=== PATIENT | female | born 1975 | race Caucasian/White ===

== ENCOUNTER 2022-03-09 10:10 | Outpatient (CLI) | payer OTHER, SELFPAY ==
--- NOTE | 2022-03-09 10:19 | CRLHL7_ITS ---
For Patients: As a result of the Century Cures Act, medical imaging exams and procedure reports are released immediately into your electronic medical record. You may view this report before your referring provider. If you have questions, please contact your health care provider. INDICATION: HX THYROID CANCER, RIGHT THYROIDECTOMY, 6 MONTH SURVEILLANCE COMPARISON: 07/16/2021 TECHNIQUE: Melton scale and color Doppler images were acquired of the thyroid gland. FINDINGS: Postoperative changes right thyroidectomy. Left thyroid lobe measures 4.9 x 1.6 x 1.5 cm. Stable cystic nodule posterior left thyroid measuring 9 x 8 x 6 millimeters. Stable sponge like nodule lower pole left thyroid lobe measuring 5 x 3 x 5 millimeters. Stable cystic nodule lower pole left thyroid lobe measuring 3 x 2 x 3 millimeters. No adenopathy. Normal vascularity. IMPRESSION: Status post right thyroidectomy. Stable benign nodules left thyroid lobe measuring 9 millimeters or less. Dictated by Rosas Meredith MD @ 03/09/2022 11:20:05 AM (Electronically Signed)
== END 2022-03-09 10:11 | disposition home or self-care (01) ==
LOC: US 10:13
PROVIDERS: PCP Internal Medicine; Visit Provider Internal Medicine Endocrinology, Diabetes & Metabolism
DX: C73 Malignant neoplasm of thyroid gland (principal)
CPT/HCPCS: 76536

== ENCOUNTER 2022-03-23 13:14 | Outpatient (CLI) | payer OTHER, SELFPAY ==
[2022-03-23 15:46] LABS: Cholesterol* 207 mg/dL (90-199)
[2022-03-23 15:47] LABS: HDL Cholesterol* 61 mg/dL (>=50); LDL Cholesterol Calculated 119 mg/dL (<100); Triglycerides* 135 mg/dL (40-149)
[2022-03-23 16:22] LABS: Ferritin* 21.2 ng/mL (6.24-137.0)
[2022-03-24 04:04] LABS: Glucose* 97 mg/dL (60-115)
== END 2022-03-23 13:15 | disposition home or self-care (01) ==
PROVIDERS: PCP Internal Medicine; Visit Provider Internal Medicine
DX: Z01.419 Encounter for gynecological examination (general) (routine) without abnormal findings (principal); E28.2 Polycystic ovarian syndrome; G47.61 Periodic limb movement disorder; Z13.6 Encounter for screening for cardiovascular disorders; Z13.1 Encounter for screening for diabetes mellitus
CPT/HCPCS: 80061; 82728; 82947

== ENCOUNTER 2022-05-20 12:45 | Emergency (ER) | payer MEDICAID, SELFPAY ==
[2022-05-20 13:03] VITALS: BP 129/88; PULSE 76; RESP 18; TEMP 36.5; O2SAT 99; BMI 35.4
--- NOTE | 2022-05-20 13:46 | CRLHL7_ITS ---
For Patients: As a result of the Century Cures Act, medical imaging exams and procedure reports are released immediately into your electronic medical record. You may view this report before your referring provider. If you have questions, please contact your health care provider. Indication: Fall Comparison: None available. Technique: AP and lateral views lumbar spine were obtained. Findings: There is demonstration of age indeterminate deformity of the anterior superior L4 vertebral body. The remaining vertebral body heights are grossly preserved with grade 2 anterolisthesis of L4 on L5. There is moderate facet arthrosis. There is mild to moderate multilevel degenerative disc disease with disc height loss and marginal osteophyte formation. The soft tissues are unremarkable. Impression: Age-indeterminate deformity of the anterosuperior L4 level which could represent an evolving Schmorl`s defect; however, a minimal compression fracture is difficult to exclude. Otherwise mild to moderate degenerative changes and anterolisthesis of L4 on L5. Dictated by Drew Hunt MD @ 05/20/2022 2:59:04 PM (Electronically Signed)
--- NOTE | 2022-05-20 13:46 | CRLHL7_ITS ---
For Patients: As a result of the Cures Act, medical imaging exams and procedure reports are released immediately into your electronic medical record. You may view this report before your referring provider. If you have questions, please contact your health care provider. Indication: Fall Comparison: None available. Technique: AP, lateral, and swimmer`s views thoracic spine were obtained. Findings: The thoracic vertebral body heights are grossly maintained with mild multi-level degenerative disc disease. There is no significant spondylolisthesis. There is no evidence of displaced fracture. The cervical thoracic junction is grossly intact. There is multilevel degenerative disc disease with mild disc height loss and marginal osteophyte formation. The partially visualized cervical soft tissues demonstrate postoperative changes with multiple surgical clips. Impression: Mild to moderate multilevel degenerative changes of the thoracic spine without acute osseous abnormality. Dictated by Drew Hunt MD @ 05/20/2022 3:00:41 PM (Electronically Signed)
--- OUTSIDE RECORDS SUMMARY | 2022-05-20 14:58 | XMS_ITS | Encounter Summary ---
:1975 Author Organization [facility] Address [address] [place] [address] Care Team Providers Name Role Phone Unavailable Primary Care Provider Unavailable Encounter Details Date Type Department Care Team Description 04/27/2022 Clinical Communication Division of [facility] in R, BLACK TOP ROLLER, C.N.P., [place], [place] D.N.P. [address] [facility] [address] [place] [id number] [phone] Social History Tobacco Use Types Packs/Day Years Used Date Smoking Tobacco: Never Smokeless Tobacco: Never Alcohol Habits Answer Date Recorded How often do you have a drink containing alcohol? Monthly or less 03/16/2022 How many drinks containing alcohol do you have on a 1 or 2 03/16/2022 typical day when you are drinking? How often do you have six or more drinks on one Never 03/16/2022 occasion? Social Isolation Answer Date Recorded In a typical week, how many times do you More than three liana es a week 03/16/2022 talk on the phone with family, friends, or neighbors? How often do you get together with friends More than three t imes a week 03/16/2022 or relatives? How often do you attend sikhism or Never 2021 christian services? Do you belong to any clubs or No 03/16/2022 organizations such as sikhism groups, unions, fraternal or athletic groups, or school groups? How often do you attend meetings of the Never 03/16/2022 clubs or organizations you belong to? Are you now , , , Never 03/16/2022 , never or living with a partner? Physical Activity Answer Date Recorded On average, how many days per week do you engage in moderate to 6 days 03/16/2022 strenuous exercise (like walking fast, running, jogging, dancing, swimming, biking, or other activities that cause a light or heavy sweat)? On average, how many minutes do you engage in exercise at th is 60 min 03/16/2022 level? Stress Answer Date Recorded Do you feel stress - tense, restless, nervous, or To some ex tent 03/16/2022 anxious, or unable to sleep at night because your mind is troubled all the time - these days? Financial Resource Strain Answer Date Recorded How hard is it for you to pay for the very basics like Not v tashi hard 03/16/2022 food, housing, medical care, and heating? Intimate Partner Violence Answer Date Recorded Within the last year, have you been afraid of your partner o r No 03/16/2022 ex-partner? Within the last year, have you been humiliated or emotionall y No 03/16/2022 abused in other ways by your partner or ex-partner? Within the last year, have you been kicked, hit, slapped, or No 03/16/2022 otherwise physically hurt by your partner or ex-partner? Within the last year, have you been raped or forced to have any No 03/16/2022 kind of sexual activity by your partner or ex-partner? Food Insecurity Answer Date Recorded Within the past 12 months, you worried that your food would Never true 03/16/2022 run out before you got money to buy more. Within the past 12 months, the food you bought just didn't N ever true 03/16/2022 last and you didn't have money to get more. Transportation Needs Answer Date Recorded In the past 12 months, has lack of transportation kept you f rom No 03/16/2022 medical appointments or from getting medications? In the past 12 months, has lack of transportation kept you f rom No 03/16/2022 meetings, work, or getting things needed for daily living? Housing Stability Answer Date Recorded In the last 12 months, was there a time when you were not ab le No 03/16/2022 to pay the mortgage or rent on time? In the last 12 months, how many places have you lived? 1 03/16/2022 In the last 12 months, was there a time when you did not hav e a No 03/16/[address] or slept in a assisted (including now)? Education Answer Date Recorded What is the highest level of school Master's degree (e.g., Lissett Manzo MS, 10/11/2019 you have completed or the highest Wilfredo, MEd, CAREER EDUCATION TEACHER, CHANEL) degree you have received? Sex Assigned at Date Recorded Female 03/15/2021 1:43 PM CDT documented as of this encounter Plan of Treatment Not on filedocumented as of this encounter Visit Diagnoses Not on filedocumented in this encounter
--- OUTSIDE RECORDS SUMMARY | 2022-05-20 14:58 | XMS_ITS | Clinical Summary ---
:1975 Author Organization [facility] Address [address] [place] [address] Care Team Providers Name Role Phone Unavailable Primary Care Provider Unavailable Source Comments Patient records contain information from all sites at [facility]. For routine questions regarding patient records, call [phone] during business hours, M-F 8:00 AM - 5:00 PM Central Time. Record requests for emergency care only can be directed to [phone] at any time.[facility] Allergies Active Allergy Reactions Severity Noted Date Comments Kiwi Anaphylaxis 10/16/2019 Slight airway s welling Nut - Unspecified Anaphylaxis 10/16/[address] Hazelnut Medications Medication Sig Dispensed Refills Start Date End Date Status mometasone-formoter Inhale 2 puffs 2 13 g 11 03/16/2022 Active ol (Dulera) 200-5 (two) times a mcg/actuation day. use with inhaler tape recording machine operator tube, then rinse mouth with water and spit out after each use. Do not swallow. montelukast Take 1 tablet 90 tablet 11 03/16/2022 Act anjali (SINGULAIR) 10 mg (10 mg total) by tablet mouth daily. Ventolin HFA 90 Inhale 2 puffs 18 g 2 03/16/2022 Active mcg/actuation every 6 (six) inhaler hours as needed for wheezing. fluticasone Administer 2 32 g 11 03/16/2022 Acti ve propionate sprays into each (FLONASE) 50 nostril 2 (two) mcg/actuation nasal times a day. spray levothyroxine Take 100 mcg by 0 04/13/2022 Active (SYNTHROID, mouth daily. LEVOTHROID) 100 mcg tablet levothyroxine Take 88 mcg by 0 02/11/2022 Active (SYNTHROID, mouth daily. LEVOTHROID) 88 mcg tablet budesonide Mix 1 ampule 120 mL 11 03/16/2022 Disco ntinued (PULMICORT) 0.5 budesonide in 8 2 mg/2 mL nebulizer oz saline solution solution.?? Irrigate 4 oz into each nostril twice daily.?? Supplies needed:?? Nasal Saline Irrigation Bottle, distilled water, nasal saline packet. May substitute 0.6 mg capsule if insurance does not cover the 0.5 mg respule. OK for generic. budesonide Indications: 120 mL 6 03/24/2022 Disco ntinued (Pulmicort) 0.5 controller 2 mg/2 mL nebulizer medication for solutionIndications asthma. Mix 1 : maintenance ampule in sinus therapy for asthma irrigation bottle and irrigate twice daily. Active Problems Problem Noted Date Polyposis Nasal 03/24/2022 Asthma NOS 09/13/2009 Encounters Date Type Specialty Care Team Description 04/27/2022 Clinical Endocrinology [facility], Communication Naomi Claudio APRN, C.N.P., D.N.P. 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 04/06/2022 Hospital Encounter Laboratory Medicine Reji Terry, Cancer Thyroid M.D. Papillary Perso nal History 03/24/2022 Ancillary Procedure 03/24/2022 Comprehensive Otorhinolaryngology AllenSaadia Harry Polypo sis Nasal Visit Courtney Moore 03/19/2022 Hospital Encounter Radiology Reji Terry, Cancer Thyroid M.D. Papillary Perso nal History 03/16/2022 Office Visit Allergy and Immunology Reji Terry, Ast hma Moderate Persistent (HCC) (Primary Dx); M.D. Polyposis Nasal ; Rhinitis Allerg ic; Cancer Thyroid Papillary Personal History 03/16/2022 Clinical Support Allergy and Immunology Reji Terry, Asthma Moderate Persistent (HCC); M.D. Polyposis Nasal; Schlichter, Rhinosinusitis Chronic Myah Galeana R.N. 03/13/2022 Clinical Admitting/Central Communication Scheduling 03/13/2022 Refill Allergy and Immunology Reji Terry Med Refill M.D. from Last 3 Months Immunizations Name Administration Dates Next Due Tdap 09/13/2009 Social History Tobacco Use Types Packs/Day Years Used Date Smoking Tobacco: Never Smokeless Tobacco: Never Tobacco Cessation: Counseling Given: Not Answered Alcohol Habits Answer Date Recorded How often [...] or relatives? How often do you attend zoroastrian or Never 2021 congregation services? Do you belong to any clubs or No 03/16/2022 organizations such as zoroastrian groups, unions, fraternal or athletic groups, or [...] place to sleep or slept in a care home (including now)? Education Answer Date Recorded What is the highest level of school Master's degree (e.g., M A, MS, 10/11/2019 you have completed or the highest Wilfredo, MEd, POWER BENDER OPERATOR, CHANEL) degree you have received? Sex Assigned at Date Recorded Female 03/15/2021 1:43 PM CDT Last Filed Vital Signs Vital Sign Reading Time Taken Comments Blood Pressure 115/90 07/26/2017 1:16 PM Vital sign result PERINATAL SOCIAL WORKER from Clinical No gregory. Pulse 72 07/26/2017 1:16 PM Vital sign result PERINATAL SOCIAL WORKER from Clinical No gregory. Temperature 36.1 ??C (97 ??F) 03/16/2022 9:47 AM CDT Respiratory Rate 14 12/03/2011 10:27 Vital sign result AM CDT from Clinical No gregory. Oxygen Saturation - - Inhaled Oxygen - - Concentration Weight 98.1 kg (216 lb 2.6 03/16/2022 9:47 AM oz) CDT Height 161.1 cm (5' 3.43) 03/16/2022 9:47 AM CDT Body Mass Index 37.78 03/16/2022 9:47 AM CDT Plan of Treatment Health Maintenance Due Date Last Done Comments CT Colonography 1975 Cervical Cancer Screening 1975 Cologuard 1975 Colonoscopy 1975 Colorectal Cancer Screening 1975 FIT 1975 HIV Screening 1975 Hepatitis C Screening 1975 Lipid (Cholesterol) Screening 1975 Mammogram 1975 Asthma Action Plan 10/27/2017 05/06/2016, 05/08/2015, 11/28/2013, Additional history exists Asthma Control Test Questionnaire 10/27/2017 Fasting Glucose for Diabetes 05/06/2019 05/06/2016, 012, Screening 10/13/2011 Depression Screening (Annual 06/28/2021 PHQ-2) COVID-19 Vaccine (5 - Booster for 03/17/2022 01/20/2022, , Moderna series) 10/16/2020, Additional history exists Pneumococcal vaccine (0-64 years) 03/20/2022 03/20/2021 (2 - PCV) Influenza Vaccine (#1) 2022 03/20/2021 Thyroid Stimulating Hormone (TSH) 04/06/2023 04/06/2022, test for thyroid function DTaP,Tdap,and Td Vaccines (3 - Td 03/20/2031 03/20/2021, or Tdap) Hepatitis B Vaccines Completed 04/29/2010, 02/05/2010, 12/26/2009 Procedures Procedure Name Priority Date/Time Associated Comments Diagnosis THYROGLOBULIN, TM, S Routine 04/24/2022 4:50 Cancer Thyroid Re sults for PM CDT Papillary this procedure Personal are in the History results section. THYROID-STIMULATING Routine 04/06/2022 Cancer Thyroid Result s for HORMONE-SENSITIVE (S-TSH) 10:13 AM CDT Papillary th is procedure Personal are in the History results section. T4 (THYROXINE), FREE, S Routine 04/06/2022 Cancer Thyroid Re sults for 10:13 AM CDT Papillary this procedure Personal are in the History results section. OTORHINOLARYNGOLOGY IMAGE Routine 03/24/2022 9:53 Results for EXAM AM CDT this procedure are in the results section. US THYROID RAD - Routine 03/19/2022 1:31 Cancer Thyroid Results f or (most inpatients PM CDT Papillary this proced ure and all Personal are in the outpatients) History results section. MD SPIROMETRY Routine 03/16/2022 Asthma Moderate Results for 10:04 AM CDT Persistent this procedure (HCC) are in the Polyposis Nasal results Rhinosinusitis section. Chronic from Last 3 Months Results (ABNORMAL) Thyroglobulin, Tumor Marker (04/24/2022 4:50 PM CDT) [facility] [place] Method Time Signature Thyroglobulin <1.8 <1.8 04/24/2022 [facility] Antibody, S IU/mL 9:25 PM CDT Thyroglobulin, 1.3 (H) ng/mL 04/24/2022 [facility] Tumor Marker, S 9:21 PM CDT Comment: ----REFERENCE VALUE---- Athyrotic <0.1 Intact Thyroid <=33 Thyroglobulin Interpretation SEE COMMENT 9:25 PM CDT [facility] Comment: Thyroglobulin (Tg) levels must be interp reted in the context of TSH levels, serial Tg measurements an d radioiodine ablation status. ??Tg levels of 0.1-2.0 ng/mL in athyrotic individuals on suppressive therapy indic ate a low risk of clinically detectable recurrent papillar y/follicular thyroid cancer. ?? ----ADDITIONAL INFORMATION---- PLEASE NOTE: A thyroglobulin antibody (T Lukas) reference cutoff of <4.0 IU/mL may be more suitabl e for the evaluation of autoimmune thyroiditis. Thyroglobulin flagging is based on athyr otic reference values. The thyroglobulin and thyroglobulin anti body testing methods are immunoenzymatic assays manufactured by [employer] and performed on the Onepager DXI 800 . Values obtained from different assay met hods or kits may be different and cannot be used inte rchangeably. The results cannot be interpreted as abs olute evidence for the presence or absence of malignant disease. Specimen Anatomical Collection Method Collection Time Receive d Time (Source) Location / / Volume Laterality Blood (Blood, 04/24/2022 4:50 PM 04/24/20 22 8:18 Venous) CDT PM CDT Naomi Meadows APRN, C.N.P., D.N.P. LAB BLOOD ADD -ON Performing Organization Address City/[facility] Phon e Number [facility] [address] [place], [place] [address] [place], [place] [id number] [place], [place] [address] [place] [address] [place] S-TSH (Thyroid-Stimulating Hormone - Sensitive) (04/06/2022 10:13 AM CDT) athologist Signature TSH, Sensitive 0.9 0.3 - 4.2 04/06/2022 DTL mIU/L 11:25 AM CDT Specimen Anatomical Collection Method Collection Time Receive d Time (Source) Location / / Volume Laterality Blood (Blood, 04/06/2022 10:13 04/06/2022 Venous) AM CDT 10:51 AM CDT Reji Terry M.D. LAB BLOOD ADD-ON Performing Organization Address City/[facility] Phon e Number [facility] - [address] [place] [address] [place], [place] [id number] [place] [address] T4 (Thyroxine), Free (04/06/2022 10:13 AM CDT) P athologist Signature T4 (Thyroxine), 1.6 0.9 - 1.7 04/06/2022 DTL Free, S ng/dL 11:25 AM CDT Specimen Anatomical Collection Method Collection Time Receive d Time (Source) Location / / Volume Laterality Blood (Blood, 04/06/2022 10:13 04/06/2022 Venous) AM CDT 10:51 AM CDT Reji Terry M.D. LAB BLOOD ADD-ON Performing Organization Address City/State/ZIP Code Phon e Number [facility] - [address] [place], [place] [address] [facility] [place] [address] Laboratories-[facility] [address] NOSE-Otorhinolaryngology Image Exam (03/24/2022 9:53 AM CDT) Specimen (Source) Anatomical Collection Method Collection Time Re ceived Time Location / / Volume Laterality 03/24/2022 10:27 AM CDT Narrative [facility] - 03/24/2022 9:53 AM CDT This order has been created and auto-finalized to support the import of images acquired without order. The clini josefina documentation to support these images can be found on the encounter gabriel t produced images. Provider Not In System IMG NON RAD IMAGING PROCEDUR ES Performing Organization Address City/State/ZIP Code Phon e Number [facility] NA US Thyroid (03/19/2022 1:31 PM CDT) Anatomical Region Laterality Modality Head and Neck, Ultrasound RST LOS, Ultrasound ARZ LOS, N/A Ultrasound Ultrasound FLA LOS Specimen (Source) Anatomical Collection Method Collection Time Re ceived Time Location / / Volume Laterality 03/19/2022 1:37 PM CDT Impressions 03/19/2022 1:42 PM CDT The right thyroid lobe is surgically absent. Subcentimeter nodules in the left thyroid lobe are of no suspicion or extremely lo w suspicion. No suspicious nodes identified in the neck. Narrative 03/19/2022 1:42 PM CDT EXAM: US THYROID COMPARISON: None FINDINGS: The right thyroid lobe is surgically abs ent. The left thyroid lobe measures: 1.5 cm x 1.8 cm x 5.8 cm The isthmus measures: 3 mm in AP diamete r. Thyroid parenchymal evaluation shows: Th e right thyroid lobe is surgically absent. 0.9 cm cyst in the posterior upper left thyroid lobe is of no suspicion. 0.6 cm spongiform nodule in the left lower lobe is of extremely low suspicion. Lymph nodes: ??Neck levels 1-7 were surv eyed and demonstrated a tiny slightly echogenic 7 mm nodule in the upper right thyroid bed which lik estuardo represents minimal remnant thyroid tissue. No suspicious nodes identified in the neck. Procedure Note Keri Rogers M.D. - 03/19/2022Form atting of this note might be different from the original. EXAM: US THYROID COMPARISON: None FINDINGS: The right thyroid lobe is surgically abs ent. The left thyroid lobe measures: 1.5 cm x 1.8 cm x 5.8 cm The isthmus measures: 3 mm in AP diamete r. Thyroid parenchymal evaluation shows: Th e right thyroid lobe is surgically absent. 0.9 cm cyst in the posterior upper left thyroid lobe is of no suspicion. 0.6 cm spongiform nodule in the left lower lobe is of extremely low suspicion. Lymph nodes: Neck levels 1-7 were survey ed and demonstrated a tiny slightly echogenic 7 mm nodule in the upper right thyroid bed which lik estuardo represents minimal remnant thyroid tissue. No suspicious nodes identified in the neck. IMPRESSION: The right thyroid lobe is surgically abs ent. Subcentimeter nodules in the left thyroid lobe are of no suspicion or extremely lo w suspicion. No suspicious nodes identified in the neck. Reji Terry M.D. IMG US PROCEDURES Spirometry (03/16/2022 10:04 AM CDT) P athologist Signature VC MAX PRE 3.39 L 03/17/2022 [facility] 3:18 PM CDT [address] FVC 3.32 L 03/17/2022 [facility] 3:18 PM CDT SUITE FEV1 2.64 L 03/17/2022 [facility] 3:18 PM CDT SUITE FEV1/FVC 79.34 % 03/17/2022 [facility] 3:18 PM CDT SUITE DTE31-33% 2.31 L/s 03/17/2022 [facility] 3:18 PM CDT SUITE PEF PRE 7.06 L/s 03/17/2022 [facility] 3:18 PM CDT [address] FET PRE 6.72 sec 03/17/2022 [facility] 3:18 PM CDT SUITE % PRED VC MAX 99 % % 03/17/2022 [facility] 3:18 PM CDT SU[address] FVC% 97 % % 03/17/2022 [facility] 3:18 PM CDT SUITE FEV1% 96 % % 03/17/2022 [facility] 3:18 PM CDT SUITE % PRED FEV1/FVC 98 % % 03/17/2022 [facility] 3:18 PM CDT SUITE % PRED FEF 84 % % 03/17/2022 [facility] 25-75% 3:18 PM CDT SUITE % PRED PEF 119 % % 03/17/2022 [facility] 3:18 PM CDT SU[address] PRED VC MAX 3.41 03/17/2022 [facility] 3:18 PM CDT SUITE PRED FVC 3.41 03/17/2022 [facility] 3:18 PM CDT SUITE PRED FEV 1 2.74 03/17/2022 [facility] 3:18 PM CDT SUITE PRED FEV1/FVC 80.8 03/17/2022 [facility] 3:18 PM CDT SUITE PRED FEF 25-75% 2.75 03/17/2022 [facility] 3:18 PM CDT SU[address] PRED PEF 6.0 03/17/2022 [facility] 3:18 PM CDT SUITE Specimen (Source) Anatomical Collection Method Collection Time Re ceived Time Location / / Volume Laterality 03/16/2022 10:04 AM CDT Impressions [facility] SUITE - 03/17/2022 3:18 PM C DT Within normal limits. Clinical correlati on is recommended. Narrative This result has an attachment that is no t available. Procedure Note Hira Prasad M.B.B.S., Ph.D. - 02/27 IMPRESSION: Within normal limits. Clinical correlati on is recommended. Reji Terry M.D. PFT ORDERABLES Performing Organization Address City/State/ZIP Code Phon e Number [facility] [address] from Last 3 Months Insurance Payer Benefit Plan Subscriber ID Effective Dates Phone Address Type / Group [facility] [id number] 2021-Presen [phone] [address] Medicaid HMO t [address] [place] [address]
--- OUTSIDE RECORDS SUMMARY | 2022-05-20 14:59 | XMS_ITS | Encounter Summary ---
:1975 Author Organization [facility] Address [address] [place] [address] Care Team Providers Name Role Phone Unavailable Primary Care Provider Unavailable Encounter Details Date Type Department Care Team Description 09/01/2021 Clinical Communication Division of Allergic [place], Diseases in [place], [place] [phone] [address] [facility] (Work) [place] [phone] Social History Tobacco Use Types Packs/Day Years Used Date Smoking Tobacco: Never Alcohol Habits Answer Date Recorded [...] or relatives? How often do you attend mandaen or Never 2021 orthodox services? Do you belong to any clubs or No 03/16/2022 organizations such as mandaen groups, unions, fraternal or athletic groups, or [...] place to sleep or slept in a group home (including now)? Education Answer Date Recorded What is the highest level of school Master's degree (e.g., M A, MS, 10/11/2019 you have completed or the highest Wilfredo, MEd, MANUFACTURERS AGENT, CHANEL) degree you have received? Sex Assigned at Date Recorded Female 03/15/2021 1:43 PM CDT documented as of this encounter Miscellaneous Notes Telephone Encounter - Cristela Mayer R.N. - 09/03/2021 10:27 AM CST Spoke with patient and relayed Dr. Terry's message. Patient is in agreement and will be reaching out to that provider to update them. Cristela Mayer R.N. SACTION MANAGER Telephone Encounter - Rosalia Lovell - 09/01/2021 12:20 PM CST Ms. Garcia called today to inquire if she needs to see Dr. Terry prior to a surgery she is having . She is having a cancerous nodule removed from her thyroid. She was not sure if it was necessary but wanted to check. She can be reached at [phone] SACTION MANAGER documented in this encounter Plan of Treatment Not on filedocumented as of this encounter Visit Diagnoses Not on filedocumented in this encounter
--- OUTSIDE RECORDS SUMMARY | 2022-05-20 14:59 | XMS_ITS | Encounter Summary ---
:1975 Author Organization [facility] Address [address] [place] [address] Care Team Providers Name Role Phone Unavailable Primary Care Provider Unavailable Encounter Details Date Type Department Care Team Description 09/01/2021 Clinical Communication Division of Allergic [place], Diseases in [place], [place] [phone] [address] [facility] (Work) [place] [phone] Social History Tobacco Use Types Packs/Day Years [...] or relatives? How often do you attend latter-day or Never 2021 gnosticism services? Do you belong to any clubs or No 03/16/2022 organizations such as latter-day groups, unions, fraternal or athletic groups, or [...] place to sleep or slept in a intermediate (including now)? Education Answer Date Recorded What is the highest level of school Master's degree (e.g., Lissett Manzo MS, 10/11/2019 you have completed or the highest Wilfredo, MEd, METAL TEMPLATE MAKER, CHANEL) degree you have received? Sex Assigned at Date Recorded Female 03/15/2021 1:43 PM CDT documented as of this encounter Plan of Treatment Not on filedocumented as of this encounter Visit Diagnoses Not on filedocumented in this encounter
--- OUTSIDE RECORDS SUMMARY | 2022-05-20 14:59 | XMS_ITS | Encounter Summary ---
:1975 Author Organization [facility] Address [address] [place] [address] Care Team Providers Name Role Phone Unavailable Primary Care Provider Unavailable Reason for Visit Reason Comments Med Refill Encounter Details Date Type Department Care Team Description 10/15/2021 Refill Division of Allergic Diseases Reji Sims M.D. Med Refill in [facility] [address] [facility] [address] [place] [address] [place] [phone] Social History Tobacco Use Types Packs/Day Years [...] or relatives? How often do you attend protestant or Never 2021 church services? Do you belong to any clubs or No 03/16/2022 organizations such as protestant groups, unions, fraternal or athletic groups, or [...] place to sleep or slept in a usp (including now)? Education Answer Date Recorded What is the highest level of school Master's degree (e.g., Lissett Manzo MS, 10/11/2019 you have completed or the highest Wilfredo, Jake, TRACK REPAIRER, CHANEL) degree you have received? Sex Assigned at Date Recorded Female 03/15/2021 1:43 PM CDT documented as of this encounter Plan of Treatment Not on filedocumented as of this encounter Visit Diagnoses Not on filedocumented in this encounter
--- OUTSIDE RECORDS SUMMARY | 2022-05-20 14:59 | XMS_ITS | Encounter Summary ---
:1975 Author Organization [facility] Address [address] [place] [address] Care Team Providers Name Role Phone Unavailable Primary Care Provider Unavailable Reason for Referral Outpatient (Routine) - Authorized Specialty Diagnoses / Procedures Referred By Contact Refer red To Contact Endocrinology Ángel Fang M.D. [facility] [address] [place], [place] [phone] Referral ID Status Reason Start Date Expiration Date Visits V isits Requested Authorized [id number] Authorized 04/24/2022 04/23/2025 1 1 Scheduling Instructions Okay to be scheduled with Naomi tellez utpatient (Routine) - Authorized Specialty Diagnoses / Procedures Referred By Contact Refer red To Contact Diagnoses Malignant Neoplasm Of Thyroid Papillary (HCC) Ángel Fang M.D. [facility] Procedures US Head Neck Soft Tissue [address] [place], [place] [phone] Referral ID Status Reason Start Date Expiration Date Visits V isits Requested Authorized [id number] Authorized 04/24/2022 04/24/2023 1 1 Reason for Visit Outpatient (Routine) - Closed Specialty Diagnoses / Procedures Referred By Contact Refer red To Contact Endocrinology Diagnoses Cancer Thyroid Papillary Personal History Reji Terry M.D. [facility] [address] [place], [place] [phone] Referral ID Status Reason Start Date Expiration Date Visits Requ ested Visits Authorized [id number] Closed 03/16/2022 03/16/2023 1 1 Encounter Details Date Type Department Care Team Description 04/24/2022 Comprehensive Visit Division of Reji Terry M.D. [address] [place] [phone] Malignant Neoplasm Of Thyroid Papillary (HCC) (Primary Dx); Endocrinology in Ángel Fang M.D. [address] [place] [phone] Cancer Thyroid Papillary Personal Histor y [place], [place] [address] [place] [phone] Social History Tobacco Use Types Packs/Day Years [...] or relatives? How often do you attend jew or Never 2021 yarsanism services? Do you belong to any clubs or No 03/16/2022 organizations such as jew groups, unions, fraternal or athletic groups, or [...] place to sleep or slept in a long term (including now)? Education Answer Date Recorded What is the highest level of school Master's degree (e.g., M A, MS, 10/11/2019 you have completed or the highest Wilfredo, MEd, ORDER PULLER, CHANEL) degree you have received? Sex Assigned at Date Recorded Female 03/15/2021 1:43 PM CDT documented as of this encounter Progress Notes Naomi Meadows, LESLEE, C.N.P., D.N.P. - 04/24/2022 3:30 PM CDT CHIEF COMPLAINT / REASON FOR VISIT Ena Garcia is a 46 y.o. female presenting today consultation with history of papillary thyroid cancer. SUBJECTIVE HISTORY OF PRESENT ILLNESS Patient is a pleasant 46-year-old female who presents to clinic today for consultation and to establish care. She previously has been seen at [facility]. She reports that a suspicious thyroid nodule was identified incidentally through chest CT after a horseback riding accident in June of 2021. Luckily, she did not sustain any significant injuries from her accident. Her primary care providerat [place] completed an ultrasound and biopsy where the nodule was found to be positive for PTC. She underwent right lobectomy in August of 2021. Reviewed the pathology report from [facility] available for review in document viewer. The primary nodule was 2.4 cm with uninvolved margins and no extrathyroidal extension. Staging was a PT2 and no lymph nodes were surveyed. She did not undergo RAMIREZ treatment postop, as expected. She reports calcium levels within normal limits and denies any changes to voice postoperatively. She has been taking levothyroxine dating back to several weeks postoperative. She has been at her current dose of 100 mcg since 03/04/2022 and has been doing well. She reports that initial symptoms of low energy and coldintolerance have been improving since dose optimization. Labs from 04/06/2022 show TSH at goal at 0.9 and free T4 at 1.6. Ultrasound imaging from 03/19/2022 show right lobectomy and subcentimeter nodules in the left thyroid that are of no suspicion or extremely low suspicion without suspicious lymphadenopathy. She denies any history of head or neck radiation. She notes her father had some sort of thyroid procedure many years ago, but she is unsure what his diagnosis was and he has since . She does note some systemic symptoms including difficulty staying asleep, muscle weakness, and intermittent heart palpitations. However, considering patient is biochemically euthyroid, unable to correlate symptoms with thyroid dysfunction. REVIEW OF SYSTEMS Respiratory: Positive for coughing up mucus (phlegm), dry cough, shortness of breath and wheezing. The following systems were negative: Constitutional, Skin, Eyes, ENT, Cardiovascular, Gastrointestinal, Genitourinary, Hematologic, Musculoskeletal, Neurological, Psychiatric OBJECTIVE There were no vitals taken for this visit. PHYSICAL EXAM GENERAL: Alert and oriented to person, place, and time. Resting comfortably on the exam table. No acute distress. SKIN: Flesh-toned. Warm and dry. HEAD: Normocephalic. Atraumatic. EYES: Conjunctiva clear and non-injected. Sclera white. No discharge present. NECK: Supple. Josue scar well healed without signs of infection.Left thyroid lobe without palpable nodules. LYMPHATIC: No head, neck, or supraclavicular lymphadenopathy. RESPIRATORY: Respiratory rate regular and unlabored. PSYCHIATRIC: Appropriate affect. Cooperative behavior. ASSESSMENT / PLAN #1 Malignant Neoplasm Of Thyroid Papillary (HCC) Reviewed with patient the results of her ultrasound which did not show any evidence of recurrent disease. Reviewed with patient the results of her labs, and shared with her the goal for TSH to be in the lower half of the reference range. Ordered thyroglobulin tumor marker to be completed today as thiswas not previously ordered. If her thyroglobulin is not significantly elevated, we will plan to follow-up with patient with endocrinology appointment, labs, and ultrasound in 9 months. Will be in contact with patient with results of thyroglobulin once it becomes available. Would encourage patient to seek evaluation from her primary care provider regarding her systemic symptoms as I do not believe they can be attributed to her thyroid. 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 Recommend goal TSH in the lowerhalf of normal. Plan to continue with current dosing of levothyroxine 100 mcg. Will recheck thyroid function tests in 1 year unless concerns arise. Other orders - Endocrinology office visit (clinic); Future; Expected date: 01/22/2023 documented in this encounter Consult Notes Ángel Fang M.D. - 04/24/2022 3:30 PM CDT SUBJECTIVE HISTORY OF PRESENT ILLNESS I visited with Ena, and I agree with Naomi Meadows's history, physical exam, and management plan. In brief, this lady is here to establish care for papillary thyroid carcinoma. This was an incidental diagnosis after an accident she had earlier this year. A thyroid nodule was then treated with a right lobectomy and a 2.4-cm PTC was identified. Features of pathology are described in detail by my colleague, but basically this was low-risk disease without lymph node involvement. She has been placed on levothyroxine and is here without anything concerning for hypo- or hyperthyroidism and without any local symptoms suggestive of residual disease. OBJECTIVE PHYSICAL EXAMINATION General: She is slightly overweight but in no physical distress. Neck: Her neck is supple and the scar is well healed. There is no remnant palpable on the right neck, and there is no suspicious adenopathy. No nodules identified over the left neck DIAGNOSTICS Laboratory data reviewed which indicates a TSH of 0.9, and the ultrasound reviewed in detail does not indicate any suspicious areas over the right bed or any cervical adenopathy. Left lobe has couple lesions of no concern. ASSESSMENT / PLAN #1 Papillary thyroid carcinoma, status post right lobectomy (August 2021) This seemed to be low-risk disease and she has done quite well based on available data. I think thatthe outcome is excellent and I recommend we monitor in another 9 months. Goal is a TSH lower half ofnormal range. She is there. Further details per Dori. Ángel Fang M.D. CT CT Job ID: [id number] documented in this encounter Plan of Treatment Scheduled Orders Name Type Priority Associated Diagnoses Order S chedule US Head Neck Soft Imaging Malignant Neoplasm Of E xpected: 01/22/2023 Tissue Thyroid Papillary (HCC) (Hipolito roximate), Expires: 2024 S-TSH Lab Routine Malignant Neoplasm Of Expect ed: 01/22/2023 (Thyroid-Stimulating Thyroid Papillary (H CC) (Approximate), Hormone - Sensitive) Expires : 04/24/2023 T4 (Thyroxine), Free Lab Routine Malignant Neoplasm O f Expected: 01/22/2023 Thyroid Papillary (HCC) (Hipolito roximate), Expires: 2022 Thyroglobulin, Tumor Lab Routine Malignant Neoplasm O f Expected: 01/22/2023 Marker Thyroid Papillary (HCC) (Hipolito roximate), Expires: 2022 Scheduled Referrals Name Type Priority Associated Order Schedule Diagnoses Endocrinology office Outpatient Referral Routine Expected: visit (clinic) 01/22/2023 (Approximate), Expires: 07/25/2023 documented as of this encounter Results (ABNORMAL) Thyroglobulin, Tumor Marker (04/24/2022 4:50 PM CDT) [facility] Method Time Signature Thyroglobulin <1.8 <1.8 04/24/2022 [facility] Antibody, S IU/mL 9:25 PM CDT Thyroglobulin, 1.3 (H) ng/mL 04/24/2022 [facility] Tumor Marker, S 9:21 PM CDT Comment: [...] testing methods are immunoenzymatic assays manufactured by [employer] and performed on the [employer] DXI 800 . Values obtained from different assay met hods or kits may be different and cannot be used inte rchangeably. The results cannot be interpreted as abs olute evidence for the presence or absence of malignant disease. Specimen Anatomical Collection Method Collection Time Receive d Time (Source) Location / / Volume Laterality Blood (Blood, 04/24/2022 4:50 PM 04/24/20 8:18 Venous) CDT PM CDT Naomi Meadows APRN, C.N.P., D.N.P. LAB BLOOD ADD -ON Performing Organization Address City/State/ZIP Code Phon e Number [facility] [address] [place], [place] [phone] [facility] [place] [address] [facility] [address] [place] documented in this encounter Visit Diagnoses Diagnosis Malignant Neoplasm Of Thyroid Papillary (HCC) - Primary Cancer Thyroid Papillary Personal Histor y documented in this encounter
--- OUTSIDE RECORDS SUMMARY | 2022-05-20 14:59 | XMS_ITS | Encounter Summary ---
:1975 Author Organization [facility] Address [address] [place] [address] Care Team Providers Name Role Phone Unavailable Primary Care Provider Unavailable Encounter Details Date Type Department Care Team Description 03/13/2022 Clinical Communication Visit Review in [place], [place] [address] [place], [place] [phone] Social History Tobacco Use Types Packs/Day Years [...] do you attend jew or Never 2021 alevism services? Do you belong to any clubs [...] place to sleep or slept in a halfway (including now)? Education Answer Date Recorded What is the highest level of school Master's degree (e.g., Lissett Manzo MS, 10/11/2019 you have completed or the highest Wilfredo, Jake, BEHAVIORAL HEALTH COUNSELOR, CHANEL) degree you have received? Sex Assigned at Date Recorded Female 03/15/2021 1:43 PM CDT documented as of this encounter Plan of Treatment Not on filedocumented as of this encounter Visit Diagnoses Not on filedocumented in this encounter
--- OUTSIDE RECORDS SUMMARY | 2022-05-20 14:59 | XMS_ITS | Encounter Summary ---
:1975 Author Organization [facility] Address [address] [place] [address] Care Team Providers Name Role Phone Unavailable Primary Care Provider Unavailable Reason for Visit Reason Comments Allergy Testing Spirometry Outpatient (Routine) - Closed Specialty Diagnoses / Procedures Referred By Contact Refer red To Contact Diagnoses Asthma Moderate Persistent (HCC) Rhinitis Allergic Polyposis Nasal Chronic Cough Reji Terry M.D. [facility] Procedures Spirometry [address] [place] [phone] Referral ID Status Reason Start Date Expiration Date Visits Requ ested Visits Authorized [id number] Closed 12/25/2020 12/25/2021 1 1 Encounter Details Date Type Department Care Team Description 03/17/2021 Clinical Support Division of Allergic Tan Terry M.D. [address] [place] [phone] Asthma Moderate Persistent (HCC); Diseases in Kathrine Cuevas R.N. [address] [place] [phone] Rhinitis Allergic; [place], [place] Polyposis Nasal; [address] [facility] [place] [phone] Social History Tobacco Use Types Packs/Day Years [...] or relatives? How often do you attend samaritan or Never 2021 episcopal services? Do you belong to any clubs or No 03/16/2022 organizations such as samaritan groups, unions, [email or web address] or athletic groups, or school groups? How [...] have completed or the highest Wilfredo, MEd, SWIMMING POOL SALESPERSON, CHANEL) degree you have received? Sex Assigned at Date Recorded Female 03/15/2021 1:43 PM CDT documented as of this encounter Plan of Treatment Not on filedocumented as of this encounter Procedures Procedure Name Priority Date/Time Associated Comments Diagnosis NV BRONCHODILATION Routine 03/17/2021 1:10 Asthma Moderate Res ults for this RESPONSIVENESS PM CDT Persistent (HCC) procedure are in Rhinitis Allergi c the results Polyposis Nasal section. Chronic Cough documented in this encounter Results Spirometry (03/17/2021 1:10 PM CDT) Analysis Performed At Patho logist Time Signature VC MAX POST 3.27 L 03/19/2021 [facility] 8:39 AM CDT SUITE PostFVC 3.26 L 03/19/2021 [facility] 8:39 AM CDT SUITE PostFEV1 2.60 L 03/19/2021 [facility] 8:39 AM CDT SUITE FEV1/FVC POST 79.71 % 03/19/2021 [facility] 8:39 AM CDT SUITE FEF 25-75 % 2.29 L/s 03/19/2021 [facility] 8:39 AM CDT SUITE PEF POST 6.49 L/s 03/19/2021 [facility] 8:39 AM CDT SUITE FET POST 7.87 sec 03/19/2021 [facility] 8:39 AM CDT SU[address] VC MAX PRE 3.31 L 03/19/2021 [facility] 8:39 AM CDT SUITE FVC 3.31 L 03/19/2021 [facility] 8:39 AM CDT SUITE FEV1 2.49 L 03/19/2021 [facility] 8:39 AM CDT SUITE FEV1/FVC 75.18 % 03/19/2021 [facility] 8:39 AM CDT SUITE UED00-12% 1.97 L/s 03/19/2021 [facility] 8:39 AM CDT SUITE PEF PRE 6.51 L/s 03/19/2021 [facility] 8:39 AM CDT SUITE FET PRE 9.75 sec 03/19/2021 [facility] 8:39 AM CDT SUITE SUBSTANCE POST Albuterol 03/19/2021 [facility] 8:39 AM CDT SU[address] DOSE POST 2 Puff 03/19/2021 [facility] 8:39 AM CDT SUITE % PRED VC MAX 96 % % 03/19/2021 [facility] 8:39 AM CDT SUITE FVC% 96 % % 03/19/2021 [facility] 8:39 AM CDT SUITE FEV1% 90 % % 03/19/2021 [facility] 8:39 AM CDT SUITE % PRED 93 % % 03/19/2021 [facility] FEV1/FVC 8:39 AM CDT SUITE % PRED FEF 70 % % 03/19/2021 [facility] 25-75% 8:39 AM CDT SUITE % PRED PEF 109 % % 03/19/2021 [facility] 8:39 AM CDT SUITE PRED VC MAX 3.46 03/19/2021 [facility] 8:39 AM CDT SUITE PRED FVC 3.46 03/19/2021 [facility] 8:39 AM CDT SUITE PRED FEV 1 2.78 03/19/2021 [facility] 8:39 AM CDT SUITE PRED FEV1/FVC 80.9 03/19/2021 [facility] 8:39 AM CDT SUITE PRED FEF 2.80 03/19/2021 [facility] 25-75% 8:39 AM CDT SU[address] PRED PEF 6.0 03/19/2021 [facility] 8:39 AM CDT SUITE Specimen (Source) Anatomical Collection Method Collection Time Re ceived Time Location / / Volume Laterality 03/17/2021 1:10 PM CDT Narrative This result has an attachment that is no t available. Reji Terry M.D. PFT ORDERABLES Performing Organization Address City/State/ZIP Code Phon e Number [facility] documented in this encounter Visit Diagnoses Diagnosis Asthma Moderate Persistent (HCC) Rhinitis Allergic Polyposis Nasal Chronic Cough documented in this encounter
--- OUTSIDE RECORDS SUMMARY | 2022-05-20 14:59 | XMS_ITS | Encounter Summary ---
:1975 Author Organization [facility] Address [address] [place] [address] Care Team Providers Name Role Phone Unavailable Primary Care Provider Unavailable Reason for Visit Reason Comments Allergy Testing Outpatient (Routine) - Closed Specialty Diagnoses / Procedures Referred By Contact Refer red To Contact Diagnoses Asthma Moderate Persistent (HCC) Polyposis Nasal Rhinosinusitis Chronic Reji Terry M.D. [facility] Procedures Spirometry [address] [place] [phone] Referral ID Status Reason Start Date Expiration Date Visits Requ ested Visits Authorized [id number] Closed 12/09/2021 12/09/2022 1 1 Encounter Details Date Type Department Care Team Description 03/16/2022 Clinical Support Division of Reji Terry M.D. [address] [place] [phone] Asthma Moderate Persistent (HCC); Allergic Diseases Myah Nichols RAdalidNAdalid [address] [place] [phone] Polyposis Nasal; in [place], Rhinosinusitis Chronic [place] [address] [place] [phone] Social History Tobacco Use Types Packs/Day Years [...] or relatives? How often do you attend yarsani or Never 2021 jew services? Do you belong to any clubs or No 03/16/2022 organizations such as yarsani groups, unions, fraBlinkit or athletic groups, or school groups? How [...] place to sleep or slept in a skilled nursing (including now)? Education Answer Date Recorded What is the highest level of school Master's degree (e.g., M A, MS, 10/11/2019 you have completed or the highest Wilfredo, MEd, MEDICAL ASSISTANT, CHANEL) degree you have received? Sex Assigned at Date Recorded Female 03/15/2021 1:43 PM CDT documented as of this encounter Last Filed Vital Signs Vital Sign Reading Time Taken Comments Blood Pressure - - Pulse - - Temperature 36.1 ??C (97 ??F) 03/16/2022 9:47 AM CDT Respiratory Rate - - Oxygen Saturation - - Inhaled Oxygen Concentration - - Weight 98.1 kg (216 lb 2.6 oz) 03/16/2022 9:47 AM CDT Height 161.1 cm (5' 3.43) 03/16/2022 9:47 AM CDT Body Mass Index 37.78 03/16/2022 9:47 AM CDT documented in this encounter Plan of Treatment Not on filedocumented as of this encounter Procedures Procedure Name Priority Date/Time Associated Diagnosis Comme nts OK SPIROMETRY Routine 03/16/2022 10:04 AM Asthma Moderate Resu lts for this CDT Persistent (HCC) procedure are in the Polyposis Nasal results section. Rhinosinusitis Chronic documented in this encounter Results Spirometry (03/16/2022 10:04 AM CDT) P athologist Signature VC MAX PRE 3.39 L 03/17/2022 [facility] 3:18 PM CDT SU[address] FVC 3.32 L 03/17/2022 [facility] 3:18 PM CDT SUITE FEV1 2.64 L 03/17/2022 [facility] 3:18 PM CDT SUITE FEV1/FVC 79.34 % 03/17/2022 [facility] 3:18 PM CDT SUITE KRR36-85% 2.31 L/s 03/17/2022 [facility] 3:18 PM CDT SU[address] PEF PRE 7.06 L/s 03/17/2022 [facility] 3:18 PM CDT [address] FET PRE 6.72 sec 03/17/2022 [facility] 3:18 PM CDT SUITE % PRED VC MAX 99 % % 03/17/2022 [facility] 3:18 PM CDT SU[address] FVC% 97 % % 03/17/2022 [facility] 3:18 PM CDT SUITE FEV1% 96 % % 03/17/2022 [facility] 3:18 PM CDT SUITE % PRED FEV1/FVC 98 % % 03/17/2022 [facility] 3:18 PM CDT SUITE % PRED FEF 84 % % 03/17/2022 [facility] 25-75% 3:18 PM CDT SUITE % PRED PEF 119 % % 03/17/2022 [facility] 3:18 PM CDT [address] PRED VC MAX 3.41 03/17/2022 [facility] 3:18 PM CDT SU[address] PRED FVC 3.41 03/17/2022 [facility] 3:18 PM CDT SU[address] PRED FEV 1 2.74 03/17/2022 [facility] 3:18 PM CDT [address] PRED FEV1/FVC 80.8 03/17/2022 [facility] 3:18 PM CD[address] PRED FEF 25-75% 2.75 03/17/2022 [facility] 3:18 [address] PRED PEF 6.0 03/17/2022 [facility] 3:18 PM CDT SUITE Specimen (Source) Anatomical Collection Method Collection Time Re ceived Time Location / / Volume Laterality 03/16/2022 10:04 AM CDT Impressions [facility] - 03/17/2022 3:18 PM C DT Within normal limits. Clinical correlati on is recommended. Narrative This result has an attachment that is no t available. Procedure Note Hira Prasad M.B.B.S., Ph.D. - 02/27 IMPRESSION: Within normal limits. Clinical correlati on is recommended. Reji Terry M.D. PFT ORDERABLES Performing Organization Address City/State/ZIP Code Phon e Number [facility] NA documented in this encounter Visit Diagnoses Diagnosis Asthma Moderate Persistent (HCC) Polyposis Nasal Rhinosinusitis Chronic documented in this encounter
--- OUTSIDE RECORDS SUMMARY | 2022-05-20 14:59 | XMS_ITS | Encounter Summary ---
:1975 Author Organization [facility] Address [address] [place] [address] Care Team Providers Name Role Phone Unavailable Primary Care Provider Unavailable Reason for Referral Outpatient (Routine) - Closed Specialty Diagnoses / Procedures Referred By Contact Refer red To Contact Diagnoses Asthma Moderate Persistent (HCC) Polyposis Nasal Rhinosinusitis Chronic Reji Terry M.D. [facility] Procedures Spirometry [address] [place] [phone] Referral ID Status Reason Start Date Expiration Date Visits Requ ested Visits Authorized [id number] Closed 12/09/2021 12/09/2022 1 1 Reason for Visit Reason Comments Pre-visit Testing Orders Encounter Details Date Type Department Care Team Description 12/09/2021 Clinical Communication Division of Reji Terry Pre-v isit Testing Allergic Diseases Courtney Acosta Orders in [address] [place] [phone] [place], [place] [phone] (Work) [phone] Social History Tobacco Use Types Packs/Day Years [...] or relatives? How often do you attend jainism or Never 2021 pentecostalism services? Do you belong to any clubs or No 03/16/2022 organizations such as jainism groups, unions, fraternal or athletic groups, or [...] place to sleep or slept in a senior living (including now)? Education Answer Date Recorded What is the highest level of school Master's degree (e.g., M A, MS, 10/11/2019 you have completed or the highest iWlfredo, MEd, IT BUSINESS ANALYST, CHANEL) degree you have received? Sex Assigned at Date Recorded Female 03/15/2021 1:43 PM CDT documented as of this encounter Miscellaneous Notes Telephone Encounter - Linda Loja - 12/09/2021 10:07 AM CDT Hemanth, Patient is coming back to follow up with you. Last Seen: 03/17/2021 Future Appointment Date: Wants Late February when calendar opens. Prior Indication(s): Asthma New Symptoms:Asthma Testing Order: Breathing Test Please place any other testing that you would like to have done! Thank you! documented in this encounter Plan of Treatment Not on filedocumented as of this encounter Results Spirometry (03/16/2022 10:04 AM CDT) P athologist Signature VC MAX PRE 3.39 L 03/17/[address] [facility] 3:18 PM CDT SUITE FVC 3.32 L 03/17/2022 [facility] 3:18 PM CDT SUITE FEV1 2.64 L 03/17/2022 [facility] 3:18 PM CDT SUITE FEV1/FVC 79.34 % 03/17/2022 [facility] 3:18 PM CDT SUITE [id number]% 2.31 L/s 03/17/2022 [facility] 3:18 PM CDT SUITE PEF PRE 7.06 L/s 03/17/2022 [facility] 3:18 PM CDT SUITE FET PRE 6.72 sec 03/17/2022 [facility] 3:18 PM CDT SUITE % PRED VC MAX 99 % % 03/17/2022 [facility] 3:18 PM CDT SUITE FVC% 97 % % 03/17/2022 [facility] 3:18 PM CDT SUITE FEV1% 96 % % 03/17/2022 [facility] 3:18 PM CDT SUITE % PRED FEV1/FVC 98 % % 03/17/2022 [facility] 3:18 PM CDT SUITE % PRED FEF 84 % % 03/17/2022 [facility] 25-75% 3:18 PM CDT SUITE % PRED PEF 119 % % 03/17/2022 [facility] 3:18 PM CDT SUITE PRED VC MAX 3.41 03/17/2022 [facility] 3:18 PM CDT SUITE PRED FVC 3.41 03/17/2022 [facility] 3:18 PM CDT SUITE PRED FEV 1 2.74 03/17/2022 [facility] 3:18 PM CDT SUITE PRED FEV1/FVC 80.8 03/17/2022 [facility] 3:18 PM CDT SU[address] PRED FEF 25-75% 2.75 03/17/2022 [facility] 3:18 PM CDT SUITE PRED PEF 6.0 03/17/2022 [facility] 3:18 PM CDT SUITE Specimen (Source) Anatomical Collection Method Collection Time Re ceived Time Location / / Volume Laterality 03/16/2022 10:04 AM CDT Impressions [facility] SUITE - 03/17/2022 3:18 PM C DT Within normal limits. Clinical correlati on is recommended. Narrative This result has an attachment that is no t available. Procedure Note Hira Prasad M.B.B.S., Ph.D. - 02/27 IMPRESSION: Within normal limits. Clinical correlati on is recommended. Reji Terry M.D. PFT ORDERABLES Performing Organization Address City/State/ZIP Code Phon e Number [facility] SUITE [facility] NA documented in this encounter Visit Diagnoses Diagnosis Asthma Moderate Persistent (HCC) - Prima ry Polyposis Nasal Rhinosinusitis Chronic Asthma Moderate Persistent (HCC) Polyposis Nasal Rhinosinusitis Chronic documented in this encounter Additional Health Concerns Infection Onset Date Last Indicated Resolved Time COVID19 Pending 12/09/2021 12/09/2021 12/29/2021 5:29 AM CDT documented as of this encounter
--- OUTSIDE RECORDS SUMMARY | 2022-05-20 14:59 | XMS_ITS | Encounter Summary ---
:1975 Author Organization [facility] Address [address] [place] [address] Care Team Providers Name Role Phone Unavailable Primary Care Provider Unavailable Encounter Details Date Type Department Care Team Description 08/18/2021 Orders Only Division of Allergic Reji Terry M.D. Diseases in [place], [facility] [address] [place], [place] [address] [facility] [phone] [place] [phone] Social History Tobacco Use Types Packs/Day Years [...] do you attend protestant or Never 2021 denominational services? Do you belong to any clubs [...] place to sleep or slept in a nursing home (including now)? Education Answer Date Recorded What is the highest level of school Master's degree (e.g., Lissett Manzo MS, 10/11/2019 you have completed or the highest Wilfredo, Jake, CARD SELLER, CHANEL) degree you have received? Sex Assigned at Date Recorded Female 03/15/2021 1:43 PM CDT documented as of this encounter Plan of Treatment Not on filedocumented as of this encounter Visit Diagnoses Not on filedocumented in this encounter
--- OUTSIDE RECORDS SUMMARY | 2022-05-20 14:59 | XMS_ITS | Encounter Summary ---
:1975 Author Organization [facility] Address [address] [place] [address] Care Team Providers Name Role Phone Unavailable Primary Care Provider Unavailable Encounter Details Date Type Department Care Team Description 03/17/2021 Hospital Encounter Department of Reji Terry, Asthma Moderate Persistent (HCC); Radiology, [facility] Rhinitis Allergic; [facility], in 200 [facility] Polyposis Nasal; [place], [place] Chronic Cough [address] [facility] [address] [place], [place] [phone] (Work) [phone] Social History Tobacco Use Types Packs/Day Years [...] or relatives? How often do you attend mormon or Never 2021 holiness services? Do you belong to any clubs or No 03/16/2022 organizations such as mormon groups, unions, fraternal or athletic groups, or [...] place to sleep or slept in a [facility] (including now)? Education Answer Date Recorded What is the highest level of school Master's degree (e.g., M Anais, MS, 10/11/2019 you have completed or the highest Wilfredo, MEd, TIGHTENING MACHINE OPERATOR, CHANEL) degree you have received? Sex Assigned at Date Recorded Female 03/15/2021 1:43 PM CDT documented as of this encounter Medications at Time of Discharge Medication Sig Dispensed Refills Start Date End Date albuterol sulfate 90 Inhale 2 puffs every 6 1 each 3 03/16/2022 mcg/actuation aero (six) hours as needed powdr breath act (cough or wheeze). w/sensor budesonide (PULMICORT) Mix 1 ampule 120 mL 03/17/2021 03/16/2022 0.5 mg/2 mL nebulizer budesonide in 8 oz solution saline solution.?? Irrigate 4 oz into each nostril twice daily.?? Supplies needed:?? Nasal Saline Irrigation Bottle, distilled water, nasal saline packet. May substitute 0.6 mg capsule if insurance does not cover the 0.5 mg respule. OK for generic. fluticasone propionate Administer 2 sprays 32 g 11/2810/15/2021 (FLONASE) 50 into each nostril 2 mcg/actuation nasal (two) times a day. spray mometasone-formoterol Inhale 2 puffs 2 (two) 3 Inhaler 01/13/2022 (DULERA 200) 200-5 times a day. Use with mcg/actuation inhaler java developer tube. Rinse mouth with water and spit out after each use. Do not swallow. montelukast (SINGULAIR) Take 1 tablet (10 mg 90 tablet 01/13/2022 10 mg tablet total) by mouth daily. Ventolin HFA 90 Inhale 1-2 puffs every 54 g 3 01/03/20 21 01/08/2022 mcg/actuation inhaler 4 (four) hours as needed for wheezing or shortness of breath. documented as of this encounter Plan of Treatment Not on filedocumented as of this encounter Procedures Procedure Name Priority Date/Time Associated Comments Diagnosis DX CHEST AP OR PA RAD - Routine 03/17/2021 11:49 Asthma Moderate Re sults for this AND LATERAL 2 (most inpatients AM CDT Persistent (HCC ) procedure are in VIEWS and all Rhinitis Allergi c the results outpatients) Polyposis Nasal section. Chronic Cough documented in this encounter Results DX Chest AP or PA and Lateral 2 Views (03/17/2021 11:49 AM CDT) Anatomical Region Laterality Modality Chest, Thoracic RST LOS, Thoracic ARZ LOS, Thoracic N/A Digital Radiography FLA LOS Specimen (Source) Anatomical Collection Method Collection Time Re ceived Time Location / / Volume Laterality 03/17/2021 1:01 PM CDT Impressions 03/17/2021 1:01 PM CDT Compared with the 10/13/2011 chest radiograph. Improved aeration. Aortic calcification is more apparent on the current exam. The chest is otherwise unremarkable. ?? Narrative 03/17/2021 1:01 PM CDT EXAM: ??DX CHEST AP OR PA AND LATERAL 2 VIEWS Procedure Note Conrad Olsen M.D. - 03/17/2021Formattin g of this note might be different from the original. EXAM: DX CHEST AP OR PA AND LATERAL 2 EWS IMPRESSION: Compared with the 10/13/2011 chest radio graph. Improved aeration. Aortic calcification is more apparent on the current exam. The chest is otherwise unremarkable. Reji [facility] ALEXIS MONTAÑO documented in this encounter Visit Diagnoses Diagnosis Asthma Moderate Persistent (HCC) Rhinitis Allergic Polyposis Nasal Chronic Cough documented in this encounter
--- OUTSIDE RECORDS SUMMARY | 2022-05-20 14:59 | XMS_ITS | Encounter Summary ---
:1975 Author Organization [facility] Address [address] [place] [address] Care Team Providers Name Role Phone Unavailable Primary Care Provider Unavailable Reason for Visit Reason Comments Med Refill Encounter Details Date Type Department Care Team Description 03/13/2022 Refill Division of Allergic Diseases Reji Sims M.D. Med Refill in [facility] [address] [facility] [address] [place] [address] [place] [phone] Social History Tobacco Use Types Packs/Day Years [...] or relatives? How often do you attend bahai or Never 2021 latter day services? Do you belong to any clubs or No 03/16/2022 organizations such as bahai groups, unions, fraternal or athletic groups, or [...] place to sleep or slept in a prison (including now)? Education Answer Date Recorded What is the highest level of school Master's degree (e.g., Lissett Manzo MS, 10/11/2019 you have completed or the highest Wilfredo, MEd, PAPERHANGER AND PAINTER, CHANEL) degree you have received? Sex Assigned at Date Recorded Female 03/15/2021 1:43 PM CDT documented as of this encounter Plan of Treatment Not on filedocumented as of this encounter Visit Diagnoses Not on filedocumented in this encounter
--- OUTSIDE RECORDS SUMMARY | 2022-05-20 14:59 | XMS_ITS | Encounter Summary ---
:1975 Author Organization [facility] Address [address] [place] [id number] Care Team Providers Name Role Phone Unavailable Primary Care Provider Unavailable Reason for Referral Specialty Diagnoses / Procedures Referred By Contact Refer red To Contact Reji Terry M.D. [address] [phone] Referral ID Status Reason Start Date Expiration Date Visits Requ ested Visits Authorized RI/CAT/PET Scan (Routine) - Closed Specialty Diagnoses / Procedures Referred By Contact Refer red To Contact Radiology Diagnoses Asthma Moderate Persistent (HCC) Polyposis Nasal Rhinosinusitis Chronic Rhinitis Allergic Reji Terry M.D. [facility] Procedures CT Sinuses without IV Contrast [address] [place] [phone] Referral ID Status Reason Start Date Expiration Date Visits Requ ested Visits Authorized [id number] Closed 03/17/2021 03/17/2022 1 1 Reason for Visit Outpatient (Routine) - Closed Specialty Diagnoses / Procedures Referred By Contact Refer red To Contact Allergy and Immunology Reji Terry M. D. [facility] [address] [place] [phone] Referral ID Status Reason Start Date Expiration Date Visits Requ ested Visits Authorized [id number] Closed 12/25/2020 12/25/2021 1 1 Encounter Details Date Type Department Care Team Description 03/17/2021 Office Visit Division of Allergic Reji Terry Asthm a Moderate Persistent (HCC) (Primary Dx); Diseases in M.D. Polyposis Nasal; [place], [place] [address] [facility] Rhinosinusitis Chronic; [address] [place], [place] [phone] Social History Tobacco Use Types Packs/Day Years [...] or relatives? How often do you attend quaker or Never 2021 orthodox services? Do you belong to any clubs or No 03/16/2022 organizations such as quaker groups, unions, fraternal or athletic groups, or [...] place to sleep or slept in a mcc (including now)? Education Answer Date Recorded What is the highest level of school Master's degree (e.g., M Anais, MS, 10/11/2019 you have completed or the highest Wilfredo, MEd, NEON TECHNICIAN, CHANEL) degree you have received? Sex Assigned at Date Recorded Female 03/15/2021 1:43 PM CDT documented as of this encounter Last Filed Vital Signs Vital Sign Reading Time Taken Comments Blood Pressure - - Pulse - - Temperature 36.9 ??C (98.4 ??F) 03/17/2021 1:06 PM CDT Respiratory Rate - - Oxygen Saturation - - Inhaled Oxygen Concentration - - Weight 103 kg (227 lb 1.2 oz) 03/17/2021 1:06 PM CDT Height 161.5 cm (5' 3.58) 03/17/2021 1:06 PM CDT Body Mass Index 39.49 03/17/2021 1:06 PM CDT documented in this encounter Consult Notes Reji Terry M.D. - 03/17/2021 2:30 PM CDT Referral: Reji Terry M.D. [address] [place] [phone] Home Address: [address] [place] [address] CHIEF COMPLAINT / REASON FOR VISIT Ms. Ena Garcia is a 45 y.o. female who presents today for chronic cough and asthma. HISTORY OF PRESENT ILLNESS Ms. Ena Garcia is a pleasant 45 year female with a known history of asthma but also a chronic cough that has been present for the past approximate year. We had a recent virtual visit on December 25, 2020 where she had noted the cough is a problem. The suspicion was for asthma given the clinical features and so we substituted Dulera 200/5 2 puffs twice daily in place of her Asmanex. We scheduled a follow-up visit to ensure she was improving. Her cough is no worse. Her spirometry was normal. Her chest x-ray was without significant abnormalities. However, she continues to cough. She may cough at night. She reports that the cough is like her asthma cough. She feels that albuterol provides benefitwhen she uses it for the cough. She also reports that she has heard some wheezing. She has a known history of nasal polyps. 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 She is notwearing an in 95 mask while doing the teaching. She is using a surgical mask which would not inhibitdust inhalation. She reports that she had experienced what she thought was the COVID-19 viral infection back in July 2019. She was never tested positive for the viral infection. She denies a history of exertional angina. She is a nonsmoker. She has plans to meet with a primary provider within the next week or 2. She reports a history of polycystic ovarian syndrome. She denies anosmia although later on physical examination she clearly has bilateral nasal polyps. She denies significant GERD. We note that she has recently moved in with her mother to help take care of her. She reports her mother is mentally sharp but there is some activities since her father 1 year ago that she can be helpful with. Current Outpatient Medications: ??? albuterol sulfate 90 mcg/actuation aero powdr breath act w/sensor, Inhale 2 puffs every 6 (six) hours as needed (cough or wheeze)., Disp: 1 each, Rfl: 3 ??? fluticasone propionate (FLONASE) 50 mcg/actuation nasal spray, Administer 2 sprays into each nostril 2 (two) times a day., Disp: 32 g, Rfl: 11 ??? mometasone-formoterol (DULERA 200) 200-5 mcg/actuation inhaler, Inhale 2 puffs 2 (two) times a day. Use with processing operator tube. Rinse mouth with water and spit out after each use. Do not swallow., Disp: 3 Inhaler, Rfl: 11 ??? montelukast (SINGULAIR) 10 mg tablet, Take 1 tablet (10 mg total) by mouth daily., Disp: 90 tablet, Rfl: 11 ??? Ventolin HFA 90 mcg/actuation inhaler, Inhale 1-2 puffs every 4 (four) hours as needed for wheezing or shortness of breath., Disp: 54 g, Rfl: 3 ??? budesonide (PULMICORT) 0.5 mg/2 mL nebulizer solution, Mix 1 ampule budesonide in 8 oz saline solution.?? Irrigate 4 oz into each nostril twice daily.?? Supplies needed:?? Nasal Saline Irrigation Bottle, distilled water, nasal saline packet. May substitute 0.6 mg capsule if insurance does not cover the 0.5 mg respule. OK for generic., Disp: 120 mL, Rfl: 11 Allergies Allergen Reactions ??? Kiwi Anaphylaxis Slight airway swelling ??? Nut - Unspecified Anaphylaxis Slight airway swelling Hazelnut Social History Tobacco Use ??? Smoking status: Never Smoker Substance Use Topics ??? Alcohol use: Not on file ??? Drug use: Not on file PAST MEDICAL/SURGICAL HISTORY 1. History of LASIK surgery 2. History of cholecystectomy 3. Asthma 4. Polycystic ovarian syndrome 5. Nasal polyps ?? FAMILY HISTORY Asthma in her father who is now . ??Prostate cancer, colon polyp, and hypertension present in the family as well. ?? REVIEW OF SYSTEMS Respiratory: Positive for coughing up mucus (phlegm), dry cough, dyspnea and wheezing. The following systems were negative: Constitutional, Skin, Eyes, ENT, CV, GI, , Hematologic, Musculoskeletal, Neuro, Psych Pertinent positives included in History of Present Illness as they pertain to the patient???s presenting complaints in the allergy/immunology. Otherwise the patient is encouraged to review medical issues with appropriate medical providers. PHYSICAL EXAM Vital Signs: Temperature 36.9 ??C, temperature source Tympanic, height 161.5 cm, weight 103 kg. Bodymass index is 39.49 kg/m??. General: Alert and oriented times three, in no apparent distress. Eyes: Pupils equally round and reactive to light. Extraocular muscles intact. Sclerae without erythema. Head: Normocephalic, atraumatic. ENT: Ears: Tympanic membranes clear bilaterally. Nose: Bilateral nasal polyps on anterior inspection. Mouth and throat are unremarkable. Neck: Supple without palpable adenopathy or thyromegaly. Lungs: The chest wall is symmetric with normal expansion. There is no tenderness or visible deformity. Auscultation shows no wheezes, crackles, or rubs. Heart: Regular rate and rhythm. Normal S1, S2. No audible S3, S4, murmur or rub. Abdomen: Soft, nontender, nondistended. No palpable hepatosplenomegaly. Bowel sounds are present. Extremities: Right 1+, left trace pedal edema. There is no calf tenderness. Neurologic: Normal gait. Normal alternating movements of the upper and lower extremities Skin: No urticaria or angioedema. ASSESSMENT / PLAN #1 Asthma Moderate Persistent (HCC) #2 Polyposis Nasal #3 Rhinosinusitis Chronic #4 Rhinitis Allergic We discussed with Ms. Garcia that we are concerned with her ongoing cough. She has a history of moderate persistent asthma and the spirometry itself did not confirm airway obstruction at the present time. Her symptoms do continue to represent asthma with the cough, history of wheeze, improvement with albuterol and her perception that this feels like her asthma. We discussed a number of options and considerations. She has not used prednisone in a number of years. In 2016 her weight was 85.5 kg and the current weight is now 103 kg suggesting that there could be some weight related issues. She christophe is very active and walks 1 mi a day without any difficulties. Again, there is no exertional angina. We were concerned regarding a description of aortic calcification on her chest x-ray. She is only45 years old and has a nonsmoker we were not expecting aortic calcification to be a prominent finding. She should discuss what sounds like a clue to possible atherosclerosis with her primary care provider. She should likely have assessments of her lipids and other cardiovascular risk factors. She may need to undergo cardiology evaluation and a treadmill. 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 She believes that would reduce her horse dander exposure by 80%. She did have a 6 x 5 flare skin test response to horse on January 11, 2009 and we would expect in the context of her clinical presentation that horse dander could be promoting coughing and tendency for wheezing. She is also willing to undergo a CT scan of the sinuses and further evaluation in Otolaryngology because of the bilateral nasal polyps. We recommend she continue with the current dose of Dulera and Singulair. Plans are for her to follow-up in around 2 months with a complete PFT for reassessment. She has received 2 doses of the COVID-19 Moderna vaccine. In the interim, she is to meet with her primary provider for further evaluation. / Orders Placed This Encounter Procedures ??? CT Sinuses without IV Contrast ??? Otorhinolaryngology - Rhinologic and sinus surgery consult (clinic) ??? Allergy - Nurse education visit (clinic) ??? Allergy and Immunology office visit (clinic) ??? Pulmonary Function Tests PATIENT EDUCATION Barriers of understanding are assessed, and the patient demonstrates readiness to learn. The patientappeared to exhibit a heightened awareness of the content of the discussion. Dr. Terry provides a year's refill on most regular asthma/immunology prescriptions. There is usuallyno need for additional refills within the year. If insurance refuses coverage for a prescription please contact our care team and we are very willing to help find a suitable alternative if one is available on the insurance plan. Prescription refills beyond one year should be obtained through a scheduled appointment or with a primary provider or local specialist. Current plans are for follow-up in 2 months period of time or earlier for any new or changed allergyrelated problems. Follow-up with a primary provider is encouraged for all patients. If there are urgent or emergent medical issues then the patient is encouraged to seek appropriate medical care including emergency room evaluation or activation of emergency medical services including 911 if needed. I personally spent 35 minutes in care of the patient today. Time includes both non face to face and face to face patient care. Addendum March 18, 2021: The CT scan of the sinuses is surprisingly favorable with regard to the sinus portions of the scan and the ostiomeatal units which are patent. However, she appears to have a polyp arising off the anterior portion of the right middle turbinate. In addition there appears to be at least 1 polyp arising from the left middle turbinate as well. I called these results to Ms. Garcia and encouraged her to keep the ENT appointment. This is more of a pure nasal polyp history rather than actual chronic rhinosinusitis with nasal polyps. I would be less inclined to attribute the asthma symptoms on the nasal polyps in this type of situation. She is to continue with plans for budesonide irrigations and also to reduce allergen/horse dander exposures. She is to keep the ENT appointment in follow-up within the nextcouple of months or earlier for any problems related to allergies and asthma. Dr. Terry Addendum June 09, 2021: We received a call from Ms. Garcia that she tested positive for COVID as did her 83-year-old mother.Her mother's symptoms began 2 weeks ago and she has been improving. Her mother was fully vaccinated.Ms. Garcia had received 2 of the Moderna vaccines in early 2020. Her symptoms began 6 days ago with some fever. The fever resolved. Ms. Garcia reports that her symptoms have been more like a head cold.She has been monitoring her oximetry which is been normal. She has been taking her asthma medications and intranasal Flonase 2 puffs each nostril twice daily, regularly. She is unaware of any other risk factors other than her controlled asthma and chronic rhinosinusitis. Ms. Garcia has appeared to past the optimal window for a antibody/biologic and she does not appear to have significant confounding factors to warrant an antibody/biologic preventative treatment for COVID-19 for what could be gathered from the story. We discussed options and she sees no need to repeat the test at the [facility] facility and work-in to the [facility] algorithm at this time. She knows to go to the emergency room if she were to experience a progression of symptoms. 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 encounter Plan of Treatment Scheduled Referrals Name Type Priority [facility]oses [facility] - Nurse Outpatient Referral Routine Asthma Moderate Ex pected: education visit Persistent (HCC) 03/17/2021 (clinic) Polyposis Nasal (Approximate), Rhinosinusitis Expires: Chronic 03/17/2024 Rhinitis Allergic documented as of this encounter Results CT Sinuses without IV Contrast (03/18/2021 8:21 AM CDT) Anatomical Region Laterality Modality Head, Neuroradiology RST LOS, N/A Computed T omography, Computed Neuroradiology ARZ LOS, Neuroradiology T omography FLA LOS Specimen (Source) Anatomical Collection Method Collection Time Re ceived Time Location / / Volume Laterality 03/18/2021 8:33 AM CDT Impressions 03/18/2021 8:35 AM CDT Trace mucosal thickening of the left greater than right maxillary sinuses. Remainder of the paranasal sinu ses are clear. Narrative 03/18/2021 8:35 AM CDT EXAM: CT SINUSES WITHOUT IV CONTRAST COMPARISON: None FINDINGS: Trace mucosal thickening of th e left greater than right maxillary sinuses without compromise of the ostiom eatal complex. Frontal sinuses and nasofrontal recesses are clear. Sphenoid sinuses and sphenoethmoidal recesses are clear. Ethmoid air cells are clear. Nasal septal deviation to the left with bony spur. Trace fluid in the right mast oid air cells, left is clear. Imaged portions of the intracranial contents ar e negative. Procedure Note Martha Joseph M.D. - 03/18/2021Formatt ing of this note might be different from the original. EXAM: CT SINUSES WITHOUT IV CONTRAST COMPARISON: None FINDINGS: Trace mucosal thickening of th e left greater than right maxillary sinuses without compromise of the ostiom eatal complex. Frontal sinuses and nasofrontal recesses are clear. Sphenoid sinuses and sphenoethmoidal recesses are clear. Ethmoid air cells are clear. Nasal septal deviation to the left with bony spur. Trace fluid in the right mast oid air cells, left is clear. Imaged portions of the intracranial contents ar e negative. IMPRESSION: Trace mucosal thickening of the left gre ater than right maxillary sinuses. Remainder of the paranasal sinu ses are clear. Reji GARCIA CT PROCEDURES documented in this encounter Visit Diagnoses Diagnosis Asthma Moderate Persistent (HCC) - Prima ry Polyposis Nasal Rhinosinusitis Chronic Rhinitis Allergic Asthma Moderate Persistent (HCC) Polyposis Nasal Rhinosinusitis Chronic Rhinitis Allergic documented in this encounter
--- OUTSIDE RECORDS SUMMARY | 2022-05-20 14:59 | XMS_ITS | Encounter Summary ---
:1975 Author Organization [facility] Address [address] [place] [address] Care Team Providers Name Role Phone Unavailable Primary Care Provider Unavailable Reason for Referral Outpatient (Routine) - Authorized Specialty Diagnoses / Procedures Referred By Contact Refer red To Contact Diagnoses Asthma Moderate Persistent (HCC) Polyposis Nasal Rhinitis Allergic Trent Terry M.D. [facility] Procedures Spirometry [address] [place], [place] [address] Referral ID Status Reason Start Date Expiration Date Visits V isits Requested Authorized [id number] Authorized 03/16/2022 03/16/2023 1 1 utpatient (Routine) - Authorized Specialty Diagnoses / Procedures Referred By Contact Refer red To Contact Allergy and Immunology Trent Terry M. D. [facility] [address] [place] [address] Referral ID Status Reason Start Date Expiration Date Visits V isits Requested Authorized [id number] Authorized 03/16/2022 03/15/2025 1 1 edication Prior Authorization - Closed Specialty Diagnoses / Procedures Referred By Contact Refer red To Contact Trent Terry M.D. [address] [place] [address] Referral ID Status Reason Start Date Expiration Date Visits Requ ested Visits Authorized [id number] Closed 1 1 utpatient (Routine) - Closed Specialty Diagnoses / Procedures Referred By Contact Refer red To Contact Otorhinolaryngology Diagnoses Polyposis Nasal Trent Terry M.D. [facility] [address] [place] [phone] Referral ID Status Reason Start Date Expiration Date Visits Requ ested Visits Authorized [id number] Closed 03/16/2022 03/16/2023 1 1 utpatient (Routine) - Closed Specialty Diagnoses / Procedures Referred By Contact Refer red To Contact Diagnoses Cancer Thyroid Papillary Personal History Trent Terry M.D. [facility] Procedures [place] Thyroid [address] [place] [phone] Referral ID Status Reason Start Date Expiration Date Visits Requ ested Visits Authorized [id number] Closed 03/16/2022 03/16/2023 1 1 utpatient (Routine) - Closed Specialty Diagnoses / Procedures Referred By Contact Refer red To Contact Endocrinology Diagnoses Cancer Thyroid Papillary Personal History Trent Terry M.D. [address] [phone] Referral ID Status Reason Start Date Expiration Date Visits Requ ested Visits Authorized [id number] Closed 03/16/2022 03/16/2023 1 1 Scheduling Instructions Labs should be drawn 4+ hours prior to c onsult Reason for Visit Appointment Request (Routine) - Closed Specialty Diagnoses / Procedures Referred By Contact Refer red To Contact Allergy and Immunology Diagnoses Asthma (HCC) Referral ID Status Reason Start Date Expiration Date Visits Requ ested Visits Authorized [id number] Closed 12/08/2021 12/08/2022 1 1 Encounter Details Date Type Department Care Team Description 03/16/2022 Office Visit Division of Allergic Trent Terry Asthm a Moderate Persistent (HCC) (Primary Dx); Diseases in [place] [place]. Polyposis Nasal; [place] 200 [facility] Rhinitis Allergic; 200 [place], [place] Cancer Thyroid Papillary [place] [phone] Social History Tobacco Use Types Packs/Day Years [...] or relatives? How often do you attend confucianism or Never 2021 baptist services? Do you belong to any clubs or No 03/16/2022 organizations such as confucianism groups, unions, fraternal or athletic groups, or [...] level of school Master's degree (e.g., Lissett Manzo, MS, 10/11/2019 you have completed or the highest Wilfredo, MEd, BUSINESS UNIT CONTROLLER, CHANEL) degree you have received? Sex Assigned at Date Recorded Female 03/15/2021 1:43 PM CDT documented as of this encounter Consult Notes Trent Terry M.D. - 03/16/2022 11:00 AM CDT Referral: No referring provider defined for this encounter. Home Address: [address] [place] [phone] CHIEF COMPLAINT / REASON FOR VISIT Ms. Ena Garcia is a 46 y.o. female who presents today for asthma and history of nasal polyps and allergic rhinitis. HISTORY OF PRESENT ILLNESS Ms. Ena Garcia is a pleasant 46 year female with a known history of asthma and a clinical examination suspicious of nasal polyps as well as a CT scan in the fall of 2020 suggestive of nasal polyps. Otolaryngology was planned after the CT scan of 2020. However, Ms. Garcia caught COVID-19 viralinfection in that put off her evaluation she reports. In the interim around August,, Ms. Garcia was found to have papillary thyroid cancer picked up incidentally on a CT scan. She then underwent partial right thyroidectomy and has been following with upholstery auto trimmer in the [facility] for thyroid supplementation. She also follows with her primary provider in [place] where she has been living. Overall she feels her nasal symptoms have not changed in the past year. Her insurance would not allow for intranasal budesonide and so she is been using Flonase/fluticasone propionate 2 puffs each nostril twice daily, regularly. She reports her asthma has also been controlled over the past year. She underwent a spirometry this visit which was normal. Current Outpatient Medications: budesonide (PULMICORT) 0.5 mg/2 mL nebulizer solution, Mix 1 ampule budesonide in 8 oz saline solution. Irrigate 4 oz into each nostril twice daily. Supplies needed: Nasal Saline Irrigation Bottle, distilled water, nasal saline packet. May substitute 0.6 mg capsule if insurance does not cover the 0.5mg respule. OK for generic., Disp: 120 mL, Rfl: 11 fluticasone propionate (FLONASE) 50 mcg/actuation nasal spray, Administer 2 sprays into each nostril 2 (two) times a day., Disp: 32 g, Rfl: 11 mometasone-formoterol (Dulera) 200-5 mcg/actuation inhaler, Inhale 2 puffs 2 (two) times a day. usewith cylinder checker tube, then rinse mouth with water and spit out after each use. Do not swallow., Disp: 13 g, Rfl: 11 montelukast (SINGULAIR) 10 mg tablet, Take 1 tablet (10 mg total) by mouth daily., Disp: 90 tablet,Rfl: 11 Ventolin HFA 90 mcg/actuation inhaler, Inhale 2 puffs every 6 (six) hours as needed for wheezing., Disp: 18 g, Rfl: 2 Allergies Allergen Reactions Kiwi Anaphylaxis Slight airway swelling Nut - Unspecified Anaphylaxis Slight airway swelling Hazelnut Social History Tobacco Use Smoking status: Never Smokeless tobacco: Never Vaping Use Vaping Use: never used PAST MEDICAL/SURGICAL HISTORY 1. History of LASIK surgery 2. History of cholecystectomy 3. Asthma 4. Polycystic ovarian syndrome 5. 2020 CT sinus suggestive of nasal polyps, history of nasal polyps 6. Papillary thyroid cancer diagnosed around August,, status post partial thyroidectomy and subsequent thyroid replacement FAMILY HISTORY Asthma in her father. Prostate cancer, colon polyp, and hypertension present in the family as well. REVIEW OF SYSTEMS Respiratory: Positive for coughing up mucus (phlegm), dry cough, shortness of breath and wheezing. The following systems were negative: Constitutional, Skin, Eyes, ENT, Cardiovascular, Gastrointestinal, Genitourinary, Hematologic, Musculoskeletal, Neurological, Psychiatric Pertinent positives included in History of Present Illness as they pertain to the patient???s presenting complaints in the allergy/immunology. Otherwise the patient is encouraged to review medical issues with appropriate medical providers. PHYSICAL EXAM Vital Signs: There were no vitals taken for this visit. There is no height or weight on file to calculate BMI. General: Alert and oriented times three, in no apparent distress. Eyes: Pupils equally round and reactive to light. Extraocular muscles intact. Sclerae without erythema. Head: Normocephalic, atraumatic. ENT: Ears: Tympanic membranes clear bilaterally. Nose: No visible nasal polyps on anterior inspection. Head of middle turbinates suggestive of nasal polyps on anterior inspection. Mouth and throat are unremarkable. Neck: Supple without palpable adenopathy or thyromegaly. Lungs: The chest wall is symmetric with normal expansion. There is no tenderness or visible deformity. Auscultation shows no crackles, or rubs. She is a slight rattle with cough. She also has some mildwheezing posteriorly after deep breathing. Heart: Regular rate and rhythm. Normal S1, S2. No audible S3, S4, murmur or rub. Skin: No urticaria or angioedema. ASSESSMENT / PLAN #1 Asthma Moderate Persistent (HCC) #2 Polyposis Nasal #3 Allergic rhinitis We are pleased that Ms. Garcia has overall done well over the past year with regard to her nasal in breathing symptoms. She is not required prednisone in a number of years for her asthma. Her spirometry was normal. However, she does have some wheezing on examination in her lower lungs posteriorly, bilaterally. She recalls in the past when we were using Dulera 200/5 1 puff twice daily. Because of somecoughing she was doing we had up the dose to 2 puffs twice daily and she reports she is done better on that regimen. We reviewed again her CT scan of the sinuses from 2020. There appears to be polypoid change at the head of the right middle turbinate and there also appears to be a polyp arising from the left middle turbinate which is visible on the March 18, 2021 CT scan of the sinuses. For that reason, I have recommended she have a formal consultation with Otolaryngology. We appreciate their input. #4 Cancer Thyroid Papillary Personal History Ms. Garcia has significant interest in evaluation of her history of papilloma thyroid cancer in Endocrinology here at the clinic. She has a primary provider in [place]. In order to facilitate a consultation in the thyroid Clinic here in [place], we have put through an order for an ultrasound, thyroid clinic and associated laboratory studies. We appreciate endocrine's expertise in this area. / Orders Placed This Encounter Procedures US Thyroid T4 (Thyroxine), Free S-TSH (Thyroid-Stimulating Hormone - Sensitive) Endocrinology - Thyroid nodule or cancer consult (clinic) Otorhinolaryngology - Rhinologic and sinus surgery consult (clinic) Allergy and Immunology office visit (clinic) Spirometry PATIENT EDUCATION Barriers of understanding are assessed, [...] with a primary provider or local specialist. Should there be ongoing need for additional consultation related to the current Allergy/Immunology problem(s) Dr. Terry would be happy to see the patient in follow-up. Follow-up with a primary provideris encouraged for all patients. If there are urgent or emergent medical issues then the patient is encouraged to seek appropriate medical care including emergency room evaluation or activation of emergency medical services including 911 if needed. I personally spent 30 minutes in care of the patient today. Time includes both non face to face and face to face patient care. documented in this encounter Miscellaneous Notes Addendum Note - Trent Terry M.D. - 03/16/2022 11:00 AM CDT Addended by: TRENT TERRY on: 03/16/2022 12:50 PM Modules accepted: Level of Service documented in this encounter Plan of Treatment Scheduled Orders Name Type Priority Associated Diagnoses Order S chedule Spirometry PFT Routine Asthma Moderate Persistent E xpected: 03/16/2023 (HCC) (Approximate), Expires: Polyposis Nasal 06/15/2023 Rhinitis Allergic Scheduled Referrals Name Type Priority Associated Order Schedule Diagnoses Endocrinology - Thyroid Outpatient Routine Cancer Thyroid 1 Occurrences nodule or cancer consult Referral Papillary sta rting (clinic) Personal History 03/16/2022 until 06/15/2023 Otorhinolaryngology - Outpatient Routine Polyposis Nasal Exp ected: Rhinologic and sinus Referral 022 surgery consult (clinic) (Ap proximate), Expires: 06/15/2023 Allergy and Immunology Outpatient Routine Expec fernando: office visit (clinic) Referral 2022 (Approximate), Expires: 06/15/2023 documented as of this encounter Results S-TSH (Thyroid-Stimulating Hormone - Sensitive) (04/06/2022 10:13 AM CDT) P athologist Signature TSH, Sensitive 0.9 0.3 - 4.2 04/06/2022 DTL mIU/L 11:25 AM CDT Specimen Anatomical Collection Method Collection Time Receive d Time (Source) Location / / Volume Laterality Blood (Blood, 04/06/2022 10:13 04/06/2022 Venous) AM CDT 10:51 AM CDT Trent Terry M.D. LAB BLOOD ADD-ON Performing Organization Address City/[facility]/ZIP Code Phon e Number [facility] - [address] [place], [place] [address] [facility] [place] [address] T4 (Thyroxine), Free (04/06/2022 10:13 AM CDT) P athologist Signature T4 (Thyroxine), 1.6 0.9 - 1.7 04/06/2022 DTL Free, S ng/dL 11:25 AM CDT Specimen Anatomical Collection Method Collection Time Receive d Time (Source) Location / / Volume Laterality Blood (Blood, 04/06/2022 10:13 04/06/2022 Venous) AM CDT 10:51 AM CDT Trent Terry M.D. LAB BLOOD ADD-ON Performing Organization Address City/[facility] Code Phon e Number [facility] - [address] [place] [address] [place] [phone] [place] Thyroid (03/19/2022 1:31 PM CDT) Anatomical [...] No suspicious nodes identified in the neck. Trent GARCIA US PROCEDURES documented in this encounter Visit Diagnoses Diagnosis Asthma Moderate Persistent (HCC) - Prima ry Polyposis Nasal Rhinitis Allergic Cancer Thyroid Papillary Personal Histor y Cancer Thyroid Papillary Personal Histor y documented in this encounter
--- OUTSIDE RECORDS SUMMARY | 2022-05-20 14:59 | XMS_ITS | Encounter Summary ---
:1975 Author Organization [facility] Address [address] [place] [address] Care Team Providers Name Role Phone Unavailable Primary Care Provider Unavailable Reason for Visit Reason Comments Clarify budesonide prescription Encounter Details Date Type Department Care Team Description 03/21/2021 Clinical Communication Division of Reji Terry budesonide Allergic Diseases Courtney Acosta prescription in [address] [place] [phone] [place], [place] [phone] (Work) [phone] Social History Tobacco Use Types Packs/Day Years [...] or relatives? How often do you attend buddhism or Never 2021 mormon services? Do you belong to any clubs or No 03/16/2022 organizations such as buddhism groups, unions, fraternal or athletic groups, or [...] place to sleep or slept in a jail (including now)? Education Answer Date Recorded What is the highest level of school Master's degree (e.g., M A, MS, 10/11/2019 you have completed or the highest Wilfredo, MEd, BANKRUPTCY JUDGE, CHANEL) degree you have received? Sex Assigned at Date Recorded Female 03/15/2021 1:43 PM CDT documented as of this encounter Miscellaneous Notes Telephone Encounter - Cristela Mayer R.N. - 03/21/2021 12:35 PM CDT Spoke with Ara who notified this nurse that patient's insurance does not cover Budesonide ampules or the 0.6mg capsules (which would need to be filled through a [facility] anyway). Their pharmacy only supplies 0.3mg capsules. Cristela Mayer R.N. Telephone Encounter - Alla Pillai - 03/21/2021 12:15 PM CDT Pharmacist Ara from [facility] called to confirm strength of budesonide prescription, etc forMs. Ena Garcia. Please call [facility] back at [phone]. Thanks documented in this encounter Plan of Treatment Not on filedocumented as of this encounter Visit Diagnoses Not on filedocumented in this encounter
--- OUTSIDE RECORDS SUMMARY | 2022-05-20 14:59 | XMS_ITS | Encounter Summary ---
:1975 Author Organization [facility] Address [address] [place] [address] Care Team Providers Name Role Phone Unavailable Primary Care Provider Unavailable Encounter Details Date Type Department Care Team Description 08/19/2021 Orders Only Pharmacy Prior Auth Yoselin Ayoub [phone] Social History Tobacco Use Types Packs/Day Years [...] or relatives? How often do you attend hinduism or Never 2021 jehovah's witness services? Do you belong to any clubs or No 03/16/2022 organizations such as hinduism groups, unions, fraternal or athletic groups, or [...] to sleep or slept in a senior care (including now)? Education Answer Date Recorded What is the highest level of school Master's degree (e.g., Lissett Manzo [place], 10/11/2019 you have completed or the highest Wilfredo, Jake, DIGITAL STRATEGIST SENIOR MANAGER, CHANEL) degree you have received? Sex Assigned at Date Recorded Female 03/15/2021 1:43 PM CDT documented as of this encounter Plan of Treatment Not on filedocumented as of this encounter Visit Diagnoses Not on filedocumented in this encounter
--- OUTSIDE RECORDS SUMMARY | 2022-05-20 14:59 | XMS_ITS | Encounter Summary ---
:1975 Author Organization [facility] Address [address] [place] [address] Care Team Providers Name Role Phone Unavailable Primary Care Provider Unavailable Encounter Details Date Type Department Care Team Description 04/06/2022 Hospital Encounter Department of Reji Terry Cancer Thyroid Laboratory Medicine [facility] Papillary Personal and Pathology, [address] [place] [address] in [place], [place] [phone] [place] [place] [address] [place], [place] (Work) [phone] Social History Tobacco Use Types Packs/Day Years [...] or relatives? How often do you attend buddhist or Never 2021 protestant services? Do you belong to any clubs or No 03/16/2022 organizations such as buddhist groups, unions, fraternal or athletic groups, or [...] place to sleep or slept in a alf (including now)? Education Answer Date Recorded What is the highest level of school Master's degree (e.g., M A, MS, 10/11/2019 you have completed or the highest Wilfredo, MEd, NAIL MAKER, CHANEL) degree you have received? Sex Assigned at Date Recorded Female 03/15/2021 1:43 PM CDT documented as of this encounter Medications at Time of Discharge Medication Sig Dispensed Refills Start Date End Date fluticasone propionate Administer 2 sprays 32 g 11 02/26 (FLONASE) 50 into each nostril 2 mcg/actuation nasal (two) times a day. spray levothyroxine Take 88 mcg by mouth 0 02/11/2022 (SYNTHROID, LEVOTHROID) daily. 88 mcg tablet mometasone-formoterol Inhale 2 puffs 2 13 g 11 03/16/20 22 (Dulera) 200-5 (two) times a day. mcg/actuation inhaler use with hospice office coordinator tube, then rinse mouth with water and spit out after each use. Do not swallow. montelukast (SINGULAIR) Take 1 tablet (10 mg 90 tablet 11 10 mg tablet total) by mouth daily. Ventolin HFA 90 Inhale 2 puffs every 18 g 2 03/16/2022 mcg/actuation inhaler 6 (six) hours as needed for wheezing. budesonide (PULMICORT) Mix 1 ampule 120 mL 11 03/16/2022 04/24/2022 0.5 mg/2 mL nebulizer budesonide in 8 oz solution saline solution.?? Irrigate 4 oz into each nostril twice daily.?? Supplies needed:?? Nasal Saline Irrigation Bottle, distilled water, nasal saline packet. May substitute 0.6 mg capsule if insurance does not cover the 0.5 mg respule. OK for generic. budesonide (Pulmicort) Indications: 120 mL 6 03/24/2022 04/24/2022 0.5 mg/2 mL nebulizer controller medication solutionIndications: for asthma. Mix 1 maintenance therapy for ampule in sinus asthma irrigation bottle and irrigate twice daily. documented as of this encounter Plan of Treatment Not on filedocumented as of this encounter Procedures Procedure Name Priority Date/Time Associated Diagnosis Comme nts THYROID-STIMULATING Routine 04/06/2022 10:13 AM Cancer Thyroid Results for this HORMONE-SENSITIVE CDT Papillary Personal proc edure are in (S-TSH) History the results section. T4 (THYROXINE), Routine 04/06/2022 10:13 AM Cancer Thyroid Res ults for this FREE, S CDT Papillary Personal procedure are in History the results section. documented in this encounter Results S-TSH (Thyroid-Stimulating Hormone - [...] Organization Address City/State/ZIP Code Phon e Number [facility] - [address] [place] [address] [facility] [place] [address] Laboratories-[facility] [address] [facility] T4 (Thyroxine), Free (04/06/2022 10:13 AM CDT) athologist Signature T4 (Thyroxine), 1.6 0.9 - 1.7 04/06/2022 DTL Free, S ng/dL 11:25 AM CDT Specimen Anatomical Collection Method Collection Time Receive d Time (Source) Location / / Volume Laterality Blood (Blood, 04/06/2022 10:13 04/06/2022 Venous) AM CDT 10:51 AM CDT Reji Terry M.D. LAB BLOOD ADD-ON Performing Organization Address City/[facility]/ZIP Code Phon e Number [facility] - [address] [place], [place] [address] [facility] [place] [address] [facility] [address] documented in this encounter Visit Diagnoses Diagnosis Cancer Thyroid Papillary Personal Histor y documented in this encounter
--- OUTSIDE RECORDS SUMMARY | 2022-05-20 14:59 | XMS_ITS | Encounter Summary ---
:1975 Author Organization [facility] Address [address] [place] [address] Care Team Providers Name Role Phone Unavailable Primary Care Provider Unavailable Encounter Details Date Type Department Care Team Description 08/12/2021 Orders Only Pharmacy Prior Auth Maddy Young [phone] Social History Tobacco Use Types Packs/Day Years [...] or relatives? How often do you attend restorationist or Never 2021 cheondoism services? Do you belong to any clubs or No 03/16/2022 organizations such as restorationist groups, unions, fraternal or athletic groups, or [...] have completed or the highest Wilfredo, Jake, HEAD OF MARKETING, CHANEL) degree you have received? Sex Assigned at Date Recorded Female 03/15/2021 1:43 PM CDT documented as of this encounter Plan of Treatment Not on filedocumented as of this encounter Visit Diagnoses Not on filedocumented in this encounter
--- OUTSIDE RECORDS SUMMARY | 2022-05-20 14:59 | XMS_ITS | Encounter Summary ---
:1975 Author Organization [facility] Address [address] [place] [address] Care Team Providers Name Role Phone Unavailable Primary Care Provider Unavailable Reason for Referral MRI/CAT/PET Scan (Routine) - Closed Specialty Diagnoses / Procedures Referred By Contact Refer red To Contact Radiology Diagnoses Asthma Moderate Persistent (HCC) Polyposis Nasal Rhinosinusitis Chronic Rhinitis Allergic Reji Terry M.D. [facility] Procedures CT Sinuses without IV Contrast 200 [place], [place] [phone] Referral ID Status Reason Start Date Expiration Date Visits Requ ested Visits Authorized [id number] Closed 03/17/2021 03/17/2022 1 1 Reason for Visit MRI/CAT/PET Scan (Routine) - Closed Specialty Diagnoses / Procedures Referred By Contact Refer red To Contact Radiology Diagnoses Asthma Moderate Persistent (HCC) Polyposis Nasal Rhinosinusitis Chronic Rhinitis Allergic Reji Terry M.D. [facility] Procedures CT Sinuses without IV Contrast 200 [place], [place] [address] Referral ID Status Reason Start Date Expiration Date Visits Requ ested Visits Authorized [id number] Closed 03/17/2021 03/17/2022 1 1 Encounter Details Date Type Department Care Team Description 03/18/2021 Hospital Encounter Department of Reji Terry oderate Persistent (HCC); Radiology, Tai Acosta M.D. Polyposis Nasal; Building, in [address] [place] [address] Rhinosinusitis Chronic; [place], [place] Rhinitis Aller [facility] [address] [phone] [place], [place] (Work) [phone] Social History Tobacco Use Types Packs/Day Years [...] or relatives? How often do you attend christianity or Never 2021 yazdanism services? Do you belong to any clubs or No 03/16/2022 organizations such as christianity groups, unions, fraternal or athletic groups, or [...] have completed or the highest Wilfredo, MEd, REFRIGERATION HOUSEMAN, CHANEL) degree you have received? Sex Assigned [...] (PULMICORT) Mix 1 ampule 120 mL 11 03/17/2021 03/16/2022 0.5 mg/2 mL nebulizer budesonide in 8 oz solution saline solution.?? Irrigate 4 oz into each nostril twice daily.?? Supplies needed:?? Nasal Saline Irrigation Bottle, distilled water, nasal saline packet. May substitute 0.6 mg capsule if insurance does not cover the 0.5 mg respule. OK for generic. fluticasone propionate Administer 2 sprays 32 g 11 11/2810/15/2021 (FLONASE) 50 into each nostril 2 mcg/actuation nasal (two) times a day. spray mometasone-formoterol Inhale 2 puffs 2 (two) 3 Inhaler 11 01/13/2022 (DULERA 200) 200-5 times a day. Use with mcg/actuation inhaler rope walker tube. Rinse mouth with water and spit out after each use. Do not swallow. montelukast (SINGULAIR) Take 1 tablet (10 mg 90 tablet 11 01/13/2022 10 mg tablet total) by mouth daily. Ventolin HFA 90 Inhale 1-2 puffs every 54 g 01/03/2001/08/2022 mcg/actuation inhaler 4 (four) hours as needed for wheezing or shortness of breath. documented as of this encounter Plan of Treatment Not on filedocumented as of this encounter Procedures Procedure Name Priority Date/Time Associated Comments Diagnosis CT SINUSES RAD - Routine 03/18/2021 8:21 Asthma Moderate Results for this WITHOUT IV (most inpatients AM CDT Persistent (HCC ) procedure are in CONTRAST and all Polyposis Nasal the results outpatients) Rhinosinusitis section. Chronic Rhinitis Allergic documented in this encounter Results CT Sinuses without IV [...]
--- OUTSIDE RECORDS SUMMARY | 2022-05-20 14:59 | XMS_ITS | Encounter Summary ---
:1975 Author Organization [facility] Address [address] [place] [address] Care Team Providers Name Role Phone Unavailable Primary Care Provider Unavailable Encounter Details Date Type Department Care Team Description 05/06/2021 Orders Only Pharmacy Prior Auth RO Elsewhere, Pcp [phone] Social History Tobacco Use Types Packs/Day Years [...] do you attend protestant or Never 2021 mormon services? Do you [...] 10/11/2019 you have completed or the highest Jake Villalobos, CLINICAL NURSING INTERN, CHANEL) degree you have received? Sex Assigned at Date Recorded Female 03/15/2021 1:43 PM CDT documented as of this encounter Plan of Treatment Not on filedocumented as of this encounter Visit Diagnoses Not on filedocumented in this encounter
--- OUTSIDE RECORDS SUMMARY | 2022-05-20 14:59 | XMS_ITS | Encounter Summary ---
:1975 Author Organization [facility] Address [address] [place] [address] Care Team Providers Name Role Phone Unavailable Primary Care Provider Unavailable Encounter Details Date Type Department Care Team Description 05/19/2021 Orders Only [facility] - Merlin Gallo Elsewhere, Pcp [address] [place] [address] Social History Tobacco Use Types Packs/Day Years [...] or relatives? How often do you attend restoration or Never 2021 holiness services? Do you belong to any clubs or No 03/16/2022 organizations such as restoration groups, unions, fraternal or athletic groups, or [...] have completed or the highest Wilfredo, Jake, DINING ROOM MANAGER, CHANEL) degree you have received? Sex Assigned at Date Recorded Female 03/15/2021 1:43 PM CDT documented as of this encounter Plan of Treatment Not on filedocumented as of this encounter Visit Diagnoses Not on filedocumented in this encounter
--- OUTSIDE RECORDS SUMMARY | 2022-05-20 14:59 | XMS_ITS | Encounter Summary ---
:1975 Author Organization [facility] Address [address] [place] [address] Care Team Providers Name Role Phone Unavailable Primary Care Provider Unavailable Reason for Visit Reason Comments Med Refill Encounter Details Date Type Department Care Team Description 01/08/2022 Refill Division of Allergic Diseases Reji Sims M.D. Med Refill in [facility] [address] [facility] [address] [place] [address] [place] [address] [phone] Social History Tobacco Use Types Packs/Day Years [...] or relatives? How often do you attend mormonism or Never 2021 church services? Do you belong to any clubs or No 03/16/2022 organizations such as mormonism groups, unions, fraternal or athletic groups, or [...] place to sleep or slept in a retirement (including now)? Education Answer Date Recorded What is the highest level of school Master's degree (e.g., Lissett Manzo MS, 10/11/2019 you have completed or the highest Wilfredo, Jake, POND WORKER, CHANEL) degree you have received? Sex Assigned at Date Recorded Female 03/15/2021 1:43 PM CDT documented as of this encounter Plan of Treatment Not on filedocumented as of this encounter Visit Diagnoses Not on filedocumented in this encounter
--- OUTSIDE RECORDS SUMMARY | 2022-05-20 14:59 | XMS_ITS | Encounter Summary ---
:1975 Author Organization [facility] Address [address] [place] [address] Care Team Providers Name Role Phone Unavailable Primary Care Provider Unavailable Reason for Referral Outpatient (Routine) - Closed Specialty Diagnoses / Procedures Referred By Contact Refer red To Contact Diagnoses Cancer Thyroid Papillary Personal History Reji Terry M.D. [facility] Procedures US Thyroid 200 [place], [place] [address] Referral ID Status Reason Start Date Expiration Date Visits Requ ested Visits Authorized [id number] Closed 03/16/2022 03/16/2023 1 1 Reason for Visit Outpatient (Routine) - Closed Specialty Diagnoses / Procedures Referred By Contact Refer red To Contact Diagnoses Cancer Thyroid Papillary Personal History Reji Terry M.D. [facility] Procedures US Thyroid 200 [place] [address] Referral ID Status Reason Start Date Expiration Date Visits Requ ested Visits Authorized [id number] Closed 03/16/2022 03/16/2023 1 1 Encounter Details Date Type Department Care Team Description 03/19/2022 Hospital Encounter Department of Reji Terry, Cancer Thyroid RadiologyJunior M.D. Papillary Personal Building, in 200 [place], [place] [address] [facility] [address] [place], [place] [phone] (Work) [phone] Social History Tobacco Use Types Packs/Day Years [...] or relatives? How often do you attend adventist or Never 2021 sabianism services? Do you belong to any clubs or No 03/16/2022 organizations such as adventist groups, unions, fraternal or athletic groups, or [...] place to sleep or slept in a longterm (including now)? Education Answer Date Recorded What is the highest level of school Master's degree (e.g., M A, MS, 10/11/2019 you have completed or the highest Wilfredo, MEd, TOY DEPARTMENT MANAGER, CHANEL) degree you have received? Sex [...] times a day. mcg/actuation inhaler use with bus steward tube, then rinse mouth with water and [...] the 0.5 mg respule. OK for generic. documented as of this encounter Plan of Treatment Not on filedocumented as of this encounter Procedures Procedure Name Priority Date/Time Associated Comments Diagnosis US THYROID RAD - Routine 03/19/2022 1:31 Cancer Thyroid Results f or this (most inpatients PM CDT Papillary Personal proce dure are in and all History the results outpatients) section. documented in this encounter Results US Thyroid (03/19/2022 1:31 PM CDT) Anatomical [...] identified in the neck. Reji Terry M.D. IMStephanie US PROCEDURES documented in this encounter Visit Diagnoses Diagnosis Cancer Thyroid Papillary Personal Histor y documented in this encounter
--- OUTSIDE RECORDS SUMMARY | 2022-05-20 14:59 | XMS_ITS | Encounter Summary ---
:1975 Author Organization [facility] Address [address] [place] [address] Care Team Providers Name Role Phone Unavailable Primary Care Provider Unavailable Reason for Referral Outpatient (Routine) - Authorized Specialty Diagnoses / Procedures Referred By Contact Refer red To Contact Otorhinolaryngology Saadia Varela M.D . [address] [address] Referral ID Status Reason Start Date Expiration Date Visits V isits Requested Authorized [id number] Authorized 03/24/2022 03/23/2025 1 1 Reason for Visit Outpatient (Routine) - Closed Specialty Diagnoses / Procedures Referred By Contact Refer red To Contact Otorhinolaryngology Diagnoses Polyposis Nasal Reji Terry M.D. [address] [address] Referral ID Status Reason Start Date Expiration Date Visits Requ ested Visits Authorized [id number] Closed 03/16/2022 03/16/2023 1 1 Encounter Details Date Type Department Care Team Description 03/24/2022 Comprehensive Visit Department of Evens Varela is Nasal Otorhinolaryngology in Ignacio Silva [place] M.D. 200 [facility] [address] [place] [phone] [place] [phone] Social History Tobacco Use Types Packs/Day Years [...] or relatives? How often do you attend moravian or Never 2021 islam services? Do you belong to any clubs or No 03/16/2022 organizations such as moravian groups, unions, fraternal or athletic groups, or [...] have completed or the highest Wilfredo, MEd, PARKS RECREATION DIRECTOR, CHANEL) degree you have received? Sex Assigned at Date Recorded Female 03/15/2021 1:43 PM CDT documented as of this encounter Consult Notes Yo Lewis M.D. - 03/24/2022 9:00 AM CDT Images from the original note were not included. Rhinology/Sinus Consultation Chief Complaint: Ena Garcia is here for evaluation of nasal polyposis History of Present Illness: Ms. Garcia has a longstanding history of asthma for which she uses Dulera and albuterol as needed. She was previously noted to have nasal polyposis, but her visit was delayed by a diagnosis of COVID, then discovery of papillary thyroid cancer. She is now status post right thyroid lobectomy in is working on titrating her levothyroxine locally. She does feel that she has some nasal congestion which she further clarifies as nasal fullness. However, she denies postnasal drip, facial pressure pain, change in sense of smell or taste, and nasal obstruction. She follows with Dr. Terry in Allergy and immunology. She was previously prescribed budesonide, but due to insurance issues has not started this. She does however use daily fluticasone as well as daily nasal sinus rinses. She is diligent about the use and uses the sinus rinses before her fluticasone. Her most troublesome symptom is cough though she does not feel that she has post nasal drip that precipitates it, nor does she have nasal obstruction. The patient's worst symptoms are Cough, Difficulty falling asleep, Reduced concentration and the total SNOT-22 score is 36 1. Sinus disease: nasal polyps 2. Allergic rhinitis: Yes, by skin testing reports multiple environmental allergies, hay fever, etc by skin testing in [place] 13 years ago 3. Pulmonary disease: Asthma History of sinus or nasal surgery: none Asthma: yes, on Dulera and albuterol as needed Allergies: Environmental allergies as above, per skin testing and [place] 13 years ago Current therapies: Daily fluticasone nasal saline rinses Objective: General: Appears alert and well Nose: The external nose is without significant lesions or masses Otoscopic: Bilateral external auditory canals clear, tympanic membrane translucent, middle ear spaceappears well aerated Eyes: Pupils are equal, round, and reactive to light. External ocular movements are symmetric and full Neurological: Alert. Cranial nerves 3, 4, 6 intact extraocular motion, trigeminal nerve sensation intact. Facial nerve function House Brackmann 1 bilaterally, good shoulder shrug, gross tongue motion intact. PROCEDURE NOTE Procedure: Rigid nasal endoscopy Pre-procedure diagnosis/Indication for procedure: To evaluate areas not seen on anterior rhinoscopy.The patient provided verbal consent to the procedure. Anesthesia: 0.5% phenylephrine & 2% lidocaine topical spray Description: A 30 degree 4mm rigid nasal endoscope was used to examine the left and right nasal cavities. Findings: Rightward caudal septal deviation the columella. Leftward mid septal spur. There are small benign-appearing polyps along the inferior margin of the middle turbinate. There was additionally a polyp emanating from the left middle meatus. The sphenoethmoidal recess is clear on the left. Nasopharynx on the left clear. On the right, there is a small polyp within the right middle meatus, otherwise the sphenoethmoid recess and nasopharynx are clear. No polyps in the olfactory cleft on either side. Varnell-Carter Endoscopic Scoring System ? RIGHT LEFT Polyps (0 = none; 1 = in MM only; 2 = beyond MM) 1 1 Edema (0 = absent; 1 = mild; 2 = severe) 0 0 Discharge (0 = none; 1 = clear, thin; 2 = thick, purulent) 0 0 Scarring (0 = absent; 1 = mild; 2 = severe) 0 0 Crusting (0 = absent; 1 = mild; 2 = severe) [address] scan results: CT 03/18/2021: Assessment/Plan: #1 Polyposis Nasal It was my pleasure to visit with Ms. Garcia. She presents today with bilateral left greater than right nasal polyposis. We reviewed her CT scan and physical exam findings. Overall, her burden of polypsis low, and nonobstructive. She does not have a sense of nasal obstruction or postnasal drip relatedto these. Her chief complaint is cough, and she feels that this is related to her chest, and denies post nasal drip/nasal obstruction/rhinorrhea. Given her minimal nasal symptoms related to nasal polyposis, we discussed increased medical management of these to prevent further propagation of polyps and/or development of symptoms related to them. She has a new insurance, so we will try sending budesonide rinses through her new insurance. Additionally, I did discuss budesonide via [facility] for rinses. She is open to either these ideas. We discussed that control of her polyps is important given her diagnosis of asthma. At this time, her symptoms do not seem to warrant surgical intervention, but we discussed they may in the future. She expressed understanding and agreement with this plan. Patient seen and evaluated Dr. Varela. Jonathan Lewis M.D. Dept. of Otorhinolaryngology Associated attestation - Saadia Varela M.D. - 03/29/2022 6:18 PM CDT I saw and evaluated the patient, participating in the shaffer portions of the service. I reviewed the resident/fellow???s note. I agree with the resident/fellow???s findings and plan. Polyps on endoscopy on the middle turbinates, could be central compartment atopic disease with polyps limited to the middle turbinates and meatus, given minimal ethmoid disease on CT last year. Recommend budesonide rinses. Could proceed new CT scan and polypectomy +/- endoscopic sinus surgery in the future if nasal symptoms persist. documented in this encounter Plan of Treatment Scheduled Referrals Name Type Priority Associated Order Schedule Diagnoses Otorhinolaryngology office Outpatient Routine E xpected: visit (clinic) Referral 03/24/2023 (Approximate), Expires: 06/23/2023 documented as of this encounter Visit Diagnoses Diagnosis Polyposis Nasal documented in this encounter
--- OUTSIDE RECORDS SUMMARY | 2022-05-20 14:59 | XMS_ITS | Encounter Summary ---
:1975 Author Organization [facility] Address [address] [place] [address] Care Team Providers Name Role Phone Unavailable Primary Care Provider Unavailable Reason for Visit Reason Comments Med Refill Encounter Details Date Type Department Care Team Description 02/11/2022 Refill Division of Allergic Diseases Reji Sims M.D. Med Refill in [facility] [address] [facility] [address] [place] [address] [place] [address] [phone] Social History Tobacco Use Types Packs/Day Years [...] or relatives? How often do you attend judaism or Never 2021 oriental orthodox services? Do you belong to any clubs or No 03/16/2022 organizations such as judaism groups, unions, fraternal or athletic groups, or [...] have completed or the highest Wilfredo, Jake, TRAINING PROGRAM ASSISTANT, CHANEL) degree you have received? Sex Assigned at Date Recorded Female 03/15/2021 1:43 PM CDT documented as of this encounter Plan of Treatment Not on filedocumented as of this encounter Visit Diagnoses Not on filedocumented in this encounter
--- OUTSIDE RECORDS SUMMARY | 2022-05-20 14:59 | XMS_ITS | Encounter Summary ---
:1975 Author Organization [facility] Address [address] [place] [address] Care Team Providers Name Role Phone Unavailable Primary Care Provider Unavailable Reason for Visit Reason Comments Patient Education Encounter Details Date Type Department Care Team Description 03/17/2021 Education Division of Allergic Reji Terry M.D. [address] [place] [phone] Asthma Moderate Persistent (HCC); Diseases in [place], Maria R Blanco RAdalidN. [address] [place] [phone] Polyposis Nasal; [place] Rhinosinusitis Chronic; [address] [place] [address] [place] [phone] Social History Tobacco Use Types Packs/Day Years [...] or relatives? How often do you attend yazdanism or Never 2021 judaism services? Do you belong to any clubs or No 03/16/2022 organizations such as yazdanism groups, unions, fraternal or athletic groups, or [...] place to sleep or slept in a [place] health [place] facility (including now)? Education Answer Date Recorded What is the highest level of school Master's degree (e.g., Lissett Manzo, , 10/11/2019 you have completed or the highest Wilfredo, MEd, PAPER FOLDER, CHANEL) degree you have received? Sex Assigned at Date Recorded Female 03/15/2021 1:43 PM CDT documented as of this encounter Plan of Treatment Not on filedocumented as of this encounter Visit Diagnoses Diagnosis Asthma Moderate Persistent (HCC) Polyposis Nasal Rhinosinusitis Chronic Rhinitis Allergic documented in this encounter
--- OUTSIDE RECORDS SUMMARY | 2022-05-20 15:00 | XMS_ITS | Encounter Summary ---
:1975 Author Organization [facility] Address [address] [place] [address] Care Team Providers Name Role Phone Unavailable Primary Care Provider Unavailable Encounter Details Date Type Department Care Team Description 12/26/2020 Clinical Communication Division of [place], [place] [address] [address] [facility] [address] [place] [address] [phone] Social History Tobacco Use Types Packs/Day Years [...] do you attend quaker or Never 2021 latter day services? Do [...] have completed or the highest Wilfredo, MEd, AUTO INSPECTION SPECIALIST, CHANEL) degree you have received? Sex Assigned at Date Recorded Female 03/15/2021 1:43 PM CDT documented as of this encounter Miscellaneous Notes Telephone Encounter - Dakotah Dave M.D. - 01/01/2021 4:18 PM CDT Yes, that would be OK. Telephone Encounter - Gracia Prasad - 01/01/2021 12:30 PM CDT [facility] calls again to check on prescription. I note it is in for PA. Pharmacistasks if we can just go with Ventolin HFA instead of PA for other brand. Telephone Encounter - Marcela Ramachandran - 12/26/2020 1:23 PM CDT PA has been requested Telephone Encounter - Doris Mack - 12/26/2020 12:06 PM CDT ProAir Digihaler not covered by insurance. Can patient have Albuterol instead, if not, PA needs to be started. documented in this encounter Plan of Treatment Not on filedocumented as of this encounter Visit Diagnoses Not on filedocumented in this encounter
--- OUTSIDE RECORDS SUMMARY | 2022-05-20 15:00 | XMS_ITS | Encounter Summary ---
:1975 Author Organization [facility] Address [address] [place] [address] Care Team Providers Name Role Phone Unavailable Primary Care Provider Unavailable Reason for Visit Appointment Request (Routine) - Closed Specialty Diagnoses / Procedures Referred By Contact Refer red To Contact Allergy and Immunology Diagnoses Asthma (HCC) Referral ID Status Reason Start Date Expiration Date Visits Requ ested Visits Authorized [id number] Closed 09/08/2019 09/07/2020 1 1 Encounter Details Date Type Department Care Team Description 10/16/2019 Virtual Visit Division of Allergic Reji Terry Asth ma Moderate Persistent (HCC) (Primary Dx); Diseases in [place], AdalidD. Rhinitis Allergic; [place] [address] [facility] Polyposis Nasal [address] [place] [phone] Social History Tobacco Use Types Packs/Day Years [...] or relatives? How often do you attend congregational or Never 2021 evangelical services? Do you belong to any clubs or No 03/16/2022 organizations such as congregational groups, unions, fraternal or athletic groups, or [...] have completed or the highest Wilfredo, MEd, CLAIM REP, CHANEL) degree you have received? Sex Assigned at Date Recorded Female 03/15/2021 1:43 PM CDT documented as of this encounter Consult Notes Reji Terry M.D. - 10/16/2019 10:00 AM CDT CHIEF COMPLAINT / REASON FOR NON FACE TO FACE PHONE VISIT Ms. Ena Garcia is a 44 y.o. female who presents today for asthma, allergic rhinitis and history of nasal polyps. Ms. Ena Garcia has most recently been seen in the Division of Allergic Diseases on July 26, 2017. HISTORY OF PRESENT ILLNESS Ms. 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 She has a known history of asthma and nasal polyps. Shereports her asthma is done well over the past 1 year in general. In early August 2019, however, she experienced what she describes is around a 2 week flare of asthma. She did experience some fever whichreached 101?? F during the episode. She did notice some mild wheezing. She did require use of her albuterol. She felt as though she had a viral infection. However, her symptoms resolved and she has been asymptomatic for the past 3 weeks. Her current asthma control test scores are 5, 4, 5, 2, 4. The 2 representing albuterol use relate to her use of albuterol 2 puffs prior to exercise. She exercises around 5 times each week but otherwise has not been requiring albuterol inhaler. She reports utilizing her Asmanex 220 micro g 1 puff twice daily, regularly throughout the year. Tim uses Flonase 2 puffs each nostril twice daily because of her history of nasal polyps. She reports the capacity to smell good from bad odors and reports reduced nasal congestion while using the Flonase regularly. She also reports regular use of her Singulair 10 mg once daily. Other than the exercise and other than the flare in August 2019, she denies other requirements for significant albuterol use. She reports receiving her yearly influenza vaccinations. She reports taking and tolerating ibuprofen 1 month ago without any difficulty. Current Outpatient Medications: ??? albuterol sulfate 90 mcg/actuation aero powdr breath act w/sensor, Inhale 2 puffs every 6 (six) hours as needed (cough or wheeze)., Disp: 1 each, Rfl: 3 ??? fluticasone propionate (FLONASE) 50 mcg/actuation nasal spray, Administer 2 sprays into each nostril 2 (two) times a day., Disp: 2 Bottle, Rfl: 11 ??? montelukast (Singulair) 10 mg tablet, Take 1 tablet (10 mg total) by mouth daily., Disp: 100 tablet, Rfl: 11 ??? mometasone (ASMANEX) 220 mcg/ actuation (60) inhaler, Inhale 1 puff 2 (two) times a day. Rinse and spit out after each use., Disp: 1 Inhaler, Rfl: 11 Allergies Allergen Reactions ??? Kiwi Anaphylaxis Slight airway swelling ??? Nut - Unspecified Anaphylaxis Slight airway swelling Hazelnut PAST MEDICAL/SURGICAL HISTORY 1. History of LASIK surgery 2. History of cholecystectomy 3. Asthma 4. Polycystic ovarian syndrome 5. Nasal polyps ?? SOCIAL HISTORY Lifelong nonsmoker. Three dogs which are in and out of the home. Social alcohol use; denies excessive use. 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 ?? FAMILY HISTORY Asthma in her father. Unfortunately, her father is currently (October 16, 2019) hospitalized in [facility] in the [facility] with what is thought to be pneumonia. Prostate cancer, colon polyp, and hypertension present in the family as well. ROS: Respiratory: Positive for coughing up mucus (phlegm) and wheezing. The following systems were negative: Constitutional, Skin, Eyes, ENT, CV, GI, , Hematologic, Musculoskeletal, Neuro, Psych CLINICAL ASSESSMENT: Speech was normal over the telephone. Mood seemed normal. ASSESSMENT / PLAN #1 Asthma Moderate Persistent (HCC) #2 Rhinitis Allergic #3 Polyposis Nasal Other orders - albuterol sulfate 90 mcg/actuation aero powdr breath act w/sensor; Inhale 2 puffs every 6 (six) hours as needed (cough or wheeze)., Starting Wed10/16/2019, Normal - fluticasone propionate (FLONASE) 50 mcg/actuation nasal spray; Administer 2 sprays into each nostril 2 (two) times a day., Starting Wed10/16/2019, Normal - montelukast (Singulair) 10 mg tablet; Take 1 tablet (10 mg total) by mouth daily., Starting Wed10/16/2019, Normal - mometasone (ASMANEX) 220 mcg/ actuation (60) inhaler; Inhale 1 puff 2 (two) times a day. Rinse andspit out after each use., Starting Wed10/16/2019, Until Wed10/15/2020, Normal DISCUSSION: Overall, it appears as though Ms. Garcia has done well over the past 1 and half years with her asthma. We are pleased that she denies significant nasal congestion and denies anosmia with a history of nasal polyps. We are recommending she continue on her current medications including the Asmanex, Flonase, Singulair and have albuterol available for intermittent use. Prescription refills are sent to herpharmacy. We note that she was recently able to tolerate ibuprofen and so she does not have current aspirin sensitivity. We again discussed the concept of aspirin/nonsteroidal anti-inflammatory drug (NSAID) sensitivity which she does not have at present. However, she could be at risk for acquiring aspirin/NSAIDs hypersensitivity in the future. And so, she should be allergic to this possibility if symptoms wereto occur in the future. We would probably also suggest she not take aspirin/NSAIDs in a remote location. We were both a bit concerned regarding the early August 2019 episode where she had some fever up to 101. She used her albuterol on occasion during that episode for was described as mild wheezing. In retrospect, she wonders if she could have had the coronavirus and I also shared that concern. She had actually thought about this a bit and had been sharing a telephone and other manual instruments relatedto the horses with the barn cylinder press operator helper who had recently prior to that returned from a trip from [facility]. Weunderstand her symptoms could have been a mild influenza, COVID-19 or potentially another viral infection. We talked about the availability of the IgG COVID-19 test which is available but currently has restrictions to people who only previously had nasal PCR COVID-19 virus testing. We discussed the availability of this test as a potential for the future. In general with adults with a fever of 101 I have recommended evaluation either an office or with a local urgent care or primary provider. Occasionally there may need to be a chest x-ray and the overall goal would be to not miss a pneumonia in thatsituation. 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 PATIENT EDUCATION Barriers of understanding are assessed, [...] happy to see the patient in follow-up. We recommend follow-up in 1 year with spirometry. Follow-up with a primary provider is encouraged for all patients. If there are urgent or emergent medical issues then the patient is encouraged to seek appropriate medical care including emergency room evaluation or activation of emergency medical services including 911 if needed. ATTESTATION: Spent 45 minutes in the evaluation, management and review of the plan of care, instructions, education and middle school guidance counselor to in conjunction with their face to face visit on October 16, 2019. documented in this encounter Plan of Treatment Not on filedocumented as of this encounter Visit Diagnoses Diagnosis Asthma Moderate Persistent (HCC) - Prima ry Rhinitis Allergic Polyposis Nasal documented in this encounter
--- OUTSIDE RECORDS SUMMARY | 2022-05-20 15:00 | XMS_ITS | Encounter Summary ---
:1975 Author Organization [facility] Address [address] [place] [address] Care Team Providers Name Role Phone Unavailable Primary Care Provider Unavailable Encounter Details Date Type Department Care Team Description 01/17/2018 Orders Only [facility] - Christine HernandezRozina, [address] [facility] [address] [place] [address] [facility] , [facility] [phone] [address] [place], [place] [address] (Wo rk) Social History Tobacco Use Types Packs/Day Years [...] or relatives? How often do you attend worship or Never 2021 christianity services? Do you belong to any clubs or No 03/16/2022 organizations such as worship groups, unions, fraternal or athletic groups, or [...] slept in a senior living (including now)? Sex Assigned at Date Recorded Female 03/15/2021 1:43 PM CDT documented as of this encounter Plan of Treatment Not on filedocumented as of this encounter Visit Diagnoses Not on filedocumented in this encounter
--- OUTSIDE RECORDS SUMMARY | 2022-05-20 15:00 | XMS_ITS | Encounter Summary ---
:1975 Author Organization [facility] Address [address] [place] [id number] Care Team Providers Name Role Phone Unavailable Primary Care Provider Unavailable Reason for Visit Reason Comments Previsit Preparation Encounter Details Date Type Department Care Team Description 12/24/2020 Clinical Communication Division of Reji Terry sit Preparation Allergic Diseases Courtney Acosta in [address] [place] [phone] [place], [place] [phone] (Work) [phone] Social History Tobacco Use Types Packs/Day Years [...] do you attend restorationist or Never 2021 evangelical services? Do you [...] place to sleep or slept in a fdc (including now)? Education Answer Date Recorded What is the highest level of school Master's degree (e.g., Lissett Manzo MS, 10/11/2019 you have completed or the highest Wilfredo, Jake, PANEL BUILDER, CHANEL) degree you have received? Sex Assigned at Date Recorded Female 03/15/2021 1:43 PM CDT documented as of this encounter Plan of Treatment Not on filedocumented as of this encounter Visit Diagnoses Not on filedocumented in this encounter
--- OUTSIDE RECORDS SUMMARY | 2022-05-20 15:00 | XMS_ITS | Encounter Summary ---
:1975 Author Organization [facility] Address [address] [place] [address] Care Team Providers Name Role Phone Unavailable Primary Care Provider Unavailable Reason for Referral Outpatient (Routine) - Closed Specialty Diagnoses / Procedures Referred By Contact Refer red To Contact Allergy and Immunology Reji Terry M. D. [facility] [address] [place] [phone] Referral ID Status Reason Start Date Expiration Date Visits Requ ested Visits Authorized [id number] Closed 12/25/2020 12/25/2021 1 1 Scheduling Instructions Batch all tests on same day in 4-[address] Terry utpatient (Routine) - Closed Specialty Diagnoses / Procedures Referred By Contact Refer red To Contact Diagnoses Asthma Moderate Persistent (HCC) Rhinitis Allergic Polyposis Nasal Chronic Cough Reji Terry M.D. [facility] Procedures Spirometry [address] [place] [phone] Referral ID Status Reason Start Date Expiration Date Visits Requ ested Visits Authorized [id number] Closed 12/25/2020 12/25/2021 1 1 Reason for Visit Appointment Request (Routine) - Closed Specialty Diagnoses / Procedures Referred By Contact Refer red To Contact Allergy and Immunology Diagnoses Rhinitis Allergic Polyp Nasal Asthma (HCC) Reji Terry M.D. [address] [place] [phone] Referral ID Status Reason Start Date Expiration Date Visits Requ ested Visits Authorized [id number] Closed 11/08/2020 11/08/2021 1 1 Encounter Details Date Type Department Care Team Description 12/25/2020 Virtual Visit Division of Allergic Reji Terry Coug h Chronic (Primary Dx); [facility] Asthma Moderate Persistent (HCC); [place] [address] [facility] Polyposis Nasal; [address] [place], [place] [phone] Social History Tobacco Use Types Packs/Day Years [...] or relatives? How often do you attend temple or Never 2021 zoroastrian services? Do you belong to any clubs or No 03/16/2022 organizations such as temple groups, unions, fraternal or athletic groups, or [...] minutes do you engage in exercise at is 60 min 03/16/2022 level? Stress Answer [...] have completed or the highest Wilfredo, MEd, HEALTH TECHNICIAN HEARING, CHANEL) degree you have received? Sex Assigned at Date Recorded Female 03/15/2021 1:43 PM CDT documented as of this encounter Consult Notes Reji Terry M.D. - 12/25/2020 2:30 PM CDT Referral: Reji Terry M.D. [address] [place] [address] CHIEF COMPLAINT / REASON FOR NON FACE TO FACE PHONE VISIT Ms. Ena Garcia is a 45 y.o. female who presents today for asthma and chronic cough. Ms. Ena Garcia has most recently been seen in the Division of Allergic Diseases on 10/16/2019. HISTORY OF PRESENT ILLNESS Ms. Ena Garcia is a pleasant 45 year female living in [place] which she reports is very close to [place] where her mother lives in where she plans to move in with her mother after her father's passing. Her mother has no animals in the home. Ms. Garcia enjoys riding horses. She has 1 dog that comes indoors on occasion. There was also an outside cat. There are no animals regularly in her home. She believe she had the COVID virus back in July, although she is unsure if she actually had viral infection as she never tested positive for COVID-19. She has since then received her COVID-19 vaccines. She reports having chronic cough over the past approximate year. She reports that the cough would increase if she ate sister's food or ingested peppermint. The cough appears to have been increasing over the past year as well. She may experience paroxysms of cough. She also clears her throat but has not considered throat-clearing to be the same as cough. Her cough may increase after talking or upon exercise. She has not noticed her cough to be worse at night. She believes the cough originates in her chest. She reports sensing mucus coming up into her throat after she coughs repetitively. Skin tests were performed in the past back in 2008. There were several positive allergens tested. Current Outpatient Medications: ??? albuterol sulfate 90 mcg/actuation aero powdr breath act w/sensor, Inhale 2 puffs every 6 (six) hours as needed (cough or wheeze)., Disp: 1 each, Rfl: 3 ??? Asmanex Twisthaler 220 mcg/ actuation (60) inhaler, INHALE ONE PUFF BY MOUTH TWICE A DAY. RINSE AND SPIT AFTER USE., Disp: 3 Inhaler, Rfl: 0 ??? fluticasone propionate (FLONASE) 50 mcg/actuation nasal spray, Administer 2 sprays into each nostril 2 (two) times a day., Disp: 32 g, Rfl: 11 ??? mometasone-formoterol (DULERA 200) 200-5 mcg/actuation inhaler, Inhale 2 puffs 2 (two) times a day. Use with qa tech tube. Rinse mouth with water and spit out after each use. Do not swallow., Disp: 3 Inhaler, Rfl: 11 ??? montelukast (SINGULAIR) 10 mg tablet, Take 1 tablet (10 mg total) by mouth daily., Disp: 90 tablet, Rfl: 11 Allergies Allergen Reactions ??? Kiwi Anaphylaxis Slight airway swelling ??? Nut - Unspecified Anaphylaxis Slight airway swelling Hazelnut PAST MEDICAL/SURGICAL HISTORY 1. History of LASIK surgery 2. History of cholecystectomy 3. Asthma 4. Polycystic ovarian syndrome 5. Nasal polyps ?? SOCIAL HISTORY Lifelong nonsmoker. ??Three dogs which are in and out of the home. ??Social alcohol use; denies excessive use. ?? 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 ?? FAMILY HISTORY Asthma in her father. Unfortunately, her father is currently (October 16, 2019) hospitalized in [facility] in the [facility] with what is thought to be pneumonia. ??Prostate cancer, colon polyp, and hypertension present in the family as well. ROS: She denies other active medical problems. CLINICAL ASSESSMENT: Speech was normal. Mood seemed normal. ASSESSMENT / PLAN #1 Cough Chronic #2 Asthma Moderate Persistent (HCC) #3 Polyposis Nasal #4 Rhinitis Allergic Other orders - DX Chest AP or PA and Lateral 2 Views; Future; Expected date: 01/24/2021 - Spirometry; Future; Expected date: 01/24/2021 - Allergy and Immunology office visit (clinic); Future; Expected date: 01/24/2021 - mometasone-formoterol (DULERA 200) 200-5 mcg/actuation inhaler; Inhale 2 puffs 2 (two) times a day. Use with qa tech tube. Rinse mouth with water and spit out after each use. Do not swallow., Starting Wed12/25/2020, Normal - albuterol sulfate 90 mcg/actuation aero powdr breath act w/sensor; Inhale 2 puffs every 6 (six) hours as needed (cough or wheeze)., Starting Wed12/25/2020, Normal - fluticasone propionate (FLONASE) 50 mcg/actuation nasal spray; Administer 2 sprays into each nostril 2 (two) times a day., Starting Wed12/25/2020, Normal - montelukast (SINGULAIR) 10 mg tablet; Take 1 tablet (10 mg total) by mouth daily., Starting Wed12/25/2020, Normal DISCUSSION: Ms. Garcia has a known history of asthma, allergic rhinitis and nasal polyps. She reports a chronic cough of approximately 1 year in duration and she feels that cough has increased in intensity over the past year. She has a history of asthma, nasal polyps, allergic rhinitis with allergic sensitivitiesshe appears to have an element of postnasal drip with throat clearing although her symptoms do not appear to be explained all on the basis of postnasal drip and throat clearing. We discussed a number of potential options. We discussed the possible use of systemic steroids. However, she would like to avoid systemic steroids given her history of reacting to systemic steroids in the past. Given her history of asthma and likelihood of asthma as the cause for symptoms we agreed on stoppingher Asmanex and substituting Dulera 200/5 2 puffs twice daily, regularly followed by mouth rinse andspit out. She should otherwise continue on her regimen. Because the report of a progressive cough, we recommended follow-up in 4-6 weeks with a spirometry and chest x-ray at the time. Per our discussion, she knows the need to follow-up for further evaluation because the cough she has described. If thecough totally resolves with the change from Asmanex to Dulera and we would be happy to hear that good news. If her cough were to progress we would be happy to work her in for further evaluation in the interim. PATIENT EDUCATION Barriers of understanding are assessed, [...] services including 911 if needed. ATTESTATION: Spent 30 minutes in the evaluation, management and review of the plan of care, instructions, education and grief counsellor to . documented in this encounter Plan of Treatment Scheduled Referrals Name Type Priority Associated Order Schedule Diagnoses Allergy and Outpatient Referral Routine Expected : Immunology office 01/24/2021 visit (clinic) (Approximate) , Expires: 12/26/2023 documented as of this encounter Results Spirometry (03/17/2021 1:10 PM CDT) Analysis Performed At Patho logist Time Signature VC MAX POST 3.27 L 03/19/2021 [facility] 8:39 AM CDT SUITE PostFVC 3.26 L 03/19/2021 [facility] 8:39 AM CDT SUITE PostFEV1 2.60 L 03/19/2021 [facility] 8:39 AM CDT SUITE FEV1/FVC POST 79.71 % 03/19/2021 [facility] 8:39 AM CDT SUITE FEF 25-75 % 2.29 L/s 03/19/2021 [facility] POST 8:39 AM CDT SUITE PEF POST 6.49 L/s 03/19/2021 [facility] 8:39 AM CDT SUITE FET POST 7.87 sec 03/19/2021 [facility] 8:39 AM CDT SUITE VC MAX PRE 3.31 L 03/19/2021 [facility] 8:39 AM CDT SUITE FVC 3.31 L 03/19/2021 [facility] 8:39 AM CDT SUITE FEV1 2.49 L 03/19/2021 [facility] 8:39 AM CDT SUITE FEV1/FVC 75.18 % 03/19/2021 [facility] 8:39 AM CDT SUITE CQW29-74% 1.97 L/s 03/19/2021 [facility] 8:39 AM CDT SUITE PEF PRE 6.51 L/s 03/19/2021 [facility] 8:39 AM CDT SUITE FET PRE 9.75 sec 03/19/2021 [facility] 8:39 AM CDT SUITE SUBSTANCE POST Albuterol 03/19/2021 [facility] 8:39 AM CDT SUITE DOSE POST 2 Puff 03/19/2021 [facility] 8:39 AM CDT SUITE % PRED VC MAX 96 % % 03/19/2021 [facility] 8:39 AM CDT SUITE FVC% 96 % % 03/19/2021 [facility] 8:39 AM CDT SUITE FEV1% 90 % % 03/19/2021 [facility] 8:39 AM CDT SUITE % PRED 93 % % 03/19/2021 [facility] FEV1/FVC 8:39 AM CDT SUITE % PRED FEF 70 % % 03/19/2021 [facility] 25-75% 8:39 AM CDT SUITE % PRED PEF 109 % % 03/19/2021 [facility] 8:39 AM CDT SUITE PRED VC MAX 3.46 03/19/2021 [facility] 8:39 AM CDT SUITE PRED FVC 3.46 03/19/2021 [facility] 8:39 AM CDT SUITE PRED FEV 1 2.78 03/19/2021 [facility] 8:39 AM CDT SUITE PRED FEV1/FVC 80.9 03/19/2021 [facility] 8:39 AM CDT SUITE PRED FEF 2.80 03/19/2021 [facility] 25-75% 8:39 AM CDT SUITE PRED PEF 6.0 03/19/2021 [facility] 8:39 AM CDT SUITE Specimen (Source) Anatomical Collection Method Collection Time Re ceived Time Location / / Volume Laterality 03/17/2021 1:10 PM CDT Narrative This result has an attachment that is no t available. Reji Terry M.D. PFT ORDERABLES Performing Organization Address City/State/ZIP Code Phon e Number [facility] SUITE [facility] SUITE [place] DX Chest AP or PA and Lateral [...] exam. The chest is otherwise unremarkable. Reji Terry M.D. IMG DIAGNOSTIC IMAGING PROCE SABRA documented in this encounter Visit Diagnoses Diagnosis Chronic Cough - Primary Asthma Moderate Persistent (HCC) Polyposis Nasal Rhinitis Allergic Asthma Moderate Persistent (HCC) Rhinitis Allergic Polyposis Nasal Chronic Cough documented in this encounter
--- OUTSIDE RECORDS SUMMARY | 2022-05-20 15:00 | XMS_ITS | Encounter Summary ---
:1975 Author Organization [facility] Address [address] [place] [address] Care Team Providers Name Role Phone Unavailable Primary Care Provider Unavailable Encounter Details Date Type Department Care Team Description 10/13/2011 Hospital Encounter HX NO MAPPING Social History Tobacco Use Types Packs/Day Years Used Date Smoking Tobacco: Never Assessed Alcohol Habits Answer Date Recorded How often [...] or relatives? How often do you attend mandaeism or Never 2021 mormonism services? Do you belong to any clubs or No 03/16/2022 organizations such as mandaeism groups, unions, fraternal or athletic groups, or [...] or slept in a assisted (including now)? Sex Assigned at Date Recorded Female 03/15/2021 1:43 PM CDT documented as of this encounter Plan of Treatment Not on filedocumented as of this encounter Procedures Procedure Name Priority Date/Time Associated Comments Diagnosis DX CHEST AP OR PA AND Routine 10/13/2011 3:14 Res ults for this LATERAL 2 VIEWS PM CDT procedure ar e in the results section. ELECTROLYTE (CHEM 4) Routine 10/13/2011 2:52 Resu lts for this PANEL, S/P PM CDT procedure are i n the results section. CARDIAC BIOMARKER PANEL, Routine 10/13/2011 2:52 Results for this S PM CDT procedure are i n the results section. CBC WITH DIFFERENTIAL, B Routine 10/13/2011 2:52 Results for this PM CDT procedure are i n the results section. ASPARTATE Routine 10/13/2011 2:52 Results for this AMINOTRANSFERASE (AST), PM CDT proc edure are in S/P the results section. BILIRUBIN DIRECT, S/P Routine 10/13/2011 2:52 Res ults for this PM CDT procedure are i n the results section. BILIRUBIN, TOT, S/P Routine 10/13/2011 2:52 Resul ts for this PM CDT procedure are i n the results section. D-DIMER, P Routine 10/13/2011 2:51 Results for this PM CDT procedure are i n the results section. ALKALINE PHOSPHATASE, Routine 10/13/2011 2:51 Res ults for this S/P PM CDT procedure are i n the results section. LIPASE, S/P Routine 10/13/2011 2:51 Results for this PM CDT procedure are i n the results section. LACTATE, B/P Routine 10/13/2011 2:51 Results for this PM CDT procedure are i n the results section. AMYLASE, TOT, S Routine 10/13/2011 2:51 Results f or this PM CDT procedure are i n the results section. GLUCOSE POCT, B Routine 10/13/2011 2:50 Results f or this PM CDT procedure are i n the results section. documented in this encounter Results DX Chest AP or PA and Lateral 2 Views (10/13/2011 3:14 PM CDT) Anatomical Region Laterality Modality Chest N/A Radiographic Imaging Specimen (Source) Anatomical Collection Method Collection Time Re ceived Time Location / / Volume Laterality 10/13/2011 3:14 PM CDT Narrative 10/13/2011 3:16 PM CDT 13-Oct-2011 15:14:00 ??Exam: Chest-- 2 Views Indications: chest pain ORIGINAL REPORT - 13-Oct-2011 15:16:00 Chest; 2 views: Negative chest. Electronically signed by: ?? Annabella Vera MD. [id number] 13-Oct-2011 15:16 Procedure Note Lucio Vera M.D. - 09/25/2017Forma tting of this note might be different from the original. 13-Oct-2011 15:14:00 Exam: Chest-- 2 Vie ws Indications: chest pain ORIGINAL REPORT - 13-Oct-2011 15:16:00 Chest; 2 views: Negative chest. Electronically signed by: Annabella Vera MD. [id number] 13-Oct-2011 15:16 Pio Colbert M.D. IMG DIAGNOSTIC IMAGING PROCE DURES AST (Aspartate Aminotransferase) (10/13/2011 2:52 PM CDT) Patholo gist Method Time Signature Aspartate 20 8 - 43 [facility] Aminotransferase U/L LABORATORIES - (AST), [facility] Specimen Anatomical Collection Method Collection Time Receive d Time (Source) Location / / Volume Laterality 10/13/2011 2:52 PM 2 2:52 CDT PM CDT Pio Colbert M.D. LAB BLOOD ADD-ON Performing Organization Address City/[facility]/ZIP Code Phon e Number [facility] LABORATORIES - [address] [address] [facility] Bilirubin, Total (10/13/2011 2:52 PM CDT) athologist Signature Bilirubin, 0.2 0.1 - 1.0 [facility] Total, P MG/DL LABORATORIES - [facility] Specimen Anatomical Collection Method Collection Time Receive d Time (Source) Location / / Volume Laterality 10/13/2011 2:52 PM 2 2:52 CDT PM CDT Pio Colbert M.D. LAB BLOOD ADD-ON Performing Organization Address City/[facility]/ZIP Code Phon e Number [facility] LABORATORIES - [address] [address] [facility] Cardiac Biomarker Panel (10/13/2011 2:52 PM CDT) Patholo gist Method Time Signature Troponin T 3H, <0.01 <0.01 [facility] S NG/ML [facility] Delta Interp Not Sig [facility] Comment: No significant delta observed. Troponin Delta 0.00 NG/ML [facility] Troponin T 6H, S . NG/ML [facility] L ABORATORSELECT [facility]ICAL [facility] Comment: Test canceled. Patient discharg ed - N/C Troponin T, S <0.01 <0.01 NG/ML [facility] Specimen Anatomical Collection Method Collection Time Receive d Time (Source) Location / / Volume Laterality 10/13/2011 2:52 PM 2 2:52 CDT PM CDT Pio Colbert M.D. LAB BLOOD ADD-ON Performing Organization Address City/[facility]/ZIP [facility] Phon e Number [facility] LABORATORIES - [address] [address] [facility] Bilirubin, Direct (10/13/2011 2:52 PM CDT) P athologist Signature Bilirubin, <0.1 0.0 - 0.3 [facility] Direct, P MG/DL [facility] Specimen Anatomical Collection Method Collection Time Receive d Time (Source) Location / / Volume Laterality 10/13/2011 2:52 PM 2 2:52 CDT PM CDT Pio Colbert M.D. LAB BLOOD ADD-ON Performing Organization Address City/[facility] Code Phon e Number [facility] LABORATORIES - [address] [address] [facility] Electrolyte (Chem 4) Panel (10/13/2011 2:52 PM CDT) Analysis Performed At Patho logist Time Signature Sodium, P 140 135 - 145 [facility] MMOL/L [facility] Potassium, P 4.3 3.6 - 5.2 [facility] MMOL/L [facility] HX Bicarbonate, 29 22 - 29 [facility] P/S MMOL/L [facility] Creatinine 0.9 0.6 - 1.1 [facility] MG/DL [facility] eGFR >60 >60 [facility] Non-Black/Afric ML/MIN/BSA LABORATORIES - an Gambian [facility] eGFR-Black/Afri >60 >60 [facility] can Gambian ML/MIN/BSA LABORATORIES - [facility] Glucose, S 97 70 - 140 [facility] MG/DL LABORATORIES - [facility] Chloride, S 106 100 - 108 [facility] MMOL/L LABORATORIES - [facility] BUN (Blood Urea 15 6 - 21 [facility] Nitrogen), S MG/DL LABORATORIES - [facility] Specimen Anatomical Collection Method Collection Time Receive d Time (Source) Location / / Volume Laterality 10/13/2011 2:52 PM 2 2:52 CDT PM CDT Pio Colbert M.D. LAB BLOOD ADD-ON Performing Organization Address City/State/ZIP Code Phon e Number [facility] LABORATORIES - [address] [place], [place] [address] [facility] (ABNORMAL) CBC with Differential (10/13/2011 2:52 PM CDT) [facility] gist Method Time Signature Erythrocytes 4.49 3.90 - [facility] 5.03 LABORATORIES - X10(12)/L [facility] MCV 90.2 81.6 - [facility] 98.3 FL LABORATORIES - [facility] RBC Distrib 12.8 11.9 - [facility] Width 15.5 % LABORATORIES - [facility] Platelet Count 272 150 - 450 [facility] X10(9)/L LABORATORIES [facility] Lymphocytes 1.52 0.90 - [facility] 2.90 LABORATORIES - X10(9)/L [facility] Monocytes 0.55 0.30 - [facility] 0.90 LABORATORIES - X10(9)/L [facility] Hemoglobin 13.2 12.0 - [facility] 15.5 G/DL LABORATORIES - [facility] Hematocrit 40.5 34.9 - [facility] 44.5 % LABORATORIES - [facility] Leukocytes 9.9 3.5 - [facility] 10.5 LABORATORIES - X10(9)/L [facility] Neutrophils 6.67 1.70 - [facility] 7.00 LABORATORIES - X10(9)/L [facility] Eosinophils 1.09 (H) 0.05 - [facility] 0.50 LABORATORIES - X10(9)/L [facility] Basophils 0.05 0.00 - [facility] 0.30 LABORATORIES - X10(9)/L [facility] Specimen Anatomical Collection Method Collection Time Receive d Time (Source) Location / / Volume Laterality 10/13/2011 2:52 PM 2 2:52 CDT PM CDT Pio Colbert M.D. LAB BLOOD ADD-ON Performing Organization Address City/State/ZIP Code Phon e Number [facility] LABORATORIES - [address] [address] [facility] Lipase (10/13/2011 2:51 PM CDT) P athologist Signature Lipase, S 22 10 - 73 U/L [facility] Specimen Anatomical Collection Method Collection Time Receive d Time (Source) Location / / Volume Laterality 10/13/2011 2:51 PM 2 2:51 CDT PM CDT Pio Colbert M.D. LAB BLOOD ADD-ON Performing Organization Address City/[facility]/ZIP Code Phon e Number [facility] LABORATORIES - [address] [address] [facility] Alkaline Phosphatase (10/13/2011 2:51 PM CDT) P athologist Signature Alkaline 86 37 - 98 [facility] Phosphatase, S U/L [facility] Specimen Anatomical Collection Method Collection Time Receive d Time (Source) Location / / Volume Laterality 10/13/2011 2:51 PM 2 2:51 CDT PM CDT Pio Colbert M.D. LAB BLOOD ADD-ON Performing Organization Address City/State/ZIP Code Phon e Number [facility] LABORATORIES - [address] [phone] 05 [facility] Lactate (10/13/2011 2:51 PM CDT) P athologist Signature Lactate, P 1.5 0.6 - 2.3 [facility] MMOL/L [facility] Specimen Anatomical Collection Method Collection Time Receive d Time (Source) Location / / Volume Laterality 10/13/2011 2:51 PM 2 2:51 CDT PM CDT Pio Colbert M.D. LAB BLOOD NON ADD-ON Performing Organization Address City/[facility]/ZIP Code Phon e Number [facility] LABORATORIES - [address] [address] [facility] Amylase, Total (10/13/2011 2:51 PM CDT) P athologist Signature Amylase, 53 26 - 102 [facility] Total, S U/L LABORATORIES - [facility] Specimen Anatomical Collection Method Collection Time Receive d Time (Source) Location / / Volume Laterality 10/13/2011 2:51 PM 2 2:51 CDT PM CDT Pio Colbert M.D. LAB BLOOD ADD-ON Performing Organization Address City/State/ZIP Code Phon e Number [facility] LABORATORIES - [address] [place], [place] [address] [facility] (ABNORMAL) D-Dimer (10/13/2011 2:51 PM CDT) Patholo gist Method Time Signature Fibrinogen 0.52 (H) <=0.50 MCG [facility] Equivalent FEU/ML LABORATORIES - Units (FEU) [facility] D-Dimer, P 260 (H) SeeComment [facility] NG/ML LABORATORIES - [facility] Comment: Reference Range: ? <=250 ? The stated reference value is ? the cutoff to use D-Dimer for ? exclusion of deep vein ? thrombosis and/or pulmonary ? embolism. ? Specimen Anatomical Collection Method Collection Time Receive d Time (Source) Location / / Volume Laterality 10/13/2011 2:51 PM 2 2:51 CDT PM CDT Pio Colbert M.D. LAB BLOOD ADD-ON Performing Organization Address City/[facility]/ZIP Code Phon e Number [facility] LABORATORIES - [address] [place], [place] [address] [facility] Glucose, POCT (10/13/2011 2:50 PM CDT) [facility] gist Method Time Signature Glucose, POCT, 101 70 - 140 [facility] B MG/DL LABORATORIES - [facility] Sample Site, Venstick [facility] Blood Gas, LABORATORIES - POCT [facility] Specimen Anatomical Collection Method Collection Time Receive d Time (Source) Location / / Volume Laterality 10/13/2011 2:50 PM 2 2:50 CDT PM CDT Pio Colbert M.D. LAB POCT ORDERABLES-MANUAL Performing Organization Address City/State/ZIP Code Phon e Number [facility] LABORATORIES - [address] [address] [facility] documented in this encounter Visit Diagnoses Not on filedocumented in this encounter
--- OUTSIDE RECORDS SUMMARY | 2022-05-20 15:00 | XMS_ITS | Encounter Summary ---
:1975 Author Organization [facility] Address [address] [place] [address] Care Team Providers Name Role Phone Unavailable Primary Care Provider Unavailable Encounter Details Date Type Department Care Team Description 01/10/2021 Orders Only Pharmacy Prior Auth Joshua Zapata M.D. [phone] [place], [place] [address] (Wo rk) Social History Tobacco Use Types [...] or relatives? How often do you attend shinto or Never 2021 yazidi services? Do you belong to any clubs or No 03/16/2022 organizations such as shinto groups, unions, fraternal or athletic groups, or [...] place to sleep or slept in a penitentiary (including now)? Education Answer Date Recorded What is the highest level of school Master's degree (e.g., Lissett Manzo MS, 10/11/2019 you have completed or the highest Wilfredo, MEd, SUSTAINABILITY COMMUNICATOR, CHANEL) degree you have received? Sex Assigned at Date Recorded Female 03/15/2021 1:43 PM CDT documented as of this encounter Plan of Treatment Not on filedocumented as of this encounter Visit Diagnoses Not on filedocumented in this encounter
--- OUTSIDE RECORDS SUMMARY | 2022-05-20 15:00 | XMS_ITS | Encounter Summary ---
:1975 Author Organization [facility] Address [address] [place] [address] Care Team Providers Name Role Phone Unavailable Primary Care Provider Unavailable Encounter Details Date Type Department Care Team Description 11/17/2017 Orders Only [facility], Pam Davis, [facility], [facility] Norma aden M.D. [address] [place] [phone] Social History Tobacco Use Types Packs/Day Years [...] do you attend restorationist or Never 2021 christian services? Do you [...] or slept in a halfway (including now)? Sex Assigned at Date Recorded Female 03/15/2021 1:43 PM CDT documented as of this encounter Plan of Treatment Not on filedocumented as of this encounter Visit Diagnoses Not on filedocumented in this encounter
--- OUTSIDE RECORDS SUMMARY | 2022-05-20 15:00 | XMS_ITS | Encounter Summary ---
:1975 Author Organization [facility] Address [address] [place] [address] Care Team Providers Name Role Phone Unavailable Primary Care Provider Unavailable Encounter Details Date Type Department Care Team Description 09/26/2020 Orders Only [facility] Kory Matthews Jr., M.D. [address] [place], [place] [address] [phone] (Wo rk) Social History Tobacco Use Types [...] or relatives? How often do you attend mu-ism or Never 2021 faith services? Do you belong to any clubs or No 03/16/2022 organizations such as mu-ism groups, unions, fraternal or athletic groups, or [...] have completed or the highest Wilfredo, Jake, BARRELHEAD INSPECTOR, CHANEL) degree you have received? Sex Assigned at Date Recorded Female 03/15/2021 1:43 PM CDT documented as of this encounter Plan of Treatment Not on filedocumented as of this encounter Visit Diagnoses Not on filedocumented in this encounter
--- OUTSIDE RECORDS SUMMARY | 2022-05-20 15:00 | XMS_ITS | Encounter Summary ---
:1975 Author Organization [facility] Address [address] [place] [address] Care Team Providers Name Role Phone Unavailable Primary Care Provider Unavailable Reason for Visit Reason Comments Med Refill Encounter Details Date Type Department Care Team Description 10/24/2020 Refill Division of Allergic Diseases Reji Sims M.D. Med Refill in [facility] [address] [facility] [address] [place] [address] [place] [address] [phone] Social History Tobacco Use Types Packs/Day Years [...] or relatives? How often do you attend baptism or Never 2021 tenriism services? Do you belong to any clubs or No 03/16/2022 organizations such as baptism groups, unions, fraternal or athletic groups, or [...] place to sleep or slept in a chcf (including now)? Education Answer Date Recorded What is the highest level of school Master's degree (e.g., Lissett Manzo MS, 10/11/2019 you have completed or the highest Wilfredo, Jake, DIRECTOR OF HOTEL OPERATIONS, CHANEL) degree you have received? Sex Assigned at Date Recorded Female 03/15/2021 1:43 PM CDT documented as of this encounter Plan of Treatment Not on filedocumented as of this encounter Visit Diagnoses Not on filedocumented in this encounter
--- OUTSIDE RECORDS SUMMARY | 2022-05-20 15:00 | XMS_ITS | Encounter Summary ---
:1975 Author Organization [facility] Address [address] [place] [address] Care Team Providers Name Role Phone Unavailable Primary Care Provider Unavailable Reason for Visit Reason Comments Prior Auth Request-ProAir Encounter Details Date Type Department Care Team Description 12/26/2020 Clinical Communication Outpatient Surgery Alf Ibarra, Prior Auth and Procedural Yarelis Moore R.N. Request-ProAir Admissions in [phone] [facility] [address] [place] [phone] Social History Tobacco Use Types Packs/Day Years [...] or relatives? How often do you attend voodoo or Never 2021 episcopalian services? Do you belong to any clubs or No 03/16/2022 organizations such as voodoo groups, unions, fraternal or athletic groups, or [...] place to sleep or slept in a custodial (including now)? Education Answer Date Recorded What is the highest level of school Master's degree (e.g., M Anais, MS, 10/11/2019 you have completed or the highest Wilfredo, MEd, SKATESMAN, CHANEL) degree you have received? Sex Assigned at Date Recorded Female 03/15/2021 1:43 PM CDT documented as of this encounter Miscellaneous Notes Telephone Encounter - Marcela Ramachandran - 12/26/2020 12:34 PM CDT PA has been requested. documented in this encounter Plan of Treatment Not on filedocumented as of this encounter Visit Diagnoses Not on filedocumented in this encounter
--- OUTSIDE RECORDS SUMMARY | 2022-05-20 15:00 | XMS_ITS | Encounter Summary ---
:1975 Author Organization [facility] Address [address] [place] [address] Care Team Providers Name Role Phone Unavailable Primary Care Provider Unavailable Reason for Visit Reason Comments Med Refill Encounter Details Date Type Department Care Team Description 11/08/2020 Refill Division of Allergic Diseases Reji Sims M.D. Med Refill in [facility] [address] [facility] [address] [place] [address] [place] [address] [phone] Social History Tobacco Use Types Packs/Day Years [...] do you attend congregational or Never 2021 yazidi services? Do you [...] place to sleep or slept in a snf (including now)? Education Answer Date Recorded What is the highest level of school Master's degree (e.g., Lissett Manzo MS, 10/11/2019 you have completed or the highest Wilfredo, Jake, FLASK HANDLER, CHANEL) degree you have received? Sex Assigned at Date Recorded Female 03/15/2021 1:43 PM CDT documented as of this encounter Plan of Treatment Not on filedocumented as of this encounter Visit Diagnoses Not on filedocumented in this encounter
--- OUTSIDE RECORDS SUMMARY | 2022-05-20 15:00 | XMS_ITS | Encounter Summary ---
:1975 Author Organization [facility] Address [address] [place] [address] Care Team Providers Name Role Phone Unavailable Primary Care Provider Unavailable Encounter Details Date Type Department Care Team Description 12/26/2020 Orders Only Pharmacy Prior Auth Jelena Bauer [phone] Social History Tobacco Use Types Packs/Day Years [...] do you attend buddhist or Never 2021 nondenominational services? Do you belong to any clubs [...] have completed or the highest Wilfredo, Jake, DEICER TESTER, CHANEL) degree you have received? Sex Assigned at Date Recorded Female 03/15/2021 1:43 PM CDT documented as of this encounter Plan of Treatment Not on filedocumented as of this encounter Visit Diagnoses Not on filedocumented in this encounter
--- OUTSIDE RECORDS SUMMARY | 2022-05-20 15:00 | XMS_ITS | Encounter Summary ---
:1975 Author Organization [facility] Address [address] [place] [address] Care Team Providers Name Role Phone Unavailable Primary Care Provider Unavailable Encounter Details Date Type Department Care Team Description 12/31/2020 Orders Only Pharmacy Prior Auth Joshua Zapata M.D. [phone] [place], [place] [address] (Wo rk) Social History [...] do you attend shinto or Never 2021 congregation services? Do you [...] have completed or the highest Wilfredo, MEd, PAVING INSPECTOR, CHANEL) degree you have received? Sex Assigned at Date Recorded Female 03/15/2021 1:43 PM CDT documented as of this encounter Plan of Treatment Not on filedocumented as of this encounter Visit Diagnoses Not on filedocumented in this encounter
--- OUTSIDE RECORDS SUMMARY | 2022-05-20 15:00 | XMS_ITS | Encounter Summary ---
:1975 Author Organization [facility] Address [address] [place] [address] Care Team Providers Name Role Phone Unavailable Primary Care Provider Unavailable Encounter Details Date Type Department Care Team Description 09/08/2019 Clinical Communication [place], [place] [address] [address] [facility] [address] [place] [phone] [phone] Social History Tobacco Use Types Packs/Day Years [...] or relatives? How often do you attend spiritism or Never 2021 nondenominational services? Do you belong to any clubs or No 03/16/2022 organizations such as spiritism groups, unions, fraternal or athletic groups, or [...] or slept in a m[facility]p (including now)? Sex Assigned at Date Recorded Female 03/15/2021 1:43 PM CDT documented as of this encounter Miscellaneous Notes Telephone Encounter - Linda Loja - 09/08/2019 3:15 PM CDT Patient is scheduled to see you on 10/16/2019 at 10:00 am for follow up asthma. Please place order for breathing test. Thank you. documented in this encounter Plan of Treatment Not on filedocumented as of this encounter Visit Diagnoses Diagnosis Asthma (HCC) - Primary documented in this encounter
--- OUTSIDE RECORDS SUMMARY | 2022-05-20 15:00 | XMS_ITS | Encounter Summary ---
:1975 Author Organization [facility] Address [address] [place] [address] Care Team Providers Name Role Phone Unavailable Primary Care Provider Unavailable Encounter Details Date Type Department Care Team Description 01/09/2021 Orders Only Department of Oncology in [place] [place], [place] [address] [place] [address] Social History Tobacco Use Types Packs/Day Years [...] do you attend yarsani or Never 2021 scientology services? Do you belong to any clubs or No 03/16/2022 organizations such as yarsani groups, unions, fraternal or athletic groups, or [...] have completed or the highest Wilfredo, Jake, SEAT COVER CUTTER, CHANEL) degree you have received? Sex Assigned at Date Recorded Female 03/15/2021 1:43 PM CDT documented as of this encounter Plan of Treatment Not on filedocumented as of this encounter Visit Diagnoses Not on filedocumented in this encounter
--- OUTSIDE RECORDS SUMMARY | 2022-05-20 15:00 | XMS_ITS | Encounter Summary ---
:1975 Author Organization [facility] Address [address] [place] [id number] Care Team Providers Name Role Phone Unavailable Primary Care Provider Unavailable Reason for Visit Reason Onset Date Comments RX PRIOR AUTHORIZATION 12/17/2017 NEW RX FOR FLUTIC ASONE NASAL SPRAY Encounter Details Date Type Department Care Team Description 12/17/2017 Clinical [facility] [place], KARMA PRIOR Communication [facility], JOSEP Chavez ([facility] C.Ph.T[facility] RX FOR FLUTICASONE Floor [address] [place] [address] NASAL SPRAY) [address] [place] [phone] Social History Tobacco Use Types Packs/Day Years [...] or relatives? How often do you attend jehovah's witness or Never 2021 cheondoism services? Do you belong to any clubs or No 03/16/2022 organizations such as jehovah's witness groups, unions, fraternal or athletic groups, or [...] a [place] [facility] (including now)? Sex Assigned at Date Recorded Female 03/15/2021 1:43 PM CDT documented as of this encounter Plan of Treatment Not on filedocumented as of this encounter Visit Diagnoses Not on filedocumented in this encounter
--- OUTSIDE RECORDS SUMMARY | 2022-05-20 15:00 | XMS_ITS | Encounter Summary ---
:1975 Author Organization [facility] Address [address] [place] [address] Care Team Providers Name Role Phone Unavailable Primary Care Provider Unavailable Reason for Visit Reason Comments Intake Assessment Encounter Details Date Type Department Care Team Description 12/24/2020 Clinical Communication [facility] Intake Assessment Diseases in B, M.D. [place], [place] [address] [facility] [address] [place] [phone] Social History Tobacco Use Types Packs/Day Years [...] or relatives? How often do you attend tenriism or Never 2021 buddhist services? Do you belong to any clubs or No 03/16/2022 organizations such as tenriism groups, unions, fraternal or athletic groups, or [...] have completed or the highest Wilfredo, Jake, PHARMACY TECHNOLOGIST, CHANEL) degree you have received? Sex Assigned at Date Recorded Female 03/15/2021 1:43 PM CDT documented as of this encounter Plan of Treatment Not on filedocumented as of this encounter Visit Diagnoses Not on filedocumented in this encounter
--- OUTSIDE RECORDS SUMMARY | 2022-05-20 15:00 | XMS_ITS | Encounter Summary ---
:1975 Author Organization [facility] Address [address] [place] [address] Care Team Providers Name Role Phone Unavailable Primary Care Provider Unavailable Encounter Details Date Type Department Care Team Description 03/14/2021 Clinical Communication [facility], [place] [address] [address] [facility] [address] [place] [phone] Social History Tobacco Use Types Packs/Day Years [...] or relatives? How often do you attend uatsdin or Never 2021 samaritan services? Do you belong to any clubs or No 03/16/2022 organizations such as uatsdin groups, unions, fraternal or athletic groups, or [...] have completed or the highest Wilfredo, Jake, INSTRUMENTATION ENGINEER, CHANEL) degree you have received? Sex Assigned at Date Recorded Female 03/15/2021 1:43 PM CDT documented as of this encounter Plan of Treatment Not on filedocumented as of this encounter Visit Diagnoses Not on filedocumented in this encounter
--- OUTSIDE RECORDS SUMMARY | 2022-05-20 15:00 | XMS_ITS | Encounter Summary ---
:1975 Author Organization [facility] Address [address] [place] [address] Care Team Providers Name Role Phone Unavailable Primary Care Provider Unavailable Encounter Details Date Type Department Care Team Description 12/26/2020 Orders Only [facility] Abad Patel, Pcp [address] [place] [address] Social History Tobacco Use Types Packs/Day Years [...] you attend jehovah's witness or Never 2021 congregation services? Do you [...] have completed or the highest Wilfredo, Jake, HIGH RAW SUGAR BOILER, CHANEL) degree you have received? Sex Assigned at Date Recorded Female 03/15/2021 1:43 PM CDT documented as of this encounter Plan of Treatment Not on filedocumented as of this encounter Visit Diagnoses Not on filedocumented in this encounter
--- NOTE | 2022-05-20 15:13 | CRLHL7_ITS ---
For Patients: As a result of the Century Cures Act, medical imaging exams and procedure reports are released immediately into your electronic medical record. You may view this report before your referring provider. If you have questions, please contact your health care provider. INDICATION: Fall, pain. TECHNIQUE: CT of the lumbar spine without IV contrast. Coronal and sagittal reconstructions. COMPARISON: Same day lumbar spine radiographs. FINDINGS: There are 5 lumbar type vertebral bodies. There is a mild acute inferior endplate compression fracture of L1 without retropulsion. Acute nondisplaced fractures of the left L1 and L2 transverse processes. There is also an acute comminuted fracture of the L4 vertebral body with mild compression of the superior endplate as well as a Schmorl`s node in the superior endplate (series 6, image 25). A fracture line extends vertically through the mid vertebral body involving the superior and inferior endplates, with an additional fracture line through the anterior superior endplate. Mild anterolisthesis of L4 on L5. No retropulsion. Disc bulge at L4-L5 with mild spinal canal stenosis. Lower lumbar facet arthropathy. No significant disc space narrowing. Mild subcutaneous edema overlying the lumbar spine. The sacroiliac joints are normal in appearance. The visualized unenhanced abdominal contents are unremarkable. IMPRESSION: 1. Mild acute inferior endplate compression fracture of L1 without retropulsion. 2. Acute comminuted fracture of the L4 vertebral body with mild compression of the superior endplate. No retropulsion. Mild anterolisthesis of L4 on L5. Disc bulge at L4-L5 with mild spinal canal stenosis. 3. Acute nondisplaced fractures of the left L1 and L2 transverse processes. Please note that all CT scans at this facility use dose modulation, iterative reconstruction, and/or weight-based dosing when appropriate to reduce radiation dose to as low as reasonably achievable. Dictated by Angelica Ruano MD @ 05/20/2022 4:09:26 PM (Electronically Signed)
[2022-05-20 15:30] VITALS: BP 110/84; PULSE 86; RESP 16; O2SAT 98
[2022-05-20] MEDS: ACETAMINOPHEN 500 MG TABLET 1000 MG PO (15:30)
--- NOTE | 2022-05-20 16:11 | CRLHL7_ITS ---
For Patients: As a result of the Century Cures Act, medical imaging exams and procedure reports are released immediately into your electronic medical record. You may view this report before your referring provider. If you have questions, please contact your health care provider. Indication: Fall Technique: Volumetric multidetector CT images of the thoracic spine were obtained without the administration of IV contrast. Comparison: None available. Findings: There is demonstration of a age indeterminate compression deformity of the central superior T10 level. Additional somewhat age indeterminate compression deformity of the superior T2 endplate is noted. The remaining thoracic vertebral body heights are grossly preserved. There is preserved kyphosis with trace anterolisthesis of T3 on T4. There is moderate multilevel degenerative disc disease with disc height loss and marginal osteophyte formation. There is no significant spinal canal stenosis or neural foraminal narrowing. There is no displaced fracture or dislocation. The paraspinous soft tissues are grossly within normal limits. Impression: Somewhat age indeterminate compression deformities of the superior T2 and central T10 endplates without evidence of large, displaced fracture. Consider further evaluation with MRI for improved characterization of subtle marrow edema. Please note that all CT scans at this facility use dose modulation, iterative reconstruction, and/or weight-based dosing when appropriate to reduce radiation dose to as low as reasonably achievable. Dictated by Drew Hunt MD @ 05/20/2022 5:28:56 PM (Electronically Signed)
--- NOTE | 2022-05-20 16:11 | CRLHL7_ITS ---
For Patients: As a result of the Cures Act, medical imaging exams and procedure reports are released immediately into your electronic medical record. You may view this report before your referring provider. If you have questions, please contact your health care provider. Indication: Fall Technique: Volumetric multidetector CT images of the cervical spine were obtained without the administration of IV contrast. Comparison: None available. Findings: The cervical vertebral body heights are grossly maintained with endplate Schmorl`s defects. There is straightening and mild reversal of the normal cervical lordosis with minimal anterolisthesis of C4 on C5. There is no displaced fracture or dislocation. There is moderate degenerative disc disease with disc height loss and marginal osteophyte formation. There is moderate to severe facet arthrosis. Postoperative change of the right thyroid status post right hemithyroidectomy is appreciated. Impression: Moderate multilevel degenerative changes of the cervical spine with reversal of the normal cervical lordosis and minimal anterolisthesis of C4 on C5. No evidence of displaced fracture. Please note that all CT scans at this facility use dose modulation, iterative reconstruction, and/or weight-based dosing when appropriate to reduce radiation dose to as low as reasonably achievable. Dictated by Drew Hunt MD @ 05/20/2022 5:22:24 PM (Electronically Signed)
--- NOTE | 2022-05-20 16:37 | ED.GENADULT ---
HPI - General Adult General Chief complaint: Back Injury/Pain Stated complaint: Fell off horse onto back Time Seen by Provider: 05/20/22 13:40 Source: patient Mode of arrival: ambulatory Limitations: no limitations History of Present Illness HPI narrative: 47-year-old female coming in today with back pain. Patient states that she fell off her horse about 2 hours ago. The horse bucked and she went forward off of her saddle and fell flat on her back on the ground. She is complaining of mid and low back pain. Low back pain radiates across the entire lower back. The mid back pain stays around the center mid back and radiates up below her shoulder blade on the left. She is not short of breath. She denies hitting her head or losing consciousness. She denies any neck pain or headache. No changes in her vision. No abdominal pain. Related Data Home Medications Medication Instructions Recorded Confirmed albuterol 90 mcg/actuation aerosol mcg inhalation 03/23/22 03/23/22 inhaler fluticasone propionate 50 2 intranasal BID 03/23/22 03/23/22 mcg/actuation nasal spray,suspension levothyroxine 100 mcg tablet 100 mcg PO QDAY 03/23/22 03/23/22 mometasone-formoterol HFA 200 2 inhalation BID 03/23/22 03/23/22 mcg-5 mcg/actuation aerosol inhaler montelukast 10 mg tablet 10 mg PO .Bedtime 03/23/22 03/23/22 Allergies Allergy/AdvReac Type Severity Reaction Status Date / Time OPIATES Allergy Severe NAUSEA AND Uncoded 03/23/22 12:49 VOMITING Opium Allergy Unknown Nausea Uncoded 03/23/22 12:49 Review of Systems Status of ROS: Reports: 10 or more systems reviewed and unremarkable except as noted in History and below [facility] Medical History Papillary carcinoma of thyroid (2021) Surgical History History of cholecystectomy (2006) History of laser assisted in situ keratomileusis History of lobectomy of thyroid (2021) Social History Smoking Status: Never smoker Do you use any of these nicotine containing products: None Second hand tobacco smoke exposure: No How often do you have a drink containing alcohol: never AUDIT-C Alcohol total score: 0 Non-prescribed substance use: denies use Little interest or pleasure in doing things: not at all Feeling down, depressed, or hopeless: not at all service: No Exam Narrative: Exam Narrative: Well-nourished well-developed patient in no acute distress. Alert and oriented. Answers questions appropriately. Mood and affect are appropriate. Thoughts are goal oriented and rational. No tangential or magical thinking noted. Patient speaks in full sentences without needing to catch her breath. Speech is not slurred or pressured. HEENT: Normocephalic atraumatic. Pupils are equally round reactive to light. Extraocular muscles are intact. Conjunctivae are moist without any icterus noted. Moist mucous membranes. Posterior pharynx is normal. Neck is soft. She has no tenderness to palpation of the cervical spine. She has full range of motion with flexion, extension, side way bending and rotation. There is no trauma noted to the inside of the mouth. Cardiovascular: Heart is regular rate and rhythm S1 and S2 are present without any murmurs. Lungs: Clear to auscultation bilaterally no wheezes rhonchi or rales are appreciated. Patient takes deep breaths without any discomfort. Abdomen: Soft and nontender nondistended with normal bowel sounds. No guarding or rebound. Extremities: Bilateral lower extremities are without edema. Skin: Well perfused. She does have abrasions across the upper back. Back: Abrasions noted above. She has tenderness to palpation of the lower thoracic spine as well as the lumbar spine. She has tenderness of the paraspinal musculature of the lumbar spine. There are no step-offs noted. She has no tenderness over the cervical spine. Is uncomfortable for her to walk but she is walking without any neurologic deficits. Const: Vital Signs, click to edit/add: Vital Signs - 24 hr 05/20/22 13:03 05/20/22 15:30 Temperature 97.7 F Pulse Rate [Right Pulse Oximeter] 76 86 Respiratory Rate 18 16 Blood Pressure [Ri ght Upper Arm] 129/88 110/84 Pulse Oximetry 99 98 Oxygen Delivery Me thod Room Air Room Air Course Course Hospital Course: Did proceed with x-rays of the thoracic and lumbar spine. Thoracic spine was read as normal, Lumbar spine noted a small abnormality so we proceeded with a CT of the lumbar spine. CT of the lumbar spine showed multiple fractures as noted in the radiologic report. Because of this we did proceed also with a CT of the cervical and thoracic spine. Cervical spine did not have any fractures, thoracic spine had age indeterminate fractures per report noted below. I did speak to , [facility], she recommended patient be transferred to [facility] for further management. Patient's pain was well controlled with just Tylenol while in the ED. She did not request or except any further medication. Vital Signs Vital signs: Initial Vital Signs Temperature 97.7 F 05/20/22 13:03 Temperature Source Temporal Artery Scan 05/20/22 13:03 Pulse Rate 76 05/20/22 13:03 Respiratory Rate 18 05/20/22 13:03 Blood Pressure 129/88 05/20/22 13:03 Blood Pressure Mean 101 05/20/22 13:03 Blood Pressure Position Sitting 05/20/22 13:03 Pulse Oximetry 99 05/20/22 13:03 Oxygen Delivery Method 05/20/22 13:03 Vital Signs Temperature 97.7 F 05/20/22 13:03 Pulse Rate 76 05/20/22 13:03 Respiratory Rate 18 05/20/22 13:03 Blood Pressure 129/88 05/20/22 13:03 Pulse Oximetry 99 05/20/22 13:03 Oxygen Delivery Method 05/20/22 13:03 Temperature 97.7 F 05/20/22 13:03 Pulse Rate 86 05/20/22 15:30 Respiratory Rate 16 05/20/22 15:30 Blood Pressure 110/84 05/20/22 15:30 Pulse Oximetry 98 05/20/22 15:30 Oxygen Delivery Method 05/20/22 15:30 Medical Decision Making [facility] Narrative Medical decision making narrative: 47-year-old female with a vertebral body fracture at L4, several transverse processes fractures as well and compression fractures-patient will be transferred to [facility] for further management. Imaging Data Thoracic spine x-ray: Attestation: I have reviewed the pertinent imaging results. Radiologist's impression: Volumetric multidetector CT images of the thoracic spine were obtained without the administration of IV contrast. Comparison: None available. Findings: There is demonstration of a age indeterminate compression deformity of the central superior T10 level. Additional somewhat age indeterminate compression deformity of the superior T2 endplate is noted. The remaining thoracic vertebral body heights are grossly preserved. There is preserved kyphosis with trace anterolisthesis of T3 on T4. There is moderate multilevel degenerative disc disease with disc height loss and marginal osteophyte formation. There is no significant spinal canal stenosis or neural foraminal narrowing. There is no displaced fracture or dislocation. The paraspinous soft tissues are grossly within normal limits. Impression: Somewhat age indeterminate compression deformities of the superior T2 and central T10 endplates without evidence of large, displaced fracture. Consider further evaluation with MRI for improved characterization of subtle marrow edema. Lumbar spine x-ray: Attestation: I have reviewed the pertinent imaging results. Radiologist's impression: AP and lateral views lumbar spine were obtained. Findings: There is demonstration of age indeterminate deformity of the anterior superior L4 vertebral body. The remaining vertebral body heights are grossly preserved with grade 2 anterolisthesis of L4 on L5. There is moderate facet arthrosis. There is mild to moderate multilevel degenerative disc disease with disc height loss and marginal osteophyte formation. The soft tissues are unremarkable. Impression: Age-indeterminate deformity of the anterosuperior L4 level which could represent an evolving Schmorl`s defect; however, a minimal compression fracture is difficult to exclude. Otherwise mild to moderate degenerative changes and anterolisthesis of L4 on L5. Cervical spine CT: Attestation: I have reviewed the pertinent imaging results. Radiologist's impression: Volumetric multidetector CT images of the cervical spine were obtained without the administration of IV contrast. Comparison: None available. Findings: The cervical vertebral body heights are grossly maintained with endplate Schmorl`s defects. There is straightening and mild reversal of the normal cervical lordosis with minimal anterolisthesis of C4 on C5. There is no displaced fracture or dislocation. There is moderate degenerative disc disease with disc height loss and marginal osteophyte formation. There is moderate to severe facet arthrosis. Postoperative change of the right thyroid status post right hemithyroidectomy is appreciated. Impression: Moderate multilevel degenerative changes of the cervical spine with reversal of the normal cervical lordosis and minimal anterolisthesis of C4 on C5. No evidence of displaced fracture. Thoracic spine CT: Attestation: I have reviewed the pertinent imaging results. Radiologist's impression: Volumetric multidetector CT images of the thoracic spine were obtained without the administration of IV contrast. Comparison: None available. Findings: There is demonstration of a age indeterminate compression deformity of the central superior T10 level. Additional somewhat age indeterminate compression deformity of the superior T2 endplate is noted. The remaining thoracic vertebral body heights are grossly preserved. There is preserved kyphosis with trace anterolisthesis of T3 on T4. There is moderate multilevel degenerative disc disease with disc height loss and marginal osteophyte formation. There is no significant spinal canal stenosis or neural foraminal narrowing. There is no displaced fracture or dislocation. The paraspinous soft tissues are grossly within normal limits. Impression: Somewhat age indeterminate compression deformities of the superior T2 and central T10 endplates without evidence of large, displaced fracture. Consider further evaluation with MRI for improved characterization of subtle marrow edema. Lumbar spine CT: Attestation: I have reviewed the pertinent imaging results. Radiologist's impression: CT of the lumbar spine without IV contrast. Coronal and sagittal reconstructions. COMPARISON: Same day lumbar spine radiographs. FINDINGS: There are 5 lumbar type vertebral bodies. There is a mild acute inferior endplate compression fracture of L1 without retropulsion. Acute nondisplaced fractures of the left L1 and L2 transverse processes. There is also an acute comminuted fracture of the L4 vertebral body with mild compression of the superior endplate as well as a Schmorl`s node in the superior endplate (series 6, image 25). A fracture line extends vertically through the mid vertebral body involving the superior and inferior endplates, with an additional fracture line through the anterior superior endplate. Mild anterolisthesis of L4 on L5. No retropulsion. Disc bulge at L4-L5 with mild spinal canal stenosis. Lower lumbar facet arthropathy. No significant disc space narrowing. Mild subcutaneous edema overlying the lumbar spine. The sacroiliac joints are normal in appearance. The visualized unenhanced abdominal contents are unremarkable. IMPRESSION: 1. Mild acute inferior endplate compression fracture of L1 without retropulsion. 2. Acute comminuted fracture of the L4 vertebral body with mild compression of the superior endplate. No retropulsion. Mild anterolisthesis of L4 on L5. Disc bulge at L4-L5 with mild spinal canal stenosis. 3. Acute nondisplaced fractures of the left L1 and L2 transverse processes. Discharge Plan Discharge Clinical Impression: Closed fracture of body of lumbar vertebra Patient Disposition: Xfer Other Discharge Location: [facility] Condition: Stable Prescriptions: No Action montelukast 10 mg tablet 10 mg PO .Bedtime fluticasone propionate 50 mcg/actuation spray,suspension 2 intranasal BID mometasone-formoterol 200-5 mcg/actuation HFA aerosol inhaler 2 inhalation BID levothyroxine 100 mcg tablet 100 mcg PO QDAY albuterol 90 mcg/actuation aerosol inhalation Follow Up/Referrals: Naomi Olsen MD [Primary Care Provider] - Stand Alone Forms: [employer] Info Instructions
--- NOTE | 2022-05-20 17:18 | ED.NURSE ---
Patient did have moderately wet diaper during last nursing cares, changed to dry diaper.
[2022-05-20 18:45] VITALS: BP 101/89; PULSE 77; RESP 16; TEMP 36.9; O2SAT 98
== END 2022-05-20 20:36 | disposition other institution (70) ==
PROVIDERS: Emergency Provider Family Medicine; PCP Internal Medicine
DX: S32.049A Unspecified fracture of fourth lumbar vertebra, initial encounter for closed fracture (principal); V80.010A Animal-rider injured by fall from or being thrown from horse in noncollision accident, initial encounter
CPT/HCPCS: 72072; 72100; 72125; 72128; 72131; 99285; A9270

== ENCOUNTER 2022-05-20 20:24 | Outpatient (CLI) | payer MEDICAID, SELFPAY ==
--- OUTSIDE RECORDS SUMMARY | 2022-05-28 14:08 | XMS_ITS | Encounter Summary ---
:1975 Author Organization [facility] Address [address] [place] [address] Care Team Providers Name Role Phone Unavailable Primary Care Provider Unavailable Encounter Details Date Type Department Care Team Description 04/06/2022 Hospital Encounter Department of Reji Terry Cancer Thyroid Laboratory Medicine MVincenzo Papillary Personal and Pathology, [address] [place] [address] in [place], [place] [address] [place] [address] [place], [place] (Work) [phone] Social History Tobacco Use Types Packs/Day Years [...] or relatives? How often do you attend methodist or Never 2021 episcopal services? Do you belong to any clubs or No 03/16/2022 organizations such as methodist groups, unions, fraternal or athletic groups, or [...] have completed or the highest Wilfredo, MEd, ALMOND ROASTER, CHANEL) degree you have received? Sex Assigned [...] times a day. mcg/actuation inhaler use with washing machine assembler tube, then rinse mouth with water and [...] Organization Address City/State/ZIP Code Phon e Number [facility] - [address] [place] [address] [address] [facility] [place] [place] [address] [facility] [address] [facility] T4 (Thyroxine), Free (04/06/2022 10:13 AM CDT) athologist Signature T4 (Thyroxine), 1.6 0.9 - 1.7 04/06/2022 DTL Free, S ng/dL 11:25 AM CDT Specimen Anatomical Collection Method Collection Time Receive d Time (Source) Location / / Volume Laterality Blood (Blood, 04/06/2022 10:13 04/06/2022 Venous) AM CDT 10:51 AM CDT Reji Terry M.D. LAB BLOOD ADD-ON Performing Organization Address City/[facility]/ZIP Code Phon e Number [facility] - [address] [place], [place] [address] [facility] [place] [address] Formerly [facility] [address] documented in this encounter Visit Diagnoses Diagnosis Cancer Thyroid Papillary Personal Histor y documented in this encounter
--- OUTSIDE RECORDS SUMMARY | 2022-05-28 14:08 | XMS_ITS | Clinical Summary ---
:1975 Author Organization [facility] Address [address] [place] [address] Care Team Providers Name Role Phone Unavailable Primary Care Provider Unavailable Source Comments Patient records contain information from all sites at [facility]. For routine questions regarding patient records, call [phone] during business hours, M-F 8:00 AM - 5:00 PM Central Time. Record requests for emergency care only can be directed to [phone] at any time.[facility] Allergies Active Allergy Reactions Severity Noted Date Comments Kiwi Anaphylaxis 10/16/2019 Slight airway s welling Nut - Unspecified Anaphylaxis 10/16/[address] Hazelnut Medications Medication Sig Dispensed Refills Start Date End Date Status mometasone-formoterol Inhale 2 puffs 2 13 g 11 03/16/2022 Active (Dulera) 200-5 (two) times a day. mcg/actuation inhaler use with uniform attendant tube, then rinse mouth with water and spit out after each use. Do not swallow. montelukast Take 1 tablet (10 90 tablet 11 03/16/2022 Active (SINGULAIR) 10 mg mg total) by mouth tablet daily. Ventolin HFA 90 Inhale 2 puffs 18 g 2 03/16/2022 Active mcg/actuation inhaler every 6 (six) hours as needed for wheezing. fluticasone propionate Administer 2 32 g 11 03/16/2022 Active (FLONASE) 50 sprays into each mcg/actuation nasal nostril 2 (two) spray times a day. levothyroxine Take 100 mcg by 0 04/13/2022 Active (SYNTHROID, mouth daily. LEVOTHROID) 100 mcg tablet levothyroxine Take 88 mcg by 0 02/11/2022 Active (SYNTHROID, mouth daily. LEVOTHROID) 88 mcg tablet Active Problems Problem Noted Date Polyposis Nasal 03/24/2022 Asthma NOS 09/13/2009 Encounters Date Type Specialty Care Team Description 04/27/2022 Clinical Endocrinology Dori, Desi Claudio APRN, C.N.P., D.N.P. 04/24/2022 Comprehensive Endocrinology Reji Terry, Malignant N eoplasm Of Thyroid Papillary (HCC) (Primary Dx); Visit M.D. Cancer Thyroid Papillary Personal Histor y Ángel Fang M.D. 04/06/2022 Hospital Encounter Laboratory Medicine Reji Terry, Cancer Thyroid M.D. Papillary Perso nal History 03/24/2022 Ancillary Procedure 03/24/2022 Comprehensive Otorhinolaryngology Saadia Varela Polypo sis Nasal Visit Courtney Moore 03/19/2022 [...] (HCC); M.D. Polyposis Nasal; Schlichter, Rhinosinusitis Chronic Ayanna BayNAdalid 03/13/2022 Clinical Admitting/Central Communication Scheduling 03/13/2022 Refill Allergy and Immunology Reji Terry Med Refill Courtney from Last 3 Months Immunizations Name Administration [...] or relatives? How often do you attend lutheran or Never 2021 orthodoxy services? Do you belong to any clubs or No 03/16/2022 organizations such as lutheran groups, unions, fraternal or athletic groups, or [...] have completed or the highest Wilfredo, MEd, EXECUTIVE CHAIRMAN OF THE BOARD, CHANEL) degree you have received? Sex Assigned at Date Recorded Female 03/15/2021 1:43 PM CDT Last Filed Vital Signs Vital Sign Reading Time Taken Comments Blood Pressure 115/90 07/26/2017 1:16 PM Vital sign result BUDGET COUNSELOR from Clinical No gregory. Pulse 72 07/26/2017 1:16 PM Vital sign result BUDGET COUNSELOR from Clinical No gregory. Temperature 36.1 ??C [...] are in the outpatients) History results section. [place] SPIROMETRY Routine 03/16/2022 Asthma Moderate Results for 10:04 AM CDT Persistent this procedure (HCC) are in the Polyposis Nasal results Rhinosinusitis section. Chronic from Last 3 Months Results (ABNORMAL) Thyroglobulin, Tumor Marker (04/24/2022 4:50 PM CDT) [facility] Method Time Signature Thyroglobulin <1.8 <1.8 04/24/2022 [facility] Antibody, S IU/mL 9:25 PM CDT Thyroglobulin, 1.3 (H) ng/mL 04/24/2022 [facility] Tumor Marker, S 9:21 PM CDT Comment: ----REFERENCE VALUE---- Athyrotic <0.1 Intact Thyroid <=33 Thyroglobulin Interpretation SEE COMMENT 9:25 PM CDT [facility] Comment: Thyroglobulin (Tg) levels must be interp [...] testing methods are immunoenzymatic assays manufactured by [employer] and performed on the If[employer] DXI 800 . Values obtained from different [...] Organization Address City/State/ZIP Code Phon e Number [facility] [address] [place], [place] [address] [facility] [place], [place] [id number] [place] [address] [place] S-TSH (Thyroid-Stimulating Hormone - Sensitive) (04/06/2022 10:13 AM CDT) athologist Signature TSH, Sensitive 0.9 0.3 - 4.2 04/06/2022 DT mIU/L 11:25 AM CDT Specimen Anatomical Collection Method Collection Time Receive d Time (Source) Location / / Volume Laterality Blood (Blood, 04/06/2022 10:13 04/06/2022 Venous) AM CDT 10:51 AM CDT Reji Terry M.D. LAB BLOOD ADD-ON Performing Organization Address City/[facility] Phon e Number [facility] - [address] [place] [address] T4 (Thyroxine), Free (04/06/2022 10:13 AM CDT) athologist Signature T4 (Thyroxine), 1.6 0.9 - 1.7 04/06/2022 DT Free, S ng/dL 11:25 AM CDT Specimen Anatomical Collection Method Collection Time Receive d Time (Source) Location / / Volume Laterality Blood (Blood, 04/06/2022 10:13 04/06/2022 Venous) AM CDT 10:51 AM CDT Reji Terry M.D. LAB BLOOD ADD-ON Performing Organization Address City/[facility] Phon e Number [facility] - [id number] [place] [address] NOSE-Otorhinolaryngology Image Exam (03/24/2022 9:53 AM CDT) [...] Organization Address City/State/ZIP Code Phon e Number [facility] NA US Thyroid (03/19/2022 1:31 PM [...] suspicious nodes identified in the neck. Reji GARCIA US PROCEDURES Spirometry (03/16/2022 10:04 AM CDT) P athologist Signature VC MAX PRE 3.39 L 03/17/2022 [place] [place] 3:[address] FVC 3.32 L 03/17/2022 [place] 3:18 PM CDT SUITE FEV1 2.64 L 03/17/2022 [facility] [place] 3:18 PM CDT SUITE FEV1/FVC 79.34 % 03/17/2022 [facility] [place] 3:18 PM CDT SUITE QDO84-70% 2.31 L/s 03/17/2022 [facility] [place] 3:18 PM CDT SUITE PEF PRE 7.06 L/s 03/17/2022 [facility] [place] 3:18 PM CDT SUITE FET PRE 6.72 sec 03/17/2022 [facility] [place] 3:18 PM CDT SUITE % PRED VC MAX 99 % % 03/17/2022 [facility] [place] 3:18 PM CDT SUITE FVC% 97 % % 03/17/2022 [facility] 3:18 PM CDT SUITE FEV1% 96 % % 03/17/2022 [facility] 3:18 PM CDT SUITE % PRED FEV1/FVC 98 % % 03/17/2022 [facility] 3:18 PM CDT SUITE % PRED FEF 84 % % 03/17/2022 [facility] 25-75% 3:18 PM CDT SUITE % PRED PEF 119 % % 03/17/2022 [facility] [place] 3:18 PM CDT SUITE PRED VC MAX 3.41 03/17/2022 [facility] 3:18 PM CDT SUITE PRED FVC 3.41 03/17/2022 [facility] 3:18 PM CDT SUITE PRED FEV 1 2.74 03/17/2022 [facility] 3:18 PM CDT SUITE PRED FEV1/FVC 80.8 03/17/2022 [facility] 3:18 PM CDT [address] PRED FEF 25-75% 2.75 03/17/2022 [facility] 3:18 PM CDT [address] PRED PEF 6.0 03/17/2022 [facility] 3:18 PM CDT SUITE Specimen (Source) Anatomical Collection Method Collection Time Re ceived Time Location / / Volume Laterality 03/16/2022 10:04 AM CDT Impressions [facility] - 03/17/2022 3:18 PM C DT Within normal limits. Clinical correlati on is recommended. Narrative This result has an attachment that is no t available. Procedure Note Hira Prasad M.B.B.S., Ph.D. - 02/27 IMPRESSION: Within normal limits. Clinical correlati on is recommended. Reji Terry M.D. PFT ORDERABLES Performing Organization Address City/State/ZIP Code Phon e Number [facility] NA from Last 3 Months Insurance Payer Benefit Plan Subscriber ID Effective Dates Phone Address Type / Group [facility] [id number] 2021-Presen [phone] [id number] Medicaid HMO t 5 [place] [address]
--- OUTSIDE RECORDS SUMMARY | 2022-05-28 14:08 | XMS_ITS | Encounter Summary ---
:1975 Author Organization [facility] Address [address] [place] [address] Care Team Providers Name Role Phone Unavailable Primary Care Provider Unavailable Reason for Referral Outpatient (Routine) - Authorized Specialty Diagnoses / Procedures Referred By Contact Refer red To Contact Endocrinology Ángel Fang M.D. [facility] [address] [place], [place] [address] Referral ID Status Reason Start Date Expiration Date Visits V isits Requested Authorized [id number] Authorized 04/24/2022 04/23/2025 1 1 Scheduling Instructions Okay to be scheduled with Naomi tellez utpatient (Routine) - Authorized Specialty Diagnoses / Procedures Referred By Contact Refer red To Contact Diagnoses Malignant Neoplasm Of Thyroid Papillary (HCC) Ángel Fang M.D. [facility] Procedures US Head Neck Soft Tissue [address] [place], [place] [address] Referral ID Status Reason Start Date Expiration Date Visits V isits Requested Authorized [id number] Authorized 04/24/2022 04/24/2023 1 1 Reason for Visit Outpatient (Routine) - Closed Specialty Diagnoses / Procedures Referred By Contact Refer red To Contact Endocrinology Diagnoses Cancer Thyroid Papillary Personal History Reji Terry M.D. [facility] [address] [place], [place] [address] Referral ID Status Reason Start Date Expiration Date Visits Requ ested Visits Authorized [id number] Closed 03/16/2022 03/16/2023 1 1 Encounter Details Date Type Department Care Team Description 04/24/2022 Comprehensive Visit Division of Reji Terry M.D. [address] [place] [phone] Malignant Neoplasm Of Thyroid Papillary (HCC) (Primary Dx); Endocrinology in Ángel Fang M.D. [address] [place] [phone] Cancer Thyroid Papillary Personal Histor y [place], [place] [address] [place] [phone] Social History Tobacco Use Types Packs/Day Years [...] or relatives? How often do you attend gnosticism or Never 2021 islam services? Do you belong to any clubs or No 03/16/2022 organizations such as gnosticism groups, unions, fraternal or athletic groups, or [...] have completed or the highest Wilfredo, MEd, OUT OF SCHOOL HOURS CARE WORKER, CHANEL) degree you have received? Sex [...] care. She previously has been seen at [facility]. She reports that a suspicious thyroid nodule was identified incidentally through chest CT after a horseback riding accident in June of 2021. Luckily, she did not sustain any significant injuries from her accident. [place] [facility] [place] completed an ultrasound and biopsy where the nodule was found to be positive for PTC. She underwent right lobectomy in August of 2021. Reviewed the pathology report from [facility] available for review in document viewer. The [...] Ángel Fang M.D. CT CT Job ID: [id number] documented in this encounter Plan of Treatment [...] Thyroglobulin, Tumor Marker (04/24/2022 4:50 PM CDT) [facility] Method Time Signature Thyroglobulin <1.8 <1.8 04/24/2022 [facility] Antibody, S IU/mL 9:25 PM CDT Thyroglobulin, 1.3 (H) ng/mL 04/24/2022 [facility] Tumor Marker, S 9:21 PM CDT Comment: [...] testing methods are immunoenzymatic assays manufactured by [employer] and performed on the [employer] DXI 800 . Values obtained from different [...] Organization Address City/State/ZIP Code Phon e Number [facility] [address] [place], [place] [address] [address] [facility] [place] [address] [facility] [address] [place] documented in this encounter Visit Diagnoses Diagnosis Malignant Neoplasm Of Thyroid Papillary (HCC) - Primary Cancer Thyroid Papillary Personal Histor y documented in this encounter
--- OUTSIDE RECORDS SUMMARY | 2022-05-28 14:08 | XMS_ITS | Encounter Summary ---
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 documented as of this encounter Plan of Treatment Upcoming Encounters Date Type Specialty Care Team Description 06/04/2022 Appointment RADIOLOGY Scheduled 06/04/2022 Office Visit NEUROSURGERY Jesse Barron MD Scheduled [address] [place] [address] (Wo rk) documented as of this encounter Visit Diagnoses Not on filedocumented in this encounter
--- OUTSIDE RECORDS SUMMARY | 2022-05-28 14:08 | XMS_ITS | Encounter Summary ---
:1975 Author Organization [facility] Address [address] [place] [address] Care Team Providers Name Role Phone Unavailable Primary Care Provider Unavailable Encounter Details Date Type Department Care Team Description 04/27/2022 Clinical Communication Division of Naomi Meadows Endocrinology in R, INTERCEPTOR OPERATOR, C.N.P., [place], [place] D.N.P. [address] [facility] [address] [place] [address] [phone] Social History Tobacco Use Types Packs/Day Years [...] do you attend moravian or Never 2021 hinduism services? Do you belong to any clubs [...] have completed or the highest Wilfredo, MEd, STAIN WIPER, CHANEL) degree you have received? Sex Assigned at Date Recorded Female 03/15/2021 1:43 PM CDT documented as of this encounter Plan of Treatment Not on filedocumented as of this encounter Visit Diagnoses Not on filedocumented in this encounter
--- OUTSIDE RECORDS SUMMARY | 2022-05-28 14:08 | XMS_ITS | Clinical Summary ---
:1975 Author Organization [facility] Address [address] [place] [address] Phone Care Team Providers Name Role Phone Unavailable Primary Care Provider Unavailable Source Comments Slinky is fully rolled out on [employer]. Last update 11/30/08.[facility] Allergies No known active allergies Medications Be aware that medications may not be up to date as of this document. Always verify current medications with patient. Medication Sig Dispensed Refills Start Date End Date Status albuterol (VENTOLIN Inhale 2 puffs 0 Active HFA;PROVENTIL every 6 hours as HFA;PROAIR) 108 (90 needed. BASE) mcg/act inhalation inhaler fluticasone propionate 2 sprays by Nasal 0 Active (FLONASE) 50 mcg/act route twice nasal suspension daily. levothyroxine Take 1 tablet 0 Ac tive (SYNTHROID) 100 mcg (100 mcg) by oral tablet mouth daily before morning meal. mometasone-formoterol Inhale 2 puffs 0 Active (DULERA) 200-5 mcg/puff twice daily. aerosol inhaler montelukast (SINGULAIR) Take 1 tablet (10 0 Active 10 mg oral TABS mg) by mouth at bedtime. ibuprofen Take 1 tablet 30 tablet 0 05/22/2022 Activ e (MOTRIN;ADVIL) 600 mg (600 mg) by mouth oral tablet 4 times daily as needed for pain. Encounters Date Type Specialty Care Team Description 05/22/2022 Hospital Encounter PHYSICAL MEDICINE Adeel Miranda, AND REHAB PT 05/22/2022 Orders Only RADIOLOGY Provider, Referral of pat ierosalino Outside (Primary Dx) 05/20/2022 - Emergency EMERGENCY MEDICINE Opal Dumont B, Other c losed 05/22/2022 fracture of fourth Ervin Cisneros, atul maza MD initial encount er () 05/20/2022 Travel from Last 3 Months Social History Tobacco Use Types Packs/Day Years Used Date Smoking Tobacco: Never Assessed Sex Assigned at Date Recorded Not on file COVID-19 Exposure Response Date Recorded In the last 10 days, have you been in contact with No / Unsu re 05/20/2022 9:25 PM MESH WORKER someone who was confirmed or suspected to have Coronavirus/COVID-19? Last Filed Vital Signs Vital Sign Reading Time Taken Comments Blood Pressure 125/91 05/22/2022 8:12 AM MESH WORKER Pulse 77 05/22/2022 8:12 AM MESH WORKER Temperature 36.8 ??C (98.2 ??F) 05/20/2022 9:32 PM MESH WORKER Respiratory Rate 16 05/22/2022 8:12 AM MESH WORKER Oxygen Saturation 97% 05/22/2022 8:12 AM MESH WORKER Inhaled Oxygen Concentration - - Weight - - Height - - Body Mass Index - - Plan of Treatment Upcoming Encounters Date Type Specialty Care Team Description 06/04/2022 Appointment RADIOLOGY Scheduled 06/04/2022 Office Visit NEUROSURGERY Jesse Barron MD Scheduled [address] [place] [address] (Wo rk) Health Maintenance Due Date Last Done Comments CT Colonography 1973 Colonoscopy 1973 Colorectal Cancer Screening 1973 Dental Oral Exam 1973 Dental Prophylaxis 1973 Dental X-Ray: Bitewings 1973 FIT/Cologuard 1973 Sigmoidoscopy 1973 iFOB/FIT 1973 Lipid Screening 1974 Periodontal Maintenance 1987 HIV Screening 1988 PREVENTATIVE VISIT 1991 HEALTH MAINTENANCE PROTOCOL 1992 Cervical Cancer Screening 2003 Age 30-65 INFLUENZA VACCINE 02/26/2022 03/20/2021 COVID-19 Vaccine (5 - 03/17/2022 01/20/2022, 07/15/2021, Booster for Moderna series) 10/16/2020, Addition al history exists TD/TDAP ADULTS 03/20/2031 03/20/2021, 09/13/2009 HIB Aged Out No longer eligib le based on patient 's age to complete this topic Procedures Procedure Name Priority Date/Time Associated Comments Diagnosis XR SPINE LUMBAR 2/3 Routine 05/22/2022 9:17 AM Re sults for this VW UPRIGHT MESH WORKER procedure are i n the results section. XR SPINE LUMBAR 2/3 Routine 05/21/2022 4:40 PM Re sults for this VW UPRIGHT MESH WORKER procedure are i n the results section. XR SPINE LUMBAR 2/3 Routine 05/21/2022 4:39 PM Re sults for this VW UPRIGHT MESH WORKER procedure are i n the results section. XR SPINE LUMBAR 2/3 Routine 05/21/2022 4:37 PM Re sults for this VW UPRIGHT MESH WORKER procedure are i n the results section. XR FOREARM RIGHT 2 V Routine 05/21/2022 4:34 PM R esults for this AP + LAT* MESH WORKER procedure are i n the results section. MR SPINE LUMBAR W/O Routine 05/21/2022 12:30 Resu lts for this CONTRAST PM MESH WORKER procedure are i n the results section. COVID-19 SURVEILLANCE STAT 05/21/2022 2:00 AM Results for this MESH WORKER procedure are i n the results section. CT CHEST/ABD/PELVIS Routine 05/21/2022 1:01 AM Re sults for this W/IV CONT MESH WORKER procedure are i n the results section. PC LAB QUALITATIVE Routine 05/21/2022 12:45 Resul ts for this SERUM AM MESH WORKER procedure ar e in the results section. CT OUTSIDE READ SPINE Routine 05/20/2022 10:56 Re sults for this THORACIC/LUMBAR PM MESH WORKER procedure ar e in the results section. CT OUTSIDE READ SPINE Routine 05/20/2022 10:56 Re sults for this CERVICAL/NECK PM MESH WORKER procedure are in the results section. EXTRA TUBE - LAVENDER Routine 05/20/2022 10:47 Re sults for this PM MESH WORKER procedure are i n the results section. EXTRA TUBE - DARK Routine 05/20/2022 10:47 Result s for this GREEN PM MESH WORKER procedure are i n the results section. TC LAB BLOOD DRAW BY Routine 05/20/2022 10:47 Res ults for this VENIPUNCTURE PM MESH WORKER procedure are i n the results section. PC ELECTROLYTES PANEL STAT 05/20/2022 10:45 Re sults for this PM MESH WORKER procedure are i n the results section. PC LAB CBC/PLT STAT 05/20/2022 10:45 Results f or this PM MESH WORKER procedure are i n the results section. from Last 3 Months Results XR SPINE LUMBAR 2/3 VW UPRIGHT (05/22/2022 9:17 AM MESH WORKER)Only the most recent of4 resultswithin the time period is included. Anatomical Region Laterality Modality Lumbar Spine Computed Radiography Specimen (Source) Anatomical Collection Method Collection Time Re ceived Time Location / / Volume Laterality 05/22/2022 9:15 AM MESH WORKER Impressions 05/22/2022 2:42 PM MESH WORKER Impression: 1. Increased conspicuity of the vertical ly oriented fracture line within the L4 vertebral body . This could be related to imaging technique. Overall height and alignment is unchanged. 2. Unchanged appearance of L1 vertebral compression fracture. I have personally reviewed the image(s) and initial interpretation, and I agree with the findings as documented by the resident/fellow. Reading Radiologist: Adrianna Saini Reading Resident: Giovani Guthrie 05/22/2022 2:42 PM MESH WORKER Exam: Lumbar spine x-rays 05/22/2022 Indication: post ambulation ?? Comparison: 05/21/2022 Findings: AP, lateral, and L5 spot 1 shaun ges of the lumbar spine. L4 compression fracture redemonstrated. The vertically oriented fracture appears slightly more conspicuous, however differences could be related to imaging technique. Overall he ight of the vertebrae is unchanged. Persistent anterolisthesis of L4 on L5. Persistent increase in the AP diameter of the L4 vertebra. No significant retropulsion . Stable appearance of L1 compression fr acture. Alignment is otherwise maintained. Right upper quadrant cholecystectomy clips. The bladder is distended with contrast, presumably from contrast enhanced i maging of the previous day. Nonobstructi ve bowel gas pattern. Procedure Note Adrianna Saini MD - 05/22/2022Formattin g of this note might be different from the original. Exam: Lumbar spine x-rays 05/22/2022 Indication: post ambulation Comparison: 05/21/2022 Findings: AP, lateral, and L5 spot 1 shaun ges of the lumbar spine. L4 compression fracture redemonstrated. The vertically oriented fracture appears slightly more conspicuous, however differences could be related to imaging technique. Overall height of the vertebrae is unchanged. Persistent anterolisthesis of L4 on L5. Persistent increase in the AP diameter of the L4 vertebra. No significant retropulsion. Stable appearance of L1 compression fracture. A lignment is otherwise maintained. Right upper quadrant cholecystectomy clips. The bladder is distended with contrast, presumably from contrast enhanced imaging of the previous day. Nonobstructive bowel gas pattern. IMPRESSION Impression: 1. Increased conspicuity of the vertical ly oriented fracture line within the L4 vertebral body . This could be related to imaging technique. Overall height and alignment is unchanged. 2. Unchanged appearance of L1 vertebral compression fracture. I have personally reviewed the image(s) and initial interpretation, and I agree with the findings as documented by the resident/fellow. Reading Radiologist: Adrianna Saini Reading Resident: Giovani Guthrie Paola Sauceda APRN, KELSI X-RAY XR FOREARM RIGHT 2 V AP + LAT* (05/21/2022 4:34 PM MESH WORKER) Anatomical Region Laterality Modality Lower Arm Computed Radiography Specimen (Source) Anatomical Collection Method Collection Time Re ceived Time Location / / Volume Laterality 05/21/2022 4:41 PM MESH WORKER Impressions 05/21/2022 4:41 PM MESH WORKER IMPRESSION: No acute fracture is identified. Reading Radiologist: John Sanchez Narrative 05/21/2022 4:41 PM MESH WORKER Indication: trauma, fall from horse ?? Comparison: None FINDINGS: No acute fracture is identifie d. Procedure Note John Sanchez MD - 05/21/2022Formatt ing of this note might be different from the original. Indication: trauma, fall from horse Comparison: None FINDINGS: No acute fracture is identifie d. IMPRESSION IMPRESSION: No acute fracture is identif ied. Reading Radiologist: John Sanchez Paola Sauceda APRN, PASSENGER COACH DRIVER X-RAY MR SPINE LUMBAR W/O CONTRAST (05/21/2022 12:30 PM MESH WORKER) Anatomical Region Laterality Modality Lumbar Spine Magnetic Resonance Specimen (Source) Anatomical Collection Method Collection Time Re ceived Time Location / / Volume Laterality 05/21/2022 1:17 PM MESH WORKER Impressions 05/21/2022 2:38 PM MESH WORKER Impression: ?? 1. Burst compression fracture of L4 vert ebral body with 20% loss of height. No associated spinal canal stenosis. No epidural hematoma. Mild to moderate foraminal stenosis greater on the left. 2. Nondisplaced inferior endplate fractu re of L1. 3. Grade 1 anterolisthesis of L4 on L5. Facet joint widening and fluid bilaterally L4-5 suggesting acute facet joint capsule injury. However, there is also severe facet arthropathy at this level. Reading Radiologist: Talib Resendiz 05/21/2022 2:38 PM MESH WORKER Lumbar Spine MR without contrast Indication: L4 fracture, shortening of i nferior facet? ??. Comparison: CT 05/20/2022 Technique: Sagittal STIR, T1-weighted an d T2-weighted and axial T2-weighted and T1-weighted images of the lumbar spine were obtained without intravenous contrast. ?? Findings: There are 5 lumbar-type vertebrae, and t his convention is used for the purposes of this dictation. ??The tip of the conus medullaris is at approximately the level of L1. There is a nondisplaced fracture of the L1 inferior endplate. There is a compression fracture of L4 vertebral body with 20% loss of height. Fracture involves anterior and superior endplates and posterior cortex. ??There is grade 1 ant erolisthesis at L4-5. There is widening of both L4-5 facet joints with fluid in the facet joints suggesting acute right capsule injury. There is mild disc space narrowing between L3 and S1. ??Regarding the lumbar vertebral marrow, ??there is edema associated with the acute L4 fracture. The findings on a level by level basis a re as follows: L1-2: No disc herniation or stenosis. L2-3: No disc herniation or stenosis. L3-4: ??No disc herniation or stenosis. General facet changes with posterior synovial cysts which do not result in nerve root impingement. L4-5: ??Mild disc bulge and moderate fac et arthropathy. Mild to moderate foraminal narrowing greater on the left. No central stenosis. Severe facet arthritis. L5-S1: ??No disc herniation or stenosis. Mild to moderate facet arthropathy greater on the left. The paraspinous tissues anteriorly are u nremarkable. No significant paraspinal or epidural hemorrhage. Procedure Note Talib Resendiz MD - 05/21/2022Formattin g of this note might be different from the original. Lumbar Spine MR without contrast Indication: L4 fracture, shortening of i nferior facet? . Comparison: CT 05/20/2022 Technique: Sagittal STIR, T1-weighted an d T2-weighted and axial T2-weighted and T1-weighted images of the lumbar spine were obtained without intravenous contrast. Findings: There are 5 lumbar-type vertebrae, and t his convention is used for the purposes of this dictation. The tip of the conus medullaris is at approximately the level of L1. There is a nondisplaced fracture of the L1 inferior endplate. There is a compressio n fracture of L4 vertebral body with 20% loss of height. Fracture involves anterior and superior endplates and posterior cortex. There is grade 1 anterolisthesis at L4-5. There is widening of both L4-5 facet joints with fluid in the facet joints suggesting acute right capsule injury. There is mild disc space narrowing between L3 and S1. Regarding the lumbar vertebral marrow, there is edema associated with the acute L4 fracture. The findings on a level by level basis a re as follows: L1-2: No disc herniation or stenosis. L2-3: No disc herniation or stenosis. L3-4: No disc herniation or stenosis. Ge neral facet changes with posterior synovial cysts which do not result in nerve root impingement. L4-5: Mild disc bulge and moderate facet arthropathy. Mild to moderate foraminal narrowing greater on the left. No central stenosis. Severe facet arthritis. L5-S1: No disc herniation or stenosis. M ild to moderate facet arthropathy greater on the left. The paraspinous tissues anteriorly are u nremarkable. No significant paraspinal or epidural hemorrhage. IMPRESSION Impression: 1. Burst compression fracture of L4 vert ebral body with 20% loss of height. No associated spinal canal stenosis. No epidural hematoma. Mild to moderate foraminal stenosis greater on the left. 2. Nondisplaced inferior endplate fractu re of L1. 3. Grade 1 anterolisthesis of L4 on L5. Facet joint widening and fluid bilaterally L4-5 suggesting acute facet joint capsule injury. However, there is also severe facet arthropathy at this level. Reading Radiologist: Talib Resendiz Brigida Marmolejo PA-C MR NEURO COVID-19 SURVEILLANCE (05/21/2022 2:00 AM MESH WORKER) [facility] Method Time Signature COVID-19 Not Detected Not Detected [facility] Comment: This test was developed and its performa nce characteristics determined by [facility] [employer]. This testing, RT-PCR, has been authorized by the FDA under an Emergency Use Authorization (EUA ) for Coronavirus Disease-2019 during th e Public Health Emergency. This test has been efra idated in accordance with the FDA's Guidance Document Policy for EUA use and Accelerated Template for Laboratories Certified to Perform High-Complexity Testing Un mariam CLIA: EUA Template (Updated September 02, 2019)This test is only authorized for the duration of time the declaration that circumstances exist justifying the authorization of the emergency use of in vitro diagnostic tests for detection of SARS-CoV-2 virus and/or diagnosis of COVID-19 infection under section 564(b)(1) of the Act, 21U.S.C. 3 60bbb-3(b)(1), unless the authorization is terminated or revoked sooner. Nasopharyngeal specimens are the preferred specimens. Specimen (Source) Anatomical Collection Method Collection Time Re ceived Time Location / / Volume Laterality Nasopharyngeal Swab 05/21/2022 2:00 05/21 AM MESH WORKER 2:03 AM MESH WORKER Narrative [facility] - 05/21/2022 2:47 AM MESH WORKER Is the patient a healthcare employee: No Is the patient a [place] ([facility]) Employee : No Brigida L Jaleel [facility] Performing Organization Address City/State/ZIP Code Phon e Number [facility] [place] [place] [address] CHEST/ABD/PELVIS W/IV CONT (05/21/2022 1:01 AM MESH WORKER) Anatomical Region Laterality Modality Chest Computed Tomography Specimen (Source) Anatomical Collection Method Collection Time Re ceived Time Location / / Volume Laterality 05/21/2022 1:18 AM MESH WORKER Impressions 05/21/2022 6:53 AM MESH WORKER Impression: 1. Acute fractures of the L4 vertebral b luciana, left L1 and L2 transverse process fractures, an age indeterminant compression deformity at T9. For more details please reference dedicated over read report of the thoracic and lumbar spine. 2. No other traumatic injury identified in the chest, abdomen, or pelvis. I have personally reviewed the image(s) and initial interpretation, and I agree with the findings as documented by the resident/fellow. Reading Radiologist: John Sanchez Reading Resident: Floyd Palencia Narrative 05/21/2022 6:53 AM MESH WORKER Comparison: None. Indication: fall from horse ?? Technique: Volumetric helical acquisitio n of CT images from the lung apices through the symphysis pubis after the administration of intravenous contrast. A split bolus technique was utilized. DOSE: ?Total DLP = 849.7 mGy.cm. ?? Findings: Chest: Mediastinal vasculature is intact . Normal heart size without pericardial effusion. No acute or suspicious pulmonary opacity. No pneumothorax or pleural effusion. No lymphadenopathy. Abdomen/Pelvis: Simple hepatic cyst in t he left hepatic lobe. Prior cholecystectomy. Bilateral peripelvic cysts in the kidneys without evidence of hydronephrosis. No traumatic liver, biliary ducts, panc reas, spleen, kidneys, or adrenal gland injury. These organs are unremarkable aside from the after mentioned findings. Urinary bladder is within normal limits. Myomatous uterus. Right corpus luteal cyst . No acute abnormality of the bowel. Abd ominal vasculature is intact. No lymphadenopathy. No free fluid or free air. Bones: Vertically oriented fracture thro ugh the L4 vertebral body with associated anterior wedging compression deformity. There is associated anterolisthesis of L4-L5 at this level with an uncovered dis c bulge. Age-indeterminate mild compress ion deformity at T9. Acute nondisplaced left L1 and L2 transverse process fractures. Procedure Note John Sanchez MD - 05/21/2022Formatt ing of this note might be different from the original. Comparison: None. Indication: fall from horse Technique: Volumetric helical acquisitio n of CT images from the lung apices through the symphysis pubis after the administration of intravenous contrast. A split bolus technique was utilized. DOSE: Total DLP = 849.7 mGy.cm. Findings: Chest: Mediastinal vasculature is intact . Normal heart size without pericardial effusion. No acute or suspicious pulmonary opacity. No pneumothorax or pleural effusion. No lymphadenopathy. Abdomen/Pelvis: Simple hepatic cyst in t he left hepatic lobe. Prior cholecystectomy. Bilateral peripelvic cysts in the kidneys without evidence of hydronephrosis. No traumatic liver, biliary ducts, pancreas, spleen, kidneys, or adrenal gland injury . These organs are unremarkable aside from the after mentioned findings. Urinary bladder is within normal limits. Myomatous uterus. Right corpus luteal cyst. No acute abnormality of the bowel. Abdominal vasculature is i ntact. No lymphadenopathy. No free fluid or free air. Bones: Vertically oriented fracture thro ugh the L4 vertebral body with associated anterior wedging compression deformity. There is associated anterolisthesis of L4-L5 at this level with an uncovered disc bulge. Age-indeterminate mild compression defor mity at T9. Acute nondisplaced left L1 and L2 transverse process fractures. IMPRESSION Impression: 1. Acute fractures of the L4 vertebral b luciana, left L1 and L2 transverse process fractures, an age indeterminant compression deformity at T9. For more details please reference dedicated over read report of the thoracic and lumbar spine. 2. No other traumatic injury identified in the chest, abdomen, or pelvis. I have personally reviewed the image(s) and initial interpretation, and I agree with the findings as documented by the resident/fellow. Reading Radiologist: John Sanchez Reading Resident: Floyd Palencia Brigida Marmolejo PA-C CT BODY QUALITATIVE SERUM (05/21/2022 12:45 AM MESH WORKER) [facility] gist Method Time Signature Qualitative Negative Negative [facility] Serum Specimen Anatomical Collection Method Collection Time Receive d Time (Source) Location / / Volume Laterality Blood 05/21/2022 12:45 05/21/2022 AM MESH WORKER 12:54 AM MESH WORKER Brigida Mramolejo PA-C LABORATORY Performing Organization Address City/State/ZIP Code Phon e Number [facility] [place] [address] [place] [address] CT OUTSIDE READ SPINE THORACIC/LUMBAR (05/20/2022 10:56 PM MESH WORKER) Anatomical Region Laterality Modality Lumbar Spine, Thoracic Spine Computed To mography Specimen (Source) Anatomical Collection Method Collection Time Re ceived Time Location / / Volume Laterality 05/21/2022 1:42 AM MESH WORKER Addenda Addendum by aTlib Resendiz MD on 2021 4:34 PM MESH WORKER Addendum: There is also minimally displa angelito L1 inferior endplate fracture. This is better seen on follow-up MRI per formed on 05/21/2022. Reading Radiologist: Talib Resendiz Impressions 05/21/2022 7:46 AM MESH WORKER Impression: ?? 1. Vertically oriented fracture through the midportion of the L4 vertebral body with associated mild compression deformity anteriorly. There is 7 mm of anterolisthesis of L4 and L5 with an uncovered dis c bulge resulting in at least moderate c anal narrowing. 2. Suspect impacted fracture of the righ t L4 inferior facet. Grade 1 anterolisthesis at L4-5. Evaluation of trauma is somewhat limited by severe facet arthropathy. Consider MRI to evaluate for ligament of facet joint capsule injury 3. Acute transverse process fractures on the left at L1 and L2. 4. Age-indeterminate mild compression de formity of T9. No thoracic subluxation. Critical Results: ??The critical finding s in this report were reported to Brigida Marmolejo who responded indicating that the communication was understood. Contact was made at the time of interpretation on 05/21/2022 3:45 AM. I have personally reviewed the image(s) and initial interpretation, and I agree with the findings as documented by the resident/fellow. Reading Radiologist: Talib Resendiz Resident: Floyd Palencia Narrative 05/21/2022 7:46 AM MESH WORKER Indication: ??Patient transferred from [facility] due to Trauma. ??No initial report accompanied the patient and/or Dr. ??ERVIN CISNEROS requested an interpretation by me. Technique: ??CT scan of the thoracic/lum bar spine done on 05/20/2022 without IV contrast. ??1.5 and 3 mm axial, sagittal and coronal reconstructions reviewed in soft tissue and bone windows, per the [facility] institution's scanning protocols, [facility] may differ from the [facility] trauma protocols. Findings: ?? Thoracic spine: Age-indeterminate mild c ompression deformity at T9. No other fracture identified in the thoracic spine. Alignment of the thoracic vertebra appears within normal limits. The spinal canal and the neural foramina bilaterally are grossly patent at all visualized levels. ??The visualized prevertebral and paravertebral soft tissues are unremarkable. Lumbar spine: Vertically oriented fracture through the midportion of the L4 vertebral body with associated mild compression deformity anteriorly. Bulky facet hypertrophy is seen at L4-5. Question fracture of the right L4 inferi or facet (series 6, image 29; series 5, image 22). This osseous fragment is positioned in the lateral recess at the level of L4-5. Additionally at this level ther e is a absent distal portion of the face t on series 6, image 30 with osseous fragment seen more laterally potentially suggesting an impacted fracture of the right inferior facet of L4. There is likely a t least moderate spinal canal narrowing at this level due to an uncovered disc bulge. There is 7 mm of anterolisthesis of L4 on L5. Acute left-sided transverse process frac tures at L1 and L2. There is no significant disc height narr owing at any level. ??The visualized prevertebral and paravertebral soft tissues are unremarkable Procedure Note Talib Resendiz MD - 05/21/2022Formattin g of this note might be different from the original. Indication: Patient transferred from [facility] due to Trauma. No initial report accompanied the patient and/or Dr. ERVIN CISNEROS requested an interpretation by me. Technique: CT scan of the thoracic/lumba r spine done on 05/20/2022 without IV contrast. 1.5 and 3 mm axial, sagittal and coronal reconstructions reviewed in soft tissue and bone windows, per the local institution's scanning protocols, which may differ from the [facility] trauma protocols. Findings: Thoracic spine: Age-indeterminate mild c ompression deformity at T9. No other fracture identified in the thoracic spine. Alignment of the thoracic vertebra appears within normal limits. The spinal canal and the neural foramina bilaterally are grossly patent at all visualized levels. The visualized prevertebral and paravertebral soft tissues are unremarkable. Lumbar spine: Vertically oriented fracture through the midportion of the L4 vertebral body with associated mild compression deformity anteriorly. Bulky facet hypertrophy is seen at L4-5. Question fracture of the right L4 inferi or facet (series 6, image 29; series 5, image 22). This osseous fragment is positioned in the lateral recess at the level of L4-5. Additionally at this level there is a absent distal portion of the facet on series 6, image 30 with osseous fragment seen more laterally potentially suggesting an impacted fracture of the right inferior facet of L4. There is likely at least moderate spinal canal narrowing at this level due to an uncove red disc bulge. There is 7 mm of anterolisthesis of L4 on L5. Acute left-sided transverse process frac tures at L1 and L2. There is no significant disc height narr owing at any level. The visualized prevertebral and paravertebral soft tissues are unremarkable IMPRESSION Impression: 1. Vertically oriented fracture through the midportion of the L4 vertebral body with associated mild compression deformity anteriorly. There is 7 mm of anterolisthesis of L4 and L5 with an uncovered disc bulge resulting in at least moderate canal narrowing. 2. Suspect impacted fracture of the righ t L4 inferior facet. Grade 1 anterolisthesis at L4-5. Evaluation of trauma is somewhat limited by severe facet arthropathy. Consider MRI to evaluate for ligament of facet joint capsule injury 3. Acute transverse process fractures on the left at L1 and L2. 4. Age-indeterminate mild compression de formity of T9. No thoracic subluxation. Critical Results: The critical findings in this report were reported to Brigida Marmolejo who responded indicating that the communication was understood. Contact was made at the time of interpretation on 05/21/2022 3:45 AM. I have personally reviewed the image(s) and initial interpretation, and I agree with the findings as documented by the resident/fellow. Reading Radiologist: Talib Resendiz Resident: Floyd Palencia Opal Dumont MD CT NEURO CT OUTSIDE READ SPINE CERVICAL/NECK (05/20/2022 10:56 PM MESH WORKER) Anatomical Region Laterality Modality Cervical Spine Computed Tomography Specimen (Source) Anatomical Collection Method Collection Time Re ceived Time Location / / Volume Laterality 05/21/2022 1:42 AM MESH WORKER Impressions 05/21/2022 7:45 AM MESH WORKER Impression: ?? 1. No acute fracture or subluxation. 2. No significant spinal canal or neural foraminal narrowing. I have personally reviewed the image(s) and initial interpretation, and I agree with the findings as documented by the resident/fellow. Reading Radiologist: Talib Resendiz Resident: Floyd Palencia Narrative 05/21/2022 7:45 AM MESH WORKER Indication: ??Patient transferred from [facility] due to Trauma. ??No initial report accompanied the patient and/or Dr. ??ERVIN CISNEROS requested an interpretation by me. Technique: ??CT scan of the cervical spi ne done on 05/20/2022 without IV contrast. ??1.5 ??axial, sagittal and coronal reconstructions reviewed in soft tissue and bone windows, per the local institution 's scanning protocols, which may differ from the [facility] trauma protocols. Findings: The lateral masses of C1 appear normally aligned on C2. There is straightening of the normal cervical lordosis which is likely in part positional and related to degenerative change. There is trace anter olisthesis of C4 on C5. No suspicious ve rtebral body subluxation.. There is no evidence of fracture or significant prevertebral soft tissue swelling. There is advanced disc space narrowing most pronounced at C6-7. In terms of degenerative change there is mild multilevel facet arthropathy without any associated significant neural foraminal narrowing. There is uncovertebral spurring at C4-5, C5-6, and C6-7 without any significant neural foraminal narrowi ng. Posterior disc osteophyte complex at C6-7 results in borderline mild spinal canal narrowing. No abnormality of the visualized paraspi nous tissues is noted. Postoperative changes of partial right thyroidectomy. Procedure Note Talib Resendiz MD - 05/21/2022Formattin g of this note might be different from the original. Indication: Patient transferred from [facility] due to Trauma. No initial report accompanied the patient and/or Dr. ERVIN CISNEROS requested an interpretation by me. Technique: CT scan of the cervical spine done on 05/20/2022 without IV contrast. 1.5 axial, sagittal and coronal reconstructions reviewed in soft tissue and bone windows, per the local institution's scanning protocols, which may differ from the [facility] trauma protocols. Findings: The lateral masses of C1 appear normally aligned on C2. There is straightening of the normal cervical lordosis which is likely in part positional and related to degenerative change. There is trace anterolisthesis of C4 on C5. No suspicio us vertebral body subluxation.. There is no evidence of fracture or significant prevertebral soft tissue swelling. There is advanced disc space narrowing most pronounced at C6-7. In terms of degenerative change there is mild multilevel facet arthropathy without any associated significant neural foraminal narrowing. There is uncovertebral spurring at C4-5, C5-6, and C6-7 without any significant neural foraminal narrowing. Posterior di sc osteophyte complex at C6-7 results in borderline mild spinal canal narrowing. No abnormality of the visualized paraspi nous tissues is noted. Postoperative changes of partial right thyroidectomy. IMPRESSION Impression: 1. No acute fracture or subluxation. 2. No significant spinal canal or neural foraminal narrowing. I have personally reviewed the image(s) and initial interpretation, and I agree with the findings as documented by the resident/fellow. Reading Radiologist: Talib Resendiz Reading Resident: Floyd Palencia Opal Dumont MD CT NEURO EXTRA TUBE - DARK GREEN (05/20/2022 10:47 PM MESH WORKER) athologist Signature DARK GREEN TUBE Stored [facility] Comment: Dark Green tubes (Seward Hepar in) are stored in the lab for 1 day from the collection date. Specimen Anatomical Collection Method Collection Time Receive d Time (Source) Location / / Volume Laterality Blood 05/20/2022 10:47 05/20/2022 PM MESH WORKER 10:49 PM MESH WORKER Narrative [facility] - 05/20/2022 10:49 PM MESH WORKER Ordered by ~[id number] Provider Unknown LABORATORY Performing Organization Address City/[facility]/ZIP Code Phon e Number [facility] [place] [place] [address] EXTRA TUBE - LAVENDER (05/20/2022 10:47 PM MESH WORKER) athologist Signature LAVENDER TUBE Stored [facility] Comment: Lavendar (EDTA) tubes collected at [facility] are stored for 3 days from the collection date. Specimen Anatomical Collection Method Collection Time Receive d Time (Source) Location / / Volume Laterality Blood 05/20/2022 10:47 05/20/2022 PM MESH WORKER 10:49 PM MESH WORKER Narrative [facility] - 05/20/2022 10:49 PM MESH WORKER Ordered by ~[id number] Provider Unknown LABORATORY Performing Organization Address City/[facility]/ZIP Code Phon e Number [facility] [place] [place] [address] EXTRA TUBE - BLUE (05/20/2022 10:47 PM MESH WORKER) athologist Signature BLUE TUBE [facility] Comment: Blue top(Sodium citrate) tubes are kept for 3 days from the collection date. Specimen Anatomical Collection Method Collection Time Receive d Time (Source) Location / / Volume Laterality Blood 05/20/2022 10:47 05/20/2022 PM MESH WORKER 10:49 PM MESH WORKER Narrative [facility] - 05/20/2022 10:49 PM MESH WORKER Ordered by ~[id number] Provider Unknown LABORATORY Performing Organization Address City/State/ZIP Code Phon e Number [facility] [place] [address] (ABNORMAL) ED CHEMISTRY LABS(NA,K,CL,CO2,GLU,CREAT,CA-IONIZED,ANION GAP) (05/20/2022 10:45 PM MESH WORKER) Analysis Performed At Patho logist Time Signature Sodium 136 135 - 148 [facility] mEq/L Chloride 103 92 - 108 [facility] mEq/L AnGap 9 8 - 16 [facility] mEq/L Glucose 105 (H) 70 - 100 [facility] mg/dL ICA, Actual 4.34 (L) 4.40 - [facility] 5.20 mg/dL ICA, pH 4.33 (L) 4.40 - [facility] Corrected 5.20 mg/dL Creatinine 0.99 0.50 - [facility] 1.00 mg/dL BICARB 24 22 - 26 [facility] mEq/L eGFR, High 77 >=60 [facility] ml/min/1.7 3m2 Comment: Calculated using CKD-EPI equati on eGFR, Low 67 >=60 ml/min/1.73m2 [facility] Comment: Calculated using CKD-EPI equati on Potassium 3.7 3.5 - 5.3 mEq/L [facility] Specimen Anatomical Collection Method Collection Time Receive d Time (Source) Location / / Volume Laterality Blood 05/20/2022 10:45 05/20/2022 PM MESH WORKER 10:50 PM MESH WORKER Ervin Cisneros MD LABORATORY Performing Organization Address City/State/ZIP Code Phon e Number [facility] [place] [place] [address] (ABNORMAL) CBC WITH PLATELET (05/20/2022 10:45 PM MESH WORKER) P athologist Signature WBC 12.58 (H) 4.00 - [facility] 10.00 k/cmm RBC 4.18 3.90 - 5.20 [facility] m/cmm Hgb 12.5 11.5 - 15.7 [facility] g/dL Hematocrit 38.8 34.0 - 45.0 [facility] % MCV 92.8 80.0 - [facility] 100.0 fL MCH 29.9 25.0 - 32.0 [facility] pg MCHC 32.2 31.0 - 36.0 [facility] g/dL RDW 13.1 11.5 - 14.5 [facility] % Plt 276 150 - 400 [facility] k/cmm MPV 9.7 6.5 - 12.5 [facility] fL Specimen Anatomical Collection Method Collection Time Receive d Time (Source) Location / / Volume Laterality Blood 05/20/2022 10:45 05/20/2022 PM MESH WORKER 10:55 PM MESH WORKER Ervin Cisneros MD LABORATORY Performing Organization Address City/State/ZIP Code Phon e Number [facility] [place] [place] [address] from Last 3 Months Insurance Payer Benefit Plan Subscriber ID Effective Phone Address Typ e / Group Dates [facility] [id number] 2021-Prese [phone] [address] [facility] [address] [facility] [address]
--- OUTSIDE RECORDS SUMMARY | 2022-05-28 14:08 | XMS_ITS | Encounter Summary ---
:1975 Author Organization [facility] Address [address] [place] [address] Phone Care Team Providers Name Role Phone Unavailable Primary Care Provider Unavailable Encounter Details Date Type Department Care Team Description 05/22/2022 Hospital Encounter [facility] Physical Therap y Adeel Miranda, [place] [address] [address] [place], [place] [id number] (Wo rk) Social History Tobacco Use Types Packs/Day Years Used Date Smoking Tobacco: Never Assessed Sex Assigned at Date Recorded Not on file COVID-19 Exposure Response Date Recorded In the last 10 days, have you been in contact with No / Unsu re 05/20/2022 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 documented as of this encounter Medications at Time of Discharge Medication Sig Dispensed Refills Start Date End Date ibuprofen (MOTRIN;ADVIL) Take 1 tablet (600 30 tablet 0 600 mg oral tablet mg) by mouth 4 times daily as needed for pain. albuterol (VENTOLIN Inhale 2 puffs every 0 HFA;PROVENTIL HFA;PROAIR) 6 hours as needed. 108 (90 BASE) mcg/act inhalation inhaler fluticasone propionate 2 sprays by Nasal 0 (FLONASE) 50 mcg/act nasal route twice daily. suspension levothyroxine (SYNTHROID) Take 1 tablet (100 0 100 mcg oral tablet mcg) by mouth daily before morning meal. mometasone-formoterol Inhale 2 puffs twice 0 (DULERA) 200-5 mcg/puff daily. aerosol inhaler montelukast (SINGULAIR) 10 Take 1 tablet (10 0 mg oral TABS mg) by mouth at bedtime. documented as of this encounter Plan of Treatment Upcoming Encounters Date Type Specialty Care Team Description 06/04/2022 Appointment RADIOLOGY Scheduled 06/04/2022 Office Visit NEUROSURGERY Jesse Barron MD Scheduled [address] [place] [address] (Wo rk) documented as of this encounter Visit Diagnoses Not on filedocumented in this encounter
--- OUTSIDE RECORDS SUMMARY | 2022-05-28 14:08 | XMS_ITS | Encounter Summary ---
:1975 Author Organization [facility] Address [address] [place] [address] Phone Care Team Providers Name Role Phone Unavailable Primary Care Provider Unavailable Encounter Details Date Type Department Care Team Description 05/22/[address] [facility] Film Room Provider, Outside Referral of patient [facility] OUTSIDE PROVIDER (Primary Dx) [place], [place] Radiology Department 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 documented as of this encounter Plan of Treatment Upcoming Encounters Date Type Specialty Care Team Description 06/04/2022 Appointment RADIOLOGY Scheduled 06/04/2022 Office Visit NEUROSURGERY Jesse Barron MD Scheduled [address] [place] [address] (Wo rk) documented as of this encounter Results CT SPINE OUTSIDE FILMS (07/13/2021 12:16 PM ASSEMBLY LOADER) Specimen (Source) Anatomical Location Collection Method / Collectio n Time Received Time / Laterality Volume Narrative Carlos MclaughlinEpit-Gonqsh-Zehwzxfls - 2 6:12 AM ASSEMBLY LOADER Outside Film Only Outside Provider OUTSIDE FILMS CT HEAD OUTSIDE FILMS (07/13/2021 12:16 PM ASSEMBLY LOADER) Specimen (Source) Anatomical Location Collection Method / Collectio n Time Received Time / Laterality Volume Narrative Carlos MclaughlinFudb-Wjgdab-Cpfkwquqi - 2 6:12 AM ASSEMBLY LOADER Outside Film Only Outside Provider OUTSIDE FILMS documented in this encounter Visit Diagnoses Diagnosis Referral of patient - Primary Referral of patient without examination or treatment documented in this encounter
--- OUTSIDE RECORDS SUMMARY | 2022-05-28 14:08 | XMS_ITS | Encounter Summary ---
:1975 Author Organization [facility] Address [address] [facility] [place] [address] Phone Care Team Providers Name Role Phone Unavailable Primary Care Provider Unavailable Reason for Visit Reason Comments Back Pain Encounter Details Date Type Department Care Team Description 05/20/2022 - Emergency [facility] [place] Opal Dumont M D [address] [facility] [address] [place], [place] [id number] Other closed fracture 05/22/2022 Department Ervin Alvarez MD [address] [place], [place] [phone] of fourth lumbar [address] [facility] vertebra, initial R1.035 encounter () [place], [place] [address] Social History Tobacco Use Types Packs/Day Years Used Date Smoking Tobacco: Never Assessed Sex Assigned at Date Recorded Not on file COVID-19 Exposure Response Date Recorded In the last 10 days, have you been in contact with No / Unsu re 05/20/2022 9:[address] COUNSELLOR someone who was confirmed or suspected to have Coronavirus/COVID-19? documented as of this encounter Last Filed Vital Signs Vital Sign Reading Time Taken Comments Blood Pressure 125/91 05/22/2022 8:[address] COUNSELLOR Pulse 77 05/22/2022 8:[address] COUNSELLOR Temperature 36.8 ??C (98.2 ??F) 05/20/2022 9:[address] COUNSELLOR Respiratory Rate 16 05/22/2022 8:[address] COUNSELLOR Oxygen Saturation 97% 05/22/2022 8:[address] COUNSELLOR Inhaled Oxygen Concentration - - Weight - - Height - - Body Mass Index - - documented in this encounter Discharge Instructions Discharge InstructionsPaola Sauceda APRN, CNP - 05/22/2022 9:[address] COUNSELLOR Ena, You were in the ED for fracture of your spine after falling from the horse. You have a L4 vertebral body fracture. Follow up with [facility] at your scheduled appointment, they will call you to set this up in1-2 weeks. If you have any prior spine imaging such as from another doctor or chiropractor, please bring that to your follow up appointment. Continue tylenol and ibuprofen for pain control as needed. Return to the ER if you experience dizziness, falls, weakness, stumbling, numbness or paresthesias, or worsening pain. It was my pleasure to care for you today. Please do not hesitate to return to the emergency department for any other concerns. Paola Sauceda, GILDA Emergency Medicine Nurse Practitioner LY COURT COUNSELLOR Discharge Instr - Physical TherapyAdeel Miranda, PT - 05/22/2022 10:[address] COUNSELLOR Images from the original note were not included. Back Safety: log roll When you turn in bed, move your whole body as one unit. Tighten your stomach muscles. Bend your knees slightly toward your chest. Roll to one side, keeping your ears, shoulders, and hips in line. Be careful not to bend or twist at the waist. ?? [id number] [employer], [address] [place] [address], [place] [id number]. All rights reserved. This information is not intended as a substitute for professional medical care. Always follow your healthcare professional's instructions. LY COURT COUNSELLOR documented in this encounter Medications at Time of Discharge [...] at bedtime. documented as of this encounter Progress Notes Bob Cabezas, OTR/L - 05/22/2022 11:38 AM CST OT note OT order received and chart reviewed. Per discussion with PT pt comfortable with TLSO cares and will have assist. From OT perspective, andconversation safe for d/c home with assist once medically ready. Bob Cabezas OTR/L LY COURT COUNSELLOR Giles Martinez MD - 05/22/2022 9:58 AM CST TRAUMA SURGERY PROGRESS NOTE - PGY 2 ASSESSMENT: Ena Garcia is a 47 y.o. female with PMH thyroid cancer s/p partial thyroidectomy, asthma, who presents to the ED with back pain after being thrown off of a horse. Workup revealed L4 vertebral body fracture with anterolisthesis L4 on L5. NSGY consulted and patient fitted for TSLO. Patient ambulatory today without significant back pain and repeat upright xrays stable, and no discharge concerns for PT/OT. Per NSGY, patient stable for discharge to home with NSGY follow-up in 2 weeks. PLAN: Discharge to home TSLO at all times 2-week follow-up with NSGY Pain control with tylenol/motrin 24 Hour Events: Tertiary exam completed, no new injuries identified. SUBJECTIVE: S: Pain well-controlled with tylenol. No complaints. PHYSICAL EXAM: BP 125/91 (Cuff Location: Right Arm, Patient Position: Lying Down) Pulse 77 Temp 36.8 ??C (98.2 ??F) (Oral) Resp 16 SpO2 97% Neuro: A&Ox3, no focal deficits. TSLO in place. Stable gait. Gen: comfortable, no acute distress Resp: nonlabored breathing Abd: soft, nontender, nondistended Musculoskeletal/skin: moving all extremities. Ext: warm, well perfused, no edema LABS: BMP Lab Results Component Value Date/Time NA 136 05/20/20222244 K 3.7 05/20/20222244 CHLORIDE 103 05/20/20222244 GLU 105 (H) 05/20/20222244 CR 0.99 05/20/20222244 CBC Lab Results Component Value Date/Time WBC 12.58 (H) 05/20/20222244 RBC 4.18 05/20/20222244 HGB 12.5 05/20/20222244 HCT 38.8 05/20/20222244 PLT 276 05/20/20222244 RADIOLOGY: XR lumbar spine: 1. Increased conspicuity T of the vertically oriented fracture line within the L4 vertebral body . This could be related to imaging technique. Overall height and alignment is unchanged. 2. Unchanged appearance of L1 vertebral compression fracture. Sophia Mcfadden MD, 05/22/2022 1:11 PM Emergency Medicine PGY2 FACULTY NOTE I saw and evaluated the patient on the date of the resident's note. I discussed with the resident and agree with the resident???s findings and plan documented in the resident???s note from above. Any revisions by me are documented. Date of service: 05/22/22 Giles Martinez MD, 05/22/2022 2:[address] COUNSELLOR Frances Wesley MD - 05/22/2022 5:33 AM CST NEUROSURGERY PROGRESS NOTE Ena Garcia : 1975 Sex: female Assessment: Ena Garcia is a 47 y.o. female with past medical history of thyroidectomy who presents today after being bucked off a horse this morning. CT of lumbar spine is significant for L4 vertebral body fracture with anterolisthesis L4 on L5. She is neurologically intact. Will obtain lumbar MRI to evaluate for the potential need for surgery. 05/21 patient received TLSO with stable upright xrays. Based on imaging it's still questionable if patient still would benefit from surgery. Plan on having patientwork with therapies and repeat upright xrays after ambulating. If patient does not endorse back painand imaging in stable, patient can be discharged with a 2 week follow up in neurosurgery clinic withDr. Barron. Plan: - Serial Q4H neuro exams - Pain control - Okay for HOB >30 and OOB with TLSO on - PT/OT and ambulation. Evaluate for pain after ambulation - Repeat URXR after ambulation - NPO until noon - If patient has no pain after ambulation and imaging stable she can be discharged with a 2 week follow up in neurosurgery clinic with Dr. Barron (messaged) - No anticoagulants/anti-platelets - Remainder of cares per the primary team - DVT prophylaxis: SCDs, No chemical DVT prophylaxis until noon - Disposition: Per primary, okay for floor status Please page Neurosurgery resident product applications engineer with questions. Patient was discussed with Neurosurgery Chief Resident, Dr. Gene Wesley, Frances Moraes MD, 05/22/2022 5:34 AM PGY-1 General Surgery Neurosurgery Service Subjective: Patient received her TLSO yesterday states that she is doing well this AM. She appreciates scheduledto have her head of bed at 30 with TLSO. States slept well overnight and is not complaining of any pain at this time. PHYSICAL EXAM: General: no distress Pulmonary/Cardiovascular: comfortable respiratory effort Neurologic: Mental status: oriented to time, place, person Cranial nerves: Full visual elizabeth; pupils equal and reactive Full extraocular movements Facial muscles symmetric No dysarthria Motor Strength: RUE strength 5/5 , LUE strength 5/5, RLE strength 5/5 and LLE strength 5/5 Reflexes: symmetric Sensation: intact sensation to light touch LABS: No new labs RADIOLOGY: Most recent imaging was reviewed with the neurosurgery team XR SPINE LUMBAR 2/3 VW UPRIGHT (05/21/2022 16:40) IMPRESSION: Unchanged alignment of L1 and L4 compression fractures. Stable grade 1 anterolisthesis at L4-5. MR SPINE LUMBAR W/O CONTRAST (05/21/2022 12:30) Impression: 1. Burst compression fracture of L4 vertebral body with 20% loss of height. No associated spinal canal stenosis. No epidural hematoma. Mild to moderate foraminal stenosis greater on the left. 2. Nondisplaced inferior endplate fracture of L1. 3. Grade 1 anterolisthesis of L4 on L5. Facet joint widening and fluid bilaterally L4-5 suggesting acute facet joint capsule injury. However, there is also severe facet arthropathy at this level. LY COURT COUNSELLOR Jesse Barron MD - 05/22/2022 12:00 [place] [address] [facility]#: [id number] PATIENT: ENA GARCIA : 1975 DATE DICTATED: 05/22/2022 SURGERY STAFF DAILY PROGRESS NOTE DATE OF SERVICE: 05/22/2022 I saw and evaluated the patient. I discussed management with residents, SHEET CUTTER, and PAs on the Neurosurgery team and agree with documented findings and plan. Ena is a 47-year-old woman who fell off a horse the other day. She has low back pain. She had some leg pain after the fall, but that has gone away. Her neurological exam is intact. She does have some rib pain as would be expected. Her CT scan shows a significant fracture of L4. It is a compressionfracture. The left superior facet of L5 is also fractured slightly. She does have a slight spondylolisthesis, which we think is old. The MRI scan shows no evidence for canal compromise or foraminal compromise. However, the facets are widened just a little bit. We do need to watch this carefully to make sure that it is stable. We have ordered her a TLSO brace. We are getting her therapy and getting her up and around. We will repeat the upright x-ray after she has been up walking. The 1st upright filmwe have is stable. We will get another one after she has been up more. She probably is going to get home assuming the x-rays are stable. We are going to follow her up in clinic at a slightly quicker interval that we normally would just because of our concern for instability. We will see her at least wi thin 2 weeks with an x-ray. Hopefully, things will stay stable. We are also going to ask her if she has any old x-rays to confirm that the spondylolisthesis is old or not. She can bring that to clinic with her when she comes. Once again, we will follow her closely watching primarily for instability issues. Please see resident consult note dated 05/20. I personally reviewed the history, exam, images and plan and agree with note as written. Jesse Barron MD Staff Physician Neurosurgery Service Received in Healthcare Insurance Sales Agent: 05/22/2022 13:29:24 M: /[id number] TB/MODL LY COURT COUNSELLOR Justice Alonso CO/CP - 05/21/2022 2:46 PM CST [facility] [place] [phone] Patient was seen today in the ED room A6 for fitting of her custom fabricated TLSO back brace. Bracewas ordered by Neurosurgery. Family was present. Fitting went well. Overall fit of brace looks good.Patient was educated on use and care instructions as well as donning and doffing procedures. Writteninstructions were left with patient. Patient to follow wearing parameters set by ordering provider. Please call with any further questions. Justice Alonso CPO, SRINATHO LY COURT COUNSELLOR Justice Alonso CO/CP - 05/21/2022 12:11 PM CST [facility] [place] [phone] Patient was seen today in the ED room A6 for evaluation of a custom fabricated TLSO back brace. Brace was ordered by Neurosurgery. All necessary measurements were taken at this time. We will fit the brace as soon as it is fabricated. Please call with any further questions. Justice Alonso CPO, LPO LY COURT COUNSELLOR Frances Wesley MD - 05/21/2022 5:36 AM CST NEUROSURGERY PROGRESS NOTE Ena Garcia : 1975 Sex: female Assessment: Ena Garcia is a 47 y.o. female with past medical history of thyroidectomy who presents today after being bucked off a horse this morning. CT of lumbar spine is significant for L4 vertebral body fracture with anterolisthesis L4 on L5. She is neurologically intact. Will obtain lumbar MRI to evaluate for the potential need for surgery. Plan for TLSO with upright xrays until MRI obtained. Plan: - Serial Q4H neuro exams - Pain control - MRI lumbar spine (tomorrow due to holiday) - Flat bedrest for now; will obtain TLSO (Winkley called) - Upright xrays once TLSO is obtained - No anticoagulants/anti-platelets - Okay for diet until midnight from a neurosurgery standpoint - Remainder of cares per the primary team - DVT prophylaxis: SCDs, Okay for DVT prophylaxis until midnight - Disposition: Per primary, okjuan for floor status Please page Neurosurgery resident product applications engineer with questions. Patient was discussed with Neurosurgery Chief Resident, Frances Patricia MD, 05/21/2022 6:22 AM PGY-1 General Surgery Neurosurgery Service Subjective: Pain improving this am. Still indorses lower back pain that radiates to upper back. Denies any sharpshooting pain to bilateral lower extremities. Expresses understanding of the plan of TLSO, the need for flatbed rest until then, and the possibility of the need for surgery. Patient complains to left rib pain. PHYSICAL EXAM: General: no distress Pulmonary/Cardiovascular: comfortable respiratory effort Neurologic: Mental status: oriented to time, place, person Cranial nerves: Full visual elizabeth; pupils equal and reactive Full extraocular movements Facial muscles symmetric No dysarthria Motor Strength: RUE strength 5/5 , LUE strength 5/5, RLE strength 5/5 and LLE strength 5/5 Reflexes: symmetric Sensation: intact sensation to light touch LABS: BMP Lab Results Component Value Date/Time NA 136 05/20/20222244 K 3.7 05/20/20222244 CHLORIDE 103 05/20/20222244 GLU 105 (H) 05/20/20222244 CR 0.99 05/20/20222244 CBC Lab Results Component Value Date/Time WBC 12.58 (H) 05/20/20222244 RBC 4.18 05/20/20222244 HGB 12.5 05/20/20222244 HCT 38.8 05/20/20222244 PLT 276 05/20/20222244 RADIOLOGY: Most recent imaging was reviewed with the neurosurgery team CT OUTSIDE READ SPINE THORACIC/LUMBAR (05/20/2022 22:56) Impression: 1. Vertically oriented fracture through the midportion of the L4 vertebral body with associated mildcompression deformity anteriorly. There is 7 mm of anterolisthesis of L4 and L5 with an uncovered disc bulge resulting in at least moderate canal narrowing. 2. Suspect impacted fracture of the right L4 inferior facet. Grade 1 anterolisthesis at L4-5. Evaluation of trauma is somewhat limited by severe facet arthropathy. Consider MRI to evaluate for ligamentof facet joint capsule injury 3. Acute transverse process fractures on the left at L1 and L2. 4. Age-indeterminate mild compression deformity of T9. No thoracic subluxation. CT OUTSIDE READ SPINE CERVICAL/NECK (05/20/2022 22:56) Impression: 1. No acute fracture or subluxation. 2. No significant spinal canal or neural foraminal narrowing. LY COURT COUNSELLOR Associated attestation - Fish Zhou MD - 05/21/2022 10:[address] COUNSELLOR Ms. Garcia is a 47 year old female that suffered an L4 vertebral body fracture that may involve the facets (this is difficult to determine on the CT image) when she fell off of her horse. Fortunately she is neurologically intact. She had some brief episodes of shooting pain down the anterior and posterior aspects of her thighs immediately following the injury but this has subsided. We will obtain an MRI of the lumbar spine to further evaluate the L4 fracture as well as the anterolisthesis at this level which may be due to facet disruption as well as ligamentous injury at this level. We will also obtain a TLSO brace to aid in the treatment of the fracture. She may require surgical fixation depending on the findings of the MRI study. We discussed these issues with Ms. Garcia this morning on rounds. I have reviewed the examination and shaffer findings and agree with the plan. Fish Zhou MD, PhD Neurosurgery Chief Resident documented in this encounter Consult Notes Adeel Miranda, PT - 05/22/2022 10:00 AM CST PHYSICAL THERAPY GAIT EVALUATION Ena Garcia was seen 05/22/2022 for a Physical Therapy Gait Evaluation. PT Discharge Recommendations Discharge Recommendations: Safe for discharge to home/community/prior residence. (05/22/22899) Barriers to discharge to home/community: NA If discharging home, would need: assist to don/doff TLSO . Post discharge follow-up: No PT follow-up needs after discharge (05/22/22899) Equipment Status: No equipment needed (05/22/22899) PT Equipment Recommended: DIAGNOSIS There is no problem list on file for this patient. PT Treatment Diagnosis: Activity Intolerance Z 73.89 PRECAUTIONS Thoracic/Lumbar Precautions TLSO when > 30 deg ACTIVITY Bedrest but pt's MD had pt up and walking with TLSO Physical Therapy Orders: Orders Placed This Encounter Procedures PT EVALUATION AND TREATMENT Standing Status: Standing Number of Occurrences: 1 Order Specific Question: Reasons for eval? Answer: As Per Dx Order Specific Question: OK for out of bed activity? (Update Activity Order) Answer: Yes PT EVALUATION AND TREATMENT Could discharge today if passes PT, okay for out of bed with TLSO Standing Status: Standing Number of Occurrences: 1 Order Specific Question: Reasons for eval? Answer: As Per Dx Order Specific Question: OK for out of bed activity? (Update Activity Order) Answer: Yes HISTORY Pertinent History: Per Jen Lewis: 47 y.o. female with past medical history of thyroidectomy who presents today after being bucked off a horse this morning. CT of lumbar spine is significant for L4 vertebral body fracture with anterolisthesis L4 on L5, awaiting outside reads. She is neurologically intact. Medical History No past medical history on file. SOCIAL HISTORY Information gathered from: Patient Home: [facility] Prior level of function: Independent Baseline Ambulation: Independent community ambulation Assist available at home: Yes, Daughter and sister Stairs required at home: Inside - how many? 1 flight Has 1 hand rail (s) SUBJECTIVE Patient's stated goals: I think I will be OK but lets see. Pain: 09/04 with activity located in low back Mental Status: Oriented X 4, Alert, and Cooperative OBJECTIVE Initial patient presentation upon PT arrival: Sitting EOB Motor ROM/Strength: (Deficits only) A = Active P = Passive AA = Assisted Upper Ext Right ROM Right MMT Left ROM Left MMT WFL X X X X Shoulder Flexion Shoulder ABDuction Elbow Flexion Elbow Extension Lower Ext Right ROM Right MMT Left ROM Left MMT WFL X X X X Hip Flexion with Knee Flexion Knee Flexion Knee Extension Dorsiflexion Comments: Transfers & Bed Mobility: Roll Left: Modified [place] Roll Right: Modified [place] Supine to Sit: Modified [place] Sit to Supine: Modified [place] Sit to Stand: Modified [place] Stand to Sit: Modified [place] Gait Evaluation: Distance: 150 meters Assistive Device: No assistive devices Assistance (Level): Modified [place]- Patient requires brace or prosthesis,special adaptive shoes, cane ,crutches,or walker to walk, or takes more than a reasonable amount of time to complete the activity, or there are safety considerations. Gait Deviations: None Stairs: Number of Stairs: 15 Requires Rail: No Level of Assist: Modified [place]- Patient goes up and down stairs but requires a handrail or assistive device; or the activity takes a reasonable amount of time; or there are safety considerations. Stair Pattern: Ascending Reciprocal and Descending Reciprocal Positioning: Educated on showering in TLSO Education and demonstration of donning/doffing TLSO Interdisciplinary Communication: MD: ABIGAIL RN: OK to see, OK to d/c Treatment rendered: (evaluation) Total treatment time: 24 minutes ASSESSMENT Pt is modified independent with all bed mobility, transfers, ambulation and stairs and appropriate for d/c home. Pt met all PT d/c markers. I did education on TLSO but it may not be as thorough as OT. Pt was very receptive, has help at home, and understood precautions/limitations. PLAN Patient does not require any further skilled IP PT intervention at this time. Participated in goal setting and treatment planning: Patient Agrees with goals and treatment plan: Patient - Yes. Adeel Miranad, PT 05/22/2022 Pager: [facility] PT Department LY COURT COUNSELLOR Juan, Giles Hoffman MD - 05/21/2022 12:35 AM CST TRAUMA SURGERY CONSULT - PGY 2 Ena Garcia : 1975 Sex: female Patient Arrival Date and Time: 05/20/2022 21:22 History of Present Injury Event: Ena Garcia is a 47 y.o. female with PMH thyroid cancer s/p partial thyroidectomy, asthma, who presents to the ED with back pain after being thrown off of a horse. Patient was wearing a young horse today when at ~ 11am on 05/20 the horse bucked her forward, causing her to off of the horse's shoulder and land squarely on her back. She denies head trauma or loss of consciousness, and was also helmeted. She was ambulatory and able to drive home after the event, however, when back pain persisted several hours later, she presented to [place] ED for evaluation. At that time, she was noted to havean L1 compression fracture, L4 vertebral body fracture, and acute non-displaced left L1 and L2 transverse process fracture. She was transferred to [facility] [place] further evaluation and treatment. Neuro intact, reports mild thoracic and lumbar back pain, aching in nature, but denies leg tingling, numbness, weakness. No loss of bladder or bowel. Denies other injuries, headache, vision changes, abdominal pain, dysuria or hematuria, facial pain, extremity pain, fever/chills or other concerns. LOC: No INJURY CAUSE: Fall. Estimated height of fall: 6 feet. Protective Devices: Helmet Trauma Team Activated: No - ED Consult Consult requested by: Brigida Marmolejo PA-C Staff Surgeon: Issa Martinez Pediatric Patient < 15 years: Vivien. Suzie Trauma Team Time Out Completed: No HISTORY Past Medical History: No past medical history on file. Past Surgical History: cholecystectomy, partial thyroidectomy, Social History: Occupational History Not on file Tobacco Use Smoking status: Not on file Smokeless tobacco: Not on file Substance and Sexual Activity Alcohol use: Not on file Drug use: Not on file Sexual activity: Not on file Social History Narrative Not on file Family History: No family history on file. Medications: Current Outpatient Medications Medication Instructions albuterol (VENTOLIN HFA;PROVENTIL HFA;PROAIR) 108 (90 BASE) mcg/act inhalation inhaler 2 puffs, Inhalation, Q6H PRN fluticasone propionate (FLONASE) 50 mcg/act nasal suspension 2 sprays, Nasal, BID levothyroxine (SYNTHROID) 100 mcg, Oral, DAILY BEFORE AM MEAL mometasone-formoterol (DULERA) 200-5 mcg/puff aerosol inhaler 2 puffs, Inhalation, BID montelukast (SINGULAIR) 10 mg, Oral, BEDTIME Allergies: No Known Drug Allergies Patient accepts blood products: Not inquired of patient/family at this time REVIEW OF SYSTEMS 10 point review of systems obtained and negative except as noted in the HPI. PHYSICAL EXAM Vital Signs: BP: 141/84 (05/20/222131) Pulse: 84 (05/20/222131) Resp: 18 (05/20/222131) SpO2: 98 % (05/20/222131) Temp: 36.8 ??C (98.2 ??F) (05/20/222131) [place] Coma Scale: Motor 6=Obeys commands Verbal 5=Oriented Eye opening 4=Spontaneous TOTAL 15 Neurologic: alert and oriented, strength symmetrical, no sensory deficits, and cranial nerves intact HEENT Eyes: normal; pupils: PERRL Head: normocephalic, atraumatic Ears: normal externally Nose/sinus: normal Throat/Oropharynx: normal Face: normal Neck: normal and no posterior midline tenderness Chest: clear on left, diminished on right. Tender to palpation laterally bilaterally. Pulmonary: Chest symmetric and lungs clear bilaterally Cardiovascular Heart: Rhythm regular, rate normal, no murmur Peripheral vascular: bilateral carotid, radial, femoral, DP and PT pulses are normal. Gastrointestinal Abdominal:soft, minimally tender to palpation, nondistended Genitourinary: not examined Musculoskeletal Back: Tender to palpation in thoracic and lumbar regions. Extremities: Joints freely mobile and without pain Upper: Both upper extremities have normal joint range of motion and intact strength. Lower: Both lower extremities have normal joint range of motion and intact strength. Pelvic Stability: stable PROCEDURES None performed REVIEW OF LABORATORY DATA Labs reviewed and unremarkable IMAGING RESULTS CXR: not done Pelvis XR: not done FAST: pending CT-Head: not done CT-Cervical Spine: no obvious traumatic abnormalities CT-Chest/Abdomen/Pelvis: no obvious traumatic abnormalities CT-Thoracic Spine: Age-indeterminate mild compression deformity of T9. CT-Lumbar Spine: Acute fractures of the L4 vertebral body, right L4 inferior facet fracture, left L1 and L2 transverse process fractures. 7 mm of anterolisthesis of L4 and L5 with an uncovered disc bulge resulting in at least moderate canal narrowing. Other: not done ASSESSMENT Current known injuries: - Acute fractures of the L4 vertebral body - right L4 inferior facet fracture - left L1 and L2 transverse process fractures. - 7 mm of anterolisthesis of L4 and L5 with an uncovered disc bulge resulting in at least moderate canal narrowing - Age-indeterminate mild compression deformity of T9. TREATMENT PLAN Plan to admit to [facility] following [facility] recs: - Flat bedrest for now; will obtain TLSO tomorrow - Rest of plan pending discussion with team in AM - No anticoagulants/anti-platelets q4Hr neuro checks, CMS checks Follow up final reads of outside imaging Incentive Spirometer NPO until cleared from flat bedrest by NSGY, cleared for diet from trauma surgery perspective Recommend PT/OT with Cog Screen when appropriate, activity per NSGY DVT ppx: SCD's, chemoprophylaxis to be held at this time due to Bleeding Tertiary exam in AM Sophia Mcfadden MD, 05/21/2022 12:36 AM EM PGY-2 [employer] FACULTY NOTE I saw and evaluated the patient on the date of the resident's note. I discussed with the resident and agree with the resident???s findings and plan documented in the resident???s note from above. Any revisions by me are documented. Date of service: 05/21/22 Giles Martinez MD, 05/21/2022 8:44 AM Jen Mendoza PA-C - 05/20/2022 11:30 PM CST NEUROSURGERY CONSULT Ena Garcia : 1975 Sex: female I was asked to consult on Ena Garcia by Frandy Alvarez MD for the evaluation of L4 fracture. Assessment: Ena Garcia is a 47 y.o. female with past medical history of thyroidectomy who presents today after being bucked off a horse this morning. CT of lumbar spine is significant for L4 vertebral body fracture with anterolisthesis L4 on L5, awaiting outside reads. She is neurologically intact. Recommendations: - Serial Q4H neuro exams - Pain control - Obtain outside imaging reads - Flat bedrest for now; will obtain TLSO tomorrow - Will discuss further interventions with team tomorrow - No anticoagulants/anti-platelets - Remainder of cares per the primary team - DVT prophylaxis: SCDs, VTE prophylaxis contraindicated at this time - Disposition: Per primary, okay for floor status Please page Neurosurgery resident product applications engineer with questions. Case was discussed with Neurosurgery Chief Resident, Dr. Gene Lewis, Jen Claudio PA-C, 05/20/2022 11:30 PM Jen Lewis PA-C Neurosurgery CHIEF COMPLAINT: Bucked off horse HISTORY OF PRESENT ILLNESS: Ena Garcia is a 47 y.o. female with past medical history of thyroidectomy who presents today after being bucked off a horse this morning. Patient reports she was riding a green horse and holding loosely to the reigns. Horse became out of control and she was not a back to stop it. Patient was thrown over the front of the horse and landed on her back. She did not hit her head and she did not lose consciousness. She got up and walked around and noticed she was having back pain. She drove herself to outside emergency department and was then transferred here after finding lumbar fractures. CT of lumbar spine is significant for L4 vertebral body fracture with anterolisthesis L4 on L5. Patient low back pain. She denies numbness and tingling of extremities, saddle anesthesia, urinary or fecal incontinence, or weakness of extremities. REVIEW OF SYSTEMS: 10 pt review of systems negative except as noted in HPI PMH: Asthma No past medical history on file. PSH: Thyroidectomy No past surgical history on file. Medications: No current facility-administered medications on file prior to encounter. No current outpatient medications on file prior to encounter. Thyroid medications Allergies: No Known Drug Allergies FAMILY HISTORY: No neurological family history noted No family history on file. SOCIAL HISTORY: Occupational History Not on file Tobacco Use Smoking status: Not on file Smokeless tobacco: Not on file Substance and Sexual Activity Alcohol use: Not on file Drug use: Not on file Sexual activity: Not on file Social History Narrative Not on file Denies alcohol and tobacco use PHYSICAL EXAMINATION: Vital Signs: BP 141/84 (Cuff Location: Right Arm, Patient Position: Lying Down) Pulse 84 Temp 36.8 ??C (98.2??F) (Oral) Resp 18 SpO2 98% GENERAL: WD/WN female, NAD. Lying in bed. HEENT: NC/AT, EOMI, PERRL, mucous membranes moist, no nasal drainage CARDIOVASCULAR: RRR. Extremities WWP. PULMONARY: No distress, effort normal. Good air movement. ABDOMEN: No tenderness, soft, non-distended. MSK: Not point tender in low back; able to squeeze butt cheeks NEUROLOGICAL: Mental status: Alert, awake. Oriented to self, date, and place. Normal speech and language. Cranial Nerves: II-XII fully intact Motor: Follows commands x 4 extremities Upper Extremities: RUE: 5/5 shoulder abduction. 5/5 elbow flex/ext. 5/5 hand plastering contractor. LUE: 5/5 shoulder abduction. 5/5 elbow flex/ext. 5/5 hand plastering contractor. Lower Extremities: RLE: 5/5 hip flexion. 5/5 knee flex/ext. 5/5 ankle plantar-/dorsiflexion. 5/5 EHL. LLE: 5/5 hip flexion. 5/5 knee flex/ext. 5/5 ankle plantar-/dorsiflexion. 5/5 EHL Sensory: Sensation intact in all 4 extremities No ankle clonus bilaterally, knee reflexes 2+ bilaterally RESULTS: Lab results: Lab Results Component Value Date WBC 12.58 (H) 05/20/2022 RBC 4.18 05/20/2022 HGB 12.5 05/20/2022 HCT 38.8 05/20/2022 PLT 276 05/20/2022 Lab Results Component Value Date NA 136 05/20/2022 K 3.7 05/20/2022 CHLORIDE 103 05/20/2022 GLU 105 (H) 05/20/2022 CR 0.99 05/20/2022 No results found for: INR Imaging results: CT OUTSIDE READ SPINE THORACIC/LUMBAR (Results Pending) CT OUTSIDE READ SPINE CERVICAL/NECK (Results Pending) LY COURT COUNSELLOR documented in this encounter ED Notes Ela Kay RN - 05/22/2022 9:01 AM CST Pt up walking the department with TLSO brace on. Sitting up in the chair- states mild lower back pain LY COURT COUNSELLOR Kaylee Curtis RN - 05/22/2022 8:49 AM CST Arts Administrator spoke with SONU Denis mgr and he stated he will try and make it down but unsure what time. Bedside RN updated. LY COURT COUNSELLOR Taylor Mccarty RN - 05/22/2022 1:54 AM CST Asleep and arouses to voice. Offers no complaints. LY COURT COUNSELLOR Myah Tineo MD - 05/21/2022 11:10 PM CST Transfer of Care Note Patient: Ena Garcia : 1975 Age/Sex: 47 y.o., female Sign out received from [facility]. Please see original ED provider note for further details. PERTINENT HPI, PMH, & ED COURSE In brief, 47 y.o. female who presents after falling off a horse. ED Course Found to have L1 compression, L4 vertebral body fx, non-displaced L1 & L2 transverse process fx Neurosurgery consulted: 30 HOB, bed rest con't TLSO bracing applied admitted to neurosurgery post-brace images done and reviewed by NICOLAS ad adriana HOB, remain bed rest NPO at midnight Work-UP Pending Neurosurgery Final disposition FINAL ED COURSE, DISPOSITION, AND PLAN Upon assuming care, patient was assessed at bedside and she was resting in her bed. ED Course as of 05/22/22 0801 WedMay 22, 2022 0210 Hold lovenox. Maybe OR in the AM 0645 Neurosurgery recs: - Trial of ambulation. If not having pain will repeat UXR and Patient remained hemodynamically stable throughout their stay in the ED. No significant changes fromprior provider's note. The patient remained in the emergency department through the end of my shift.Their care was signed out [id number] with the oncoming provider with plan for trial of ambulation and repeat UXR if not having significant pain with outpatient neurosurgery follow up. Final Clinical Impression L1 burst fracture Disposition and Plan Signed out to [facility] DNP pending final disposition Myah Tineo MD, 05/21/2022 11:10 PM Emergency Medicine Resident PGY-2 Sauceda, Paola Stewart APRN, KELSI - 05/21/2022 3:06 PM CST Transfer of Care ED Provider Note Name: Ena Garcia : 1975 Sex: female FINAL ED COURSE / MDM Patient here for injuries 2/2 horse trauma, L1 compression, L4 vertebral body fx, non-displaced L1 & L2 transverse process fx - 30 HOB, bed rest con't - TLSO bracing applied - admitted to neurosurgery - post-brace images done and reviewed by NICOLAS - ad adriana HOB, remain bed rest - NPO at midnight Information from pt's chart, including past medical hx, family hx, social hx, and current prescription medications, were reviewed and subsequently aided the formation of the final assessment and plan. Dx, DDx, Assessment, and Plan were discussed with Attending Emergency Medicine Physician. Prior to my assuming care the patient was signed out to the admitting team and remains in the ED awaiting inpt placement. The patient is aware of the admission and I answered all questions regarding delay to the best of my ability. Patient remained in my care through the duration of my shift, and was signed out to the oncoming provider in a [id number] sign-out at its conclusion. Please see their transfer of care note for final details regarding ED course and disposition. CLINICAL IMPRESSION 1. Other closed fracture of fourth lumbar vertebra, initial encounter () SIGN OUT In brief, 47 y.o. female presents with back pain after being bucked off her horse. Patient signed out by Law HORN. Please see their note for more detailed H&P. TRANSFER PLAN Awaiting inpt placement TLSO placed at 3pm ORDERS Orders Placed This Encounter CT OUTSIDE READ SPINE THORACIC/LUMBAR CT OUTSIDE READ SPINE CERVICAL CT CHEST/ABD/PELVIS W/IV CONT MR SPINE LUMBAR W/O CONTRAST CBC WITH PLATELET ED CHEMISTRY LABS(NA,K,CL,CO2,GLU,CREAT,CA-IONIZED,ANION GAP) EXTRA TUBE - BLUE EXTRA TUBE - DARK GREEN EXTRA TUBE - LAVENDER QUALITATIVE SERUM COVID-19 SURVEILLANCE DIET NPO Diet: Regular SCD (FOOT/KNEE/THIGH) Pulse Ox lactated ringer's bolus 500 mL iohexol (OMNIPAQUE) 350 mg/mL injection acetaminophen tablet 650 mg albuterol (VENTOLIN HFA;PROVENTIL HFA;PROAIR) 108 (90 BASE) mcg/act inhalation inhaler fluticasone propionate (FLONASE) 50 mcg/act nasal suspension levothyroxine (SYNTHROID) 100 mcg oral tablet mometasone-formoterol (DULERA) 200-5 mcg/puff aerosol inhaler montelukast (SINGULAIR) 10 mg oral TABS OLANZapine (ZyPREXA) injection 5 mg VTE Anti Xa Monitoring DISCONTD: enoxaparin (LOVENOX) 30 mg/0.3 mL injection 30 mg DISCONTD: enoxaparin (LOVENOX) 40 mg/0.4 mL injection 40 mg enoxaparin (LOVENOX) 40 mg/0.4 mL injection 40 mg levothyroxine (SYNTHROID) tablet 100 mcg acetaminophen tablet 650 mg DISCONTD: albuterol-ipratropium (DUONEB) 2.5-0.5 mg/3 mL solution 3 mL PT EVALUATION AND TREATMENT OT EVALUATION AND TREATMENT DME ORTHOSIS JUSTIFICATION OF NEED DME ORTHOSIS, CUSTOM CONSULT TO NEUROSURGERY CONSULT TO SURGERY RESULTS Results for orders placed or performed during the hospital encounter of 05/20/22 (from the past 24 hour(s)) CBC WITH PLATELET Result Value Ref Range WBC 12.58 (H) 4.00 - 10.00 k/cmm RBC 4.18 3.90 - 5.20 m/cmm Hgb 12.5 11.5 - 15.7 g/dL Hematocrit 38.8 34.0 - 45.0 % MCV 92.8 80.0 - 100.0 fL MCH 29.9 25.0 - 32.0 pg MCHC 32.2 31.0 - 36.0 g/dL RDW 13.1 11.5 - 14.5 % Plt 276 150 - 400 k/cmm MPV 9.7 6.5 - 12.5 fL ED CHEMISTRY LABS(NA,K,CL,CO2,GLU,CREAT,CA-IONIZED,ANION GAP) Result Value Ref Range Sodium 136 135 - 148 mEq/L Chloride 103 92 - 108 mEq/L AnGap 9 8 - 16 mEq/L Glucose 105 (H) 70 - 100 mg/dL ICA, Actual 4.34 (L) 4.40 - 5.20 mg/dL ICA, pH Corrected 4.33 (L) 4.40 - 5.20 mg/dL Creatinine 0.99 0.50 - 1.00 mg/dL BICARB 24 22 - 26 mEq/L eGFR, High 77 >=60 ml/min/1.73m2 eGFR, Low 67 >=60 ml/min/1.73m2 Potassium 3.7 3.5 - 5.3 mEq/L EXTRA TUBE - BLUE Result Value Ref Range BLUE TUBE Narrative Ordered by ~[id number] EXTRA TUBE - DARK GREEN Result Value Ref Range DARK GREEN TUBE Stored Narrative Ordered by ~[id number] EXTRA TUBE - LAVENDER Result Value Ref Range LAVENDER TUBE Stored Narrative Ordered by ~[id number] QUALITATIVE SERUM Result Value Ref Range Qualitative Serum Negative Negative COVID-19 SURVEILLANCE Result Value Ref Range COVID-19 Not Detected Not Detected Narrative Is the patient a healthcare employee: No Is the patient a Suzie ([facility]) Employee: No MR SPINE LUMBAR W/O CONTRAST See Chart Review for Final Result Impression: 1. Burst compression fracture of L4 vertebral body with 20% loss of height. No associated spinal canal stenosis. No epidural hematoma. Mild to moderate foraminal stenosis greater on the left. 2. Nondisplaced inferior endplate fracture of L1. 3. Grade 1 anterolisthesis of L4 on L5. Facet joint widening and fluid bilaterally L4-5 suggesting acute facet joint capsule injury. However, there is also severe facet arthropathy at this level. Reading Radiologist: Talib Resendiz CT CHEST/ABD/PELVIS W/IV CONT See Chart Review for Final Result Impression: 1. Acute fractures of the L4 vertebral body, left L1 and L2 transverse process fractures, an age indeterminant compression deformity at T9. For more details please reference dedicated over read report of the thoracic and lumbar spine. 2. No other traumatic injury identified in the chest, abdomen, or pelvis. I have personally reviewed the image(s) and initial interpretation, and I agree with the findings asdocumented by the resident/fellow. Reading Radiologist: John Sanchez Reading Resident: Floyd Palencia CT OUTSIDE READ SPINE THORACIC/LUMBAR See Chart Review for Final Result Impression: 1. Vertically oriented fracture through the midportion of the L4 vertebral body with associated mildcompression deformity anteriorly. There is 7 mm of anterolisthesis of L4 and L5 with an uncovered disc bulge resulting in at least moderate canal narrowing. 2. Suspect impacted fracture of the right L4 inferior facet. Grade 1 anterolisthesis at L4-5. Evaluation of trauma is somewhat limited by severe facet arthropathy. Consider MRI to evaluate for ligamentof facet joint capsule injury 3. Acute transverse process fractures on the left at L1 and L2. 4. Age-indeterminate mild compression deformity of T9. No thoracic subluxation. Critical Results: The critical findings in this report were reported to Brigida Marmolejo who responded indicating that the communication was understood. Contact was made at the time of interpretation on 05/21/2022 3:45 AM. I have personally reviewed the image(s) and initial interpretation, and I agree with the findings asdocumented by the resident/fellow. Reading Radiologist: Talib Resendiz Reading Resident: Floyd Palencia CT OUTSIDE READ SPINE CERVICAL/NECK See Chart Review for Final Result Impression: 1. No acute fracture or subluxation. 2. No significant spinal canal or neural foraminal narrowing. I have personally reviewed the image(s) and initial interpretation, and I agree with the findings asdocumented by the resident/fellow. Reading Radiologist: Talib Resendiz Resident: Floyd Palencia Stephanie E, APRN, CNP, 05/21/2022 3:[address] COUNSELLOR Laura Easley RN - 05/21/2022 1:53 PM CST Initial Utilization Review screening completed. Patient appears to be appropriate for INPATIENT based on General Trauma, musculoskeletal, Fracture L4 vertebrae (Facet). Final Order/decision will be based on provider's assessment of patient. Laura Easley RN, BSN ED RN Clinical Coordinator Office: LY COURT COUNSELLOR Pili Foy PA-C - 05/21/2022 7:04 AM CST ED Provider Note Ena Garcia : 1975 Sex: female Patient Arrival Date and Time: 05/20/2022 9:22 PM TRANSFER OF CARE NOTE HPI & ED Course: In brief, 47 y.o. female presents after she was riding a horse and landed on her back. She was helmeted and had no loss of consciousness. CTs with L1 compression fracture, L4 vertebral body fracture, acute non- displaced L L1 and L2 transverse process fracture. CT CAP without other findings other than those listed above. The L4 vertebral body fracture is comminuted and may be unstable so MRI has been ordered with results pending. She has received Tylenol for pain. She received some Zyprexa as she was starting to get anxious. Needs to be flat on the back. Neurosurgery has been consulted, awaiting final recommendations based off of MRI results. Patient signed out by Brigida Olivares PA-C. Please see her note for more detailed H&P. Plan: Orders Placed This Encounter CT OUTSIDE READ SPINE THORACIC/LUMBAR CT OUTSIDE READ SPINE CERVICAL CT CHEST/ABD/PELVIS W/IV CONT MR SPINE LUMBAR W/O + W/CON CBC WITH PLATELET ED CHEMISTRY LABS(NA,K,CL,CO2,GLU,CREAT,CA-IONIZED,ANION GAP) QUALITATIVE SERUM COVID-19 SURVEILLANCE lactated ringer's bolus 500 mL iohexol (OMNIPAQUE) 350 mg/mL injection acetaminophen tablet 650 mg albuterol (VENTOLIN HFA;PROVENTIL HFA;PROAIR) 108 (90 BASE) mcg/act inhalation inhaler fluticasone propionate (FLONASE) 50 mcg/act nasal suspension levothyroxine (SYNTHROID) 100 mcg oral tablet mometasone-formoterol (DULERA) 200-5 mcg/puff aerosol inhaler montelukast (SINGULAIR) 10 mg oral TABS OLANZapine (ZyPREXA) injection 5 mg PT EVALUATION AND TREATMENT OT EVALUATION AND TREATMENT CONSULT TO NEUROSURGERY CONSULT TO SURGERY Results: Labs Reviewed CBC WITH PLATELET - Abnormal Result Value WBC 12.58 (*) RBC 4.18 Hgb 12.5 Hematocrit 38.8 MCV 92.8 MCH 29.9 MCHC 32.2 RDW 13.1 Plt 276 MPV 9.7 ED CHEMISTRY LABS(NA,K,CL,CO2,GLU,CREAT,CA-IONIZED,ANION GAP) - Abnormal Sodium 136 Chloride 103 AnGap 9 Glucose 105 (*) ICA, Actual 4.34 (*) ICA, pH Corrected 4.33 (*) Creatinine 0.99 BICARB 24 eGFR, High 77 eGFR, Low 67 Potassium 3.7 QUALITATIVE SERUM Qualitative Serum Negative COVID-19 SURVEILLANCE COVID-[address] CHEST/ABD/PELVIS W/IV CONT See Chart Review for Final Result Impression: 1. Acute fractures of the L4 vertebral body, left L1 and L2 transverse process fractures, an age indeterminant compression deformity at T9. For more details please reference dedicated over read report of the thoracic and lumbar spine. 2. No other traumatic injury identified in the chest, abdomen, or pelvis. Reading Radiologist: John Sanchez Reading Resident: Floyd Palencia CT OUTSIDE READ SPINE THORACIC/LUMBAR Preliminary Result Impression: 1. Vertically oriented fracture through the midportion of the L4 vertebral body with associated mildcompression deformity anteriorly. There is 7 mm of anterolisthesis of L4 and L5 with an uncovered disc bulge resulting in at least moderate canal narrowing. 2. Suspect impacted fracture of the right L4 inferior facet. Grade 1 anterolisthesis at L4-5. Evaluation of trauma is somewhat limited by severe facet arthropathy. Consider MRI to evaluate for ligamentof facet joint capsule injury 3. Acute transverse process fractures on the left at L1 and L2. Age-indeterminate mild compression deformity of T9. No thoracic subluxation. Critical Results: The critical findings in this report were reported to Brigida Marmolejo who responded indicating that the communication was understood. Contact was made at the time of interpretation on 05/21/2022 3:45 AM. Reading Radiologist: Talib Resendiz Reading Resident: Floyd Palencia CT OUTSIDE READ SPINE CERVICAL/NECK Preliminary Result Impression: 1. No acute fracture or subluxation. 2. No significant spinal canal or neural foraminal narrowing. Reading Radiologist: Talib Resendiz Resident: Floyd Palencia MR SPINE LUMBAR W/O + W/CON (Results Pending) Workup Pending: MRI Transfer of Care Plan: Admitted to Trauma Final ED Course, Disposition, and Plan: Ena Garcia is a 47 y.o. female presents with a fall off of a horse with vertebral fractures. Please see Brigida Olivares's note for full H&P. She was able to get her MRI, though results unavailable at this time. Her TLSO brace arrived and was fitted, neurosurgery raised the head of the bed slightly, but want her to remain flat on her back until the MRI results return. They are planning for the OR tomorrow. I discussed the case with and signed the patient out to Rashmi Sauceda, [employer]. Please see her note for final results and disposition. Patient is stable at time of sign out. Diagnosis: 1. Other closed fracture of fourth lumbar vertebra, initial encounter () Pili Foy PA-C, 05/21/2022 7:04 AM Dictation Disclaimer: Some notes are completed with voice-recognition dictation software. Errors aregenerally corrected in real time. Please contact me via [employer] staff message if you note any errors requiring clarification. LY COURT COUNSELLOR Marylu Lopez RN - 05/21/2022 1:52 AM CST ED to IP Nursing Handoff Note S (Situation) Reason for Admission: 1. Other closed fracture of fourth lumbar vertebra, initial encounter () Arrives to ED from: Home Precautions/Isolation (from ED Admit Order): No B (Background) Pertinent Medical History for This Admission: Yes, No past medical history on file. Pertinent Social History: Yes, Occupational History Not on file Tobacco Use Smoking status: Not on file Smokeless tobacco: Not on file Substance and Sexual Activity Alcohol use: Not on file Drug use: Not on file Sexual activity: Not on file Social History Narrative Not on file A (Assessment) Vital Signs: BP 138/82 (Cuff Location: Right Arm, Patient Position: Lying Down) Pulse 93 Temp 36.8 ??C (98.2 ??F) (Oral) Resp 18 SpO2 99% Oxygen: Room Air Mobility: Independent Mental Status: Oriented Fall Risk: No Skin/Wound Issue Present on Arrival to ED: No Telemetry Needed (from ED Admit Order): No Lines/Drains/Portacath: IV lines R (Recommendations) Radiology/Labs Complete: Yes Specialty Bed: N/A Safety Concerns/Continuous Monitoring: None Elopement Risk Score: No data recorded Combative: No Restraints: None Suicide Risk Level: No Risk Visitor Present: No Destination/Bed Type (from ED Admit Order): Floor [5] Patient Belongings Documented: Other Considerations: none RN: Marylu Lopez RN Extension #: [id number]SE[address] Brigida Marmolejo PA-C - 05/20/2022 11:02 PM CST Transfer of Care Note Patient: Ena Garcia : 1975 Age: 47 y.o. female Sign out received from Opal Goldstein MD. . Please see original ED provider note for further details. PERTINENT HPI, PMH, & ED COURSE In brief, Ena Garcia is a 47 y.o. female with a history of partial thyroidectomy who presents from an OSH after a fall off her horse around 1100 on 05/20/22 in which she landed on her back, sustaining L1 compression fx, L4 vertebral body fx, acute non-displaced left L1 and L2 transverse process f racture. Helmeted, no LOC. No numbness or paresthesias. No bowel or bladder incontinence. Work-up thus far PE: neuro intact, back pain Imaging: CT c-spine, t-spine and l-spine overreads pending Treatment: tylenol at OSH Consults: NSG has evaluated Need to page trauma Work-Up Pending & Plan US FAST Trauma consult Disposition plan: admit to surgery (primary) FINAL ED COURSE, DISPOSITION, AND PLAN Agree with previous provider's workup/plan/exam. Neurosurgery was consulted and recommended patient remain flat bedrest for now and will obtain TLSO tomorrow and discuss further interventions with the neurosurgery team in the morning. No anticoagulants or antiplatelets and will continue with serial every 4 hour neuro exams. Patient was found to have mild left upper quadrant abdominal tenderness on exam and proceeded with a CT chest abdomen and pelvis given trauma and preliminarily there is no additional abnormality outside of the vertebral fractures. Outside reads of the CTs were completed and concern for possible impacted fracture of and shortening of the inferior facet at L4 raising the possibility of anterior involvement. Discussed with neurosurgery and recommend proceeding with an MRI at 7 AMand patient will remain n.p.o. The patient remained in the emergency department through the end of my shift. Their care was signed out [id number] with the oncoming provider. Final Clinical Impression Other closed fracture of fourth lumbar vertebra, initial encounter () Brigida Marmolejo PA-C, 05/20/2022 11:[address] COUNSELLOR Opal Richards MD - 05/20/2022 9:36 PM CST ED PROVIDER NOTE Patient: Ena Garcia : 1975 Age: 47 y.o. female Chief Complaint Fall from horse History of Present Illness: Ena Garcia is a 47 y.o. female with PMHx partial thyroidectomy, PCOS who presents after falling off a horse. She reports initial sharp pain that seemed similar to her sciatic pain. Denied any numbness or tingling. She has been able to move her limps. She transferred from [place] for lumbar fractures. Denies loss of consciousness. She was helmeted and reports she flew over the horse and fell flat on her back. Past Medical History: PCOS Medications: Levothyroxine Allergies: None Family History: No Social History: No tobacco use. No alcohol use. ROS: 10 point ROS performed and negative except as noted in HPI. Physical Exam: BP 141/84 (Cuff Location: Right Arm, Patient Position: Lying Down) Pulse 84 Temp 36.8 ??C (98.2 ??F) (Oral) Resp 18 SpO2 98% General: Awake & alert. Answering questions appropriately. Sitting comfortably in NAD Head: Head, face and ears atraumatic Eyes: No conjunctival injection, lids normal ENT: No oropharyngeal/tonsillar exudate or erythema. Oral mucosa moist Neck: Supple. Trachea midline Cardio: RRR. No murmurs, rubs, or gallops. Pulses 2+ radial, DP, PT bilaterally. No LE edema Pulm: No increased WOB or accessory muscle use noted. Speaking in complete sentences. Equal rise andfall of the chest. No wheezing, rales, or rhonchi. GI: Soft, non-distended. No TTP in all quadrants. No rebound tenderness, guarding, masses, or signs. MSK: Freely moving all extremities. No contractures, deformities or cyanosis. Has thoracolumbar tenderness. Neuro: PERRLA. No grossly focal sensory or motor deficits noted. Normal speech. Skin: Skin warm & dry. No rashes, lesions or bruising. Psych: Affect and behavior appropriate. ED Course, Medical Decision Making & Disposition: 47 y.o. female with PMHx PCOS who presents after a fall from a horse. Vital signs stable on presentation. Exam remarkable for midline tenderness in the thoracolumbar region. As well as para-spinal area. Transfer from outside hospital for Lumbar fx per imaging. Ordered reading for outside imaging. Consnulted NSG and trauma surgery. ED Course as of 05/21/228May 20, 20224 Outside imaging with: 1. L1 compression fx 2. L4 fx 3. Acute non-displaced left L1 and L2 TP fx 2257 Paged NSG Pt remained in the ED throughout the remainder of my shift. Care was signed out with oncoming provider. Please see oncoming provider note for final disposition and plan. Final Clinical Impression 1. Other closed fracture of fourth lumbar vertebra, initial encounter () Opal Richards MD, 05/20/2022 9:36 PM Emergency Medicine Resident, PGY1 LY COURT COUNSELLOR Desiree Burgos RN - 05/20/2022 9:23 PM CST Pt transfer from [place] after spinal fx after walking with horse and falling 6 feet. L4 fractures. No medication. Per ems she is allergic to all narcotics. Vitally stable. LY COURT COUNSELLOR documented in this encounter Miscellaneous Notes Transfer of Care - Sohail, Paola Stewart APRN, KELSI - 05/22/2022 9:[address] COUNSELLOR Transfer of Care ED Provider Note Name: Ena Garcia : 1975 Sex: female FINAL ED COURSE / MDM Patient here for injuries 2/2 horse trauma, L1 compression, L4 vertebral body fx, non-displaced L1 & L2 transverse process fx. After AM evaluation by NICOLAS, recs to trial ambulation for sx and stability and eval findings to clinically correlate. Was able to ambulate symptom free with stable gait. Scheduled for [facility] outpt follow up in 1-2 weeks. Information from pt's chart, including past medical hx, family hx, social hx, and current prescription medications, were reviewed and subsequently aided the formation of the final assessment and plan. Dx, DDx, Assessment, and Plan were discussed with Attending Emergency Medicine Physician. Patient was discharged to home in stable condition with bracing in place and 2 wk [facility]Y f/u. We discussed warning signs that would warrant their return to the ED. All questions answered and patient verbalized agreement with and understanding of plan. CLINICAL IMPRESSION 1. Other closed fracture of fourth lumbar vertebra, initial encounter () SIGN OUT In brief, 47 y.o. female presents with back pain after being bucked off her horse. Patient signed out by Noman SHAH. Please see their note for more detailed H&P. TRANSFER PLAN Ambulate, post-ambulation films, discuss with NSY ORDERS Orders Placed This Encounter CT OUTSIDE READ SPINE THORACIC/LUMBAR CT OUTSIDE READ SPINE CERVICAL CT CHEST/ABD/PELVIS W/IV CONT MR SPINE LUMBAR W/O CONTRAST XR SPINE LUMBAR 2/3 VW UPRIGHT XR SPINE LUMBAR 2/3 VW UPRIGHT XR SPINE LUMBAR 2/3 VW UPRIGHT XR FOREARM RIGHT 2 V AP + LAT* XR SPINE LUMBAR 2/3 VW UPRIGHT XR SPINE LUMBAR 2/3 VW UPRIGHT CBC WITH PLATELET ED CHEMISTRY LABS(NA,K,CL,CO2,GLU,CREAT,CA-IONIZED,ANION GAP) EXTRA TUBE - BLUE EXTRA TUBE - DARK GREEN EXTRA TUBE - LAVENDER QUALITATIVE SERUM COVID-19 SURVEILLANCE CBC WITH PLTS/AUTO DIFF ED CHEMISTRY LABS(NA,K,CL,CO2,GLU,CREAT,CA-IONIZED,ANION GAP) DIET NPO SCD (FOOT/KNEE/THIGH) Pulse Ox lactated ringer's bolus 500 mL iohexol (OMNIPAQUE) 350 mg/mL injection acetaminophen tablet 650 mg albuterol (VENTOLIN HFA;PROVENTIL HFA;PROAIR) 108 (90 BASE) mcg/act inhalation inhaler fluticasone propionate (FLONASE) 50 mcg/act nasal suspension levothyroxine (SYNTHROID) 100 mcg oral tablet mometasone-formoterol (DULERA) 200-5 mcg/puff aerosol inhaler montelukast (SINGULAIR) 10 mg oral TABS OLANZapine (ZyPREXA) injection 5 mg VTE Anti Xa Monitoring DISCONTD: enoxaparin (LOVENOX) 30 mg/0.3 mL injection 30 mg DISCONTD: enoxaparin (LOVENOX) 40 mg/0.4 mL injection 40 mg enoxaparin (LOVENOX) 40 mg/0.4 mL injection 40 mg levothyroxine (SYNTHROID) tablet 100 mcg acetaminophen tablet 650 mg DISCONTD: albuterol-ipratropium (DUONEB) 2.5-0.5 mg/3 mL solution 3 mL acetaminophen tablet 650 mg levothyroxine (SYNTHROID) tablet 100 mcg ibuprofen (MOTRIN;ADVIL) 600 mg oral tablet PT EVALUATION AND TREATMENT PT EVALUATION AND TREATMENT OT EVALUATION AND TREATMENT DME ORTHOSIS JUSTIFICATION OF NEED DME ORTHOSIS, CUSTOM CONSULT TO NEUROSURGERY CONSULT TO SURGERY SCHEDULE APPOINTMENT RESULTS No results found for this visit on 05/20/22 (from the past 24 hour(s)). XR SPINE LUMBAR 2/3 VW UPRIGHT See Chart Review for Final Result IMPRESSION: Unchanged alignment of L1 and L4 compression fractures. Stable grade 1 anterolisthesis at L4-5. Reading Radiologist: Talib Resendiz XR SPINE LUMBAR 2/3 VW UPRIGHT See Chart Review for Final Result IMPRESSION: Stable alignment of L1 and L4 compression fractures. Unchanged grade 1 anterolisthesis at L4-5. Reading Radiologist: Talib Resendiz XR SPINE LUMBAR 2/3 VW UPRIGHT See Chart Review for Final Result IMPRESSION: Unchanged alignment of L1 and L4 fractures at 30 degrees upright. Stable grade 1 anterolisthesis at L4-5. Reading Radiologist: Talib Resendiz XR FOREARM RIGHT 2 V AP + LAT* See Chart Review for Final Result IMPRESSION: No acute fracture is identified. Reading Radiologist: John Sanchez MR SPINE LUMBAR W/O CONTRAST See Chart Review for Final Result Impression: 1. Burst compression fracture of L4 vertebral body with 20% loss of height. No associated spinal canal stenosis. No epidural hematoma. Mild to moderate foraminal stenosis greater on the left. 2. Nondisplaced inferior endplate fracture of L1. 3. Grade 1 anterolisthesis of L4 on L5. Facet joint widening and fluid bilaterally L4-5 suggesting acute facet joint capsule injury. However, there is also severe facet arthropathy at this level. Reading Radiologist: Talib Resendiz CT CHEST/ABD/PELVIS W/IV CONT See Chart Review for Final Result Impression: 1. Acute fractures of the L4 vertebral body, left L1 and L2 transverse process fractures, an age indeterminant compression deformity at T9. For more details please reference dedicated over read report of the thoracic and lumbar spine. 2. No other traumatic injury identified in the chest, abdomen, or pelvis. I have personally reviewed the image(s) and initial interpretation, and I agree with the findings asdocumented by the resident/fellow. Reading Radiologist: John Sanchez Reading Resident: Floyd Palencia CT OUTSIDE READ SPINE THORACIC/LUMBAR See Chart Review for Final Result Addendum (preliminary) 1 of Addendum: There is also minimally displaced L1 inferior endplate fracture. This is better seen on follow-up MRI performed on 05/21/2022. Reading Radiologist: Talib Resendiz Final Impression: 1. Vertically oriented fracture through the midportion of the L4 vertebral body with associated mildcompression deformity anteriorly. There is 7 mm of anterolisthesis of L4 and L5 with an uncovered disc bulge resulting in at least moderate canal narrowing. 2. Suspect impacted fracture of the right L4 inferior facet. Grade 1 anterolisthesis at L4-5. Evaluation of trauma is somewhat limited by severe facet arthropathy. Consider MRI to evaluate for ligamentof facet joint capsule injury 3. Acute transverse process fractures on the left at L1 and L2. 4. Age-indeterminate mild compression deformity of T9. No thoracic subluxation. Critical Results: The critical findings in this report were reported to Brigida Marmolejo who responded indicating that the communication was understood. Contact was made at the time of interpretation on 05/21/2022 3:45 AM. I have personally reviewed the image(s) and initial interpretation, and I agree with the findings asdocumented by the resident/fellow. Reading Radiologist: Talib Resendiz Resident: Floyd Palencia CT OUTSIDE READ SPINE CERVICAL/NECK See Chart Review for Final Result Impression: 1. No acute fracture or subluxation. 2. No significant spinal canal or neural foraminal narrowing. I have personally reviewed the image(s) and initial interpretation, and I agree with the findings asdocumented by the resident/fellow. Reading Radiologist: Talib Resendiz Resident: Floyd Palencia XR SPINE LUMBAR 2/3 VW UPRIGHT (Results Pending) XR SPINE LUMBAR 2/3 VW UPRIGHT (Results Pending) Paola Sauceda APRN, CNP, 05/22/2022 9:[address] COUNSELLOR ED Faculty Note - Opal Dumont MD - 05/22/2022 3:15 AM CST Transfer of Care Note Care assumed from . This is a patient whom I saw the night prior. Patient with L1 compression fx and L4 burst fx. MRI negative for Spinal cord injuries. Patient remains in stable condition while awaiting admission. No significant changes to plan at this time. Neurosurgery called down: plan for ambulation trial --> if free of pain --> upright XR and DC Scribed for Brooklynn Dumont MD by Shelia Godoy Scribe, 05/22/2022 3:15 AM Julia Poole Anst[place]Bidry MD have reviewed the initial documentation provided by the an and affirm that it is an accurate restatement of my dictated record of services. Signed: Brooklynn Dumont MD, 03:15 05/22/[address] COUNSELLOR Interval Note Provider - Margarita Guadarrama PA-C - 05/21/2022 6:[address] COUNSELLOR Interval NSGY Note Pt was fit with TLSO and had 3060/90 XR done that show stable alignment. She can have HOB ad adriana but should remain on bed rest overnight. TLSO at all times. Imaging will be reviewed in the AM with staff to determine if surgical intervention is indicated. She should be NPO at midnight and have lovenoxheld until this is determined. Remainder of cares per primary team. Please contact the product applications engineer resident with any questions or concerns. Margarita Guadarrama PA-C, 05/21/2022 6:17 PM Neurosurgery Pager [phone] COUNSELLOR Trauma Tertiary Exam - Giles Martinez MD - 05/21/2022 11:[address] COUNSELLOR TRAUMA TERTIARY EXAM - PGY 1 First Exam Ena Garcia : 1975 Sex: female Subjective: Ena Garcia is a 47 y.o. female with PMH thyroid cancer s/p partial thyroidectomy, asthma, who presents to the ED with back pain after being thrown off of a horse. Patient was wearing a young horse today when at ~ 11am on 05/20 the horse bucked her forward, causing her to off of the horse's shoulder and land squarely on her back. She denies head trauma or loss of consciousness, and was also helmeted. She was ambulatory and able to drive home after the event, however, when back pain persisted several hours later, she presented to [place] ED for evaluation. At that time, she was noted to havean L1 compression fracture, L4 vertebral body fracture, and acute non-displaced left L1 and L2 transverse process fracture. She was transferred to [facility] [place] and treatment. Neuro intact, reports mild thoracic and lumbar back pain, aching in nature, but denies leg tingling, numbness, weakness. No loss of bladder or bowel. Denies other injuries, headache, vision changes, abdominal pain, dysuria or hematuria, facial pain, extremity pain, fever/chills or other concerns. Admit Date & Time: 05/20/2022 9:22 PM No past medical history on file. Mental Status Adequate for Exam: Yes Examiner: Nikki Plunkett MD, 05/21/2022 3:20 PM Primary Team: [facility] Surgery Date/Time Completed: 05/21/2022 15:00 Vital Signs: Patient Vitals for the past 8 hrs: BP Pulse SpO2 05/21/22 1446 146/87 -- 99 % 05/21/22 1238 149/94 73 96 % 05/21/22 1159 137/86 -- 99 % 05/21/22 1032 141/82 -- 98 % 05/21/22 0829 118/79 71 97 % 05/21/22 0723 143/84 61 94 % Glascow Coma Scale: Motor 6=Obeys commands Verbal 5=Oriented Eye opening 4=Spontaneous TOTAL 15 Neurologic: Alert and oriented, moves all extremities and Strength symmetrical, no sensory deficits,cranial nerves intact HEENT Eyes: PERRLA, conjunctiva/corneas normal, EOM intact, corrective lenses removed, No evidence of injury Head: No lacs, bony step-offs, abrasions, midface stable to palpation, No evidence of injury, Normocephalic, no masses, no lesions, and no tenderness Ears: Canals without blood or CSF drainage, TMs clear, external ears without lacerations, No evidence of injury Nose/sinus: Septum midline, no crepitus with motion, No evidence of injury Throat/Oropharynx: Oral mucosa without lacs, teeth in place, tongue without lacs, dentures removed,Lips, mucosa, and tongue normal. Posterior pharynx clear. Face: No evidence of injury Neck: No midline pain with palpation or active ROM, No lacerations TSLO brace in place for abdominal and chest examination. Chest: External Exam - No air, crepitus or pain with palpation. No abrasions contusions, No evidenceof injury Pulmonary: Breath sounds clear, symmetrical. No wheezes, rales, consolidation, Chest symmetric and lungs clear bilaterally Cardiovascular Heart: Rhythm regular, rate normal, no murmur Peripheral vascular: bilateral carotid, radial, femoral, DP and PT pulses are normal. Gastrointestinal Abdominal: No tenderness or masses, organomegaly or peritoneal signs, No evidence of injury, and visualization limited with TSLO in place, but palpation was do able. Rectal: Not examined Genitourinary: Not examined Musculoskeletal: Back: This is where her pain is and her primary injury is. Pain to palpation. Extremities: Right arm: bruise Upper: Both upper extremities have normal joint range of motion and intact strength. Lower: Both lower extremities have normal joint range of motion and intact strength. Pelvic Stability: Stable Imaging Results CT Head: None CT C-Spine: IMPRESSION Impression: 1. No acute fracture or subluxation. 2. No significant spinal canal or neural foraminal narrowing. I have personally reviewed the image(s) and initial interpretation, and I agree with the findings as documented by the resident/fellow. Reading Radiologist: Talib Resendiz Resident: Floyd Palencia CT T-Spine: CT L-Spine: IMPRESSION Impression: 1. Vertically oriented fracture through the midportion of the L4 vertebral body with associated mild compression deformity anteriorly. There is 7 mm of anterolisthesis of L4 and L5 with an uncovered disc bulge resulting in at least moderate canal narrowing. 2. Suspect impacted fracture of the right L4 inferior facet. Grade 1 anterolisthesis at L4-5. Evaluation of trauma is somewhat limited by severe facet arthropathy. Consider MRI to evaluate for ligament of facet joint capsule injury 3. Acute transverse process fractures on the left at L1 and L2. 4. Age-indeterminate mild compression deformity of T9. No thoracic subluxation. Critical Results: [...] Reading Radiologist: Talib Resendiz Resident: Floyd Palencia CT CAP: IMPRESSION Impression: 1. Acute fractures of the L4 vertebral body, left L1 and L2 transverse process fractures, [...] Radiologist: John Sanchez Reading Resident: Floyd Palencia Chest XR: None Pelvis XR: None FAST Exam: None Other XRs: None MRI: Impression: 1. Burst compression fracture of L4 vertebral body with 20% loss of height. No associated spinal canal stenosis. No epidural hematoma. Mild to moderate foraminal stenosis greater on the left. 2. Nondisplaced inferior endplate fracture of L1. 3. Grade 1 anterolisthesis of L4 on L5. Facet joint widening and fluid bilaterally L4-5 suggesting acute facet joint capsule injury. However, there is also severe facet arthropathy at this level. Reading Radiologist: Talib Resendiz Alcohol Screening (for all patients > 11 years of age) No results found for: ETOH ASIA: negative Alcohol Use: No (screening complete) All patients who respond yes above should be given the Andorran or Faroese version of the Alcohol Use and Your health document found at this link: https://[employer]/Departments/TraumaServices/AlcoholS creeningEducation/index.htm CAGE Screen: If patient answers Yes to 1 CAGE question, print and provide them with the Alcohol Use and Your Health document found at this link: https://[employer]/Departments/TraumaServices/AlcoholScreeningEducat ion/index.htm If patient answers Yes to 2 or more questions. Provide the Addiction Medicine Resources handout found at link below and place an Addiction Medicine Consult Order if patient is interested. https://[employer]/Departments/TraumaServices/AlcoholScreeningEducation/index.htm 1. In the past year: Have you felt you should cut down on your drinking? no 2. In the past year: Have people annoyed you by criticizing your drinking? no 3. In the past year: Have you felt bad or guilty about your drinking? no 4. In the past year: Have you had an eye dry house worker first thing in the morning to steady your nerves? no Interventions Completed: N/a Next Step Patient has penetrating trauma (stab, GSW)?: No. Abbreviated Clinical Frailty Score (Screen those age 65 and older) Does the patient engage in moderate to strenuous sports or recreational activities?: Yes - CFS < 4, screening complete Does patient have any of the following life limiting illnesses?: Patient has no life limiting illness Interpreting the score: CFS < 4 = not frail CFS 4-6 = living with mild to moderate frailty CFS >7 = living with severe or very severe frailty or terminally ill When to order Palliative Care consult: If trauma patient age > 80 YO - consult Palliative Care for Goals of Care Discussion If trauma patient age 75-80 YO with a CFS >/= 4 or life limiting illness - consult Palliative Care for Goals of Care Discussion If trauma patient age 65-74 YO with a CFS >/= 4 and life limiting illness - consult Palliative Care for Goals of Care Discussion If trauma patient and CFS >/= 7, consult Palliative Care Consult ANIMAL HUSBANDRY TECHNICIAN for: ANIMAL HUSBANDRY TECHNICIAN consult not indicated at this time *If patient meets criteria for an ANIMAL HUSBANDRY TECHNICIAN consult, please order aspiration precautions Mental Health Screening: Have you had any experience that was so frightening, horrible, or upsetting that, in the past month,you: Have had nightmares about it or thought about it when you did not want to? no Tried hard not to think about it or went out of your way to avoid situations that remind you of it? no Were constantly on guard, watchful, or easily startled? no [place] numb or detached from others, activities, or your surroundings? no *If patient has a positive screen (3 or more yes questions) or N/A offer a Trauma Psych consult and add PTSD brochure to AVS. Interventions Completed: Patient was offered and declines handout information - N/A Assessment : Ena Garcia is a 47 y.o. female with PMH thyroid cancer s/p partial thyroidectomy,asthma, who presents to the ED with back pain after being thrown off of a horse. Patient was wearinga young horse today when at ~ 11am on 05/20 the horse bucked her forward, causing her to off of the horse's shoulder and land squarely on her back. She denies head trauma or loss of consciousness, and was also helmeted. She was ambulatory and able to drive home after the event, however, when back painpersisted several hours later, she presented to [place] ED for evaluation. At that time, she was noted to have an L1 compression fracture, L4 vertebral body fracture, and acute non-displaced left L1and L2 transverse process fracture. She was transferred to [facility] [place] and treatment. Neuro intact, reports mild thoracic and lumbar back pain, aching in nature, but denies leg tingling, numbness, weakness. No loss of bladder or bowel. Denies other injuries, headache, vision changes, abdominal pain, dysuria or hematuria, facial pain, extremity pain, fever/chills or other concerns. Current known injuries: - L4 vertebral body fracture - L1 an dL2 transverse process fractures New findings: Right forearm bruise/abrasion Incidental Findings: Plan Imaging needed: Right forearm XR. - ED asked me not to place orders for patient's still there, notified provider in charge of patient to order this XR. Pending labs/Imaging studies will either be reviewed by me or signed out to the product applications engineer team (red) Labs needed: None Wound care plans(s): None Suture/[place]: None Antibiotics: None Drains Present: None [place]: Not present Lines: Peripheral DVT prophylaxis: Chemical: Lovenox & SCD's Diet: Regular until midnight tonight then NPO. Activity: Bedrest, lying flat until cleared by nsgy C/T/L-Spine status: Not cleared (bed flat per nsgy) Weight-bearing status: Bedrest flat Therapy: PT and OT Consulting Teams(s) Plan and/or Follow-up Recommendations: Neurosurgery: Plan: - Serial Q4H neuro exams - Pain control - MRI lumbar spine (tomorrow due to holiday) - Flat bedrest for now; will obtain TLSO ([facility] called) - Upright xrays once TLSO is obtained - No anticoagulants/anti-platelets - Okay for diet until midnight from a neurosurgery standpoint - Remainder of cares per the primary team - DVT prophylaxis: SCDs, Okay for DVT prophylaxis until midnight - Disposition: Per primary, okay for floor status Follow-Up Tertiary Exam: Not required; patient responsive and able to participate in clinical exam. Discharge Plan: Per primary team and To be determined. Nikki Plunkett MD 05/21/2022 11:30 FACULTY NOTE I saw and evaluated the patient on the date of the resident's note. I discussed with the resident and agree with the resident???s findings and plan documented in the resident???s note from above. Any revisions by me are documented. Date of service: 05/21/22 Giles Martinez MD, 05/22/2022 7:[address] COUNSELLOR ED Faculty Note - Opal Duomnt MD - 05/21/2022 12:25 AM CST ED Faculty Attestation and Note Ena Garcia : 1975 Sex: female Patient Arrival Date and Time: 05/20/2022 9:22 PM FACULTY ATTESTATION I Opal Dumont MD, took a HPI and PE independently of the Advanced Practice Provider. See HPI, Physical Exam and/or MDM documentation elements below. RN and ANCILLARY NOTES I have reviewed nursing and ancillary notes, and agree with protocol as initiated. MEDICAL DECISION MAKING The current labs reviewed and interpreted, current images reviewed and interpreted, and medical record reviewed and summarized 47 y.o.F who was transferred from an outside hospital after falling off a horse and having significant back pain. The patient was found to have lumbar spine fractures. On exam here, there is significant tenderness to the left upper quadrant. CT is obtained and is without concerning findings other than some lumbar spine concerns for displacement. MRI is ordered for the morning to further evaluate. Opal Dumont MD [address]Y COURT COUNSELLOR documented in this encounter Plan of Treatment Upcoming Encounters Date Type Specialty Care Team Description 06/04/2022 Appointment RADIOLOGY Scheduled 06/04/2022 Office Visit NEUROSURGERY Jesse Barron MD Scheduled [address] [place] [address] (Wo rk) Scheduled Orders Name Type Priority Associated Diagnoses Order S chedule XR SPINE LUMBAR 2/3 VW Imaging Routine Other closed fract ure of Expected: 05/29/2022, UPRIGHT fourth lumbar vertebra, Expi res: 08/22/2022 initial encounter () documented as of this encounter Procedures Procedure Name Priority Date/Time Associated Comments Diagnosis XR SPINE LUMBAR 2/3 Routine 05/22/2022 9:17 AM Re sults for this VW UPRIGHT [facility] COUNSELLOR procedure are i n the results section. XR SPINE LUMBAR 2/3 Routine 05/21/2022 4:40 PM Re sults for this VW UPRIGHT [facility] COUNSELLOR procedure are i n the results section. XR SPINE LUMBAR 2/3 Routine 05/21/2022 4:39 PM Re sults for this VW UPRIGHT [facility] COUNSELLOR procedure are i n the results section. XR SPINE LUMBAR 2/3 Routine 05/21/2022 4:37 PM Re sults for this VW UPRIGHT [facility] COUNSELLOR procedure are i n the results section. XR FOREARM RIGHT 2 V Routine 05/21/2022 4:34 PM R esults for this AP + LAT* FAMILY COURT COUNSELLOR procedure are i n the results section. MR SPINE LUMBAR W/O Routine 05/21/2022 12:30 Resu lts for this CONTRAST PM [facility]ILY COURT COUNSELLOR procedure are i n the results section. COVID-19 SURVEILLANCE STAT 05/21/2022 2:00 AM Results for this [facility]ILY [facility] COUNSELLOR procedure are i n the results section. CT CHEST/ABD/PELVIS Routine 05/21/2022 1:01 AM Re sults for this W/IV CONT [facility]ILY [facility] COUNSELLOR procedure are i n the results section. PC LAB QUALITATIVE Routine 05/21/2022 12:45 Resul ts for this SERUM AM [facility]ILY COURT COUNSELLOR procedure ar e in the results section. CT OUTSIDE READ SPINE Routine 05/20/2022 10:56 Re sults for this THORACIC/LUMBAR PM [facility] COUNSELLOR procedure ar e in the results section. CT OUTSIDE READ SPINE Routine 05/20/2022 10:56 Re sults for this CERVICAL/NECK PM [facility] COUNSELLOR procedure are in the results section. EXTRA TUBE - DARK Routine 05/20/2022 10:47 Result s for this GREEN PM [facility]ILY [facility] COUNSELLOR procedure are i n the results section. EXTRA TUBE - LAVENDER Routine 05/20/2022 10:47 Re sults for this PM [facility]ILY [facility] COUNSELLOR procedure are i n the results section. TC LAB BLOOD DRAW BY Routine 05/20/2022 10:47 Res ults for this VENIPUNCTURE PM [facility] COUNSELLOR procedure are i n the results section. PC ELECTROLYTES PANEL STAT 05/20/2022 10:45 Re sults for this PM [facility]ILY [facility] COUNSELLOR procedure are i n the results section. PC LAB CBC/PLT STAT 05/20/2022 10:45 Results f or this PM [facility]ILY COURT COUNSELLOR procedure are i n the results section. documented in this encounter Results XR SPINE LUMBAR 2/3 VW UPRIGHT (05/22/2022 9:[address] COUNSELLOR) Anatomical Region Laterality Modality Lumbar Spine Computed Radiography Specimen (Source) Anatomical Collection Method Collection Time Re ceived Time Location / / Volume Laterality 05/22/2022 9:[address] COUNSELLOR Impressions 05/22/2022 2:[address] COUNSELLOR Impression: 1. 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 Stable grade 1 anterolisthesis at L4-5. Reading Radiologist: Talib Resendiz 05/21/2022 4:[address] COUNSELLOR Indication: Lumbar fracture Comparison: 05/21/2022 FINDINGS: 2 views of lumbar spine 90 deg elias upright demonstrate L1 inferior endplate fracture with 10% loss of height and L4 pressure fracture with 20% loss of height. Grade 1 anterolisthesis of L4 and L5 is not significant changed. Nonspeci fic bowel gas pattern. Patient is in a brace. Right upper quadrant surgical clips. Lumbar L1-L2 transverse process fractures are not well seen due to overlying brace. Procedure Note Talib Resendiz MD - 05/21/2022Formattin g of this note might be different from the original. Indication: Lumbar fracture Comparison: 05/21/2022 FINDINGS: 2 views of lumbar spine 90 deg elias upright demonstrate L1 inferior endplate fracture with 10% loss of height and L4 pressure fracture with 20% loss of height. Grade 1 anterolisthesis of L4 and L5 is not significant changed. Nonspecific bow el gas pattern. Patient is in a brace. Right upper quadrant surgical clips. Lumbar L1-L2 transverse process fractures are not well seen due to overlying brace. IMPRESSION IMPRESSION: Unchanged alignment of L1 an d L4 compression fractures. Stable grade 1 anterolisthesis at L4-5. Reading Radiologist: Talib Resendiz Margarita Guadarrama PA-C X-RAY XR SPINE LUMBAR 2/3 VW UPRIGHT (05/21/2022 4:[address] COUNSELLOR) Anatomical Region Laterality Modality Lumbar Spine Computed Radiography Specimen (Source) Anatomical Collection Method Collection Time Re ceived Time Location / / Volume Laterality 05/21/2022 4:[address] COUNSELLOR Impressions 05/21/2022 4:[address] COUNSELLOR IMPRESSION: Stable alignment of L1 and L4 compression fractures. Unchanged grade 1 anterolisthesis at L4-5. Reading Radiologist: Talib Resendiz Narrative 05/21/2022 4:[address] COUNSELLOR Indication: Lumbar fractures Comparison: 05/21/2022 FINDINGS: 2 views of the lumbar spine at 60 degrees upright demonstrate L1 inferior endplate fracture with 10% loss of height and L4 burst fracture with 20% loss of height. There is grade 1 anterolisthe sis of L4 on L5 which is unchanged. Jodi ent is in a brace. Nonspecific bowel gas pattern. Limited visualization of left L1-L2 transverse process fractures. Procedure Note Talib Resendiz MD - 05/21/2022Formattin g of this note might be different from the original. Indication: Lumbar fractures Comparison: 05/21/2022 FINDINGS: 2 views of the lumbar spine at 60 degrees upright demonstrate L1 inferior endplate fracture with 10% loss of height and L4 burst fracture with 20% loss of height. There is grade 1 anterolisthesis of L4 on L5 which is unchanged. Patient is in a brac e. Nonspecific bowel gas pattern. Limited visualization of left L1-L2 transverse process fractures. IMPRESSION IMPRESSION: Stable alignment of L1 and L 4 compression fractures. Unchanged grade 1 anterolisthesis at L4-5. Reading Radiologist: Talib Resendiz Margarita ANDERSONC X-RAY XR SPINE LUMBAR 2/3 VW UPRIGHT (05/21/2022 4:[address] COUNSELLOR) Anatomical Region Laterality Modality Lumbar Spine Computed Radiography Specimen (Source) Anatomical Collection Method Collection Time Re ceived Time Location / / Volume Laterality 05/21/2022 4:[address] COUNSELLOR Impressions 05/21/2022 4:[address] COUNSELLOR IMPRESSION: Unchanged alignment of L1 and L4 fractures at 30 degrees upright. Stable grade 1 anterolisthesis at L4-5. Reading Radiologist: Talib Resendiz Narrative 05/21/2022 4:[address] COUNSELLOR Indication: Lumbar fracture Comparison: CT 05/20/2022 FINDINGS: 2 views of the lumbar spine at 30 degrees upright demonstrate minimally displaced L1 inferior endplate fracture. L4 burst fracture with 20% loss of height. Grade 1 anterolisthesis at L4-5 unch anged prior study. Limited visualization of left L1 and L2 transverse process fractures. Procedure Note Talib Resendiz MD - 05/21/2022Formattin g of this note might be different from the original. Indication: Lumbar fracture Comparison: CT 05/20/2022 FINDINGS: 2 views of the lumbar spine at 30 degrees upright demonstrate minimally displaced L1 inferior endplate fracture. L4 burst fracture with 20% loss of height. Grade 1 anterolisthesis at L4-5 unchanged prior study. Limited visualization of left L1 and L2 transverse process fractures. IMPRESSION IMPRESSION: Unchanged alignment of L1 an d L4 fractures at 30 degrees upright. Stable grade 1 anterolisthesis at L4-5. Reading Radiologist: Talib Resendiz Margarita Guadarrama PA-C X-RAY XR FOREARM RIGHT 2 V AP + LAT* (05/21/2022 4:[address] COUNSELLOR) Anatomical Region Laterality Modality Lower Arm Computed Radiography Specimen (Source) Anatomical Collection Method Collection Time Re ceived Time Location / / Volume Laterality 05/21/2022 4:[address] COUNSELLOR Impressions 05/21/2022 4:[address] COUNSELLOR IMPRESSION: No acute fracture is identified. Reading Radiologist: John Sanchez Narrative 05/21/2022 4:[address] COUNSELLOR Indication: trauma, fall from horse ?? Comparison: None FINDINGS: No acute fracture is identifie d. Procedure Note John Sanchez MD - 05/21/2022Formatt ing of this note might be different from the original. Indication: trauma, fall from horse Comparison: None FINDINGS: No acute fracture is identifie d. IMPRESSION IMPRESSION: No acute fracture is identif ied. Reading Radiologist: John Sanchez Paola Sauceda APRN, SHEET CUTTER X-RAY MR SPINE LUMBAR W/O CONTRAST (05/21/2022 12:[address] COUNSELLOR) Anatomical Region Laterality Modality Lumbar Spine Magnetic Resonance Specimen (Source) Anatomical Collection Method Collection Time Re ceived Time Location / / Volume Laterality 05/21/2022 1:[address] COUNSELLOR Impressions 05/21/2022 2:[address] COUNSELLOR Impression: ?? 1. Burst compression fracture of [...] Reading Radiologist: Talib Resendiz 05/21/2022 2:[address] COUNSELLOR Lumbar Spine MR without contrast Indication: L4 [...] MR NEURO COVID-19 SURVEILLANCE (05/21/2022 2:[address] COUNSELLOR) [facility] Method Time Signature COVID-19 Not Detected Not Detected [facility] Comment: This test was developed and its performa nce characteristics determined by [facility]. This testing, RT-PCR, has been authorized by the FDA under an Emergency Use Authorization (EUA ) for Coronavirus Disease-2019 during e Public Health Emergency. This test has [...] Laterality Nasopharyngeal Swab 05/21/2022 2:00 05/[address] COUNSELLOR 2:[address] COUNSELLOR Narrative [facility] - 05/21/2022 2:[address] COUNSELLOR Is the patient a healthcare employee: No Is the patient a [place] ([facility]) Employee : No Brigida Marmolejo PA-C LABORATORY Performing Organization Address City/State/ZIP Code Phon e Number [facility] [place] [address] CHEST/ABD/PELVIS W/IV CONT (05/21/2022 1:[address] COUNSELLOR) Anatomical Region Laterality Modality Chest Computed Tomography Specimen (Source) Anatomical Collection Method Collection Time Re ceived Time Location / / Volume Laterality 05/21/2022 1:[address] COUNSELLOR Impressions 05/21/2022 6:[address] COUNSELLOR Impression: 1. Acute fractures of the L4 [...] Resident: Floyd Palencia Narrative 05/21/2022 6:[address] COUNSELLOR Comparison: None. Indication: fall from horse ?? [...] CT BODY QUALITATIVE SERUM (05/21/2022 12:[address] COUNSELLOR) [facility] gist Method Time Signature Qualitative Negative Negative [facility] Serum Specimen Anatomical Collection Method Collection Time Receive d Time (Source) Location / / Volume Laterality Blood 05/21/2022 12:45 05/21/[address] COUNSELLOR 12:[address] COUNSELLOR Brigida Marmolejo PA-C LABORATORY Performing Organization Address City/State/ZIP Code Phon e Number [facility] [place] [address] OUTSIDE READ SPINE THORACIC/LUMBAR (05/20/2022 10:[address] COUNSELLOR) Anatomical Region Laterality Modality Lumbar Spine, Thoracic Spine Computed To mography Specimen (Source) Anatomical Collection Method Collection Time Re ceived Time Location / / Volume Laterality 05/21/2022 1:[address] COUNSELLOR Addenda Addendum by Talib Resendiz MD on 2021 4:[address] COUNSELLOR Addendum: There is also minimally displa angelito L1 inferior endplate fracture. This is better seen on follow-up MRI per formed on 05/21/2022. Reading Radiologist: Talib Resendiz Impressions 05/21/2022 7:[address] COUNSELLOR Impression: ?? 1. Vertically oriented fracture through [...] Radiologist: Talib Resendiz Reading Resident: Floyd Palencia Narrative 05/21/2022 7:[address] COUNSELLOR Indication: ??Patient transferred from [facility] due to Trauma. ??No initial report accompanied the patient and/or Dr. ??ERVIN ALVAREZ requested an interpretation by me. Technique: ??CT scan of the thoracic/lum bar spine done on 05/20/2022 without IV contrast. ??1.5 and 3 mm axial, sagittal and coronal reconstructions reviewed in soft tissue and bone windows, per the [facility] institution's scanning protocols, [facility] may differ from the [facility] trauma protocols. Findings: ?? Thoracic spine: Age-indeterminate [...] from the original. Indication: Patient transferred from [facility] due to Trauma. No initial report accompanied the patient and/or Dr. ERVIN ALVAREZ requested an interpretation by me. Technique: CT scan of the thoracic/lumba r spine done on 05/20/2022 without IV contrast. 1.5 and 3 mm axial, sagittal and coronal reconstructions reviewed in soft tissue and bone windows, per the local institution's scanning protocols, which may differ from the [facility] trauma protocols. Findings: Thoracic spine: Age-indeterminate mild [...] OUTSIDE READ SPINE CERVICAL/NECK (05/20/2022 10:[address] COUNSELLOR) Anatomical Region Laterality Modality Cervical Spine Computed Tomography Specimen (Source) Anatomical Collection Method Collection Time Re ceived Time Location / / Volume Laterality 05/21/2022 1:[address] COUNSELLOR Impressions 05/21/2022 7:[address] COUNSELLOR Impression: ?? 1. No acute fracture or subluxation. 2. No significant spinal canal or neural foraminal narrowing. I have personally reviewed the image(s) and initial interpretation, and I agree with the findings as documented by the resident/fellow. Reading Radiologist: Talib Resendiz Resident: Floyd Palencia Narrative 05/21/2022 7:[address] COUNSELLOR Indication: ??Patient transferred from [facility] due to Trauma. ??No initial report accompanied the patient and/or Dr. ??ERVIN ALVAREZ requested an interpretation by me. Technique: ??CT scan of the cervical spi ne done on 05/20/2022 without IV contrast. ??1.5 ??axial, sagittal and coronal reconstructions reviewed in soft tissue and bone windows, per the local institution 's scanning protocols, which may differ from the [facility] trauma protocols. Findings: The lateral masses of [...] from the original. Indication: Patient transferred from [facility] due to Trauma. No initial report accompanied the patient and/or Dr. ERVIN ALVAREZ requested an interpretation by me. Technique: CT scan of the cervical spine done on 05/20/2022 without IV contrast. 1.5 axial, sagittal and coronal reconstructions reviewed in soft tissue and bone windows, per the local institution's scanning protocols, which may differ from the [facility] trauma protocols. Findings: The lateral masses of [...] Dumont MD CT NEURO EXTRA TUBE - LAVENDER (05/20/2022 10:[address] COUNSELLOR) athologist Signature LAVENDER TUBE Stored [facility] Comment: Lavendar (EDTA) tubes collected at [facility] are stored for 3 days from the collection date. Specimen Anatomical Collection Method Collection Time Receive d Time (Source) Location / / Volume Laterality Blood 05/20/2022 10:47 05/20/[address] COUNSELLOR 10:[address] COUNSELLOR Narrative [facility] - 05/20/2022 10:[address] COUNSELLOR Ordered by ~[id number] Provider Unknown LABORATORY Performing Organization Address City/[facility]/ZIP Code Phon e Number [facility] [place] [address] EXTRA TUBE - DARK GREEN (05/20/2022 10:[address] COUNSELLOR) athologist Signature DARK GREEN TUBE Stored [facility] Comment: Dark Green tubes ([place] Hepar in) are stored in the lab for 1 day from the collection date. Specimen Anatomical Collection Method Collection Time Receive d Time (Source) Location / / Volume Laterality Blood 05/20/2022 10:47 05/20/[address] COUNSELLOR 10:[address] COUNSELLOR Narrative [facility] - 05/20/2022 10:[address] COUNSELLOR Ordered by ~[id number] Provider Unknown LABORATORY Performing Organization Address City/[facility]/ZIP Code Phon e Number [facility] [place] [address] EXTRA TUBE - BLUE (05/20/2022 10:[address] COUNSELLOR) athologist Signature BLUE TUBE [facility] Comment: Blue top(Sodium citrate) tubes are kept for 3 days from the collection date. Specimen Anatomical Collection Method Collection Time Receive d Time (Source) Location / / Volume Laterality Blood 05/20/2022 10:47 05/20/[address] COUNSELLOR 10:[address] COUNSELLOR Narrative [facility] - 05/20/2022 10:[address] COUNSELLOR Ordered by ~[id number] Provider Unknown LABORATORY Performing Organization Address City/[facility]/ZIP Code Phon e Number [facility] [place] [address] (ABNORMAL) ED CHEMISTRY LABS(NA,K,CL,CO2,GLU,CREAT,CA-IONIZED,ANION GAP) (05/20/2022 10:[address] COUNSELLOR) Analysis Performed At Patho logist Time Signature Sodium 136 135 - 148 [facility] mEq/L Chloride 103 92 - 108 [facility] mEq/L AnGap 9 8 - 16 [facility] mEq/L Glucose 105 (H) 70 - 100 [facility] mg/dL ICA, Actual 4.34 (L) 4.40 - [facility] 5.20 mg/dL ICA, pH 4.33 (L) 4.40 - [facility] Corrected 5.20 mg/dL Creatinine 0.99 0.50 - [facility] 1.00 mg/dL BICARB 24 22 - 26 [facility] mEq/L eGFR, High 77 >=60 [facility] ml/min/1.7 3m2 Comment: Calculated using CKD-EPI equati on eGFR, Low 67 >=60 ml/min/1.73m2 [facility] Comment: Calculated using CKD-EPI equati on Potassium 3.7 3.5 - 5.3 mEq/L [facility] Specimen Anatomical Collection Method Collection Time Receive d Time (Source) Location / / Volume Laterality Blood 05/20/2022 10:45 05/20/[address] COUNSELLOR 10:[address] COUNSELLOR Ervin Alvarez MD LABORATORY Performing Organization Address City/State/ZIP Code Phon e Number [facility] [place] [address] (ABNORMAL) CBC WITH PLATELET (05/20/2022 10:[address] COUNSELLOR) P athologist Signature WBC 12.58 (H) 4.00 - [facility] 10.00 k/cmm RBC 4.18 3.90 - 5.20 [facility] m/cmm Hgb 12.5 11.5 - 15.7 [facility] g/dL Hematocrit 38.8 34.0 - 45.0 [facility] % MCV 92.8 80.0 - [facility] 100.0 fL MCH 29.9 25.0 - 32.0 [facility] pg MCHC 32.2 31.0 - 36.0 [facility] g/dL RDW 13.1 11.5 - 14.5 [facility] % Plt 276 150 - 400 [facility] k/cmm MPV 9.7 6.5 - 12.5 [facility] fL Specimen Anatomical Collection Method Collection Time Receive d Time (Source) Location / / Volume Laterality Blood 05/20/2022 10:45 05/20/[address] COUNSELLOR 10:[address] COUNSELLOR Ervin Alvarez MD LABORATORY Performing Organization Address City/State/ZIP Code Phon e Number [facility] [place] [address] documented in this encounter Visit Diagnoses Diagnosis Other closed fracture of fourth lumbar v ertebra, initial encounter () - Primary documented in this encounter Administered Medications Inactive Administered Medications - up to 3 most recent administrations Medication Order MAR Action Action Date Dose Rate Site acetaminophen tablet 650 mg Given 05/21/2022 3:[address] COUNSELLOR 650 mg 650 mg, Oral, ONE TIME, 1 dose, On Lynda 05/21/22 at 0340 acetaminophen tablet 650 mg Given 05/21/2022 2:[address] COUNSELLOR 650 mg 650 mg, Oral, ONE TIME, 1 dose, On Lynda 05/21/22 at 1310 acetaminophen tablet 650 mg Given 05/21/2022 11:[address] COUNSELLOR 650 mg 650 mg, Oral, ONE TIME, 1 dose, On Lynda 05/21/22 at 2145 enoxaparin (LOVENOX) 40 Given 05/21/2022 2:[address] COUNSELLOR 40 mg Left Lower Quadrant mg/0.4 mL injection 40 mg Abdomen 40 mg, Subcutaneous, Q12H, 2 doses, First dose (after last modification) on Lynda 05/21/22 at 1140, Last dose on Lynda 05/21/22 at 2000 iohexol (OMNIPAQUE) 350 mg/mL Given 05/21/2022 1:[address] COUNSELLOR 120 m L Right Arm injection IV Push, RAD ONE TIME AUTO ACKNOWLEDGE, 1 dose, On Lynda 05/21/22 at 0105 lactated ringer's bolus 500 mL New Bag 05/21/2022 1:[address] COUNSELLOR 500 mL 1000 mL/hr 500 mL, Intravenous, Administer over 30 Minutes, IV BOLUS, 1 dose, On Lynda 05/21/22 at 0050 levothyroxine (SYNTHROID) tablet 100 mcg Given 05/21/2022 2:[address] COUNSELLOR 100 mcg 100 mcg, Oral, ONE TIME, 1 dose, On Lynda 05/21/22 at 1310 OLANZapine (ZyPREXA) injection 5 mg Given 05/21/2022 7:[address] COUNSELLOR 5 mg 5 mg, IV Push, ONE TIME, 1 dose, On Lynda 05/21/22 at 0705 VTE Anti Xa Monitoring Does not apply, PROTOCOL, Starting on 05/21/22 at 1118, Until Wed05/22/22 at 1438 documented in this encounter Active and Recently Administered Medications Times are shown in FAMILY COURT COUNSELLOR. Scheduled Medication Order 05/20/2022 05/21/2022 05/22/2022 acetaminophen tablet 650 mg (COMPLETED) 0347 (Given - Provider: Marylu Lopez RN) 650 mg, Oral, ONE TIME, 1 dose, On Lynda 05/21/22 at 0340 acetaminophen tablet 650 mg (COMPLETED) 1445 (Given - Provider: Rebeca Stovall, RN) 650 mg, Oral, ONE TIME, 1 dose, On Lynda 05/21/22 at 1310 acetaminophen tablet 650 mg (COMPLETED) 2300 (Given - Provider: Rebeca Stovall, RN) 650 mg, Oral, ONE TIME, 1 dose, On Lynda 05/21/22 at 2145 enoxaparin (LOVENOX) 40 mg/0.4 mL injection 40 mg (CANCELED) 1445 (Given - Provider: Rebeca Stovall, RN)2000 (Due) 40 mg, Subcutaneous, Q12H, 2 doses, Firs t dose (after last modification) on Lynda 05/21/22 at 1140, Last dose on Lynda 05/21/22 at 2000 iohexol (OMNIPAQUE) 350 mg/mL injection (COMPLETED) 0101 (Given - Provider: Saadia Penaloza, RT) IV Push, RAD ONE TIME AUTO ACKNOWLEDGE, 1 dose, On Lynda 05/21/22 at 0105 lactated ringer's bolus 500 mL (COMPLETED) 0146 (New Bag - Provider: Marylu Lopez, RN)0230 (Infusion completed - Provider: Marylu Lopez, RN) 500 mL, Intravenous, Administer over 30 Minutes, IV BOLUS, 1 dose, On Lynda 05/21/22 at 0050 levothyroxine (SYNTHROID) tablet 100 mcg (COMPLETED) 1445 (Given - Provider: Rebeca Stovall RN) 100 mcg, Oral, ONE TIME, 1 dose, On Lynda 05/21/22 at 1310 OLANZapine (ZyPREXA) injection 5 mg (COMPLETED) 07 (Given - Provider: Marylu Lopez, RN) 5 mg, IV Push, ONE TIME, 1 dose, On Lynda 05/21/22 at 0705 VTE Anti Xa Monitoring Does not apply, PROTOCOL, Starting on 05/21/22 at 1118, Until Wed05/22/22 at 1438 documented in this encounter
--- OUTSIDE RECORDS SUMMARY | 2022-05-28 14:09 | XMS_ITS | Encounter Summary ---
:1975 Author Organization [facility] Address [address] [place] [address] Care Team Providers Name Role Phone Unavailable Primary Care Provider Unavailable Reason for Visit Reason Comments Clarify budesonide prescription Encounter Details Date Type Department Care Team Description 03/21/2021 Clinical Communication Division of Reji Terry budesonide Allergic Diseases Courtney Acosta prescription in [address] [place] [phone] [place], [place] [phone] (Work) [phone] Social History Tobacco Use Types Packs/Day Years [...] or relatives? How often do you attend rastafarian or Never 2021 scientologist services? Do you belong to any clubs or No 03/16/2022 organizations such as rastafarian groups, unions, fraternal or athletic groups, or [...] place to sleep or slept in a half-way (including now)? Education Answer Date Recorded What is the highest level of school Master's degree (e.g., M A, MS, 10/11/2019 you have completed or the highest Wilfredo, MEd, BOOK SEWER, CHANEL) degree you have received? Sex Assigned at Date Recorded Female 03/15/2021 1:43 PM CDT documented as of this encounter Miscellaneous Notes Telephone Encounter - Cristela Mayer R.N. - 03/21/2021 12:35 PM CDT Spoke with Ara who notified this nurse that patient's insurance does not cover Budesonide ampules or the 0.6mg capsules (which would need to be filled through a [facility] anyway). Their pharmacy only supplies 0.3mg capsules. Cristela Mayer R.N. Telephone Encounter - Alla Pillai - 03/21/2021 12:15 PM CDT Pharmacist Ara from [facility] called to confirm strength of budesonide prescription, etc forMs. Ena Garcia. Please call [facility] back at [phone]. Thanks documented in this encounter Plan of Treatment Not on filedocumented as of this encounter Visit Diagnoses Not on filedocumented in this encounter
--- OUTSIDE RECORDS SUMMARY | 2022-05-28 14:09 | XMS_ITS | Encounter Summary ---
:1975 Author Organization [facility] Address [address] [place] [address] Care Team Providers Name Role Phone Unavailable Primary Care Provider Unavailable Reason for Visit Reason Comments Allergy Testing Outpatient (Routine) - Closed Specialty Diagnoses / Procedures Referred By Contact Refer red To Contact Diagnoses Asthma Moderate Persistent (HCC) Polyposis Nasal Rhinosinusitis Chronic Reji Terry M.D. [facility] Procedures Spirometry [address] [place] [phone] Referral ID Status Reason Start Date Expiration Date Visits Requ ested Visits Authorized [id number] Closed 12/09/2021 12/09/2022 1 1 Encounter Details Date Type Department Care Team Description 03/16/2022 Clinical Support Division of Reji Terry M.D. [address] [place] [phone] Asthma Moderate Persistent (HCC); Allergic Diseases Myah Nichols RAdalidNAdalid [address] [place] [phone] Polyposis Nasal; in [place], Rhinosinusitis Chronic [place] [address] [place] [phone] Social History Tobacco Use Types Packs/Day Years [...] or relatives? How often do you attend roman catholic or Never 2021 voodoo services? Do you belong to any clubs or No 03/16/2022 organizations such as roman catholic groups, unions, fraSoftoCoupon or athletic groups, or school groups? How [...] have completed or the highest Wilfredo, MEd, GROUP EXERCISE INSTRUCTOR, CHANEL) degree you have received? Sex Assigned [...] Name Priority Date/Time Associated Diagnosis Comme nts [place] SPIROMETRY Routine 03/16/2022 10:04 AM Asthma Moderate Resu lts for this CDT Persistent (HCC) procedure are in the Polyposis Nasal results section. Rhinosinusitis Chronic documented in this encounter Results Spirometry (03/16/2022 10:04 AM CDT) P athologist Signature VC MAX PRE 3.39 L 03/17/2022 [facility] 3:18 PM CDT SUITE FVC 3.32 L 03/17/2022 [facility] 3:18 PM CDT SUITE FEV1 2.64 L 03/17/2022 [facility] 3:18 PM CDT SUITE FEV1/FVC 79.34 % 03/17/2022 [facility] 3:18 PM CDT SUITE BTV79-78% 2.31 L/s 03/17/2022 [facility] 3:18 PM CDT SUITE PEF PRE 7.06 L/s 03/17/2022 [facility] 3:18 PM CDT SUITE FET PRE 6.72 sec 03/17/2022 [facility] 3:18 PM CDT SUITE % PRED VC MAX 99 % % 03/17/2022 [facility] 3:18 PM CDT SUITE FVC% 97 % % 03/17/2022 [facility] 3:18 PM CDT SUITE FEV1% 96 % % 03/17/2022 [facility] 3:18 PM CDT SUITE % PRED FEV1/FVC 98 % % 03/17/2022 [facility] 3:18 PM CDT SUITE % PRED FEF 84 % % 03/17/2022 [facility] 25-75% 3:18 PM CDT SUITE % PRED PEF 119 % % 03/17/2022 [facility] 3:18 PM CDT SUITE PRED VC MAX 3.41 03/17/2022 [facility] 3:18 PM CDT SUITE PRED FVC 3.41 03/17/2022 [facility] 3:18 PM CDT SUITE PRED FEV 1 2.74 03/17/2022 [facility] 3:18 PM CDT SUITE PRED FEV1/FVC 80.8 03/17/2022 [facility] 3:18 PM CDT SUITE PRED FEF 25-75% 2.75 03/17/2022 [facility] 3:18 PM CDT SUITE PRED PEF 6.0 03/17/20[facility] 3:18 PM CDT SUITE Specimen (Source) Anatomical Collection Method Collection Time Re ceived Time Location / / Volume Laterality 03/16/2022 10:04 AM CDT Impressions [facility] - 03/17/2022 3:18 PM C DT Within normal limits. Clinical correlati on is recommended. Narrative This result has an attachment that is no t available. Procedure Note Hira Prasad M.B.B.S., Ph.D. - 02/27 IMPRESSION: Within normal limits. Clinical correlati on is recommended. Reji Terry M.D. PFT ORDERABLES Performing Organization Address City/State/ZIP Code Phon e Number [facility] NA documented in this encounter Visit Diagnoses Diagnosis Asthma Moderate Persistent (HCC) Polyposis Nasal Rhinosinusitis Chronic documented in this encounter
--- OUTSIDE RECORDS SUMMARY | 2022-05-28 14:09 | XMS_ITS | Encounter Summary ---
:1975 Author Organization [facility] Address [address] [place] [address] Care Team Providers Name Role Phone Unavailable Primary Care Provider Unavailable Encounter Details Date Type Department Care Team Description 08/19/2021 Orders Only Pharmacy Prior Auth Yoselin Ayoub [phone] Social History Tobacco Use Types Packs/Day Years [...] do you attend shinto or Never 2021 christianity services? Do you [...] have completed or the highest Wilfredo, Jake, INSPECTOR OPEN DIE, CHANEL) degree you have received? Sex Assigned at Date Recorded Female 03/15/2021 1:43 PM CDT documented as of this encounter Plan of Treatment Not on filedocumented as of this encounter Visit Diagnoses Not on filedocumented in this encounter
--- OUTSIDE RECORDS SUMMARY | 2022-05-28 14:09 | XMS_ITS | Encounter Summary ---
:1975 Author Organization [facility] Address [address] [place] [address] Care Team Providers Name Role Phone Unavailable Primary Care Provider Unavailable Reason for Referral MRI/CAT/PET Scan (Routine) - Closed Specialty Diagnoses / Procedures Referred By Contact Refer red To Contact Radiology Diagnoses Asthma Moderate Persistent (HCC) Polyposis Nasal Rhinosinusitis Chronic Rhinitis Allergic Reji Terry M.D. [facility] Procedures CT Sinuses without IV Contrast 200 [place], [place] [phone] Referral ID Status Reason Start Date Expiration Date Visits Requ ested Visits Authorized [id number] Closed 03/17/2021 03/17/2022 1 1 Reason for Visit MRI/CAT/PET Scan (Routine) - Closed Specialty Diagnoses / Procedures Referred By Contact Refer red To Contact Radiology Diagnoses Asthma Moderate Persistent (HCC) Polyposis Nasal Rhinosinusitis Chronic Rhinitis Allergic Reji Terry M.D. [facility] Procedures CT Sinuses without IV Contrast 200 [place], [place] [phone] Referral ID Status Reason Start Date Expiration Date Visits Requ ested Visits Authorized [id number] Closed 03/17/2021 03/17/2022 1 1 Encounter Details Date Type Department Care Team Description 03/18/2021 Hospital Encounter Department of Reji Terry oderate Persistent (HCC); Radiology, Tai Acosta M.D. Polyposis Nasal; Building, in [address] [place] [address] Rhinosinusitis Chronic; [place], [place] Rhinitis Aller [facility] [address] [phone] [place], [place] (Work) [phone] Social History Tobacco Use Types Packs/Day Years [...] or relatives? How often do you attend gnosticist or Never 2021 rastafari services? Do you belong to any clubs or No 03/16/2022 organizations such as gnosticist groups, unions, fraternal or athletic groups, or [...] have completed or the highest Wilfredo, MEd, LEAF STICKER, CHANEL) degree you have received? Sex Assigned [...] times a day. Use with mcg/actuation inhaler real estate lawyer tube. Rinse mouth with water and spit [...]
--- OUTSIDE RECORDS SUMMARY | 2022-05-28 14:09 | XMS_ITS | Encounter Summary ---
:1975 Author Organization [facility] Address [address] [place] [address] Care Team Providers Name Role Phone Unavailable Primary Care Provider Unavailable Encounter Details Date Type Department Care Team Description 03/17/2021 Hospital Encounter Department of Reji Terry, Asthma Moderate Persistent (HCC); Radiology, Tai Valdez Rhinitis Allergic; [facility], in 200 [facility] Polyposis Nasal; [place], [place] Chronic Cough [address] [facility] [phone] [place], [place] [phone] (Work) [phone] Social History Tobacco Use Types Packs/Day Years [...] or relatives? How often do you attend taoism or Never 2021 caodaism services? Do you belong to any clubs or No 03/16/2022 organizations such as taoism groups, unions, fraternal or athletic groups, or [...] place to sleep or slept in a correction (including now)? Education Answer Date Recorded What is the highest level of school Master's degree (e.g., M Anais, MS, 10/11/2019 you have completed or the highest Wilfredo, MEd, DATA CONTROL ASSISTANT, CHANEL) degree you have received? Sex [...] times a day. Use with mcg/actuation inhaler manager storage tube. Rinse mouth with water and spit [...]
--- OUTSIDE RECORDS SUMMARY | 2022-05-28 14:09 | XMS_ITS | Encounter Summary ---
:1975 Author Organization [facility] Address [address] [place] [address] Care Team Providers Name Role Phone Unavailable Primary Care Provider Unavailable Encounter Details Date Type Department Care Team Description 09/01/2021 Clinical Communication Division of Allergic [place], Diseases in [place], [place] [phone] [facility] (Work) [place] [phone] Social History Tobacco Use Types Packs/Day Years [...] or relatives? How often do you attend hoahaoism or Never 2021 episcopalian services? Do you belong to any clubs or No 03/16/2022 organizations such as hoahaoism groups, unions, fraternal or athletic groups, or [...] place to sleep or slept in a residential (including now)? Education Answer Date Recorded What is the highest level of school Master's degree (e.g., Lissett Manzo MS, 10/11/2019 you have completed or the highest Wilfredo, MEd, BORING MACHINE OPERATOR VERTICAL, CHANEL) degree you have received? Sex Assigned at Date Recorded Female 03/15/2021 1:43 PM CDT documented as of this encounter Plan of Treatment Not on filedocumented as of this encounter Visit Diagnoses Not on filedocumented in this encounter
--- OUTSIDE RECORDS SUMMARY | 2022-05-28 14:09 | XMS_ITS | Encounter Summary ---
:1975 Author Organization [facility] Address [address] [place] [address] Care Team Providers Name Role Phone Unavailable Primary Care Provider Unavailable Reason for Visit Reason Comments Patient Education Encounter Details Date Type Department Care Team Description 03/17/2021 Education Division of Allergic Reji Terry M.D. [address] [place] [phone] Asthma Moderate Persistent (HCC); Diseases in [place], Maria R Blanco RAdalidN. [address] [place] [phone] Polyposis Nasal; [place] Rhinosinusitis Chronic; [address] [place] [address] [place] [phone] Social History Tobacco Use Types Packs/Day Years [...] or relatives? How often do you attend muslim or Never 2021 synagogue services? Do you belong to any clubs or No 03/16/2022 organizations such as muslim groups, unions, fraternal or athletic groups, or [...] have completed or the highest Wilfredo, MEd, INTRANET DEVELOPER, CHANEL) degree you have received? Sex Assigned at Date Recorded Female 03/15/2021 1:43 PM CDT documented as of this encounter Plan of Treatment Not on filedocumented as of this encounter Visit Diagnoses Diagnosis Asthma Moderate Persistent (HCC) Polyposis Nasal Rhinosinusitis Chronic Rhinitis Allergic documented in this encounter
--- OUTSIDE RECORDS SUMMARY | 2022-05-28 14:09 | XMS_ITS | Encounter Summary ---
:1975 Author Organization [facility] Address [address] [place] [address] Care Team Providers Name Role Phone Unavailable Primary Care Provider Unavailable Reason for Referral Outpatient (Routine) - Closed Specialty Diagnoses / Procedures Referred By Contact Refer red To Contact Diagnoses Cancer Thyroid Papillary Personal History Reji Terry M.D. [facility] Procedures US Thyroid 200 [place], [place] [phone] Referral ID Status Reason Start Date Expiration Date Visits Requ ested Visits Authorized [id number] Closed 03/16/2022 03/16/2023 1 1 Reason for Visit Outpatient (Routine) - Closed Specialty Diagnoses / Procedures Referred By Contact Refer red To Contact Diagnoses Cancer Thyroid Papillary Personal History Reji Terry M.D. [facility] Procedures US Thyroid 200 [place] [address] Referral ID Status Reason Start Date Expiration Date Visits Requ ested Visits Authorized [id number] Closed 03/16/2022 03/16/2023 1 1 Encounter Details Date Type Department Care Team Description 03/19/2022 Hospital Encounter Department of Reji Terry, Cancer Thyroid RadiologyJunior M.D. Papillary Personal Building, in 200 [place], [place] [address] [facility] [address] [place], [place] [phone] (Work) [phone] Social History Tobacco Use Types Packs/Day Years [...] or relatives? How often do you attend catholic or Never 2021 roman catholic services? Do you belong to any clubs or No 03/16/2022 organizations such as catholic groups, unions, fraternal or athletic groups, or [...] have completed or the highest Wilfredo, MEd, HYPERBARIC TECHNOLOGIST, CHANEL) degree you have received? Sex [...] times a day. mcg/actuation inhaler use with optical scientist tube, then rinse mouth with water and [...]
--- OUTSIDE RECORDS SUMMARY | 2022-05-28 14:09 | XMS_ITS | Encounter Summary ---
:1975 Author Organization [facility] Address [address] [place] [address] Care Team Providers Name Role Phone Unavailable Primary Care Provider Unavailable Reason for Referral Outpatient (Routine) - Authorized Specialty Diagnoses / Procedures Referred By Contact Refer red To Contact Otorhinolaryngology Saadia Varela M.D . [address] [phone] Referral ID Status Reason Start Date Expiration Date Visits V isits Requested Authorized [id number] Authorized 03/24/2022 03/23/2025 1 1 Reason for Visit Outpatient (Routine) - Closed Specialty Diagnoses / Procedures Referred By Contact Refer red To Contact Otorhinolaryngology Diagnoses Polyposis Nasal Reji Terry M.D. [address] [phone] Referral ID Status Reason Start Date Expiration Date Visits Requ ested Visits Authorized [id number] Closed 03/16/2022 03/16/2023 1 1 Encounter Details Date Type Department Care Team Description 03/24/2022 Comprehensive Visit Department of Evens Varela is Nasal Otorhinolaryngology in [place] M.D. 200 [facility] [address] [place] [phone] [place] [phone] Social History Tobacco Use Types Packs/Day Years [...] or relatives? How often do you attend religious or Never 2021 samaritan services? Do you belong to any clubs or No 03/16/2022 organizations such as religious groups, unions, fraternal or athletic groups, or [...] completed or the highest Wilfredo, MEd, BUSINESS PROJECT MANAGER, CHANEL) degree you have received? Sex [...] hay fever, etc by skin testing in [place] 13 years ago 3. Pulmonary disease: Asthma History of sinus or nasal surgery: none Asthma: yes, on Dulera and albuterol as needed Allergies: Environmental allergies as above, per skin testing and [place] 13 years ago Current therapies: Daily fluticasone [...] in the olfactory cleft on either side. Rochelle-Carter Endoscopic Scoring System ? RIGHT LEFT Polyps [...]
--- OUTSIDE RECORDS SUMMARY | 2022-05-28 14:09 | XMS_ITS | Encounter Summary ---
:1975 Author Organization [facility] Address [address] [place] [address] Care Team Providers Name Role Phone Unavailable Primary Care Provider Unavailable Encounter Details Date Type Department Care Team Description 01/09/2021 Orders Only Department of Oncology in [place], [place] [address] [place] [phone] Social History Tobacco Use Types Packs/Day [...] have completed or the highest Wilfredo, Jake, CLINICAL APPLICATIONS MANAGER, CHANEL) degree you have received? Sex Assigned at Date Recorded Female 03/15/2021 1:43 PM CDT documented as of this encounter Plan of Treatment Not on filedocumented as of this encounter Visit Diagnoses Not on filedocumented in this encounter
--- OUTSIDE RECORDS SUMMARY | 2022-05-28 14:09 | XMS_ITS | Encounter Summary ---
:1975 Author Organization [facility] Address [address] [place] [address] Care Team Providers Name Role Phone Unavailable Primary Care Provider Unavailable Reason for Visit Reason Comments Med Refill Encounter Details Date Type Department Care Team Description 02/11/2022 Refill Division of Allergic Diseases Reji Sims M.D. Med Refill in [facility] [address] [facility] [address] [place] [address] [place] [phone] Social History Tobacco Use Types Packs/Day Years [...] or relatives? How often do you attend pentecostal or Never 2021 spiritism services? Do you belong to any clubs or No 03/16/2022 organizations such as pentecostal groups, unions, fraternal or athletic groups, or [...] have completed or the highest Wilfredo, Jake, FISHING LURE ASSEMBLER, CHANEL) degree you have received? Sex Assigned at Date Recorded Female 03/15/2021 1:43 PM CDT documented as of this encounter Plan of Treatment Not on filedocumented as of this encounter Visit Diagnoses Not on filedocumented in this encounter
--- OUTSIDE RECORDS SUMMARY | 2022-05-28 14:09 | XMS_ITS | Encounter Summary ---
:1975 Author Organization [facility] Address [address] [place] [address] Care Team Providers Name Role Phone Unavailable Primary Care Provider Unavailable Reason for Referral Outpatient (Routine) - Authorized Specialty Diagnoses / Procedures Referred By Contact Refer red To Contact Diagnoses Asthma Moderate Persistent (HCC) Polyposis Nasal Rhinitis Allergic Trent Terry M.D. [facility] Procedures Spirometry 200 [place], [place] [phone] Referral ID Status Reason Start Date Expiration Date Visits V isits Requested Authorized [id number] Authorized 03/16/2022 03/16/2023 1 1 utpatient (Routine) - Authorized Specialty Diagnoses / Procedures Referred By Contact Refer red To Contact Allergy and Immunology Trent Terry M. D. [facility] [address] [place] [address] Referral ID Status Reason Start Date Expiration Date Visits V isits Requested Authorized [id number] Authorized 03/16/2022 03/15/2025 1 1 edication Prior Authorization - Closed Specialty Diagnoses / Procedures Referred By Contact Refer red To Contact Trent Terry M.D. [address] [place] [address] Referral ID Status Reason Start Date Expiration Date Visits Requ ested Visits Authorized [id number] Closed 1 1 utpatient (Routine) - Closed Specialty Diagnoses / Procedures Referred By Contact Refer red To Contact Otorhinolaryngology Diagnoses Polyposis Nasal Trent Terry M.D. [facility] [address] [place] [phone] Referral ID Status Reason Start Date Expiration Date Visits Requ ested Visits Authorized [id number] Closed 03/16/2022 03/16/2023 1 1 utpatient (Routine) - Closed Specialty Diagnoses / Procedures Referred By Contact Refer red To Contact Diagnoses Cancer Thyroid Papillary Personal History Trent Terry M.D. [facility] Procedures US Thyroid [address] [place] [phone] Referral ID Status Reason Start Date Expiration Date Visits Requ ested Visits Authorized [id number] Closed 03/16/2022 03/16/2023 1 1 utpatient (Routine) - Closed Specialty Diagnoses / Procedures Referred By Contact Refer red To Contact Endocrinology Diagnoses Cancer Thyroid Papillary Personal History Trent Terry M.D. [address] [address] Referral ID Status Reason Start Date Expiration Date Visits Requ ested Visits Authorized [id number] Closed 03/16/2022 03/16/2023 1 1 Scheduling Instructions Labs should be drawn 4+ hours prior to c onsult Reason for Visit Appointment Request (Routine) - Closed Specialty Diagnoses / Procedures Referred By Contact Refer red To Contact Allergy and Immunology Diagnoses Asthma (HCC) Referral ID Status Reason Start Date Expiration Date Visits Requ ested Visits Authorized [id number] Closed 12/08/2021 12/08/2022 1 1 Encounter Details Date Type Department Care Team Description 03/16/2022 Office Visit Division of Allergic Trent Terry Asthm a Moderate Persistent (HCC) (Primary Dx); Diseases in [place]. Polyposis Nasal; [place] 200 [facility] Rhinitis Allergic; 200 [place], [place] Cancer Thyroid Papillary [place] [address] [phone] Social History Tobacco Use Types Packs/Day Years [...] do you attend lutheran or Never 2021 episcopal services? Do you [...] highest level of school Master's degree (e.g., Lisestt Manzo, [place], 10/11/2019 you have completed or the highest Wilfredo, MEd, OFFICE ASSISTANT, CHANEL) degree you have received? Sex Assigned at Date Recorded Female 03/15/2021 1:43 PM CDT documented as of this encounter Consult Notes Trent Terry M.D. - 03/16/2022 11:00 AM CDT Referral: No referring provider defined for this encounter. Home Address: [address] [place] [phone] CHIEF COMPLAINT / REASON FOR VISIT Ms. [...] right thyroidectomy and has been following with whitewater rafting guide in the [facility] for thyroid supplementation. She also follows with her primary provider in [place] where she has been living. Overall she [...] puffs 2 (two) times a day. usewith outcome analyst tube, then rinse mouth with water and [...] clinic. She has a primary provider in [place]. In order to facilitate a consultation in the thyroid Clinic here in [place], we have put through an order for [...] [facility]/ZIP Code Phon e Number ED [facility] - 200 [place], [place] [address] [facility] [place] [address] T4 (Thyroxine), Free (04/06/2022 10:13 AM CDT) P athologist Signature T4 (Thyroxine), 1.6 0.9 - 1.7 04/06/2022 DTL Free, S ng/dL 11:25 AM CDT Specimen Anatomical Collection Method Collection Time Receive d Time (Source) Location / / Volume Laterality Blood (Blood, 04/06/2022 10:13 04/06/2022 Venous) AM CDT 10:51 AM CDT Trent Terry M.D. LAB BLOOD ADD-ON Performing Organization Address City/[facility] Code Phon e Number ED [facility] - [address] [place] [address] [place] [address] [place] Thyroid (03/19/2022 1:31 PM CDT) [...]
--- OUTSIDE RECORDS SUMMARY | 2022-05-28 14:09 | XMS_ITS | Encounter Summary ---
:1975 Author Organization [facility] Address [address] [place] [address] Care Team Providers Name Role Phone Unavailable Primary Care Provider Unavailable Reason for Visit Reason Comments Positive home COVID test Encounter Details Date Type Department Care Team Description 06/09/2021 Clinical Communication Division of Reji Terry home COVID Allergic Diseases Courtney Acosta test in [address] [place] [address] [place], [place] [phone] (Work) [phone] Social History Tobacco Use Types Packs/Day Years [...] do you attend mandaeism or Never 2021 denominational services? Do you [...] have completed or the highest Wilfredo, MEd, EXTRUSION DIE CORRECTOR, CHANEL) degree you have received? Sex Assigned at Date Recorded Female 03/15/2021 1:43 PM CDT documented as of this encounter Miscellaneous Notes Telephone Encounter - Gracia Prasad - 06/09/2021 10:17 AM CST Patient calling just to share that she tested positive yesterday with a home COVID test. Her symptoms started on Wednesday. (she wasn't sure if this was something we needed to know since it was a home test) RAL DRIVER documented in this encounter Plan of Treatment Not on filedocumented as of this encounter Visit Diagnoses Not on filedocumented in this encounter
--- OUTSIDE RECORDS SUMMARY | 2022-05-28 14:09 | XMS_ITS | Encounter Summary ---
:1975 Author Organization [facility] Address [address] [place] [address] Care Team Providers Name Role Phone Unavailable Primary Care Provider Unavailable Encounter Details Date Type Department Care Team Description 03/13/2022 Clinical Communication Visit Review in [place], [place] 200 [place], [place] [phone] Social History Tobacco Use Types Packs/Day Years [...] you attend jehovah's witness or Never 2021 islam services? Do you [...] have completed or the highest Wilfredo, Jake, PROJECT ENGINEERING DIRECTOR, CHANEL) degree you have received? Sex Assigned at Date Recorded Female 03/15/2021 1:43 PM CDT documented as of this encounter Plan of Treatment Not on filedocumented as of this encounter Visit Diagnoses Not on filedocumented in this encounter
--- OUTSIDE RECORDS SUMMARY | 2022-05-28 14:09 | XMS_ITS | Encounter Summary ---
:1975 Author Organization [facility] Address [address] [place] [address] Care Team Providers Name Role Phone Unavailable Primary Care Provider Unavailable Reason for Referral Specialty Diagnoses / Procedures Referred By Contact Refer red To Contact Reji Terry M.D. [address] [phone] Referral ID Status Reason Start Date Expiration Date Visits Requ ested Visits Authorized RI/CAT/PET Scan (Routine) - Closed Specialty Diagnoses / Procedures Referred By Contact Refer red To Contact Radiology Diagnoses Asthma Moderate Persistent (HCC) Polyposis Nasal Rhinosinusitis Chronic Rhinitis Allergic Reji Terry M.D. [facility] Procedures CT Sinuses without IV Contrast [address] [place] [phone] Referral ID Status Reason Start Date Expiration Date Visits Requ ested Visits Authorized [id number] Closed 03/17/2021 03/17/2022 1 1 Reason for Visit Outpatient (Routine) - Closed Specialty Diagnoses / Procedures Referred By Contact Refer red To Contact Allergy and Immunology Reji Terry M. D. [facility] [address] [place] [phone] Referral ID Status Reason Start Date Expiration Date Visits Requ ested Visits Authorized [id number] Closed 12/25/2020 12/25/2021 1 1 Encounter Details Date Type Department Care Team Description 03/17/2021 Office Visit Division of Allergic Reji Terry Asthm a Moderate Persistent (HCC) (Primary Dx); Diseases in M.D. Polyposis Nasal; [place], [place] [address] [facility] Rhinosinusitis Chronic; [address] [place], [place] [address] [phone] Social History Tobacco Use Types Packs/Day Years [...] or relatives? How often do you attend zoroastrianism or Never 2021 samaritan services? Do you belong to any clubs or No 03/16/2022 organizations such as zoroastrianism groups, unions, fraternal or athletic groups, or [...] have completed or the highest Wilfredo, MEd, NUMERICAL CONTROL NESTING OPERATOR, CHANEL) degree you have received? Sex [...] CDT Referral: Reji Terry M.D. [address] [place] [address] Home Address: [address] [place] [address] CHIEF COMPLAINT / REASON FOR VISIT Ms. [...] 2 (two) times a day. Use with carbon grinder tube. Rinse mouth with water and spit [...] need to repeat the test at the [facility] and work-in to the [facility] algorithm at this time. She knows to go to the emergency room if she were to experience a progression of symptoms. 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 Terry GE NURSE documented in this encounter Plan of Treatment Scheduled Referrals Name Type Priority Associated Diagnoses [facility] - Nurse Outpatient Referral Routine Asthma [...]
--- OUTSIDE RECORDS SUMMARY | 2022-05-28 14:09 | XMS_ITS | Encounter Summary ---
:1975 Author Organization [facility] Address [address] [place] [address] Care Team Providers Name Role Phone Unavailable Primary Care Provider Unavailable Encounter Details Date Type Department Care Team Description 01/10/2021 Orders Only Pharmacy Prior Auth Joshua Zapata M.D. [phone] [address] [place], [place] [address] (Wo rk) Social History [...] do you attend gnosticism or Never 2021 taoist services? Do you belong to any clubs [...] have completed or the highest Wilfredo, MEd, REFRACTORY TILE HELPER, CHANEL) degree you have received? Sex Assigned at Date Recorded Female 03/15/2021 1:43 PM CDT documented as of this encounter Plan of Treatment Not on filedocumented as of this encounter Visit Diagnoses Not on filedocumented in this encounter
--- OUTSIDE RECORDS SUMMARY | 2022-05-28 14:09 | XMS_ITS | Encounter Summary ---
:1975 Author Organization [facility] Address [address] [place] [address] Care Team Providers Name Role Phone Unavailable Primary Care Provider Unavailable Reason for Visit Reason Comments Med Refill Encounter Details Date Type Department Care Team Description 10/15/2021 Refill Division of Allergic Diseases Reji Sims M.D. Med Refill in [facility] [address] [facility] [address] [place] [address] [place] [address] [phone] Social History Tobacco Use Types Packs/Day Years [...] or relatives? How often do you attend faith or Never 2021 caodaism services? Do you belong to any clubs or No 03/16/2022 organizations such as faith groups, unions, fraternal or athletic groups, or [...] have completed or the highest Wilfredo, Jake, COORDINATOR SKILL TRAINING PROGRAM, CHANEL) degree you have received? Sex Assigned at Date Recorded Female 03/15/2021 1:43 PM CDT documented as of this encounter Plan of Treatment Not on filedocumented as of this encounter Visit Diagnoses Not on filedocumented in this encounter
--- OUTSIDE RECORDS SUMMARY | 2022-05-28 14:09 | XMS_ITS | Encounter Summary ---
:1975 Author Organization [facility] Address [address] [place] [address] Care Team Providers Name Role Phone Unavailable Primary Care Provider Unavailable Reason for Visit Reason Comments Med Refill Encounter Details Date Type Department Care Team Description 03/13/2022 Refill Division of Allergic Diseases Reji Sims M.D. Med Refill in [facility] [address] [facility] [address] [place] [address] [place] [address] [phone] Social History Tobacco Use Types Packs/Day Years [...] or relatives? How often do you attend synagogue or Never 2021 uatsdin services? Do you belong to any clubs or No 03/16/2022 organizations such as synagogue groups, unions, fraternal or athletic groups, or [...] have completed or the highest Wilfredo, MEd, CAUSTIC ROOM ATTENDANT, CHANEL) degree you have received? Sex Assigned at Date Recorded Female 03/15/2021 1:43 PM CDT documented as of this encounter Plan of Treatment Not on filedocumented as of this encounter Visit Diagnoses Not on filedocumented in this encounter
--- OUTSIDE RECORDS SUMMARY | 2022-05-28 14:09 | XMS_ITS | Encounter Summary ---
:1975 Author Organization [facility] Address [address] [place] [address] Care Team Providers Name Role Phone Unavailable Primary Care Provider Unavailable Encounter Details Date Type Department Care Team Description 08/12/2021 Orders Only Pharmacy Prior Auth Maddy Young [phone] Social History Tobacco Use Types Packs/Day Years [...] do you attend hoahaoism or Never 2021 hoahaoism services? Do you belong to any clubs [...] have completed or the highest Wilfredo, Jake, MIX CHEMIST, CHANEL) degree you have received? Sex Assigned at Date Recorded Female 03/15/2021 1:43 PM CDT documented as of this encounter Plan of Treatment Not on filedocumented as of this encounter Visit Diagnoses Not on filedocumented in this encounter
--- OUTSIDE RECORDS SUMMARY | 2022-05-28 14:09 | XMS_ITS | Encounter Summary ---
:1975 Author Organization [facility] Address [address] [place] [address] Care Team Providers Name Role Phone Unavailable Primary Care Provider Unavailable Encounter Details Date Type Department Care Team Description 03/14/2021 Clinical Communication Division of [place], [place] [address] [address] [facility] [address] [place] [address] [phone] Social History Tobacco Use Types Packs/Day Years [...] do you attend synagogue or Never 2021 spiritism services? Do you [...] place to sleep or slept in a fci (including now)? Education Answer Date Recorded What is the highest level of school Master's degree (e.g., Lissett Manzo [place], 10/11/2019 you have completed or the highest Wilfredo, Jake, AGRICULTURAL ENGINEERING TEACHER, CHANEL) degree you have received? Sex Assigned at Date Recorded Female 03/15/2021 1:43 PM CDT documented as of this encounter Plan of Treatment Not on filedocumented as of this encounter Visit Diagnoses Not on filedocumented in this encounter
--- OUTSIDE RECORDS SUMMARY | 2022-05-28 14:09 | XMS_ITS | Encounter Summary ---
:1975 Author Organization [facility] Address 200 [place] [address] Care Team Providers Name Role Phone Unavailable Primary Care Provider Unavailable Encounter Details Date Type Department Care Team Description 03/24/2022 Ancillary Procedure Department of Otorhinolaryngology Social History Tobacco Use Types Packs/Day Years [...] or relatives? How often do you attend druze or Never 2021 taoist services? Do you belong to any clubs or No 03/16/2022 organizations such as druze groups, unions, fraternal or athletic groups, or [...] have completed or the highest Wilfredo, MEd, WEB SITE PROJECT MANAGER, CHANEL) degree you have received? Sex Assigned at Date Recorded Female 03/15/2021 1:43 PM CDT documented as of this encounter Plan of Treatment Not on filedocumented as of this encounter Procedures Procedure Name Priority Date/Time Associated Comments Diagnosis OTORHINOLARYNGOLOGY IMAGE Routine 03/24/2022 9:53 Results for this EXAM AM CDT procedure are i n the results section. documented in this encounter Results NOSE-Otorhinolaryngology Image Exam (03/24/2022 9:53 AM CDT) [...] Code Phon e Number IIMS IIMS NA documented in this encounter Visit Diagnoses Not on filedocumented in this encounter
--- OUTSIDE RECORDS SUMMARY | 2022-05-28 14:09 | XMS_ITS | Encounter Summary ---
:1975 Author Organization [facility] Address [address] [place] [address] Care Team Providers Name Role Phone Unavailable Primary Care Provider Unavailable Reason for Visit Reason Comments Med Refill Encounter Details Date Type Department Care Team Description 01/13/2022 Refill Division of Allergic Diseases Reji Sims M.D. Med Refill in [facility] [address] [facility] [address] [place] [address] [place] [address] [phone] Social History Tobacco Use Types Packs/Day Years [...] do you attend uatsdin or Never 2021 evangelical services? Do you [...] place to sleep or slept in a fpc (including now)? Education Answer Date Recorded What is the highest level of school Master's degree (e.g., Lissett Manzo MS, 10/11/2019 you have completed or the highest Wilfredo, Jake, SUPERVISOR HARD CANDY, CHANEL) degree you have received? Sex Assigned at Date Recorded Female 03/15/2021 1:43 PM CDT documented as of this encounter Plan of Treatment Not on filedocumented as of this encounter Visit Diagnoses Not on filedocumented in this encounter
--- OUTSIDE RECORDS SUMMARY | 2022-05-28 14:09 | XMS_ITS | Encounter Summary ---
:1975 Author Organization [facility] Address [address] [place] [address] Care Team Providers Name Role Phone Unavailable Primary Care Provider Unavailable Reason for Visit Reason Comments Med Refill Encounter Details Date Type Department Care Team Description 01/08/2022 Refill Division of Allergic Diseases Reji Sims M.D. Med Refill in [facility] [address] [facility] [address] [place] [address] [place] [address] [phone] Social History Tobacco Use Types Packs/Day Years [...] do you attend moravian or Never 2021 restorationist services? Do you belong to any clubs [...] have completed or the highest Wilfredo, Jake, OBIEE REPORT DEVELOPER, CHANEL) degree you have received? Sex Assigned at Date Recorded Female 03/15/2021 1:43 PM CDT documented as of this encounter Plan of Treatment Not on filedocumented as of this encounter Visit Diagnoses Not on filedocumented in this encounter
--- OUTSIDE RECORDS SUMMARY | 2022-05-28 14:09 | XMS_ITS | Encounter Summary ---
:1975 Author Organization [facility] Address [address] [place] [address] Care Team Providers Name Role Phone Unavailable Primary Care Provider Unavailable Reason for Referral Outpatient (Routine) - Closed Specialty Diagnoses / Procedures Referred By Contact Refer red To Contact Diagnoses Asthma Moderate Persistent (HCC) Polyposis Nasal Rhinosinusitis Chronic Reji Terry M.D. [facility] Procedures Spirometry [address] [place] [phone] Referral ID Status Reason Start Date Expiration Date Visits Requ ested Visits Authorized [id number] Closed 12/09/2021 12/09/2022 1 1 Reason for Visit Reason Comments Pre-visit Testing Orders Encounter Details Date Type Department Care Team Description 12/09/2021 Clinical Communication Division of Reji Terry Pre-v isit Testing Allergic Diseases Courtney Acosta Orders in [address] [place] [address] [place], [place] [phone] (Work) [phone] Social History Tobacco Use Types Packs/Day Years [...] do you attend confucianism or Never 2021 buddhist services? Do you [...] have completed or the highest Wilfredo, MEd, SALES DEVELOPMENT DIRECTOR, CHANEL) degree you have received? Sex [...] Signature VC MAX PRE 3.39 L 03/17/2022 [facility] 3:18 PM CDT [address] FVC 3.32 L 03/17/2022 [facility] 3:18 PM CDT SU[address] FEV1 2.64 L 03/17/2022 [facility] 3:18 PM CDT SUITE FEV1/FVC 79.34 % 03/17/2022 [facility] 3:18 PM CDT SUITE MNB18-77% 2.31 L/s 03/17/2022 [facility] 3:18 PM CDT SU[address] PEF PRE 7.06 L/s 03/17/2022 [facility] 3:18 PM CDT [address] FET PRE 6.72 sec 03/17/2022 [facility] 3:18 PM CDT SUITE % PRED VC MAX 99 % % 03/17/2022 [facility] 3:18 PM CDT SUITE FVC% 97 % % 03/17/2022 [facility] 3:18 PM CDT SUITE FEV1% 96 % % 03/17/2022 [facility] 3:18 PM CDT SUITE % PRED FEV1/FVC 98 % % 03/17/2022 [facility] 3:18 PM CDT SUITE % PRED FEF 84 % % 03/17/2022 [facility] 25-75% 3:18 PM CDT SUITE % PRED PEF 119 % % 03/17/2022 [facility] 3:18 PM CDT SU[address] PRED VC MAX 3.41 03/17/2022 [facility] 3:18 PM CDT SU[address] PRED FVC 3.41 03/17/2022 [facility] 3:18 PM CD[address] PRED FEV 1 2.74 03/17/2022 [facility] 3:18 PM CDT SU[address] PRED FEV1/FVC 80.8 03/17/2022 [facility] 3:[address] PRED FEF 25-75% 2.75 03/17/2022 [facility] 3:[address] PRED PEF 6.0 03/17/2022 [facility] PM CDT SUITE Specimen (Source) Anatomical Collection Method Collection Time Re ceived Time Location / / Volume Laterality 03/16/2022 10:04 AM CDT Impressions [facility] SUITE - 03/17/2022 3:18 PM C DT Within normal limits. Clinical correlati on is recommended. Narrative This result has an attachment that is no t available. Procedure Note Hira Prasad M.B.B.S., Ph.D. - 02/27 IMPRESSION: Within normal limits. Clinical correlati on is recommended. Reji Terry M.D. PFT ORDERABLES Performing Organization Address City/State/ZIP Code Phon e Number [facility] SUITE [facility] NA documented in this encounter Visit Diagnoses Diagnosis Asthma Moderate Persistent (HCC) - Prima ry Polyposis Nasal Rhinosinusitis Chronic Asthma Moderate Persistent (HCC) Polyposis Nasal Rhinosinusitis Chronic documented in this encounter Additional Health Concerns Infection Onset Date Last Indicated Resolved Time COVID19 Pending 12/09/2021 12/09/2021 12/29/2021 5:29 AM CDT documented as of this encounter
--- OUTSIDE RECORDS SUMMARY | 2022-05-28 14:09 | XMS_ITS | Encounter Summary ---
:1975 Author Organization [facility] Address [address] [place] [address] Care Team Providers Name Role Phone Unavailable Primary Care Provider Unavailable Encounter Details Date Type Department Care Team Description 08/18/2021 Orders Only Division of Allergic Reji Terry M.D. Diseases in [place], [facility] [address] [place], [place] [address] [facility] [address] [place] [address] [phone] Social History Tobacco Use Types Packs/Day Years [...] do you attend mandaen or Never 2021 congregation services? Do you [...] have completed or the highest Wilfredo, Jake, SAP PORTAL ARCHITECT, CHANEL) degree you have received? Sex Assigned at Date Recorded Female 03/15/2021 1:43 PM CDT documented as of this encounter Plan of Treatment Not on filedocumented as of this encounter Visit Diagnoses Not on filedocumented in this encounter
--- OUTSIDE RECORDS SUMMARY | 2022-05-28 14:09 | XMS_ITS | Encounter Summary ---
:1975 Author Organization [facility] Address [address] [place] [phone] Care Team Providers Name Role Phone Unavailable Primary Care Provider Unavailable Reason for Visit Reason Comments Allergy Testing Spirometry Outpatient (Routine) - Closed Specialty Diagnoses / Procedures Referred By Contact Refer red To Contact Diagnoses Asthma Moderate Persistent (HCC) Rhinitis Allergic Polyposis Nasal Chronic Cough Reji Terry M.D. [facility] Procedures Spirometry [address] [place] [phone] Referral ID Status Reason Start Date Expiration Date Visits Requ ested Visits Authorized [id number] Closed 12/25/2020 12/25/2021 1 1 Encounter Details Date Type Department Care Team Description 03/17/2021 Clinical Support Division of Allergic Tan Terry M.D. [address] [place] [address] [phone] Asthma Moderate Persistent (HCC); Diseases in Kathrine Cuevas R.N. [address] [place] [address] [phone] Rhinitis Allergic; [place], [place] Polyposis Nasal; [address] [facility] [place] [phone] Social History Tobacco Use Types Packs/Day Years [...] or relatives? How often do you attend yazidi or Never 2021 anabaptist services? Do you belong to any clubs or No 03/16/2022 organizations such as yazidi groups, unions, fraInvodo or athletic groups, or school groups? How [...] have completed or the highest Wilfredo, MEd, HOT CAR OPERATOR, CHANEL) degree you have received? Sex Assigned at Date Recorded Female 03/15/2021 1:43 PM CDT documented as of this encounter Plan of Treatment Not on filedocumented as of this encounter Procedures Procedure Name Priority Date/Time Associated Comments Diagnosis KS BRONCHODILATION Routine 03/17/2021 1:10 Asthma Moderate Res ults for this RESPONSIVENESS PM CDT Persistent (HCC) procedure are in Rhinitis Allergi c the results Polyposis Nasal section. Chronic Cough documented in this encounter Results Spirometry (03/17/2021 1:10 PM CDT) Analysis Performed At Patho logist Time Signature VC MAX POST 3.27 L 03/19/2021 [facility] 8:39 AM CDT SU[address] PostFVC 3.26 L 03/19/2021 [facility] 8:39 AM CDT SUITE PostFEV1 2.60 L 03/19/2021 [facility] 8:39 AM CDT SUITE FEV1/FVC POST 79.71 % 03/19/2021 [facility] 8:39 AM CDT SUITE FEF 25-75 % 2.29 L/s 03/19/2021 [facility] 8:39 AM CDT SUITE PEF POST 6.49 L/s 03/19/2021 [facility] 8:39 AM CDT SUITE FET POST 7.87 sec 03/19/2021 [facility] 8:39 AM CDT SUITE VC MAX PRE 3.31 L 03/19/2021 [facility] 8:39 AM CDT SUITE FVC 3.31 L 03/19/2021 [facility] 8:39 AM CDT SUITE FEV1 2.49 L 03/19/2021 [facility] 8:39 AM CDT SUITE FEV1/FVC 75.18 % 03/19/2021 [facility] 8:39 AM CDT SUITE KYE97-90% 1.97 L/s 03/19/2021 [facility] 8:39 AM CDT SUITE PEF PRE 6.51 L/s 03/19/2021 [facility] 8:39 AM CDT SUITE FET PRE 9.75 sec 03/19/2021 [facility] 8:39 AM CDT SUITE SUBSTANCE POST Albuterol 03/19/2021 [facility] 8:39 AM CDT SUITE DOSE POST 2 Puff 03/19/2021 [facility] 8:39 AM CDT SUITE % PRED VC MAX 96 % % 03/19/2021 [facility] 8:39 AM CDT SUITE FVC% 96 % % 03/19/2021 [facility] 8:39 AM CDT SUITE FEV1% 90 % % 03/19/2021 [facility] 8:39 AM CDT SUITE % PRED 93 % % 03/19/2021 [facility] FEV1/FVC 8:39 AM CDT SUITE % PRED FEF 70 % % 03/19/2021 [facility] 25-75% 8:39 AM CDT SUITE % PRED PEF 109 % % 03/19/2021 [facility] 8:39 AM CDT SUITE PRED VC MAX 3.46 03/19/2021 [facility] 8:39 AM CDT SUITE PRED FVC 3.46 03/19/2021 [facility] 8:39 AM CDT SUITE PRED FEV 1 2.78 03/19/2021 [facility] 8:39 AM CDT SUITE PRED FEV1/FVC 80.9 03/19/2021 [facility] 8:39 AM CDT SUITE PRED FEF 2.80 03/19/2021 [facility] 25-75% 8:39 AM CDT SUITE PRED PEF 6.0 03/19/2021 [facility] 8:39 AM CDT SUITE Specimen (Source) Anatomical Collection Method Collection Time Re ceived Time Location / / Volume Laterality 03/17/2021 1:10 PM CDT Narrative This result has an attachment that is no t available. Reji Terry M.D. PFT ORDERABLES Performing Organization Address City/State/ZIP Code Phon e Number [facility] documented in this encounter Visit Diagnoses Diagnosis Asthma Moderate Persistent (HCC) Rhinitis Allergic Polyposis Nasal Chronic Cough documented in this encounter
--- OUTSIDE RECORDS SUMMARY | 2022-05-28 14:09 | XMS_ITS | Encounter Summary ---
:1975 Author Organization [facility] Address [address] [place] [address] Care Team Providers Name Role Phone Unavailable Primary Care Provider Unavailable Encounter Details Date Type Department Care Team Description 05/19/2021 Orders Only [facility] - Merlin Gallo Elsewhere, Pcp [address] [place] [phone] Social History Tobacco Use [...] do you attend faith or Never 2021 taoism services? Do you belong to any clubs [...] completed or the highest Wilfredo, Jake, TRAINING MANAGER, CHANEL) degree you have received? Sex Assigned at Date Recorded Female 03/15/2021 1:43 PM CDT documented as of this encounter Plan of Treatment Not on filedocumented as of this encounter Visit Diagnoses Not on filedocumented in this encounter
--- OUTSIDE RECORDS SUMMARY | 2022-05-28 14:09 | XMS_ITS | Encounter Summary ---
:1975 Author Organization [facility] Address [address] [place] [address] Care Team Providers Name Role Phone Unavailable Primary Care Provider Unavailable Encounter Details Date Type Department Care Team Description 09/01/2021 Clinical Communication Division of Allergic [place], Diseases in [place], [place] [phone] [address] [facility] (Work) [place] [phone] Social History Tobacco Use Types Packs/Day Years [...] do you attend spiritism or Never 2021 mandaen services? Do you belong to any clubs [...] have completed or the highest Wilfredo, MEd, YOUTH WORKER, CHANEL) degree you have received? Sex Assigned at Date Recorded Female 03/15/2021 1:43 PM CDT documented as of this encounter Miscellaneous Notes Telephone Encounter - Cristela Mayer R.N. - 09/03/2021 10:27 AM CST Spoke with patient and relayed Dr. Terry's message. Patient is in agreement and will be reaching out to that provider to update them. Cristela Mayer R.N. CONTROL CLERK SUPERVISOR Telephone Encounter - Rosalia Lovell - 09/01/2021 12:20 PM CST Ms. Garcia called today to inquire if she needs to see Dr. Terry prior to a surgery she is having . She is having a cancerous nodule removed from her thyroid. She was not sure if it was necessary but wanted to check. She can be reached at [phone] CONTROL CLERK SUPERVISOR documented in this encounter Plan of Treatment Not on filedocumented as of this encounter Visit Diagnoses Not on filedocumented in this encounter
--- OUTSIDE RECORDS SUMMARY | 2022-05-28 14:09 | XMS_ITS | Encounter Summary ---
:1975 Author Organization [facility] Address [address] [place] [address] Care Team Providers Name Role Phone Unavailable Primary Care Provider Unavailable Encounter Details Date Type Department Care Team Description 05/06/2021 Orders Only Pharmacy Prior Auth RO Elsewhere, Pcp [phone] Social History Tobacco Use Types Packs/Day Years [...] do you attend uatsdin or Never 2021 cheondoism services? Do you [...] have completed or the highest Jake Villalobos, TAPE CUTTER, CHANEL) degree you have received? Sex Assigned at Date Recorded Female 03/15/2021 1:43 PM CDT documented as of this encounter Plan of Treatment Not on filedocumented as of this encounter Visit Diagnoses Not on filedocumented in this encounter
--- OUTSIDE RECORDS SUMMARY | 2022-05-28 14:10 | XMS_ITS | Encounter Summary ---
:1975 Author Organization [facility] Address [address] [place] [phone] Care Team Providers Name Role Phone Unavailable Primary Care Provider Unavailable Reason for Visit Reason Comments Med Refill Encounter Details Date Type Department Care Team Description 10/24/2020 Refill Division of Allergic Diseases Reji Sims M.D. Med Refill in [facility] [address] [facility] [address] [place] [address] [place] [address] [phone] Social History Tobacco Use Types Packs/Day Years [...] or relatives? How often do you attend christian or Never 2021 sikhism services? Do you belong to any clubs or No 03/16/2022 organizations such as christian groups, unions, fraternal or athletic groups, or [...] have completed or the highest Wilfredo, Jake, TURN DOWN ATTENDANT, CHANEL) degree you have received? Sex Assigned at Date Recorded Female 03/15/2021 1:43 PM CDT documented as of this encounter Plan of Treatment Not on filedocumented as of this encounter Visit Diagnoses Not on filedocumented in this encounter
--- OUTSIDE RECORDS SUMMARY | 2022-05-28 14:10 | XMS_ITS | Encounter Summary ---
:1975 Author Organization [facility] Address [address] [place] [address] Care Team Providers Name Role Phone Unavailable Primary Care Provider Unavailable Encounter Details Date Type Department Care Team Description 09/08/2019 Clinical Communication Division of Tan [place], Diseases [place] [address] [address] [facility] [address] [place] [phone] Social History Tobacco Use Types Packs/Day Years [...] or relatives? How often do you attend congregation or Never 2021 pentecostalism services? Do you belong to any clubs or No 03/16/2022 organizations such as congregation groups, unions, fraternal or athletic groups, or [...] or slept in a retirement (including now)? Sex Assigned at Date Recorded [...]
--- OUTSIDE RECORDS SUMMARY | 2022-05-28 14:10 | XMS_ITS | Encounter Summary ---
:1975 Author Organization [facility] Address [address] [place] [address] Care Team Providers Name Role Phone Unavailable Primary Care Provider Unavailable Encounter Details Date Type Department Care Team Description 12/26/2020 Clinical Communication Division of Tan [place], Diseases in [place] [address] [address] [facility] [address] [place] [phone] Social History Tobacco Use Types Packs/Day Years [...] or relatives? How often do you attend nondenominational or Never 2021 confucianist services? Do you belong to any clubs or No 03/16/2022 organizations such as nondenominational groups, unions, fraternal or athletic groups, or [...] have completed or the highest Wilfredo, MEd, LODGING HOUSE KEEPER, CHANEL) degree you have received? Sex Assigned at Date Recorded Female 03/15/2021 1:43 PM CDT documented as of this encounter Miscellaneous Notes Telephone Encounter - Dakotah Dave M.D. - 01/01/2021 4:18 PM CDT Yes, that would be OK. Telephone Encounter - Gracia Prasad - 01/01/2021 12:30 PM CDT [facility] calls again to check on prescription. [...]
--- OUTSIDE RECORDS SUMMARY | 2022-05-28 14:10 | XMS_ITS | Encounter Summary ---
:1975 Author Organization [facility] Address [address] [place] [address] Care Team Providers Name Role Phone Unavailable [...] do you attend mormon or Never 2021 hindu services? Do you belong to any clubs [...] Electronically signed by: ?? Annabella Vera MD. [id number] 13-Oct-2011 15:16 Procedure Note Lucio Vera M.D. - 09/25/2017Forma tting of this note might be different from the original. 13-Oct-2011 15:14:00 Exam: Chest-- 2 Vie ws Indications: chest pain ORIGINAL REPORT - 13-Oct-2011 15:16:00 Chest; 2 views: Negative chest. Electronically signed by: Annabella Vera MD. [id number] 13-Oct-2011 15:16 Pio Colbert M.D. IMG DIAGNOSTIC IMAGING PROCE DURES AST (Aspartate Aminotransferase) (10/13/2011 2:52 PM CDT) Patholo gist Method Time Signature Aspartate 20 8 - 43 [facility] Aminotransferase U/L LABORATORIES - (AST), [facility] Specimen Anatomical Collection Method Collection Time Receive d Time (Source) Location / / Volume Laterality 10/13/2011 2:52 PM 2 2:52 CDT PM CDT Pio Colbert M.D. LAB BLOOD ADD-ON Performing Organization Address City/[facility]/ZIP Code Phon e Number [facility] LABORATORIES - [address] [place] [address] [facility] Bilirubin, Total (10/13/2011 2:52 PM CDT) athologist Signature Bilirubin, 0.2 0.1 - 1.0 [facility] Total, P MG/DL LABORATORIES - [facility] Specimen Anatomical Collection Method Collection Time Receive d Time (Source) Location / / Volume Laterality 10/13/2011 2:52 PM 2 2:52 CDT PM CDT Pio Colbert M.D. LAB BLOOD ADD-ON Performing Organization Address City/[facility]/ZIP Code Phon e Number [facility] LABORATORIES - [address] [place] [address] [facility] Cardiac Biomarker Panel (10/13/2011 2:52 PM CDT) Patholo gist Method Time Signature Troponin T 3H, <0.01 <0.01 [facility] S NG/ML [facility] Delta Interp Not Sig [facility] Comment: No significant delta observed. Troponin Delta 0.00 NG/ML [facility] LAB [facility] Troponin T 6H, S . NG/ML [facility] L [facility] Comment: Test canceled. Patient discharg ed - N/C Troponin T, S <0.01 <0.01 NG/ML [facility] Specimen Anatomical Collection Method Collection Time Receive d Time (Source) Location / / Volume Laterality 10/13/2011 2:52 PM 2 2:52 CDT PM CDT Pio Colbert M.D. LAB BLOOD ADD-ON Performing Organization Address City/[facility]/ZIP [facility] Phon e Number [facility] LABORATORIES - [address] [place] [address] [facility] Bilirubin, Direct (10/13/2011 2:52 PM CDT) P athologist Signature Bilirubin, <0.1 0.0 - 0.3 [facility] Direct, P MG/DL [facility] Specimen Anatomical Collection Method Collection Time Receive d Time (Source) Location / / Volume Laterality 10/13/2011 2:52 PM 2 2:52 CDT PM CDT Pio Colbert M.D. LAB BLOOD ADD-ON Performing Organization Address City/[facility] Code Phon e Number [facility] LABORATORIES - [address] [place] [address] [facility] Electrolyte (Chem 4) Panel (10/13/2011 2:52 PM CDT) Analysis Performed At Patho logist Time Signature Sodium, P 140 135 - 145 [facility] MMOL/L [facility] Potassium, P 4.3 3.6 - 5.2 [facility] MMOL/L [facility] HX Bicarbonate, 29 22 - 29 [facility] P/S MMOL/L [facility] Creatinine 0.9 0.6 - 1.1 [facility] MG/DL [facility] eGFR >60 >60 [facility] Non-Black/Afric ML/MIN/BSA LABORATORIES - an [place] [facility] eGFR-Black/Afri >60 >60 [facility] can [place] ML/MIN/BSA LABORATORIES - [facility] Glucose, S 97 70 - 140 [facility] MG/DL LABORATORIES - [facility] Chloride, S 106 100 - 108 [facility] MMOL/L LABORATORIES - [facility] BUN (Blood Urea 15 6 - 21 [facility] Nitrogen), S MG/DL LABORATORIES - [facility] Specimen Anatomical Collection Method Collection Time Receive d Time (Source) Location / / Volume Laterality 10/13/2011 2:52 PM 2 2:52 CDT PM CDT Pio Colbert M.D. LAB BLOOD ADD-ON Performing Organization Address City/State/ZIP Code Phon e Number [facility] LABORATORIES - [address] [place], [place] [address] [facility] (ABNORMAL) CBC with Differential (10/13/2011 2:52 PM CDT) [facility] gist Method Time Signature Erythrocytes 4.49 3.90 - [facility] 5.03 LABORATORIES - X10(12)/L [facility] MCV 90.2 81.6 - [facility] 98.3 FL LABORATORIES - [facility] RBC Distrib 12.8 11.9 - [facility] Width 15.5 % LABORATORIES - [facility] Platelet Count 272 150 - 450 [facility] X10(9)/L LABORATORIES [facility] Lymphocytes 1.52 0.90 - [facility] 2.90 LABORATORIES - X10(9)/L [facility] Monocytes 0.55 0.30 - [facility] 0.90 LABORATORIES - X10(9)/L [facility] Hemoglobin 13.2 12.0 - [facility] 15.5 G/DL LABORATORIES - [facility] Hematocrit 40.5 34.9 - [facility] 44.5 % LABORATORIES - [facility] Leukocytes 9.9 3.5 - [facility] 10.5 LABORATORIES - X10(9)/L [facility] Neutrophils 6.67 1.70 - [facility] 7.00 LABORATORIES - X10(9)/L [facility] Eosinophils 1.09 (H) 0.05 - [facility] 0.50 LABORATORIES - X10(9)/L [facility] Basophils 0.05 0.00 - [facility] 0.30 LABORATORIES - X10(9)/L [facility] Specimen Anatomical Collection Method Collection Time Receive d Time (Source) Location / / Volume Laterality 10/13/2011 2:52 PM 2 2:52 CDT PM CDT Pio Colbert M.D. LAB BLOOD ADD-ON Performing Organization Address City/State/ZIP Code Phon e Number [facility] LABORATORIES - [address] [place] [address] [facility] Lipase (10/13/2011 2:51 PM CDT) P athologist Signature Lipase, S 22 10 - 73 U/L [facility] Specimen Anatomical Collection Method Collection Time Receive d Time (Source) Location / / Volume Laterality 10/13/2011 2:51 PM 2 2:51 CDT PM CDT Pio Colbert M.D. LAB BLOOD ADD-ON Performing Organization Address City/[facility]/ZIP Code Phon e Number [facility] LABORATORIES - [address] [place] [address] [facility] Alkaline Phosphatase (10/13/2011 2:51 PM CDT) P athologist Signature Alkaline 86 37 - 98 [facility] Phosphatase, S U/L [facility] Specimen Anatomical Collection Method Collection Time Receive d Time (Source) Location / / Volume Laterality 10/13/2011 2:51 PM 2 2:51 CDT PM CDT Pio Colbert M.D. LAB BLOOD ADD-ON Performing Organization Address City/State/ZIP Code Phon e Number [facility] LABORATORIES - [address] [place] [phone] 05 [facility] Lactate (10/13/2011 2:51 PM CDT) P athologist Signature Lactate, P 1.5 0.6 - 2.3 [facility] MMOL/L [facility] Specimen Anatomical Collection Method Collection Time Receive d Time (Source) Location / / Volume Laterality 10/13/2011 2:51 PM 2 2:51 CDT PM CDT Pio Colbert M.D. LAB BLOOD NON ADD-ON Performing Organization Address City/[facility]/ZIP Code Phon e Number [facility] LABORATORIES - [address] [place] [address] [facility] Amylase, Total (10/13/2011 2:51 PM CDT) P athologist Signature Amylase, 53 26 - 102 [facility] Total, S U/L LABORATORIES - [facility] Specimen Anatomical Collection Method Collection Time Receive d Time (Source) Location / / Volume Laterality 10/13/2011 2:51 PM 2 2:51 CDT PM CDT Pio Colbert M.D. LAB BLOOD ADD-ON Performing Organization Address City/State/ZIP Code Phon e Number [facility] LABORATORIES - [address] [place], [place] [address] [facility] (ABNORMAL) D-Dimer (10/13/2011 2:51 PM CDT) Patholo gist Method Time Signature Fibrinogen 0.52 (H) <=0.50 MCG [facility] Equivalent FEU/ML LABORATORIES - Units (FEU) [facility] D-Dimer, P 260 (H) SeeComment [facility] NG/ML LABORATORIES - [facility] Comment: Reference Range: ? <=250 ? The stated reference value is ? the cutoff to use D-Dimer for ? exclusion of deep vein ? thrombosis and/or pulmonary ? embolism. ? Specimen Anatomical Collection Method Collection Time Receive d Time (Source) Location / / Volume Laterality 10/13/2011 2:51 PM 2 2:51 CDT PM CDT Pio Colbert M.D. LAB BLOOD ADD-ON Performing Organization Address City/[facility]/ZIP Code Phon e Number [facility] LABORATORIES - [address] [place], [place] [address] [facility] Glucose, POCT (10/13/2011 2:50 PM CDT) [facility] gist Method Time Signature Glucose, POCT, 101 70 - 140 [facility] B MG/DL LABORATORIES - [facility] Sample Site, Venstick [facility] Blood Gas, LABORATORIES - POCT [facility] Specimen Anatomical Collection Method Collection Time Receive d Time (Source) Location / / Volume Laterality 10/13/2011 2:50 PM 2 2:50 CDT PM CDT Pio Colbert M.D. LAB POCT ORDERABLES-MANUAL Performing Organization Address City/State/ZIP Code Phon e Number [facility] LABORATORIES - [address] [place] [address] [facility] documented in this encounter Visit Diagnoses Not on filedocumented in this encounter
--- OUTSIDE RECORDS SUMMARY | 2022-05-28 14:10 | XMS_ITS | Encounter Summary ---
:1975 Author Organization [facility] Address [address] [place] [address] Care Team Providers Name Role Phone Unavailable Primary Care Provider Unavailable Encounter Details Date Type Department Care Team Description 12/26/2020 Orders Only Pharmacy Prior Auth Jelena Bauer [phone] Social History Tobacco Use Types Packs/Day Years [...] do you attend hinduism or Never 2021 anabaptist services? Do you [...] have completed or the highest Wilfredo, Jake, ROUSTABOUT PUSHER, CHANEL) degree you have received? Sex Assigned at Date Recorded Female 03/15/2021 1:43 PM CDT documented as of this encounter Plan of Treatment Not on filedocumented as of this encounter Visit Diagnoses Not on filedocumented in this encounter
--- OUTSIDE RECORDS SUMMARY | 2022-05-28 14:10 | XMS_ITS | Encounter Summary ---
:1975 Author Organization [facility] Address [address] [place] [address] Care Team Providers Name Role Phone Unavailable Primary Care Provider Unavailable Reason for Visit Appointment Request (Routine) - Closed Specialty Diagnoses / Procedures Referred By Contact Refer red To Contact Allergy and Immunology Diagnoses Asthma (HCC) Referral ID Status Reason Start Date Expiration Date Visits Requ ested Visits Authorized [id number] Closed 09/08/2019 09/07/2020 1 1 Encounter Details Date Type Department Care Team Description 10/16/2019 Virtual Visit Division of Allergic Reji Terry Asth ma Moderate Persistent (HCC) (Primary Dx); Diseases in [place], AdalidD. Rhinitis Allergic; [place] [address] [facility] Polyposis Nasal [address] [place] [phone] Social History Tobacco Use Types Packs/Day Years [...] do you attend taoism or Never 2021 catholic services? Do you belong to any [...] have completed or the highest Wilfredo, MEd, CROCODILE FARMER, CHANEL) degree you have received? 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 She has a known history of [...] denies excessive use. 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 ?? FAMILY HISTORY Asthma in her father. Unfortunately, her father is currently (October 16, 2019) hospitalized in [facility] in the [facility] with what is thought to be [...] instruments relatedto the horses with the barn sfdc technical architect who had recently prior to that returned from a trip from [facility]. Weunderstand her symptoms could have been a [...] much difficulty with her occupation as a repairer typewriter. PATIENT EDUCATION Barriers of understanding are assessed, [...] the plan of care, instructions, education and student assistance counselor to in conjunction with their face to face visit on October 16, 2019. documented in this encounter Plan of Treatment Not on filedocumented as of this encounter Visit Diagnoses Diagnosis Asthma Moderate Persistent (HCC) - Prima ry Rhinitis Allergic Polyposis Nasal documented in this encounter
--- OUTSIDE RECORDS SUMMARY | 2022-05-28 14:10 | XMS_ITS | Encounter Summary ---
:1975 Author Organization [facility] Address [address] [place] [address] Care Team Providers Name Role Phone Unavailable Primary Care Provider Unavailable Encounter Details Date Type Department Care Team Description 01/03/2021 Orders Only [facility] Abad Patel, Pcp [address] [place] [phone] Social History Tobacco Use Types Packs/Day Years [...] or relatives? How often do you attend amish or Never 2021 synagogue services? Do you belong to any clubs or No 03/16/2022 organizations such as amish groups, unions, fraternal or athletic groups, or [...] have completed or the highest Wilfredo, Jake, SOUND INSTALLATION WORKER, CHANEL) degree you have received? Sex Assigned at Date Recorded Female 03/15/2021 1:43 PM CDT documented as of this encounter Plan of Treatment Not on filedocumented as of this encounter Visit Diagnoses Not on filedocumented in this encounter
--- OUTSIDE RECORDS SUMMARY | 2022-05-28 14:10 | XMS_ITS | Encounter Summary ---
:1975 Author Organization [facility] Address [address] [place] [address] Care Team Providers Name Role Phone Unavailable Primary Care Provider Unavailable Reason for Visit Reason Comments Med Refill Encounter Details Date Type Department Care Team Description 11/08/2020 Refill Division of Allergic Diseases Reji Sims M.D. Med Refill in [facility] [address] [facility] [address] [place] [address] [place] [address] [phone] Social History Tobacco Use Types Packs/Day Years [...] do you attend confucianism or Never 2021 restorationism services? Do you belong to any clubs [...] have completed or the highest Wilfredo, Jake, MANAGER ASSURANCE, CHANEL) degree you have received? Sex Assigned at Date Recorded Female 03/15/2021 1:43 PM CDT documented as of this encounter Plan of Treatment Not on filedocumented as of this encounter Visit Diagnoses Not on filedocumented in this encounter
--- OUTSIDE RECORDS SUMMARY | 2022-05-28 14:10 | XMS_ITS | Encounter Summary ---
:1975 Author Organization [facility] Address [address] [place] [address] Care Team Providers Name Role Phone Unavailable Primary Care Provider Unavailable Encounter Details Date Type Department Care Team Description 11/17/[address] [facility], Pam Davis, [facility], [facility] Norma aden M.D. [address] [place] [phone] Social History Tobacco Use Types [...] or relatives? How often do you attend caodaism or Never 2021 gnosticism services? Do you belong to any clubs or No 03/16/2022 organizations such as caodaism groups, unions, fraternal or athletic groups, or [...] or slept in a jail (including now)? Sex Assigned at Date Recorded Female 03/15/2021 1:43 PM CDT documented as of this encounter Plan of Treatment Not on filedocumented as of this encounter Visit Diagnoses Not on filedocumented in this encounter
--- OUTSIDE RECORDS SUMMARY | 2022-05-28 14:10 | XMS_ITS | Encounter Summary ---
:1975 Author Organization [facility] Address [address] [place] [address] Care Team Providers Name Role Phone Unavailable Primary Care Provider Unavailable Encounter Details Date Type Department Care Team Description 01/17/2018 Orders Only [facility] - Christine HernandezRozina, [address] [facility] [address] [place] [address] [address] [place] , [place] [phone] 3 [place], [place] [address] (Wo rk) Social History Tobacco [...] do you attend rastafarian or Never 2021 sikh services? Do you belong to any clubs [...] or slept in a residential (including now)? Sex Assigned at Date Recorded Female 03/15/2021 1:43 PM CDT documented as of this encounter Plan of Treatment Not on filedocumented as of this encounter Visit Diagnoses Not on filedocumented in this encounter
--- OUTSIDE RECORDS SUMMARY | 2022-05-28 14:10 | XMS_ITS | Encounter Summary ---
:[address] [facility] Address [address] [place] [address] Care Team Providers Name Role Phone Unavailable Primary Care Provider Unavailable Encounter Details Date Type Department Care Team Description 12/26/2020 Orders Only [facility] Abad Patel, Pcp [address] [place] [phone] Social History Tobacco Use Types Packs/Day Years [...] do you attend temple or Never 2021 sabianist services? Do you belong to any clubs [...] have completed or the highest Wilfredo, Jake, SECURITY INTELLIGENCE ANALYST, CHANEL) degree you have received? Sex Assigned at Date Recorded Female 03/15/2021 1:43 PM CDT documented as of this encounter Plan of Treatment Not on filedocumented as of this encounter Visit Diagnoses Not on filedocumented in this encounter
--- OUTSIDE RECORDS SUMMARY | 2022-05-28 14:10 | XMS_ITS | Encounter Summary ---
:1975 Author Organization [facility] Address [address] [place] [address] Care Team Providers Name Role Phone Unavailable Primary Care Provider Unavailable Reason for Visit Reason Comments Prior Auth Request-ProAir Encounter Details Date Type Department Care Team Description 12/26/2020 Clinical Communication Outpatient Surgery Alf Ibarra, Prior Auth and Procedural Yarelis Moore R.N. Request-ProAir Admissions in [phone] [facility] [address] [place] [phone] Social History Tobacco Use Types Packs/Day [...] or relatives? How often do you attend sabianist or Never 2021 jainism services? Do you belong to any clubs or No 03/16/2022 organizations such as sabianist groups, unions, fraternal or athletic groups, or [...] have completed or the highest Wilfredo, MEd, DAY HAUL OR FARM CHARTER BUS DRIVER, CHANEL) degree you have received? Sex Assigned [...]
--- OUTSIDE RECORDS SUMMARY | 2022-05-28 14:10 | XMS_ITS | Encounter Summary ---
:1975 Author Organization [facility] Address [address] [place] [address] Care Team Providers Name Role Phone Unavailable Primary Care Provider Unavailable Reason for Visit Reason Onset Date Comments RX PRIOR AUTHORIZATION 12/17/2017 NEW RX FOR FLUTIC ASONE [place] Encounter Details Date Type Department Care Team Description 12/17/2017 Clinical [facility] Mana, KARMA PRIOR Communication [facility], JOSEP Chavez ([facility] C.Ph.T[facility] RX FOR FLUTICASONE Floor [address] [place] [address] [place]) [address] [place] [address] [phone] Social History Tobacco Use Types Packs/Day Years [...] do you attend shinto or Never 2021 yarsani services? Do you belong to any clubs [...]
--- OUTSIDE RECORDS SUMMARY | 2022-05-28 14:10 | XMS_ITS | Encounter Summary ---
:1975 Author Organization [facility] Address [address] [place] [address] Care Team Providers Name Role Phone Unavailable Primary Care Provider Unavailable Encounter Details Date Type Department Care Team Description 12/31/2020 Orders Only Pharmacy Prior Auth Joshua Zapata M.D. [phone] [address] [place], [place] [address] (Wo rk) Social History [...] or relatives? How often do you attend holiness or Never 2021 mormon services? Do you belong to any clubs or No 03/16/2022 organizations such as holiness groups, unions, fraternal or athletic groups, or [...] have completed or the highest Wilfredo, MEd, GARMENT EXAMINER, CHANEL) degree you have received? Sex Assigned at Date Recorded Female 03/15/2021 1:43 PM CDT documented as of this encounter Plan of Treatment Not on filedocumented as of this encounter Visit Diagnoses Not on filedocumented in this encounter
--- OUTSIDE RECORDS SUMMARY | 2022-05-28 14:10 | XMS_ITS | Encounter Summary ---
:1975 Author Organization [facility] Address [address] [place] [address] Care Team Providers Name Role Phone Unavailable Primary Care Provider Unavailable Reason for Visit Reason Comments Previsit Preparation Encounter Details Date Type Department Care Team Description 12/24/2020 Clinical Communication Division of Reji Terry sit Preparation Allergic Diseases Courtney Acosta in [address] [place] [phone] [place], [place] [phone] (Work) [phone] Social History Tobacco Use Types Packs/Day Years [...] do you attend quaker or Never 2021 mormonism services? Do you [...] have completed or the highest Wilfredo, Jake, HUMAN RESOURCES TEMP, CHANEL) degree you have received? Sex Assigned at Date Recorded Female 03/15/2021 1:43 PM CDT documented as of this encounter Plan of Treatment Not on filedocumented as of this encounter Visit Diagnoses Not on filedocumented in this encounter
--- OUTSIDE RECORDS SUMMARY | 2022-05-28 14:10 | XMS_ITS | Encounter Summary ---
:1975 Author Organization [facility] Address [address] [place] [address] Care Team Providers Name Role Phone Unavailable Primary Care Provider Unavailable Reason for Referral Outpatient (Routine) - Closed Specialty Diagnoses / Procedures Referred By Contact Refer red To Contact Allergy and Immunology Reji Terry M. D. [facility] [address] [place] [phone] Referral ID Status Reason Start Date Expiration Date Visits Requ ested Visits Authorized [id number] Closed 12/25/2020 12/25/2021 1 1 Scheduling Instructions Batch all tests on same day in 4-[address] Terry utpatient (Routine) - Closed Specialty Diagnoses / Procedures Referred By Contact Refer red To Contact Diagnoses Asthma Moderate Persistent (HCC) Rhinitis Allergic Polyposis Nasal Chronic Cough Reji Terry M.D. [facility] Procedures Spirometry [address] [place] [phone] Referral ID Status Reason Start Date Expiration Date Visits Requ ested Visits Authorized [id number] Closed 12/25/2020 12/25/2021 1 1 Reason for Visit Appointment Request (Routine) - Closed Specialty Diagnoses / Procedures Referred By Contact Refer red To Contact Allergy and Immunology Diagnoses Rhinitis Allergic Polyp Nasal Asthma (HCC) Reji Terry M.D. [address] [place] [phone] Referral ID Status Reason Start Date Expiration Date Visits Requ ested Visits Authorized [id number] Closed 11/08/2020 11/08/2021 1 1 Encounter Details Date Type Department Care Team Description 12/25/2020 Virtual Visit Division of Allergic Reji Terry Coug h Chronic (Primary Dx); [facility] Moderate Persistent ([facility]CC); [place] [address] [facility] Polyposis Nasal; [address] [place], [place] [phone] Social History Tobacco Use Types Packs/Day Years [...] do you attend samaritan or Never 2021 jain services? Do you belong to any clubs or No 03/16/2022 organizations such as samaritan groups, unions, fraternal or athletic groups, or [...] have completed or the highest Wilfredo, MEd, RECOVERY RN, CHANEL) degree you have received? Sex Assigned at Date Recorded Female 03/15/2021 1:43 PM CDT documented as of this encounter Consult Notes Reji Terry M.D. - 12/25/2020 2:30 PM CDT Referral: Reji Terry M.D. [address] [place] [address] CHIEF COMPLAINT / REASON FOR NON FACE TO FACE PHONE VISIT Ms. Ena Garcia is a 45 y.o. female who presents today for asthma and chronic cough. Ms. nEa Garcia has most recently been seen in the Division of Allergic Diseases on 10/16/2019. HISTORY OF PRESENT ILLNESS Ms. Ena Garcia is a pleasant 45 year female living in [place] which she reports is very close to [place] where her mother lives in where she [...] 2 (two) times a day. Use with pawn broker tube. Rinse mouth with water and spit [...] excessive use. ?? 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 ?? FAMILY HISTORY Asthma in her father. Unfortunately, her father is currently (October 16, 2019) hospitalized in [facility] in the [facility] with what is thought to [...] 2 (two) times a day. Use with pawn broker tube. Rinse mouth with water and spit [...] the plan of care, instructions, education and addictions counselor assistant to . documented in this encounter Plan of Treatment Scheduled Referrals Name Type Priority Associated Order Schedule Diagnoses Allergy and Outpatient Referral Routine Expected : Immunology office 01/24/2021 visit (clinic) (Approximate) , Expires: 12/26/2023 documented as of this encounter Results Spirometry (03/17/2021 1:10 PM CDT) Analysis Performed At Patho logist Time Signature VC MAX POST 3.27 L 03/19/2021 [facility] 8:39 AM CDT SUITE PostFVC 3.26 L 03/19/2021 [facility] 8:39 AM CDT SUITE PostFEV1 2.60 L 03/19/2021 [facility] 8:39 AM CDT SUITE FEV1/FVC POST 79.71 % 03/19/2021 [facility] 8:39 AM CDT SUITE FEF 25-75 % 2.29 L/s 03/19/2021 [facility] POST 8:39 AM CDT SUITE PEF POST 6.49 L/s 03/19/2021 [facility] 8:39 AM CDT SUITE FET POST 7.87 sec 03/19/2021 [facility] 8:39 AM CDT SUITE VC MAX PRE 3.31 L 03/19/2021 [facility] 8:39 AM CDT SUITE FVC 3.31 L 03/19/2021 [facility] 8:39 AM CDT SUITE FEV1 2.49 L 03/19/2021 [facility] 8:39 AM CDT SUITE FEV1/FVC 75.18 % 03/19/2021 [facility] 8:39 AM CDT SUITE SJL38-95% 1.97 L/s 03/19/2021 [facility] 8:39 AM CDT SUITE PEF PRE 6.51 L/s 03/19/2021 [facility] 8:39 AM CDT SUITE FET PRE 9.75 sec 03/19/2021 [facility] 8:39 AM CDT SUITE SUBSTANCE POST Albuterol 03/19/2021 [facility] 8:39 AM CDT SUITE DOSE POST 2 Puff 03/19/2021 [facility] 8:39 AM CDT SUITE % PRED VC MAX 96 % % 03/19/2021 [facility] 8:39 AM CDT SUITE FVC% 96 % % 03/19/2021 [facility] 8:39 AM CDT SUITE FEV1% 90 % % 03/19/2021 [facility] 8:39 AM CDT SUITE % PRED 93 % % 03/19/2021 [facility] FEV1/FVC 8:39 AM CDT SUITE % PRED FEF 70 % % 03/19/2021 [facility] 25-75% 8:39 AM CDT SUITE % PRED PEF 109 % % 03/19/2021 [facility] 8:39 AM CDT SUITE PRED VC MAX 3.46 03/19/2021 [facility] 8:39 AM CDT SUITE PRED FVC 3.46 03/19/2021 [facility] 8:39 AM CDT SUITE PRED FEV 1 2.78 03/19/2021 [facility] 8:39 AM CDT SUITE PRED FEV1/FVC 80.9 03/19/2021 [facility] 8:39 AM CDT SUITE PRED FEF 2.80 03/19/2021 [facility] 25-75% 8:39 AM CDT SUITE PRED PEF 6.0 03/19/2021 [facility] 8:39 AM CDT SUITE Specimen (Source) Anatomical Collection Method Collection Time Re ceived Time Location / / Volume Laterality 03/17/2021 1:10 PM CDT Narrative This result has an attachment that is no t available. Reji Terry M.D. PFT ORDERABLES Performing Organization Address City/State/ZIP Code Phon e Number [facility] SUITE [facility] SU[facility] NA DX Chest AP or [...]
--- OUTSIDE RECORDS SUMMARY | 2022-05-28 14:10 | XMS_ITS | Encounter Summary ---
:1975 Author Organization [facility] Address [address] [place] [address] Care Team Providers Name Role Phone Unavailable Primary Care Provider Unavailable Reason for Visit Reason Comments Intake Assessment Encounter Details Date Type Department Care Team Description 12/24/2020 Clinical Communication Division of [place] Intake Assessment Diseases in B, M.D. [place], [place] [address] [facility] 200 [place] [phone] Social History Tobacco Use Types Packs/Day Years [...] or relatives? How often do you attend oriental orthodox or Never 2021 synagogue services? Do you belong to any clubs or No 03/16/2022 organizations such as oriental orthodox groups, unions, fraternal or athletic groups, or [...] place to sleep or slept in a long-term (including now)? Education Answer Date Recorded What is the highest level of school Master's degree (e.g., Lissett Mazno MS, 10/11/2019 you have completed or the highest Wilfredo, Jake, LOGISTICS OPERATIONS MANAGER, CHANEL) degree you have received? Sex Assigned at Date Recorded Female 03/15/2021 1:43 PM CDT documented as of this encounter Plan of Treatment Not on filedocumented as of this encounter Visit Diagnoses Not on filedocumented in this encounter
--- OUTSIDE RECORDS SUMMARY | 2022-05-28 14:10 | XMS_ITS | Encounter Summary ---
:1975 Author Organization [facility] Address [address] [place] [address] Care Team Providers Name Role Phone Unavailable Primary Care Provider Unavailable Encounter Details Date Type Department Care Team Description 09/26/2020 Orders Only [facility] Kory Matthews Jr., M.D. [address] [place], [place] [address] [phone] (Wo rk) Social History [...] or relatives? How often do you attend confucianist or Never 2021 latter-day services? Do you belong to any clubs or No 03/16/2022 organizations such as confucianist groups, unions, fraternal or athletic groups, or [...] have completed or the highest Wilfredo, Jake, LEATHER NOVELTY PARTS CUTTER, CHANEL) degree you have received? Sex Assigned at Date Recorded Female 03/15/2021 1:43 PM CDT documented as of this encounter Plan of Treatment Not on filedocumented as of this encounter Visit Diagnoses Not on filedocumented in this encounter
== END 2022-05-20 20:25 | disposition home or self-care (01) ==
LOC: AMB 05-28 13:30
PROVIDERS: PCP Internal Medicine; Visit Provider Emergency Medicine Emergency Medical Services
DX: S32.019S Unspecified fracture of first lumbar vertebra, sequela (principal); S32.029S Unspecified fracture of second lumbar vertebra, sequela
CPT/HCPCS: A0425; A0428

== ENCOUNTER 2022-09-09 13:14 | Outpatient (CLI) | payer MEDICAID, SELFPAY ==
--- NOTE | 2022-09-09 13:20 | CRLHL7_ITS ---
For Patients: As a result of the Century Cures Act, medical imaging exams and procedure reports are released immediately into your electronic medical record. You may view this report before your referring provider. If you have questions, please contact your health care provider. BILATERAL DIGITAL SCREENING MAMMOGRAM WITH COMPUTER-AIDED DETECTION CLINICAL HISTORY: Routine screening exam. COMPARISON: 05/28/2021. TECHNIQUE: Digital mammogram in CC and MLO projections including computer-aided detection (CAD). BREAST COMPOSITION: There are areas of scattered fibroglandular density. FINDINGS: RIGHT Breast: Focal asymmetric density within the upper inner quadrant 9 cm from the nipple. LEFT Breast: No suspicious findings. IMPRESSION: RIGHT breast asymmetry/mass. RECOMMENDATIONS: Additional mammographic views of the RIGHT breast including 3D spot compression CC/MLO. RIGHT breast ultrasound may also be required. BI-RADS Category 0: Incomplete: Need Additional Imaging Evaluation and/or Prior Mammograms for Comparison [facility] will contact the patient for follow-up. A lay language report of this examination will be provided to the patient. Dictated by Rosas Meredith MD @ 09/10/2022 9:52:12 AM jj/Dictated by: Rosas Meredith MD @ 09/10/2022 9:52:00 AM (Electronically Signed)
== END 2022-09-09 13:15 | disposition home or self-care (01) ==
LOC: MAMMO 13:15
PROVIDERS: PCP Internal Medicine; Visit Provider Internal Medicine
DX: Z12.31 Encounter for screening mammogram for malignant neoplasm of breast (principal); N63.10 Unspecified lump in the right breast, unspecified quadrant
CPT/HCPCS: 77067

== ENCOUNTER 2022-09-15 08:32 | Outpatient (CLI) | payer MEDICAID, SELFPAY ==
--- NOTE | 2022-09-15 08:45 | CRLHL7_ITS ---
For Patients: As a result of the Cures Act, medical imaging exams and procedure reports are released immediately into your electronic medical record. You may view this report before your referring provider. If you have questions, please contact your health care provider. DIGITAL DIAGNOSTIC RIGHT MAMMOGRAM USING TOMOSYNTHESIS AND COMPUTER-AIDED DETECTION RIGHT BREAST ULTRASOUND CLINICAL HISTORY: RIGHT breast mass/asymmetry. COMPARISON: 09/09/2022. TECHNIQUE: Digital RIGHT mammogram in two projections. Tomosynthesis and CAD utilized. Real-time ultrasound imaging of RIGHT breast with imaging documentation. Scanning was performed by both the technologist and the radiologist. BREAST COMPOSITION: There are areas of scattered fibroglandular density. FINDINGS: 3D spot compression CC/MLO RIGHT breast mammogram images submitted. Decreased conspicuity of the previously noted density in the upper inner quadrant. No architectural distortion. No suspicious calcifications. Targeted RIGHT breast ultrasound performed in the upper inner quadrant 1 o`clock 9 cm from the nipple. No discernible sonographic abnormality is present. Edge shadowing artifacts noted. No findings concerning for malignancy. No fibrocystic change. IMPRESSION: No evidence of malignancy. RECOMMENDATIONS: Annual BILATERAL screening mammography. Results and recommendations discussed with the patient. BI-RADS Category 2: Benign A lay language report of this examination will be provided to the patient. Dictated by Rosas Meredith MD @ 09/15/2022 11:51:48 AM /Dictated by: Rosas Meredith MD @ 09/15/2022 11:51:00 AM (Electronically Signed)
--- NOTE | 2022-09-15 09:15 | CRLHL7_ITS ---
For Patients: As a result of the Cures Act, medical imaging exams and procedure reports are released immediately into your electronic medical record. You may view this report before your referring provider. If you have questions, please contact your health care provider. PLEASE SEE DIGITAL DIAGNOSTIC RIGHT MAMMOGRAM PERFORMED SAME DAY CRL:[email or web address] jerry/Dictated by: Rosas Meredith MD @ 09/15/2022 11:51:00 AM (Electronically Signed)
== END 2022-09-15 08:33 | disposition home or self-care (01) ==
LOC: MAMMO 08:32
PROVIDERS: PCP Internal Medicine; Visit Provider Internal Medicine
DX: R92.8 Other abnormal and inconclusive findings on diagnostic imaging of breast (principal); N63.10 Unspecified lump in the right breast, unspecified quadrant
CPT/HCPCS: 76642; 77065; G0279

== ENCOUNTER 2022-10-15 10:15 | Outpatient (RCR) | payer MEDICAID, SELFPAY | END 2022-10-30 10:04 | disposition home or self-care (01) | PROVIDERS: PCP Internal Medicine; Visit Provider Nurse Practitioner Gerontology | DX: S32.048A Other fracture of fourth lumbar vertebra, initial encounter for closed fracture (principal); M43.16 Spondylolisthesis, lumbar region; M53.86 Other specified dorsopathies, lumbar region; M54.50 Low back pain, unspecified; M62.81 Muscle weakness (generalized); Z51.89 Encounter for other specified aftercare | CPT/HCPCS: 97110; 97161 ==

== ENCOUNTER 2022-10-19 10:00 | Outpatient (CLI) | payer MEDICAID, SELFPAY ==
--- NOTE | 2022-10-19 10:15 | MR_ITS ---
[facility] [address] [facility] [address] Phone:?[phone] Fax:?[phone] Referring Physician Information: Naomi Olsen M.D. [facility] [address] [facility] [address] Phone:?[phone] Fax:?[phone] Patient:?Ena Garcia D.O.B:?1975 Sex:?Female Phone:?[phone] [facility] MRN:?[id number] Exam Date:?10/19/2022 ? EXAM: MRI of the LEFT SHOULDER, without contrast CLINICAL INFORMATION: Female, 47 years old, with left shoulder pain. INDICATION: Evaluate for rotator cuff tear. PRIOR SURGERY: None reported. PLAIN FILMS: None available. COMPARISONS: No prior MRIs available. TECHNICAL INFORMATION: Using a 1.5T MR scanner and a localizing surface coil: coronal obliques: PD, T2, STIR sagittal obliques: PD, T2 axials: PD, T2 SEDATION: None CONTRAST: None FINDINGS: Bones: Proximal humerus: No fracture or marrow edema/pathology. No humeral Hill-Sachs or reverse Hill-Sachs lesion/impaction or contusion. Glenoid: No fracture or marrow edema/pathology. No osseous Bankart lesion. Rotator cuff and muscles/tendons: Supraspinatus: Minimal supraspinatus tendinopathy, without tendon tear or muscle atrophy. Infraspinatus: Minimal infraspinatus tendinopathy, without tear. Teres minor: No tendinopathy, tear or atrophy. Subscapularis: No tendinopathy, tear or atrophy. Deltoid: No strain or atrophy. Coracoacromial arch: Acromion morphology: The acromion has type II morphology. No discrete subacromial osseous spur or os acromiale. Acromiohumeral space: The acromiohumeral space is within normal limits. Coracohumeral space: The coracohumeral space is within normal limits. Acromioclavicular joint: Joint: Mild AC joint arthropathy, without significant inferior osteophytosis or evidence of supraspinatus impingement. Ligaments: Coracoclavicular ligaments are intact. Bursae: Subacromial-subdeltoid: No convincing subacromial bursal thickening/bursitis. Subcoracoid: No convincing subcoracoid bursal thickening/bursitis. Biceps tendon: The long head of the biceps tendon is present within the bicipital groove. The intra-articular and extra-articular segments are intact without tendinosis, tenosynovitis, or displacement. Glenohumeral joint: Effusion/cyst: Moderate glenohumeral joint effusion, with synovitis. Articular cartilage: Humeral head: Mild-moderate thinning of the articular cartilage is present throughout the medial aspect of the humeral head with mild inferomedial marginal osteophytosis. Glenoid: Mild generalized thinning of the glenoid articular cartilage, with mild marginal osteophytosis. Loose bodies: No discrete intra-articular body within the joint. Labrum:?Circumferential degeneration and fraying of the labrum, which is of doubtful clinical significance. Inferior glenohumeral ligament/axillary pouch:?Mild-moderate thickening of inferior capsuloligamentous structures (coronal PD series 5 images 13-20). Additionally, there is soft tissue thickening throughout the rotator interval (sagittal PD series 7 images 11-17). IMPRESSION: 1. Mild osteoarthritis of the glenohumeral joint with a moderate joint effusion and synovitis. 2. Minimal supraspinatus & infraspinatus tendinopathy. No rotator cuff tendon tear. 3. Mild AC joint arthropathy. No subacromial-subdeltoid bursitis or narrowing of the acromiohumeral space. 4. Findings in keeping with any clinical symptoms of adhesive capsulitis. 5. Circumferential degeneration and fraying of the labrum, which is of doubtful clinical significance. 6. No tendinopathy, displacement, or tear of the biceps long head tendon. BC Electronically signed on 10/19/2022 3:12:00 PM by Uriah Barrett M.D.
== END 2022-10-19 10:01 | disposition home or self-care (01) ==
PROVIDERS: PCP Internal Medicine; Visit Provider Internal Medicine
DX: M25.512 Pain in left shoulder (principal); M25.412 Effusion, left shoulder; M75.02 Adhesive capsulitis of left shoulder; M19.012 Primary osteoarthritis, left shoulder
CPT/HCPCS: 73221

== ENCOUNTER 2023-01-07 11:00 | Outpatient (RCR) | payer MEDICAID, SELFPAY | END 2023-02-22 10:04 | disposition home or self-care (01) | PROVIDERS: PCP Internal Medicine; Visit Provider Orthopaedic Surgery | DX: M75.02 Adhesive capsulitis of left shoulder (principal); M25.512 Pain in left shoulder; M62.81 Muscle weakness (generalized); Z51.89 Encounter for other specified aftercare | CPT/HCPCS: 97110; 97112; 97140; 97161 ==

== ENCOUNTER 2023-09-13 11:12 | Outpatient (CLI) | payer MEDICAID, SELFPAY ==
--- NOTE | 2023-09-13 11:30 | MM_ITS ---
Patient: CELESTE SCHAFER Facility:?[facility] Patient ID:?[id number] Site Patient ID:?[id number] Site :?1975 Study:?XRay-Breast Bilateral 3D W/CAD-09/13/2023 11:39:35 AM Ordering Physician:Naomi Le Final Report: BILATERAL SCREENING MAMMOGRAM WITH COMPUTER-AIDED DETECTION AND TOMOSYNTHESIS TECHNIQUE: CC and MLO views were obtained. These mammographic images have been obtained using full-field digital technique. These mammographic images were interpreted with the benefit of computer-aided detection. Breast Tomosynthesis was used in this interpretation. COMPARISON FILM: 09/09/22, 05/28/21. FINDINGS: There are scattered areas of fibroglandular density. IMPRESSION: There is no radiographic evidence for malignancy. ASSESSMENT: BI-RADS Category 1: Negative RECOMMENDATION: Routine screening mammogram in 1 year. A lay language report of this examination will be provided to the patient. Rosas Meredith M.D. Diagnostic Radiologist [email or web address] DSM/sp R& Transcribed: 2:56 p.m. SP/Dictated by: Rosas Meredith MD @ 09/13/2023 11:51:00 AM Signed by:?Rosas Meredith MD @09/13/2023 3:53:46 PM (Electronic Signature)
== END 2023-09-13 11:13 | disposition home or self-care (01) ==
LOC: MAMMO 11:13
PROVIDERS: PCP Internal Medicine; Visit Provider Internal Medicine
DX: Z12.31 Encounter for screening mammogram for malignant neoplasm of breast (principal)
CPT/HCPCS: 77063; 77067

== ENCOUNTER 2024-09-22 13:26 | Outpatient (CLI) | payer MEDICAID, SELFPAY ==
--- NOTE | 2024-09-22 13:40 | CRLHL7_ITS ---
For Patients: As a result of the Century Cures Act, medical imaging exams and procedure reports are released immediately into your electronic medical record. You may view this report before your referring provider. If you have questions, please contact your health care provider. BILATERAL SCREENING MAMMOGRAM WITH COMPUTER-AIDED DETECTION AND TOMOSYNTHESIS TECHNIQUE: CC and MLO views were obtained. These mammographic images have been obtained using full-field digital technique. These mammographic images were interpreted with the benefit of computer-aided detection. Breast Tomosynthesis was used in this interpretation. COMPARISON FILM: 09/13/23, 09/09/22, 05/28/21. FINDINGS: The breasts are almost entirely fatty. IMPRESSION: There is no radiographic evidence for malignancy. ASSESSMENT: BI-RADS Category 2: Benign RECOMMENDATION: Routine screening mammogram in 1 year. A lay language report of this examination will be provided to the patient. Rosas Meredith M.D. Diagnostic Radiologist [email or web address] SP/Dictated by: Rosas Meredith MD @ 09/28/2024 10:36:00 AM (Electronically Signed)
== END 2024-09-22 13:27 | disposition home or self-care (01) ==
LOC: MAMMO 13:27
PROVIDERS: PCP Internal Medicine; Visit Provider Internal Medicine
DX: Z12.31 Encounter for screening mammogram for malignant neoplasm of breast (principal)
CPT/HCPCS: 77063; 77067